=== PATIENT | male | born 1975 | race Two or more races ===

== ENCOUNTER 2019-12-21 08:03 | Outpatient (REF) | payer OTHER, SELFPAY | END 2019-12-21 08:04 | disposition home or self-care (01) | LOC: HO.MRI 08:03 | PROVIDERS: Visit Provider Internal Medicine | DX: M47.22 Other spondylosis with radiculopathy, cervical region (principal); G56.03 Carpal tunnel syndrome, bilateral upper limbs ==

== ENCOUNTER 2020-02-05 13:20 | Emergency (ER) | payer OTHER, SELFPAY | END 2020-02-05 15:42 | disposition left against medical advice (07) | PROVIDERS: Emergency Provider Emergency Medicine; PCP Internal Medicine | DX: R07.9 Chest pain, unspecified (principal); M79.602 Pain in left arm; M79.601 Pain in right arm | CPT/HCPCS: 99281; 99283 ==

== ENCOUNTER → 2020-03-21 13:11 | Outpatient (REF) | payer OTHER, SELFPAY ==
--- NOTE | 2020-03-21 14:00 | CA_ITS ---
Transthoracic Echocardiogram Patient (Last, First, Middle): Carlos Rice J Gender: Male Date of : 1975 Age: 44 Procedure Date: 03/21/2020 Procedure Type: Transthoracic Echocardiogram Location: OP Height: 177.8 cm Weight: 115.21 kg BSA: 2.31 m2 Heart Rate: bpm BP: 121 / 84 mmHg Supportability Engineer: DEWAYNE Referring MD: Shashank Monroy MD Heavy Equipment Field Mechanic: Contreras Morris MD Symptoms: R07.2 PRECARDIAL CHEST PAIN,R94.39 ABNORMAL MYOCARDIAL PERFU Study Quality: Fair ECG Rhythm: Sinus Conclusions: - 1. 1. Normal LV systolic function with grade 1 diastolic dysfunction with inferior wall motion abnormality 2. Normal cardiac valvular Doppler 3. Normal RV systolic pressure 4. No pericardial effusion Findings Left Ventricle Normal left ventricular size, thickness, and systolic function. The visually estimated ejection fraction is between 55-60%. Spectral Doppler is indicative of an impaired relaxation filling pattern. E/E prime ratio is <8, consistent with normal filling pressures. Evidence suggests grade I (mild) diastolic dysfunction. Wall Motion Rest Echo Findings The mid inferior and mid inferoseptal segments are hypokinetic. The basal inferior and basal inferoseptal segments are akinetic. All other scored wall segments showed normal motion. Right Ventricle Normal right ventricular cavity size and systolic function. Atria Both atria are normal in size. There is no evidence of interatrial shunt. Aortic Valve Normal aortic valve structure and function. There is no aortic valve stenosis. There is no aortic valve regurgitation. Mitral Valve Normal mitral valve structure and function. There is trace mitral valve regurgitation. There is no mitral valve stenosis. Pulmonic Valve The pulmonic valve was not well visualized. Tricuspid Valve Likely normal tricuspid valve structure and function. There is mild tricuspid valve regurgitation. The right ventricular systolic pressure is normal. The right ventricular systolic pressure is 19 mmHg. There is no evidence of pulmonary hypertension. Great Vessels All visible segments of the aorta are normal in size. The pulmonary artery was not well visualized. Venous The inferior vena cava is normal in size and collapses greater than 50% with inspiration. Pericardium/Pleural There is no evidence of pericardial effusion. Prior Study Comparison No significant change compared to prior study dated: 02/18/2019. Measurements 2D Linear Measurements IVSd: 1.08 0.6-0.9/0.6-1.0 cm LVIDd: 4.46 3.9-5.3/4.2-5.9 cm LVIDd Index: 1.93 2.4-3.2/2.2-3.1 cm/m2 LVIDs: 3.42 2.0-3.6 cm LVPWd: 1.14 0.7-1.1 cm Ao Root: 2.60 2.1-3.5 cm LA Diam: 3.10 2.7-3.8/3.0-4.0 cm LAIDs Index: 1.34 1.5-2.3 cm/m2 LV Mass: 217.74 67-162/88-224 g LV Mass Index: 94.26 43-95/49-115 g/m2 LVOT Diam: 2.10 3.0+(-)1.3 cm 2D Systolic Function EF 4C: 56.30 >55% EF 2C: 61.10 >55% EF BiP: 58.50 >55% Mitral Valve MV Pk E: 0.48 MV PK A: 0.68 MV Decel Time: 225.00 E/A: 0.70 E'Lateral: 12.20 E'Medial: 7.93 E/E' Med: 6.00 E/E' Lat: 3.90 PHT: 66.00 MVA PHT: 3.33 Decel Kidder: 2.11 Aortic Valve AoV Pk Derek: 1.28 AoV Pk Grad: 7.00 LVOT LVOT Pk Derek: 0.87 LVOT Mn Derek: 0.61 LVOT VTI: 0.14 LVOT Pk Grad: 3.00 LVOT Mn Grad: 2.00 LVOT Diam: 2.10 LVOT Area: 3.46 Diastolic Function MV Pk E: 0.48 MV Pk A: 0.68 E/A: 0.70 E'Medial: 7.93 E/E' Med: 6.00 E' Laterial: 12.20 E/E' Lat: 3.90 Tricuspid Valve TR Pk Derek: 1.98 TR Pk Grad: 16.00 RA Press: 3.00 RVSP: 19.00 Great Vessels Aorta Ao Root-2D: 2.60 2.0-3.7 cm Ao Asc: 2.80 2.1-3.4 cm Updated in Other Vendor System with Status of Final Contreras Alexandra MD electronically signed on 03/22/2020 12:20:11 PM with status of Final
--- NOTE | 2020-03-21 14:14 | US_ITS ---
EXAMINATION: US THYROID CLINICAL INFORMATION: Nontoxic goiter, unspecified. COMPARISON: None. TECHNIQUE: Linear transducer hui-scale and color Doppler examination with attention to the region of the thyroid. FINDINGS: SIZE: Measurements of the thyroid lobes and nodules are given in sagittal, anteroposterior and transverse dimensions respectively. Right Thyroid Lobe: 6.9 x 2.7 x 3.64 cm, volume 49.0 mL. Parenchyma: The gland echotexture is heterogeneous. Thyroid vascularity is normal. Left Thyroid Lobe: 6.8 x 3.4 x 2.9 cm, volume 46.3 mL. Parenchyma: The gland echotexture is heterogeneous. Thyroid vascularity is normal. Isthmus: 0.95 cm in maximum AP dimension. RIGHT THYROID LOBE: There are 3 nodules seen. 1. Location: Superior. Size: 1.5 x 1.4 x 1.6 cm. Nodule characteristics: Heterogeneous with smooth margins and no Doppler detectable vascular flow. 2. Location: Middle. Size: 4.1 x 3.3 x 2.8 cm. Nodule characteristics: Heterogeneous with smooth margins and no Doppler detectable vascular flow. 3. Location: Superior. Size: 0.83 x 0.53 x 0.80 cm. Nodule characteristics: Heterogeneously hypoechoic with smooth margins and no Doppler detectable vascular flow. ISTHMUS: No nodules. LEFT THYROID LOBE: There are 3 nodules seen. 1. Location: Middle. Size: 1.3 x 0.71 x 1.1 cm. Nodule characteristics: Heterogeneous with smooth margins and no Doppler detectable vascular flow. 2. Location: Middle. Size: 2.6 x 1.3 x 3.1 cm. Nodule characteristics: Heterogeneous with smooth margins and no Doppler detectable vascular flow. 3. Location: Middle. Size: 4.5 x 3.3 x 3.8 cm. Nodule characteristics: Heterogeneous with smooth margins and no Doppler detectable vascular flow. NODES: No lymphadenopathy is seen in the tissue surrounding the thyroid gland. US/US thyroid IMPRESSION: Heterogeneous thyroid parenchyma with normal vascularity. Prominent thyromegaly. Multiple bilateral thyroid nodules, the largest of which measures up to 4.5 cm within the mid left thyroid. The nodules appear heterogeneous with smooth margins and no Doppler detectable vascular flow. Various management parameters for solitary thyroid nodules are in the literature. According to the latest 2016 [place] [employer] guidelines, recommendations for thyroid nodules are as follows: Benign: Purely cystic nodules (no solid component). Estimated risk of malignancy < 1%. Recommendation: No biopsy or ultrasound follow up required. Very low suspicion: Spongiform or partially cystic nodules without any of the sonographic features described in low, intermediate or high suspicions patterns. Estimated risk of malignancy < 3%. Recommendation: Consider FNA at > 2 cm. Observation without FNA is also a reasonable option. Recommend repeat ultrasound in 24 months for nodules measuring greater than 1 cm. Nodule measuring less than 1 cm do not require ultrasound follow up. Low suspicion: Isoechoic or hyperechoic solid nodule, or partially cystic nodule with eccentric solid areas, without microcalcification, irregular margin or extrathyroidal extension, or taller than wide shape. Estimated risk of malignancy 5-10%. Recommendation: FNA at > 1.5 cm. Recommend repeat ultrasound in 12-24 months for nodules measuring less than 1.5 cm. Intermediate suspicion: Hypoechoic solid nodule with smooth margins without microcalcification, extrathyroidal extension, or taller than wide shape. Estimated risk of malignancy 10-20%. Recommendation: FNA at > 1 cm. Recommend repeat ultrasound in 12-24 months for nodules measuring less than 1 cm. High suspicion: Solid hypoechoic nodule or solid hypoechoic component of a partially cystic nodule with one or more of the following features: irregular margins (infiltrative, microlobulated), microcalcifications, taller than wide shape, rim calcifications with small extrusive soft tissue component, evidence of extrathyroidal extension. Estimated risk of malignancy > 70-90%. Recommendation: FNA at > 1 cm. Recommend repeat ultrasound in 6-12 months for nodules measuring less than 1 cm.
== END ==
LOC: HO.CARD 13:11
PROVIDERS: PCP Internal Medicine; Visit Provider Internal Medicine
DX: R07.2 Precordial pain (principal); R94.39 Abnormal result of other cardiovascular function study; E04.9 Nontoxic goiter, unspecified
CPT/HCPCS: 76536; 93306

== ENCOUNTER 2020-03-22 08:20 | Outpatient (REF) | payer OTHER, SELFPAY ==
[2020-03-22 11:47] LABS: Estimated Average Glucose 194 mg/dL; Hemoglobin A1c % 8.4 %
[2020-03-22 12:03] LABS: Creatinine Urine 128.45 mg/dL; Microalbum/Creatinine Ratio Ur 9.3 ug/mg cr
[2020-03-22 12:10] LABS: Alanine Aminotransferase 43 U/L (0-40); Anion Gap 16 (12-20); Aspartate Amino Transferase 34 U/L (5-37); Blood Urea Nitrogen 12 mg/dL (9-16); Calcium 9.4 mg/dL (8.4-10.2); Carbon Dioxide 24 mmol/L (22-29); Chloride 106 mmol/L (96-108); Cholesterol 155 mg/dL; Estimated Glomerular Filt Rate > 60; Glucose Fasting 172 mg/dL (60-99); HDL Cholesterol 33 mg/dL; LDL Cholesterol Calculated 47 mg/dl; Potassium 4.4 mmol/l (3.3-5.1); Sodium 142 mmol/L (135-145); Triglycerides 379 mg/dL
[2020-03-22 12:11] LABS: Free T4 (Free Thyroxine) 0.99 ng/dL (0.71-1.85); Thyroid Stimulating Hormone 0.46 uIU/mL (0.32-4.0)
[2020-03-23 11:27] LABS: Thyroid Peroxidase Antibodies <1 IU/mL (<9)
== END 2020-03-22 08:21 | disposition home or self-care (01) ==
LOC: HO.HMGCLDS 08:20
PROVIDERS: PCP Internal Medicine; Visit Provider Internal Medicine
DX: E11.65 Type 2 diabetes mellitus with hyperglycemia (principal); E11.42 Type 2 diabetes mellitus with diabetic polyneuropathy; E66.01 Morbid (severe) obesity due to excess calories; E78.1 Pure hyperglyceridemia; I10 Essential (primary) hypertension; E03.9 Hypothyroidism, unspecified; E04.9 Nontoxic goiter, unspecified
CPT/HCPCS: 36415; 80048; 80061; 82043; 83036; 84439; 84443; 84450; 84460; 86376

== ENCOUNTER → 2020-03-28 10:28 | Outpatient (BNVA) | payer OTHER, SELFPAY | PROVIDERS: PCP Internal Medicine; Visit Provider Anesthesiology | DX: M06.9 Rheumatoid arthritis, unspecified (principal); M79.7 Fibromyalgia; M50.30 Other cervical disc degeneration, unspecified cervical region; M47.812 Spondylosis without myelopathy or radiculopathy, cervical region; M48.02 Spinal stenosis, cervical region | CPT/HCPCS: 99202 ==

== ENCOUNTER → 2020-03-30 12:13 | Outpatient (BNVA) | payer OTHER, SELFPAY | PROVIDERS: PCP Internal Medicine; Visit Provider Internal Medicine | DX: Z01.810 Encounter for preprocedural cardiovascular examination (principal); E11.8 Type 2 diabetes mellitus with unspecified complications; I10 Essential (primary) hypertension; E78.5 Hyperlipidemia, unspecified; Z87.898 Personal history of other specified conditions | CPT/HCPCS: 93005; 99212 ==

== ENCOUNTER 2020-04-29 10:20 | Outpatient (REF) | payer OTHER, SELFPAY ==
[2020-04-29 11:10] LABS: MANUAL DIFF FLAG NO
[2020-04-29 11:17] LABS: Basophils Percent Auto 0.2 % (0-2); Eosinophils Absolute Auto 0.1 X10*3/uL (0.0-0.4); Eosinophils Percent Auto 1.5 % (0-4); Hematocrit 40.5 % (42-52); Hemoglobin 13.7 g/dl (14.0-18.0); Imm Gran Abs Auto 0.03 X10*3/uL (0.00-0.03); Imm Gran Pct Auto 0.6 % (0.0-0.4); Lymphocytes Absolute Auto 1.9 X10*3/uL (1.2-4.9); Lymphocytes Percent Auto 35.3 % (20-40); Mean Corpuscular HGB Conc 33.8 g/dl (31.0-36.0); Mean Corpuscular Hemoglobin 30.6 pg (27.0-33.0); Mean Corpuscular Volume 90.6 fL (80-98); Mean Platelet Volume 11.4 fL (9.4-12.4); Monocytes Absolute Auto 0.5 X10*3/uL (0.1-1.2); Monocytes Percent Auto 9.6 % (2-11); Neutrophils Absolute Auto 2.8 X10*3/uL (2.0-8.3); Neutrophils Percent Auto 52.8 % (45-73); Platelet Count 193 X10*3/uL (160-400); Red Blood Count 4.47 X10*6/uL (4.60-5.80); Red Cell Distribution Width 12.8 % (11.0-16.0); White Blood Count 5.3 X10*3/uL (4.8-10.8)
[2020-04-29 11:45] LABS: Anion Gap 15 (12-20); Blood Urea Nitrogen 14 mg/dL (9-16); Calcium 9.5 mg/dL (8.4-10.2); Carbon Dioxide 27 mmol/L (22-29); Chloride 103 mmol/L (96-108); Estimated Glomerular Filt Rate > 60; Glucose Random 197 mg/dL (60-115); Sodium 141 mmol/L (135-145)
== END 2020-04-29 10:21 | disposition home or self-care (01) ==
LOC: HO.LAB 10:20
PROVIDERS: PCP Internal Medicine; Visit Provider Neurological Surgery
DX: Z01.812 Encounter for preprocedural laboratory examination (principal)
CPT/HCPCS: 36415; 80048; 85025

== ENCOUNTER → 2020-05-02 09:14 | Outpatient (BNVA) | payer OTHER, SELFPAY | PROVIDERS: PCP Internal Medicine; Visit Provider Anesthesiology | DX: M06.9 Rheumatoid arthritis, unspecified (principal); M79.7 Fibromyalgia; M50.30 Other cervical disc degeneration, unspecified cervical region; M47.812 Spondylosis without myelopathy or radiculopathy, cervical region; M48.02 Spinal stenosis, cervical region | CPT/HCPCS: 99212 ==

== ENCOUNTER 2020-07-01 10:34 | Outpatient (REF) | payer OTHER, SELFPAY ==
--- NOTE | ~2020-07-01 | XR_ITS ---
EXAMINATION: XR knee LT 4V, XR knee RT 4V CLINICAL INFORMATION: Reason for Exam M25.50 - Pain in unspecified joint COMPARISON: None available at the time of this dictation. TECHNIQUE: Frontal lateral tunnel view and patella sunrise view both right and left knees FINDINGS: BONES: No fracture or dislocation is present. JOINTS: Narrowing of joint spaces and developed osteophytes from the edges of articular surfaces suggest degenerative osteoarthritis. SOFT TISSUE: Normal XR/XR knee RT 4V IMPRESSION: Very mild bilateral degenerative osteoarthritis involving primarily medial compartments. No joint effusions.
--- NOTE | ~2020-07-01 | XR_ITS ---
EXAMINATION: XR knee LT 4V, XR knee RT 4V CLINICAL INFORMATION: Reason for Exam M25.50 - Pain in unspecified joint COMPARISON: None available at the time of this dictation. TECHNIQUE: Frontal lateral tunnel view and patella sunrise view both right and left knees FINDINGS: BONES: No fracture or dislocation is present. JOINTS: Narrowing of joint spaces and developed osteophytes from the edges of articular surfaces suggest degenerative osteoarthritis. SOFT TISSUE: Normal XR/XR knee LT 4V IMPRESSION: Very mild bilateral degenerative osteoarthritis involving primarily medial compartments. No joint effusions.
[2020-07-01 11:41] LABS: MANUAL DIFF FLAG NO
[2020-07-01 11:51] LABS: Basophils Percent Auto 0.3 % (0-2); Eosinophils Absolute Auto 0.1 X10*3/uL (0.0-0.4); Eosinophils Percent Auto 1.7 % (0-4); Hematocrit 42.6 % (42-52); Hemoglobin 14.2 g/dl (14.0-18.0); Imm Gran Abs Auto 0.02 X10*3/uL (0.00-0.03); Imm Gran Pct Auto 0.6 % (0.0-0.4); Lymphocytes Absolute Auto 1.5 X10*3/uL (1.2-4.9); Lymphocytes Percent Auto 41.3 % (20-40); Mean Corpuscular HGB Conc 33.3 g/dl (31.0-36.0); Mean Corpuscular Hemoglobin 30.1 pg (27.0-33.0); Mean Corpuscular Volume 90.3 fL (80-98); Mean Platelet Volume 11.2 fL (9.4-12.4); Monocytes Absolute Auto 0.4 X10*3/uL (0.1-1.2); Monocytes Percent Auto 11.5 % (2-11); Neutrophils Absolute Auto 1.6 X10*3/uL (2.0-8.3); Neutrophils Percent Auto 44.6 % (45-73); Platelet Count 199 X10*3/uL (160-400); Red Blood Count 4.72 X10*6/uL (4.60-5.80); Red Cell Distribution Width 12.7 % (11.0-16.0); White Blood Count 3.6 X10*3/uL (4.8-10.8)
[2020-07-01 12:35] LABS: Alanine Aminotransferase 30 U/L (0-40); Albumin Level 4.5 g/dL (3.5-5.0); Alkaline Phosphatase 75 U/L (39-117); Anion Gap 15 (12-20); Aspartate Amino Transferase 24 U/L (5-37); Bilirubin Total 0.6 mg/dL (0.0-1.0); Blood Urea Nitrogen 14 mg/dL (9-16); C Reactive Protein 1.31 mg/dL (< or = 0.50); Calcium 9.8 mg/dL (8.4-10.2); Carbon Dioxide 24 mmol/L (22-29); Chloride 106 mmol/L (96-108); Cholesterol 140 mg/dL; Erythrocyte Sedimentation Rate 7 MM/HR (0-15); Estimated Glomerular Filt Rate > 60; Glucose Random 240 mg/dL (60-115); HDL Cholesterol 32 mg/dL; Potassium 4.3 mmol/L (3.3-5.1); Sodium 141 mmol/L (135-145); Total Protein 7.6 g/dL (6.5-8.0); Triglycerides 440 mg/dL
[2020-07-01 12:36] LABS: Thyroid Stimulating Hormone 0.35 uIU/mL (0.32-4.0)
[2020-07-01 12:47] LABS: Rheumatoid Factor < 15.0 IU/mL (<15.0)
[2020-07-01 12:50] LABS: Estimated Average Glucose 197 mg/dL; Hemoglobin A1c % 8.5 %
[2020-07-02 13:02] LABS: Anti Nuclear Antibody Screen NEGATIVE (NEGATIVE)
[2020-07-02 17:02] LABS: Lyme Abs Screen <0.90 index
[2020-07-04 08:12] LABS: HBsAGNum1 0.13 S/CO (0.00-0.99); Hepatitis B Surface Antigen Negative (Negative); ~HepC Num1 0.08 S/CO (0.00-0.79); ~Hepatitis C Antibody Nonreactive (Nonreactive)
[2020-07-04 08:51] LABS: HBS Num1 89.78 mIU/mL (0-7.99); HBc Num1 0.05 S/CO (0.00-0.79); Hepatitis B Core Antibody Nonreactive (Nonreactive); ~Hepatitis B Surface Antibody REACTIVE (Nonreactive)
[2020-07-04 15:41] LABS: Cyclic Citrullinated Peptide <16 UNITS
[2020-07-06 08:21] LABS: Hepatitis A Antibody IgM 0.11 Index (0-0.79); ~Hepatitis A Antibody IgM Nonreactive (Nonreactive)
[2020-07-06 20:57] LABS: Vitamin D 25-OH, D2 <4 ng/mL; Vitamin D 25-OH, D3 27 ng/mL; Vitamin D 25-OH, Total 27 ng/mL (30-100)
== END 2020-07-01 10:35 | disposition home or self-care (01) ==
LOC: HO.LAB 10:34
PROVIDERS: Absent Provider Internal Medicine; PCP Internal Medicine; Visit Provider Student in an Organized Health Care Education/Training Program
DX: M25.50 Pain in unspecified joint (principal); E11.42 Type 2 diabetes mellitus with diabetic polyneuropathy; E11.65 Type 2 diabetes mellitus with hyperglycemia; E78.1 Pure hyperglyceridemia; I10 Essential (primary) hypertension
CPT/HCPCS: 36415; 73564; 80053; 80061; 82306; 83036; 84443; 85025; 85652; 86038; 86039; 86140; 86200; 86431; 86617; 86618; 86704; 86706; 86709; 86803; 87340; 99202

== ENCOUNTER → 2020-07-19 14:53 | Outpatient (BNVA) | payer OTHER, SELFPAY | PROVIDERS: PCP Internal Medicine; Visit Provider Student in an Organized Health Care Education/Training Program | DX: M25.50 Pain in unspecified joint (principal) | CPT/HCPCS: 99212 ==

== ENCOUNTER 2020-07-20 07:20 | Outpatient (REF) | payer OTHER, SELFPAY ==
--- NOTE | ~2020-07-20 | XR_ITS ---
EXAMINATION: XR PELVIS XR LUMBAR SPINE CLINICAL INFORMATION: Pain. COMPARISON: Abdominal CT of 11/17/2018 TECHNIQUE: AP pelvis and 3-view lumbar spine. FINDINGS: AP film of the pelvis does not demonstrate any evidence of acute fracture or diastasis. There appears to be some sclerosis and possible narrowing of the right sacroiliac joint. There are regions of diminished density about the sacrum which may be related to overlying bowel gas, however, a low-density lesion cannot be excluded. There is partial lumbarization of S1 on the right. The hip joint spaces appear maintained. Three views of the lumbar spine demonstrate mild scoliosis convex left. No acute fracture identified. No spondylolysis or significant spondylolisthesis is appreciated. There is disc space narrowing with marginal spurring seen L4 through S1. There is partial lumbarization right side of S1 again evident. Pedicles are intact. No destructive bony lesion. XR/XR pelvis 1-2V IMPRESSION: No acute fracture or diastasis of the pelvis. Partial lumbarization of S1 on the right. 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 Mild scoliosis.
--- NOTE | ~2020-07-20 | XR_ITS ---
EXAMINATION: XR PELVIS XR LUMBAR SPINE CLINICAL INFORMATION: Pain. COMPARISON: Abdominal CT of 11/17/2018 TECHNIQUE: AP pelvis and 3-view lumbar spine. FINDINGS: AP film of the pelvis does not demonstrate any evidence of acute fracture or diastasis. There appears to be some sclerosis and possible narrowing of the right sacroiliac joint. There are regions of diminished density about the sacrum which may be related to overlying bowel gas, however, a low-density lesion cannot be excluded. There is partial lumbarization of S1 on the right. The hip joint spaces appear maintained. Three views of the lumbar spine demonstrate mild scoliosis convex left. No acute fracture identified. No spondylolysis or significant spondylolisthesis is appreciated. There is disc space narrowing with marginal spurring seen L4 through S1. There is partial lumbarization right side of S1 again evident. Pedicles are intact. No destructive bony lesion. XR/XR lumbar spine 2-3V IMPRESSION: No acute fracture or diastasis of the pelvis. Partial lumbarization of S1 on the right. 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 Mild scoliosis.
== END 2020-07-20 07:21 | disposition home or self-care (01) ==
LOC: HO.XRAY 07:20
PROVIDERS: Absent Provider Student in an Organized Health Care Education/Training Program; PCP Internal Medicine; Visit Provider Nurse Practitioner Gerontology
DX: E11.42 Type 2 diabetes mellitus with diabetic polyneuropathy (principal); E11.65 Type 2 diabetes mellitus with hyperglycemia; M25.50 Pain in unspecified joint; R10.9 Unspecified abdominal pain; K59.00 Constipation, unspecified; I10 Essential (primary) hypertension; E04.9 Nontoxic goiter, unspecified; E78.1 Pure hyperglyceridemia; E66.01 Morbid (severe) obesity due to excess calories; E78.5 Hyperlipidemia, unspecified; Z79.899 Other long term (current) drug therapy
CPT/HCPCS: 72100; 72170; 82947; 99212

== ENCOUNTER 2020-07-21 09:24 | Outpatient (REF) | payer OTHER, SELFPAY ==
[2020-07-22 11:32] LABS: Thyroglobulin Antibodies <1 IU/mL (< or = 1); Thyroid Peroxidase Antibodies <1 IU/mL (<9)
== END 2020-07-21 09:25 | disposition home or self-care (01) ==
LOC: HO.LAB 09:24
PROVIDERS: PCP Internal Medicine; Visit Provider Nurse Practitioner Gerontology
DX: E04.9 Nontoxic goiter, unspecified (principal)
CPT/HCPCS: 36415; 86376; 86800

== ENCOUNTER 2020-07-26 13:00 | Outpatient (RCR) | payer OTHER, SELFPAY ==
--- NOTE | 2020-07-14 09:54 | MHC.PT.EP ---
[facility] [place] Office [place] Office [place] Office [address] Zhang Armas [address] [phone] F: [phone] F: [phone] F: [phone] F: [phone] Physical Therapy Plan of Care Date of Evaluation: Date of Surgery: Diagnosis: B knee pain Assessment: 45 y/o male referred to PT with B knee pain. He reports he has whole body pain and has significant PMH for DM, HTN, ?RA (work up currently), GERD, fibromyalgia, spinal cord stimulator with removal, cervical disc replacement 04/2020, and chronic pain. 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 Examination shows decreased patella mobility B, decreased muscle length of B gastroc/HS/hip flexor, decreased hip/core strength, increased tibiofemoral joint line pain, and impaired gait pattern. Recommend PT 2x/week for 5 weeks to address impairments, implement HEP, and optimize functional mobility. Frequency and Duration: The patient will be seen 2x/week for 5 weeks Short Term Goals: 3 weeks 1. I with HEP 2. Pt will demonstrate normal patella mobility B Mcc Goals: 5 weeks 1. I with HEP and self management of sx 2. Pt will improve hip strength by one MMT grade to facilitate walking > 30 min with pain < 3/10 3. Pt will ascend.descend stairs in step through pattern with rail Treatment Plan: Modalities to reduce pain, spasms and effusion. Manual therapy to restore motion and function. Therapeutic exercise to improve strength and flexibility. Neuromuscular re-education for posture and balance. Therapeutic activities to return to functional activities of daily living. Electronically signed by: Yasemin Stubbs PT Please sign and return to therapist. Thank you for your referral.
--- NOTE | 2020-09-27 14:36 | MHC.PT.DC ---
[facility] [place] Office [place] Office [place] Office [address] Zhang Armas 140 [facility] [phone] F: [phone] F: [phone] F: [phone] F: [phone] Physical Therapy Discharge Report Diagnosis: B knee pain Date of Surgery: Date of Evaluation: 07/14/20 Date of Discharge: 09/27/20 Treatments to Date: 3 Cancellations to Date: 0 No Shows to Date: 0 Discharge Status: Visit Non-compliance Discharge Summary: Pt did not f/u with further visits and is d/c at this time. Electronically signed by: Yasemin Stubbs PT Please sign and return to therapist. Thank you for your referral.
== END 2020-09-27 14:37 | disposition home or self-care (01) ==
LOC: HO.PT 13:00
PROVIDERS: PCP Internal Medicine; Visit Provider Student in an Organized Health Care Education/Training Program
DX: M25.50 Pain in unspecified joint (principal)
CPT/HCPCS: 97110; 97140; 97161

== ENCOUNTER → 2020-08-02 14:18 | Outpatient (BNVA) | payer OTHER, SELFPAY | PROVIDERS: PCP Internal Medicine; Visit Provider Internal Medicine | DX: R07.2 Precordial pain (principal); E11.8 Type 2 diabetes mellitus with unspecified complications; I10 Essential (primary) hypertension; E78.5 Hyperlipidemia, unspecified; Z87.898 Personal history of other specified conditions | CPT/HCPCS: Q3014 ==

== ENCOUNTER 2020-08-03 09:59 | Outpatient (REF) | payer OTHER, SELFPAY ==
--- NOTE | ~2020-08-03 | US_ITS ---
EXAMINATION: US THYROID CLINICAL INFORMATION: Nontoxic goiter, unspecified. COMPARISON: Thyroid ultrasound 03/21/2020. TECHNIQUE: Linear transducer grayscale and color Doppler examination with attention to the region of the thyroid. FINDINGS: SIZE: Measurements of the thyroid lobes and nodules are given in sagittal, anteroposterior and transverse dimensions respectively. Right Thyroid Lobe: 7.9 x 3.8 x 4.2 cm, volume 65.9 mL. Previously 6.9 x 3.7 x 3.6 cm, volume 49.0 mL. Parenchyma: The gland echotexture is heterogeneous. Thyroid vascularity is normal. Left Thyroid Lobe: 6.4 x 3.6 x 4.3 cm, volume 51.8 mL. Previously 6.8 x 3.4 x 3.9 cm, volume 46.3 mL. Parenchyma: The gland echotexture is heterogeneous. Thyroid vascularity is normal. Isthmus: 1.0 cm in maximum AP dimension. Previously 1.0 cm. There are multiple nodules. Estimated total number of nodules greater than or equal to 1 cm: 4. 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 Location: Right upper pole. Size: 0.9 x 0.4 x 0.6 cm, volume 0.11 mL. Previously: 0.8 x 0.5 x 0.8 cm, volume of 0.16 mL. Nodule characteristics: Composition: Mixed cystic and solid (1). Echogenicity: Hyperechoic (1). Shape: Not taller than wide (0). Margins: Smooth (0). Echogenic Foci: None (0). ACR TI-RADS total points: 2 ACR TI-RADS category: 2 Significant change in size (>/= 20% in 2 dimensions and minimal increase of 2 mm or 50% or greater increase in volume): No Change in features: No Change in ACR TI-RADS risk category: No 2. Location: Right upper pole. Size: 1.5 x 0.9 x 1.3 cm, volume 0.92 mL. Previously: 1.5 x 1.4 x 1.6 cm, volume 1.4 mL. Nodule characteristics: Composition: Solid/almost completely solid (2). Echogenicity: Hyperechoic (1). Shape: Not taller than wide (0). Margins: Ill-defined (0). Echogenic Foci: None (0). ACR TI-RADS total points: 3 ACR TI-RADS category: 3 Significant change in size (>/= 20% in 2 dimensions and minimal increase of 2 mm or 50% or greater increase in volume): No Change in features: No Change in ACR TI-RADS risk category: No 3. Location: Right mid/lower pole. Size: 4.2 x 2.9 x 3.5 cm, volume 22.2 mL. Previously: 4.1 x 3.3 x 2.8 cm, volume 19.8 mL. Nodule characteristics: Composition: Solid/almost completely solid (2). Echogenicity: Hyperechoic (1). Shape: Not taller than wide (0). Margins: Lobulated (2). Echogenic Foci: None (0). ACR TI-RADS total points: 5 ACR TI-RADS category: 4 Significant change in size (>/= 20% in 2 dimensions and minimal increase of 2 mm or 50% or greater increase in volume): No Change in features: No Change in ACR TI-RADS risk category: No 4. Location: Left mid/lower pole. Size: 4.6 x 2.7 x 3.1 cm, volume 20.1 mL. Previously: 4.5 x 3.3 x 3.8 cm, volume 29.5 mL. Nodule characteristics: Composition: Solid/almost completely solid (2). Echogenicity: Hyperechoic (1). Shape: Not taller than wide (0). Margins: Lobulated (2). Echogenic Foci: None (0). ACR TI-RADS total points: 5 ACR TI-RADS category: 4 Significant change in size (>/= 20% in 2 dimensions and minimal increase of 2 mm or 50% or greater increase in volume): No Change in features: No Change in ACR TI-RADS risk category: No 5. Location: Left mid pole. Size: 2.3 x 1.6 x 2.5 cm, volume 4.8 mL. Previously: 2.6 x 1.3 x 3.1 cm, volume 5.5 mL. Nodule characteristics: Composition: Solid/almost completely solid (2). Echogenicity: Hyperechoic (1). Shape: Not taller than wide (0). Margins: Smooth (0). Echogenic Foci: None (0). ACR TI-RADS total points: 3 ACR TI-RADS category: 3 Significant change in size (>/= 20% in 2 dimensions and minimal increase of 2 mm or 50% or greater increase in volume): No Change in features: No Change in ACR TI-RADS risk category: No NODES: No lymphadenopathy is seen in the tissue surrounding the thyroid gland. US/US thyroid IMPRESSION: Enlarged heterogeneous thyroid gland with multiple bilateral nodules. No appreciable change compared to March 2020 exam. ACR TI-RADS RECOMMENDATION REFERENCE: Ultrasound-guided fine-needle aspiration, followup ultrasound, no further follow up. * TR1 (0 point) and TR 2 (2 points): No FNA or follow up * TR3 (3 points): FNA if more than or equal to 2.5 cm in maximum dimension, followup ultrasound in 1, 3 and 5 years if 1.5 to 2.4 cm in maximum dimension. * TR4 (4-6 points): FNA if more than or equal to 1.5 cm in maximum dimension, followup ultrasound in 1, 2, 3 and 5 years if 1 to 1.4 cm in maximum dimension. * TR5 (more than or equal to 7 points): FNA if more than or equal to 1 cm in maximum dimension, followup ultrasound every year for 5 years if 0.5 to 0.9 cm in maximum dimension. * TR3, TR4 or TR5 nodules that are below the size threshold for follow up receive no follow up.
== END 2020-08-03 10:00 | disposition home or self-care (01) ==
LOC: HO.US 09:59
PROVIDERS: PCP Internal Medicine; Visit Provider Nurse Practitioner Gerontology
DX: E04.9 Nontoxic goiter, unspecified (principal)
CPT/HCPCS: 76536

== ENCOUNTER → 2020-08-25 12:28 | Outpatient (BNVA) | payer OTHER, SELFPAY | PROVIDERS: PCP Internal Medicine; Visit Provider Internal Medicine | DX: E04.2 Nontoxic multinodular goiter (principal) | CPT/HCPCS: 99212 ==

== ENCOUNTER 2020-09-27 08:44 | Outpatient (REF) | payer OTHER, SELFPAY ==
[2020-09-27 10:12] LABS: Alanine Aminotransferase 35 U/L (0-40); Aspartate Amino Transferase 28 U/L (5-37)
== END 2020-09-27 08:45 | disposition home or self-care (01) ==
LOC: HO.LAB 08:44
PROVIDERS: PCP Internal Medicine; Visit Provider Internal Medicine
DX: Z13.89 Encounter for screening for other disorder (principal)
CPT/HCPCS: 36415; 84450; 84460

== ENCOUNTER → 2020-11-01 07:44 | Outpatient (BNVA) | payer OTHER, SELFPAY | PROVIDERS: PCP Internal Medicine; Visit Provider Nurse Practitioner Gerontology | DX: E11.42 Type 2 diabetes mellitus with diabetic polyneuropathy (principal); E11.65 Type 2 diabetes mellitus with hyperglycemia; E78.1 Pure hyperglyceridemia; I10 Essential (primary) hypertension; E78.5 Hyperlipidemia, unspecified; E66.09 Other obesity due to excess calories; Z68.34 Body mass index [BMI] 34.0-34.9, adult | CPT/HCPCS: 82947; 99212 ==

== ENCOUNTER 2020-11-10 09:32 | Outpatient (REF) | payer OTHER, SELFPAY ==
--- NOTE | 2020-11-10 10:59 | P.BOP_ITS ---
Brief Operative Note Date of Service: 11/10/20 Pre-op diagnosis: Multinodular Thyroid. Procedure: This is doctor Lida Quintanilla. This is an ultrasound-guided fine-needle aspiration report. Date of Examination: 11/10/2020 Indication: Multinodular Thyroid Porcedure: Procedure was explained to the patient. Alternatives, the risk and benefits were discussed. Written consent was obtained. A time-out was also obtained. After sterile preparation, fine-needle aspiration of a right upper pole 1.5 thyroid nodule was performed using direct ultrasound guidance to confirm accurate needle placement. Four aspirations were made using 27 gauge needles. Samples were submitted for cytology. 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 Our attention was then turned to a right mid pole 4.2 cm thyroid nodule. Fine- needle aspiration of this thyroid nodule was performed using direct ultrasound guidance to confirm accurate needle placement. Four aspirations were made using 27 gauge needles. Samples were submitted for cytology. 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 Our attention was then turned to a left mid pole 2.5 cm thyroid nodule. Fine- needle aspiration of this thyroid nodule was performed using direct ultrasound guidance to confirm accurate needle placement. Two aspirations were made using 27 gauge needles. An additional two aspirations were made using 25 guage needles. Samples were submitted for cytology. 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 Our attention was then turned to a left mid pole 4.6 cm thyroid nodule. Fine- needle aspiration of this thyroid nodule was performed using direct ultrasound guidance to confirm accurate needle placement. Four aspirations were made using 27 gauge needles. Samples were submitted for cytology. 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 The patient tolerated the procedure well. Aftercare instructions were provided. Impression: Uncomplicated fine needle aspiration biopsy of a right upper pole 1.5 cm, right mid pole 4.2, left mid pole 2.5 and left mid pole 4.6 cm thyroid nodules under ultrasound guidance. Surgeon: Lida Quintanilla, DO Was an Esthetic Dermatologist used for this Procedure?: No Estimated blood loss (mL): 0
== END 2020-11-10 09:33 | disposition home or self-care (01) ==
LOC: HO.US 09:32
PROVIDERS: PCP Internal Medicine; Visit Provider Internal Medicine
DX: E04.2 Nontoxic multinodular goiter (principal)
CPT/HCPCS: 10005; 10006; 88172; 88173; 88177

== ENCOUNTER 2020-11-23 07:23 | Outpatient (REF) | payer OTHER, SELFPAY ==
[2020-11-23 09:23] LABS: Albumin Level 4.4 g/dL (3.5-5.0); Calcium 9.9 mg/dL (8.4-10.2)
[2020-11-23 09:37] LABS: Free T4 (Free Thyroxine) 0.96 ng/dL (0.71-1.85); Thyroid Stimulating Hormone 0.62 uIU/mL (0.32-4.0); Vitamin D 25-OH Total 31.1 ng/mL (>30)
[2020-11-24 19:52] LABS: Triiodothyronine T3 Total 119 ng/dL (76-181)
[2020-11-25 12:12] LABS: Calcium (PTHI) 9.7 mg/dL (8.6-10.3); PTHI 33 pg/mL (14-64)
== END 2020-11-23 07:24 | disposition home or self-care (01) ==
LOC: HO.LAB 07:23
PROVIDERS: PCP Internal Medicine; Visit Provider Internal Medicine
DX: E04.2 Nontoxic multinodular goiter (principal); Z98.890 Other specified postprocedural states
CPT/HCPCS: 36415; 82040; 82306; 82310; 83970; 84439; 84443; 84480; 99212

== ENCOUNTER → 2020-11-29 08:25 | Outpatient (BNVA) | payer OTHER, SELFPAY | PROVIDERS: PCP Internal Medicine; Visit Provider Family Medicine Adult Medicine | DX: M47.22 Other spondylosis with radiculopathy, cervical region (principal); M96.1 Postlaminectomy syndrome, not elsewhere classified; M47.816 Spondylosis without myelopathy or radiculopathy, lumbar region | CPT/HCPCS: 99202 ==

== ENCOUNTER → 2020-12-13 13:26 | Outpatient (BNVA) | payer OTHER, SELFPAY | PROVIDERS: PCP Internal Medicine; Visit Provider Family Medicine Adult Medicine | DX: M47.22 Other spondylosis with radiculopathy, cervical region (principal); M96.1 Postlaminectomy syndrome, not elsewhere classified; M47.816 Spondylosis without myelopathy or radiculopathy, lumbar region | CPT/HCPCS: Q3014 ==

== ENCOUNTER 2021-01-30 06:57 | Outpatient (REF) | payer OTHER, SELFPAY ==
[2021-01-30 08:33] LABS: Alanine Aminotransferase 27 U/L (0-40); Aspartate Amino Transferase 23 U/L (5-37); Cholesterol 114 mg/dL; HDL Cholesterol 34 mg/dL; LDL Cholesterol Calculated 34 mg/dl; Triglycerides 231 mg/dL
== END 2021-01-30 06:58 | disposition home or self-care (01) ==
LOC: HO.LAB 06:57
PROVIDERS: PCP Internal Medicine; Visit Provider Internal Medicine
DX: E78.5 Hyperlipidemia, unspecified (principal)
CPT/HCPCS: 36415; 80061; 84450; 84460

== ENCOUNTER → 2021-02-09 08:25 | Outpatient (BNVA) | payer OTHER, SELFPAY | PROVIDERS: PCP Internal Medicine; Visit Provider Family Medicine Adult Medicine | DX: Z51.81 Encounter for therapeutic drug level monitoring (principal); M47.22 Other spondylosis with radiculopathy, cervical region; M96.1 Postlaminectomy syndrome, not elsewhere classified; M47.816 Spondylosis without myelopathy or radiculopathy, lumbar region | CPT/HCPCS: 99212 ==

== ENCOUNTER → 2021-03-08 08:00 | Outpatient (BNVA) | payer OTHER, SELFPAY | PROVIDERS: PCP Internal Medicine; Visit Provider Nurse Practitioner Gerontology | CPT/HCPCS: Q3014 ==

== ENCOUNTER 2021-03-13 08:11 | Outpatient (REF) | payer OTHER, SELFPAY ==
[2021-03-13 09:11] LABS: Estimated Average Glucose 148 mg/dL; Hemoglobin A1c % 6.8 %
== END 2021-03-13 08:12 | disposition home or self-care (01) ==
LOC: HO.LAB 08:11
PROVIDERS: PCP Internal Medicine; Visit Provider Nurse Practitioner Gerontology
DX: E11.42 Type 2 diabetes mellitus with diabetic polyneuropathy (principal)
CPT/HCPCS: 36415; 83036

== ENCOUNTER → 2021-04-06 08:27 | Outpatient (BNVA) | payer OTHER, SELFPAY | PROVIDERS: PCP Internal Medicine; Visit Provider Anesthesiology ==

== ENCOUNTER → 2021-04-20 13:04 | Outpatient (BNVA) | payer OTHER, SELFPAY | PROVIDERS: PCP Internal Medicine; Visit Provider Internal Medicine | DX: E04.2 Nontoxic multinodular goiter (principal); E55.9 Vitamin D deficiency, unspecified | CPT/HCPCS: 99212 ==

== ENCOUNTER → 2021-05-18 08:01 | Outpatient (BNVA) | payer OTHER, SELFPAY | PROVIDERS: PCP Internal Medicine; Visit Provider Anesthesiology | DX: Z51.81 Encounter for therapeutic drug level monitoring (principal); F11.20 Opioid dependence, uncomplicated; M96.1 Postlaminectomy syndrome, not elsewhere classified; M47.816 Spondylosis without myelopathy or radiculopathy, lumbar region | CPT/HCPCS: 99212 ==

== ENCOUNTER → 2021-06-12 08:15 | Outpatient (BNVA) | payer OTHER, SELFPAY | PROVIDERS: PCP Internal Medicine; Visit Provider Nurse Practitioner Gerontology | DX: E11.42 Type 2 diabetes mellitus with diabetic polyneuropathy (principal); E11.65 Type 2 diabetes mellitus with hyperglycemia; E78.1 Pure hyperglyceridemia; E78.5 Hyperlipidemia, unspecified; E66.09 Other obesity due to excess calories; I10 Essential (primary) hypertension; Z68.34 Body mass index [BMI] 34.0-34.9, adult | CPT/HCPCS: 82947; 83036; 99212 ==

== ENCOUNTER → 2021-07-17 08:06 | Outpatient (BNVA) | payer OTHER, SELFPAY | PROVIDERS: PCP Internal Medicine; Visit Provider Anesthesiology | DX: Z51.81 Encounter for therapeutic drug level monitoring (principal); F11.20 Opioid dependence, uncomplicated | CPT/HCPCS: 99211 ==

== ENCOUNTER → 2021-07-18 14:44 | Outpatient (BNVA) | payer OTHER, SELFPAY | PROVIDERS: PCP Internal Medicine; Referring Provider Internal Medicine; Visit Provider Internal Medicine | DX: R07.2 Precordial pain (principal); I45.2 Bifascicular block; I10 Essential (primary) hypertension; E78.5 Hyperlipidemia, unspecified; E11.8 Type 2 diabetes mellitus with unspecified complications; Z87.898 Personal history of other specified conditions | CPT/HCPCS: 93005; 99212 ==

== ENCOUNTER 2021-07-24 09:37 | Outpatient (REF) | payer OTHER, SELFPAY ==
[2021-07-24 10:46] LABS: Estimated Average Glucose 151 mg/dL; Hemoglobin A1c % 6.9 %
[2021-07-24 11:09] LABS: Alanine Aminotransferase 28 U/L (0-40); Albumin Level 4.3 g/dL (3.5-5.0); Alkaline Phosphatase 66 U/L (39-117); Anion Gap 15 (12-20); Aspartate Amino Transferase 20 U/L (5-37); Bilirubin Total 0.6 mg/dL (0.0-1.0); Blood Urea Nitrogen 18 mg/dL (9-16); Calcium 9.8 mg/dL (8.4-10.2); Carbon Dioxide 25 mmol/L (22-29); Chloride 105 mmol/L (96-108); Cholesterol 110 mg/dL; Estimated Glomerular Filt Rate > 60; Glucose Random 122 mg/dL (60-115); HDL Cholesterol 32 mg/dL; LDL Cholesterol Calculated 34 mg/dl; Phosphorus 3.5 mg/dL (2.7-4.5); Potassium 4.6 mmol/L (3.3-5.1); Sodium 140 mmol/L (135-145); Total Protein 7.4 g/dL (6.5-8.0); Triglycerides 222 mg/dL
[2021-07-24 11:26] LABS: Free T4 (Free Thyroxine) 1.16 ng/dL (0.71-1.85); Thyroid Stimulating Hormone 1.41 uIU/mL (0.32-4.0); Vitamin D 25-OH Total 29.5 ng/mL (>30)
[2021-07-24 12:50] LABS: Microalbum/Creatinine Ratio Ur 6.1 ug/mg cr
[2021-07-25 18:01] LABS: Calcium (PTHI) 9.6 mg/dL (8.6-10.3); PTHI 45 pg/mL (16-77)
== END 2021-07-24 09:38 | disposition home or self-care (01) ==
LOC: HO.LAB 09:37
PROVIDERS: Nurse Practitioner Gerontology; PCP Internal Medicine; Visit Provider Internal Medicine
DX: E55.9 Vitamin D deficiency, unspecified (principal); E04.2 Nontoxic multinodular goiter; E11.42 Type 2 diabetes mellitus with diabetic polyneuropathy
CPT/HCPCS: 36415; 80053; 80061; 82043; 82306; 83036; 83970; 84100; 84439; 84443

== ENCOUNTER → 2021-08-10 10:16 | Outpatient (BNVA) | payer OTHER, SELFPAY | PROVIDERS: PCP Internal Medicine; Visit Provider Internal Medicine | DX: E89.0 Postprocedural hypothyroidism (principal); E11.42 Type 2 diabetes mellitus with diabetic polyneuropathy; Z79.899 Other long term (current) drug therapy | CPT/HCPCS: Q3014 ==

== ENCOUNTER → 2021-08-14 09:29 | Outpatient (BNVA) | payer OTHER, SELFPAY | PROVIDERS: PCP Internal Medicine; Visit Provider Anesthesiology | DX: Z13.89 Encounter for screening for other disorder (principal) ==

== ENCOUNTER 2021-08-21 09:43 | Outpatient (REF) | payer OTHER, SELFPAY ==
[2021-08-21 11:03] LABS: Alanine Aminotransferase 29 U/L (0-40); Aspartate Amino Transferase 26 U/L (5-37); Cholesterol 119 mg/dL; HDL Cholesterol 33 mg/dL; LDL Cholesterol Calculated 44 mg/dl; Triglycerides 212 mg/dL
[2021-08-21 11:06] LABS: Alanine Aminotransferase 29 U/L (0-40); Albumin Level 4.4 g/dL (3.5-5.0); Alkaline Phosphatase 58 U/L (39-117); Anion Gap 10 (12-20); Aspartate Amino Transferase 26 U/L (5-37); Bilirubin Total 0.5 mg/dL (0.0-1.0); Blood Urea Nitrogen 16 mg/dL (9-16); Calcium 9.6 mg/dL (8.4-10.2); Carbon Dioxide 29 mmol/L (22-29); Chloride 105 mmol/L (96-108); Estimated Glomerular Filt Rate > 60; Glucose Fasting 100 mg/dL (60-99); Potassium 4.3 mmol/L (3.3-5.1); Sodium 140 mmol/L (135-145)
[2021-08-21 11:29] LABS: Thyroid Stimulating Hormone 0.21 uIU/mL (0.32-4.0)
== END 2021-08-21 09:44 | disposition home or self-care (01) ==
LOC: HO.LAB 09:43
PROVIDERS: Internal Medicine; Absent Provider Nurse Practitioner Gerontology; PCP Internal Medicine; Visit Provider Internal Medicine
DX: E11.42 Type 2 diabetes mellitus with diabetic polyneuropathy (principal); E78.5 Hyperlipidemia, unspecified; E04.2 Nontoxic multinodular goiter
CPT/HCPCS: 36415; 80053; 80061; 84376; 84439; 84443; 84450; 84460

== ENCOUNTER → 2021-09-01 08:18 | Outpatient (BNVA) | payer OTHER, SELFPAY | PROVIDERS: PCP Internal Medicine; Visit Provider Nurse Practitioner Gerontology | DX: E11.42 Type 2 diabetes mellitus with diabetic polyneuropathy (principal); I10 Essential (primary) hypertension; E78.1 Pure hyperglyceridemia; E78.5 Hyperlipidemia, unspecified; E66.09 Other obesity due to excess calories; Z68.34 Body mass index [BMI] 34.0-34.9, adult; Z79.84 Long term (current) use of oral hypoglycemic drugs | CPT/HCPCS: 82947; 99212; Q3014 ==

== ENCOUNTER → 2021-09-18 07:57 | Outpatient (BNVA) | payer OTHER, SELFPAY | PROVIDERS: PCP Internal Medicine; Visit Provider Anesthesiology | DX: M96.1 Postlaminectomy syndrome, not elsewhere classified (principal); M47.816 Spondylosis without myelopathy or radiculopathy, lumbar region; M47.22 Other spondylosis with radiculopathy, cervical region; Z79.891 Long term (current) use of opiate analgesic | CPT/HCPCS: 99212 ==

== ENCOUNTER 2021-11-14 06:59 | Outpatient (REF) | payer OTHER, SELFPAY ==
[2021-11-14 08:15] LABS: Free T4 (Free Thyroxine) 1.02 ng/dL (0.71-1.85); Thyroid Stimulating Hormone 3.61 uIU/mL (0.32-4.0)
== END 2021-11-14 07:00 | disposition home or self-care (01) ==
LOC: HO.LAB 06:59
PROVIDERS: PCP Internal Medicine; Visit Provider Internal Medicine
DX: E89.0 Postprocedural hypothyroidism (principal)
CPT/HCPCS: 36415; 84439; 84443

== ENCOUNTER → 2021-11-16 08:22 | Outpatient (BNVA) | payer OTHER, SELFPAY | PROVIDERS: PCP Internal Medicine; Visit Provider Anesthesiology | DX: Z51.81 Encounter for therapeutic drug level monitoring (principal); F11.20 Opioid dependence, uncomplicated; M96.1 Postlaminectomy syndrome, not elsewhere classified; M47.816 Spondylosis without myelopathy or radiculopathy, lumbar region; M47.22 Other spondylosis with radiculopathy, cervical region | CPT/HCPCS: 99212 ==

== ENCOUNTER → 2021-11-20 09:28 | Outpatient (BNVA) | payer OTHER, SELFPAY | PROVIDERS: PCP Internal Medicine; Visit Provider Internal Medicine | DX: E89.0 Postprocedural hypothyroidism (principal); E11.42 Type 2 diabetes mellitus with diabetic polyneuropathy | CPT/HCPCS: 99212 ==

== ENCOUNTER → 2021-12-05 09:40 | Outpatient (BNVA) | payer OTHER, SELFPAY | PROVIDERS: PCP Internal Medicine; Referring Provider Internal Medicine; Visit Provider Nurse Practitioner Family | DX: Z12.11 Encounter for screening for malignant neoplasm of colon (principal); K21.9 Gastro-esophageal reflux disease without esophagitis | CPT/HCPCS: 99202; 99212 ==

== ENCOUNTER → 2022-01-11 08:36 | Outpatient (BNVA) | payer OTHER, SELFPAY | PROVIDERS: PCP Internal Medicine; Visit Provider Anesthesiology | DX: Z51.81 Encounter for therapeutic drug level monitoring (principal); F11.20 Opioid dependence, uncomplicated; M96.1 Postlaminectomy syndrome, not elsewhere classified; M47.816 Spondylosis without myelopathy or radiculopathy, lumbar region | CPT/HCPCS: 99212 ==

== ENCOUNTER 2022-01-30 07:05 | Outpatient (REF) | payer OTHER, SELFPAY ==
[2022-01-30 11:58] LABS: Estimated Average Glucose 134 mg/dL; Hemoglobin A1c % 6.3 %
[2022-01-30 12:44] LABS: Creatinine Urine 136.16 mg/dL; Microalbum/Creatinine Ratio Ur 5.8 ug/mg cr
[2022-01-30 13:22] LABS: Alanine Aminotransferase 22 U/L (0-40); Anion Gap 13 (12-20); Aspartate Amino Transferase 19 U/L (5-37); Blood Urea Nitrogen 18 mg/dL (9-16); Calcium 9.7 mg/dL (8.4-10.2); Carbon Dioxide 28 mmol/L (22-29); Chloride 104 mmol/L (96-108); Cholesterol 132 mg/dL; Estimated Glomerular Filt Rate > 60; Free T4 (Free Thyroxine) 1.09 ng/dL (0.71-1.85); Glucose Fasting 100 mg/dL (60-99); HDL Cholesterol 39 mg/dL; LDL Cholesterol Calculated 55 mg/dl; Potassium 3.8 mmol/L (3.3-5.1); Sodium 141 mmol/L (135-145); Triglycerides 194 mg/dL; Vitamin D 25-OH Total 36.5 ng/mL (>30)
== END 2022-01-30 07:06 | disposition home or self-care (01) ==
LOC: HO.HMGCLDS 07:05
PROVIDERS: PCP Internal Medicine; Visit Provider Internal Medicine
DX: E11.42 Type 2 diabetes mellitus with diabetic polyneuropathy (principal); E66.01 Morbid (severe) obesity due to excess calories; E78.5 Hyperlipidemia, unspecified; E89.0 Postprocedural hypothyroidism; I10 Essential (primary) hypertension; E55.9 Vitamin D deficiency, unspecified
CPT/HCPCS: 36415; 80048; 80061; 82043; 82306; 83036; 84439; 84443; 84450; 84460

== ENCOUNTER → 2022-03-21 13:03 | Outpatient (BNVA) | payer OTHER, SELFPAY | PROVIDERS: PCP Internal Medicine; Visit Provider Anesthesiology | DX: Z13.89 Encounter for screening for other disorder (principal) ==

== ENCOUNTER → 2022-04-18 08:42 | Outpatient (BNVA) | payer OTHER, SELFPAY | PROVIDERS: PCP Internal Medicine; Visit Provider Anesthesiology | DX: Z51.81 Encounter for therapeutic drug level monitoring (principal); F11.20 Opioid dependence, uncomplicated; M96.1 Postlaminectomy syndrome, not elsewhere classified; M47.816 Spondylosis without myelopathy or radiculopathy, lumbar region | CPT/HCPCS: 99212 ==

== ENCOUNTER 2022-06-05 07:08 | Outpatient (REF) | payer OTHER, SELFPAY ==
[2022-06-05 12:20] LABS: Estimated Average Glucose 131 mg/dL; Hemoglobin A1c % 6.2 %
[2022-06-05 13:02] LABS: Alanine Aminotransferase 31 U/L (0-40); Anion Gap 12 (12-20); Aspartate Amino Transferase 28 U/L (5-37); Blood Urea Nitrogen 10 mg/dL (9-16); Calcium 9.4 mg/dL (8.4-10.2); Carbon Dioxide 33 mmol/L (22-29); Chloride 103 mmol/L (96-108); Cholesterol 126 mg/dL; Estimated Glomerular Filt Rate > 60; Glucose Fasting 87 mg/dL (60-99); HDL Cholesterol 37 mg/dL; LDL Cholesterol Calculated 45 mg/dl; Potassium 4.2 mmol/L (3.3-5.1); Sodium 144 mmol/L (135-145); Triglycerides 224 mg/dL
[2022-06-05 13:18] LABS: Free T4 (Free Thyroxine) 0.84 ng/dL (0.71-1.85); Thyroid Stimulating Hormone 10.62 uIU/mL (0.32-4.0)
[2022-06-05 13:24] LABS: Creatinine Urine 152.91 mg/dL; Microalbum/Creatinine Ratio Ur 7.1 ug/mg cr
== END 2022-06-05 07:09 | disposition home or self-care (01) ==
LOC: HO.HMGCLDS 07:08
PROVIDERS: PCP Internal Medicine; Visit Provider Internal Medicine
DX: E89.0 Postprocedural hypothyroidism (principal); E55.9 Vitamin D deficiency, unspecified; E11.42 Type 2 diabetes mellitus with diabetic polyneuropathy; I10 Essential (primary) hypertension
CPT/HCPCS: 36415; 80048; 80061; 82043; 83036; 84439; 84443; 84450; 84460

== ENCOUNTER → 2022-06-13 08:38 | Outpatient (BNVA) | payer OTHER, SELFPAY | PROVIDERS: PCP Internal Medicine; Visit Provider Anesthesiology | DX: Z51.81 Encounter for therapeutic drug level monitoring (principal); F11.20 Opioid dependence, uncomplicated | CPT/HCPCS: 99211 ==

== ENCOUNTER 2022-06-26 10:46 | Outpatient (REF) | payer OTHER, SELFPAY ==
[2022-06-28 19:53] LABS: TS Negative Control Passed; TS Panel A 0; TS Panel B 1; TS Positive Control Passed; TSpotTB Negative (Negative)
== END 2022-06-26 10:47 | disposition home or self-care (01) ==
LOC: HO.HMGCLDS 10:46
PROVIDERS: PCP Internal Medicine; Visit Provider Internal Medicine
DX: Z11.1 Encounter for screening for respiratory tuberculosis (principal)
CPT/HCPCS: 36415; 86481

== ENCOUNTER → 2022-07-11 11:39 | Outpatient (BNVA) | payer OTHER, SELFPAY | PROVIDERS: PCP Internal Medicine; Visit Provider Anesthesiology | DX: Z51.81 Encounter for therapeutic drug level monitoring (principal); F11.20 Opioid dependence, uncomplicated; M96.1 Postlaminectomy syndrome, not elsewhere classified; M47.816 Spondylosis without myelopathy or radiculopathy, lumbar region | CPT/HCPCS: 99212 ==

== ENCOUNTER → 2022-07-24 12:15 | Outpatient (BNVA) | payer OTHER, SELFPAY | PROVIDERS: PCP Internal Medicine; Referring Provider Internal Medicine; Visit Provider Internal Medicine | DX: I45.2 Bifascicular block (principal); I10 Essential (primary) hypertension; E11.9 Type 2 diabetes mellitus without complications; E78.5 Hyperlipidemia, unspecified; F14.21 Cocaine dependence, in remission; Z98.890 Other specified postprocedural states; Z79.4 Long term (current) use of insulin; Z79.899 Other long term (current) drug therapy | CPT/HCPCS: 93005; 99212 ==

== ENCOUNTER 2022-07-25 11:34 | Day surgery (SDC) | payer OTHER, SELFPAY ==
[2022-07-23 15:29] VITALS: BMI 34.4
--- NOTE | 2022-07-24 12:06 | HO.ANESPROP2 ---
Documented by User: Tatyana Lan NP 07/24/22 12:11 HPI - Anesthesia Eval Consult details Narrative: 47yo M for Upper Endoscopy and Colonoscopy Stable at PCP office visit 06/2022 Last cardiac office visit 07/2021 stable with yearly f/u, no specific tx for bifasicular block except follow EKGs. Routine f/u scheduled for 07/24/22 [facility] Active Problems Active Problems: All Active Problems (Updated 06/25/22 @ 14:43 by Ev Mosqueda MD) Mixed dyslipidemia (Acute) Postoperative hypothyroidism (Acute) Bifascicular block (Acute) Lumbar spondylosis (Acute) Failed back syndrome, cervical (Acute) Vitamin D deficiency (Acute) Type 2 diabetes mellitus with diabetic polyneuropathy, without long-term current use of insulin (Acute) Essential hypertension (Acute) Morbid obesity (Acute) Obesity due to excess calories (Acute) Polyarthralgia (Acute) Spondylosis of cervical joint without myelopathy (Acute) Fibromyalgia (Acute) Obstructive sleep apnea (Acute) Bilateral nephrolithiasis (Acute) Bilateral carpal tunnel syndrome (Acute) Cervical spondylosis with radiculopathy (Acute) GERD without esophagitis (Acute) Past Medical History Medical History (Updated 06/25/22 @ 14:43 by Ev Mosqueda MD) Bifascicular block Bilateral carpal tunnel syndrome Bilateral nephrolithiasis Cervical spondylosis with radiculopathy Essential hypertension Failed back syndrome, cervical Fibromyalgia GERD without esophagitis History of cocaine use Lumbar spondylosis Mixed dyslipidemia Morbid obesity Obesity due to excess calories Obstructive sleep apnea Opiate dependence Postoperative hypothyroidism Rheumatoid arthritis Spondylosis of cervical joint without myelopathy Type 2 diabetes mellitus with diabetic polyneuropathy, without long-term current use of insulin Vitamin D deficiency Family History Family History Father No problems noted. Mother Diabetes mellitus HTN (hypertension) Brother No problems noted. Sister No problems noted. Surgical History Surgical History Herniated disc History of carpal tunnel surgery History of spinal surgery Hx of cholecystectomy Hx of neck surgery Hx of thyroidectomy Social History Social History Household Members: Spouse and Children Housing: House Alcohol intake: never Patient Tobacco Use Status: Former Tobacco user Tobacco use type: Cigarette Years Smoked: 10 yrs e-Cigarette/Vaping Use: Never Used Second Hand Smoke Exposure: No Are you DNR?: No Advance Directives: No Advance Directives Information Provided: Yes Nutrition Risks: No Nutritional Risk service: No Current occupational status: disabled Cognitive needs: No Hearing needs: No Vision needs: Yes Meds Allergies Allergy/AdvReac Type Severity Reaction Status Date / Time No Known Allergies Allergy Verified 07/24/22 12:35 Home Medications Medication Instructions Recorded Confirmed Last Taken Type nitroglycerin 0.4 mg sublingual 0.4 mg sublingual ONCE PRN Chest 11/01/20 07/24/22 Unknown History tablet Pain sertraline 100 mg tablet 100 mg PO DAILY 02/06/22 07/24/22 07/25/22 History quetiapine 25 mg tablet 25 mg PO BEDTIME 07/24/22 07/24/22 Unknown History Exam Exam Date and Time: July 24, 2022 1206 Height,Weight and Vital Signs: Height 5 ft 10 in Weight 108.862 kg Pertinent Lab Results Pertinent Lab Results: Laboratory Tests 06/05/22 07:13 Sodium 144 Potassium 4.2 Chloride 103 Carbon Dioxide 33 H BUN 10 Creatinine 0.98 Assessment and Plan Assessment Anesthesia Assessment: Chart Reviewed Documented by User: Magdalene Almendarez MD 07/25/22 12:41 [facility] Past Medical History Medical History (Updated 06/25/22 @ 14:43 by Ev Mosqueda MD) Bifascicular block Bilateral carpal tunnel syndrome Bilateral nephrolithiasis Cervical spondylosis with radiculopathy Essential hypertension Failed back syndrome, cervical Fibromyalgia GERD without esophagitis History of cocaine use Lumbar spondylosis Mixed dyslipidemia Morbid obesity Obesity due to excess calories Obstructive sleep apnea Opiate dependence Postoperative hypothyroidism Rheumatoid arthritis Spondylosis of cervical joint without myelopathy Type 2 diabetes mellitus with diabetic polyneuropathy, without long-term current use of insulin Vitamin D deficiency Family History Family History Father No problems noted. Mother Diabetes mellitus HTN (hypertension) Brother No problems noted. Sister No problems noted. Family history of problems with anesthesia: No Surgical History Surgical History Herniated disc History of carpal tunnel surgery History of spinal surgery Hx of cholecystectomy Hx of neck surgery Hx of thyroidectomy History of Problems with Anesthesia: No Social History Social History Household Members: Spouse and Children Housing: House Alcohol intake: never Patient Tobacco Use Status: Former Tobacco user Tobacco use type: Cigarette Years Smoked: 10 yrs e-Cigarette/Vaping Use: Never Used Second Hand Smoke Exposure: No Are you DNR?: No Advance Directives: No Advance Directives Information Provided: Yes Nutrition Risks: No Nutritional Risk service: No Current occupational status: disabled Cognitive needs: No Hearing needs: No Vision needs: Yes Meds Allergies Allergy/AdvReac Type Severity Reaction Status Date / Time No Known Allergies Allergy Verified 07/24/22 12:35 Home Medications Medication Instructions Recorded Confirmed Last Taken Type nitroglycerin 0.4 mg sublingual 0.4 mg sublingual ONCE PRN Chest 11/01/20 07/24/22 Unknown History tablet Pain sertraline 100 mg tablet 100 mg PO DAILY 02/06/22 07/24/22 07/25/22 History quetiapine 25 mg tablet 25 mg PO BEDTIME 07/24/22 07/24/22 Unknown History Exam Airway Mallampati Class: II (caps throughout) TM Dist: >3cm Neck ROM: Full Heart: rrr Lungs: cta Assessment and Plan Final Anesthetic Review Family History of Problems with Anesthesia: No History of Problems with Anesthesia: No NPO: Yes ASA Class: III Final Preanesthetic Review: No Changes in Pt Med Stat, Meds/Allgs Chart Reviewed and Consent Obtained/Reviewed Patient Risk: Intermediate Procedure Risk: Intermediate Anesthetic Plan Anesthetic Plan: MAC: Disposition: Standard PACU
[2022-07-25 11:53] VITALS: BP 111/77; PULSE 78; RESP 18; TEMP 36.6; O2SAT 97
--- NOTE | 2022-07-25 12:11 | P.HPSUR_ITS ---
Pre-Procedural Eval Section A Date of Service: 07/25/22 Section B Chief Complaint: reflux disease,screening Details of Present Illness: dysphagia since thyroidectomy about a year ago Relevant Family History (Specify if Yes): No Relevant Social History: None Present Medications: see Short Stay Collaborative assessment Medical History: Significant History (Bifascicular block Bilateral carpal tunnel syndrome Bilateral nephrolithiasis Cervical spondylosis with radiculopathy Essential hypertension Failed back syndrome, cervical Fibromyalgia GERD without esophagitis History of cocaine use Lumbar spondylosis Mixed dyslipidemia Morbid obesity Obesity due to) History of Previous Operations: Relevant previous surgery/procedure and date(s) (Herniated disc History of carpal tunnel surgery History of spinal surgery Hx of cholecystectomy Hx of neck surgery Hx of thyroidectomy) Allergies: Allergies Allergy/AdvReac Type Severity Reaction Status Date / Time No Known Allergies Allergy Verified 07/24/22 12:35 Review of Systems Sugical H&P ROS: Negative: Constitution, Cardiovascular, Respiratory, Neurological, Psychiatric, Hem-Onc, Allergic/Immunologic, Gastrointestinal, Genitourinary, Musculoskeletal, Integumentary, Endocrine and Eyes /Ears/Nose/Throat Exam Surgical H&P Exam: Normal: HEENT, Normal: Heart, Normal: Lungs, Normal: Extremities, Normal: Abdomen, Normal: Skin and Normal: Neurological Plan Diagnosis/Plan: Unchanged I have reviewed the history and physical and performed a pertinent physical examination on my patient. No changes have occurred unless specified. Time Spent With Patient Time: Total time managing care of this patient today ____ minutes.
[2022-07-25] MEDS: Lactated Ringers 1,000 ML 100 ML IVCONT (12:34)
[2022-07-25 13:45] VITALS: BP 96/55; PULSE 77; RESP 16; TEMP 36.8; O2SAT 96
--- NOTE | 2022-07-25 13:46 | P.OP_ITS ---
Operative Note Operative Note Date of Service: 07/25/22 Narrative: Operative Information Procedure Description: EGD, Colonoscopy Indication: dysphagia, screening colonoscopy Anesthesia: MAC FLEXIBLE TRANSORAL UPPER GASTROINTESTINAL ENDOSCOPY AND COLONOSCOPY PROCEDURE NOTE UPPER ENDOSCOPY Consent: Indications for the procedure and potential complications of bleeding, perforation, reaction to medications and missed diagnosis were discussed with the patient and informed consent was obtained. Instrument: Olympus GIF H 190 J mid size upper endoscope Monitoring: Vital signs and clinical assessment, continuous EKG monitoring, Pulse oximetry, Carbon Dioxide monitoring and blood pressure monitoring were done throughout the procedure. Procedure: The patient was placed in the left lateral decubitis position and pre-procedure medications were administered and a bite block was placed. The endoscope was inserted into the mouth and advanced under direct vision to the third part of duodenum. A careful inspection was made as the upper endoscope was withdrawn including a retroflexed examination of the proximal stomach; Findings and interventions are described below. Findings: Larynx:normal Esophagus: GE junction at 40 cm, diaphragm hiatus at 40 cm, small isalnds of salmon pink tissue, bx taken to r/o barretts, bx taken from distal and proximal esophagus, balloon dilation to 20 mm at UES and LES Stomach: Patchy erythema. Biopsies were obtained. Grade 2 flap valve on retroflexed examination of the cardia. Duodenum: Normal bulb and descending duodenum, Intervention: Biopsies as noted above, balloon dilation COLONOSCOPY Instrument: Olympus variable stiffness pediatric scope 190L Colonoscopy Monitoring: Vital signs and clinical assessment, continuous EKG monitoring, Pulse oximetry, Carbon Dioxide monitoring and blood pressure monitoring were done throughout the procedure. Colon withdrawal time was 14 minutes. Procedure: The patient was placed in the left lateral decubitis position and pre-procedure medications were administered. After a digital rectal examination of the ano-rectum, the video colonoscope was inserted into the rectum and advanced through the colon to the cecum/TI. The colonoscope was slowly withdrawn in a retrograde panoramic fashion and the colon mucosa was carefully examined including a retroflexed view of the rectum. Findings and interventions are described below. Procedure Difficulty:easy Findings: Terminal Ileum-normal Cecum:normal Ascending Colon: normal Transverse Colon -normal Descending Colon: 8-10 mm sessile polyp removed with cold snare Sigmoid Colon:mild to moderate diverticulosis Rectum: Retroflexion with small internal hemorrhoids, grade I Anorectum - normal Colon preparation: [place] Bowel Preparation Scale Right colon; 2 Transverse colon: 2 Left colon; 1-2 (0 = Unprepared colon segment with mucosa not seen due to solid stool that cannot be cleared. 1 = Portion of mucosa of the colon segment seen, but other areas of the colon segment not well seen due to staining, residual stool and/or opaque liquid. 2 = Minor amount of residual staining, small fragments of stool and/or opaque liquid, but mucosa of colon segment seen well. 3 = Entire mucosa of colon segment seen well with no residual staining, small fragments of stool or opaque liquid) Impression and Post Procedure Diagnosis: Endoscopy Findings: gastritis possible barretts Colonoscopy Findings: polyp internal hemorrhoids diverticular disease Plan: Await Pathology results Repeat Colonoscopy in 5 years or earlier if clinically indicated High fiber diet leaflet avoid straining at stool, epsom salts and sitz bath, anusol supps or cream if dysphagia persists then modified ba swallow, r/o nerve damage from the thyroidectomy Above findings were reviewed with the patient and relevant handouts were provided if indicated.
[2022-07-25 14:00] VITALS: BP 101/53; PULSE 70; RESP 16; TEMP 36.8; O2SAT 99
[2022-07-25 14:05] LABS: Glucose, Whole Blood 118 mg/dL (60-115)
== END 2022-07-25 14:30 | disposition home or self-care (01) ==
PROVIDERS: PCP Internal Medicine; Visit Provider Internal Medicine Gastroenterology
PROC: (CPT 45385; principal; 2022-07-25 13:30)
DX: Z12.11 Encounter for screening for malignant neoplasm of colon (principal); D12.4 Benign neoplasm of descending colon; K57.30 Diverticulosis of large intestine without perforation or abscess without bleeding; K64.0 First degree hemorrhoids; R13.10 Dysphagia, unspecified; K21.9 Gastro-esophageal reflux disease without esophagitis; K29.50 Unspecified chronic gastritis without bleeding; K44.9 Diaphragmatic hernia without obstruction or gangrene; I45.2 Bifascicular block; I10 Essential (primary) hypertension; E78.2 Mixed hyperlipidemia; E11.42 Type 2 diabetes mellitus with diabetic polyneuropathy; E11.65 Type 2 diabetes mellitus with hyperglycemia; M06.9 Rheumatoid arthritis, unspecified; M79.7 Fibromyalgia; E89.0 Postprocedural hypothyroidism; F14.11 Cocaine abuse, in remission; E66.01 Morbid (severe) obesity due to excess calories; Z68.33 Body mass index [BMI] 33.0-33.9, adult; Z79.84 Long term (current) use of oral hypoglycemic drugs; Z79.899 Other long term (current) drug therapy; Z90.49 Acquired absence of other specified parts of digestive tract; F11.20 Opioid dependence, uncomplicated; Z87.891 Personal history of nicotine dependence
CPT/HCPCS: 45385; 43249; 43239; 82947; 88305; 88342; C1726

== ENCOUNTER → 2022-08-20 09:18 | Outpatient (BNVA) | payer OTHER, SELFPAY | PROVIDERS: PCP Internal Medicine; Visit Provider Nurse Practitioner Family | DX: K21.9 Gastro-esophageal reflux disease without esophagitis (principal); K29.50 Unspecified chronic gastritis without bleeding; D36.9 Benign neoplasm, unspecified site; Z98.890 Other specified postprocedural states | CPT/HCPCS: 99212 ==

== ENCOUNTER → 2022-09-10 11:12 | Outpatient (BNVA) | payer OTHER, SELFPAY | PROVIDERS: PCP Internal Medicine; Visit Provider Anesthesiology | DX: Z51.81 Encounter for therapeutic drug level monitoring (principal); F11.20 Opioid dependence, uncomplicated; M96.1 Postlaminectomy syndrome, not elsewhere classified; M47.816 Spondylosis without myelopathy or radiculopathy, lumbar region; M47.812 Spondylosis without myelopathy or radiculopathy, cervical region | CPT/HCPCS: 99212 ==

== ENCOUNTER 2022-11-06 05:59 | Outpatient (REF) | payer OTHER, SELFPAY ==
--- NOTE | ~2022-11-06 | FL_ITS ---
EXAMINATION: XR FLUOROSCOPY WITH IMAGES CLINICAL INFORMATION: Spondylosis without myelopathy or radiculopathy, cervical region. COMPARISON: None available. TECHNIQUE: Fluoroscopy Supervised By: Dr. Samuel Cantu. Fluoroscopy Time: 1.0 minute. Cumulative Dose: 6.62 mGy. DAP: 0.105 Gycm2. Images: 8. FINDINGS: Images demonstrate needle placement and contrast injection adjacent to the bilateral lateral lower cervical vertebral bodies. Postsurgical changes to the lower cervical spine. FL/FL guidance in treatment room IMPRESSION: Fluoroscopy guidance for pain management procedure
== END 2022-11-06 06:00 | disposition home or self-care (01) ==
LOC: CF 05:59
PROVIDERS: Visit Provider Anesthesiology
DX: M47.812 Spondylosis without myelopathy or radiculopathy, cervical region (principal); M96.1 Postlaminectomy syndrome, not elsewhere classified; M47.816 Spondylosis without myelopathy or radiculopathy, lumbar region
CPT/HCPCS: 64490; 64491

== ENCOUNTER 2022-11-06 09:07 | Outpatient (AMB) | payer OTHER, SELFPAY ==
--- NOTE | 2022-11-06 09:14 | MHC.OFFVIS ---
Intake Vital Signs 11/06/22 09:16 11/06/22 10:55 Height 5 ft 10 in 5 ft 10 in Weight 234 lb 234 lb BMI 33.6 33.6 BP 120/74 102/62 Blood Pressure Location Rt brachial Lt brachial Position Sitting Sitting Respiration 14 14 Pulse 75 77 Pulse Source Pulse Oximeter Pulse Oximeter Pulse Oximetry (%) 97 97 Oxygen Delivery Method Room Air Room Air Comment pre-op post-op Intake Visit Reasons: DX BILAT C4-C5-C6 MBB/LOCAL Intake Note: Allergies No Known Allergies Allergy (Verified 11/06/22 09:17) [facility] Medical History (Updated 09/10/22 @ 16:18 by Samuel Cantu MD) Bifascicular block Bilateral carpal tunnel syndrome Bilateral nephrolithiasis Cervical spondylosis with radiculopathy Essential hypertension Failed back syndrome, cervical Fibromyalgia GERD without esophagitis History of cocaine use Lumbar spondylosis Mixed dyslipidemia Morbid obesity Obesity due to excess calories Obstructive sleep apnea Opiate dependence Postoperative hypothyroidism Rheumatoid arthritis Spondylosis of cervical 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 Mother Diabetes mellitus HTN (hypertension) Brother No problems noted. Sister No problems noted. Social History Household Members: Spouse and Children Housing: House Alcohol intake: never Patient Tobacco Use Status: Former Tobacco user Tobacco use type: Cigarette Years Smoked: 10 yrs e-Cigarette/Vaping Use: Never Used Second Hand Smoke Exposure: No service: No Current occupational status: disabled Cognitive needs: No Hearing needs: No Vision needs: Yes Physical Exam Vital Signs: Last Vital Signs Pulse 77 11/06/22 10:55 Resp 14 11/06/22 10:55 BP 102/62 11/06/22 10:55 Pulse Ox 97 11/06/22 10:55 Oxygen Delivery Method Room Air 11/06/22 10:55 BMI result Body Mass Index 33.6 Assessment & Plan Assessment & Plan (1) Failed back syndrome, cervical: Code(s): M96.1 - Postlaminectomy syndrome, not elsewhere classified (2) Lumbar spondylosis: Code(s): M47.816 - Spondylosis without myelopathy or radiculopathy, lumbar region (3) Spondylosis of cervical region without myelopathy or radiculopathy: Code(s): M47.812 - Spondylosis without myelopathy or radiculopathy, cervical region Plan: BilateraC4-C5- C6 diagnostic medial branch block. ?Informed consent was explained to the patient. All questions were explained and answered.? The patient was taken inside the operating room where he was positioned prone on the operating table. Time-out was performed delineating correct site, side, the nature of the procedure, patient's allergy, preoperative antibiotic if needed.? All operating room staff was participating in OR time-out procedure. The back of the neck and upper back were prepped with ChloraPrep and draped with sterile towels.? Sterilely draped C-arm was brought over the operating field and sq picture of? C4-C5-C6 vertebrae were delineated on the screen.? Points of interest were delineated as lateral masses bilaterally of the vertebrae as above. The waste of each lateral mass was chosen as the target of the tip of the needles on AP view and lateral view was used as a safety view for the tips of the needles position.?? The projections of the point of interest to the skin were injected with the small amount of local anesthetic lidocaine 2% 1-1.5 cc.? After that 22 gauge 3and 1/2 inch? spinal needles were driven to the point of interest in tunnel vision fashion. After needles gently contacted the bone at the point of interests the needle was injected with small amount of the contrast. The injections did not demonstrate intravascular or intrathecal spread.. After that ropivacaine 0.5%-1cc. was injected into each location of the needles. ( total dose of Kenalog was 40 mgs).? Upon completion of the injections the needles were removed and sterile dressings were applied, the patient was a taken? outside of the operating room to recovery room where he recovered uneventfully. Plan Patient demonstrates responsible attitude toward chronic opioid therapy. He will be given the new prescription on tramadol 50 mg t.i.d. on 08/03/2022 He will be given medication with 1 refill. I will see him in 2 months. We agreed that as long as he is not asking me for escalation of the opioid medications I am going to continue his current dose however when he will ask me to escalate his medications we will returned to the neck injection discussion and spinal cord stimulator discussion. Sprint PNS discussed to treat his pain in the neck today. He appears to be interested in the injection, he will give us a call if he decides to go for the injection. I will schedule him for diagnostic C4-C5 C6 medial branch blocks in preparation for cervical sprint PNS His pill count is correct today and I will renew his medications which I do on 10/03/2022 with 1 refill. Next appointment for the pill count is in 2 months. Orders: Orders FL guidance in treatment room Today M47.812 - Spondylosis without myelopathy or radiculopathy, cervical region Coding Level of Care Code Procedure Only Diagnoses Failed back syndrome, cervical M96.1 Lumbar spondylosis M47.816 Spondylosis of cervical region without myelopathy or radiculopathy M47.812
[2022-11-06 09:16] VITALS: BP 120/74; PULSE 75; RESP 14; O2SAT 97; BMI 33.6
[2022-11-06 10:55] VITALS: BP 102/62; PULSE 77; RESP 14; O2SAT 97; BMI 33.6
== END 2022-11-06 10:27 | disposition home or self-care (01) ==
PROVIDERS: PCP Internal Medicine; Visit Provider Anesthesiology
DX: M47.812 Spondylosis without myelopathy or radiculopathy, cervical region (principal); M96.1 Postlaminectomy syndrome, not elsewhere classified
CPT/HCPCS: 64490; 64491

== ENCOUNTER 2022-11-07 09:06 | Outpatient (AMB) | payer OTHER, SELFPAY ==
--- NOTE | 2022-11-07 09:10 | A.OFFPC_ITS ---
Vital Signs 11/07/22 09:18 Height 5 ft 10 in Weight 241 lb BMI 34.6 BP 132/90 H Blood Pressure Location Rt brachial Position Sitting Pulse 76 Pulse Source Pulse Oximeter Pulse Oximetry (%) 98 Oxygen Delivery Method Room Air Intake Visit Reasons: PE Intake Note: Pt is here today for his PE Allergies No Known Allergies Allergy (Verified 11/07/22 09:24) Medication List - Last Reconciled 11/07/22 by Ev Mosqueda MD bupropion HCl 150 mg PO QAM dapagliflozin propanediol (Farxiga) 10 mg PO QAM dulaglutide (Trulicity) 1.5 mg (0.5 mL) subcut QWEEK glipizide 1/2 tab before breakfast and 1 tab before dinner PO 2 times a day; levothyroxine 150 mcg PO DAILY 3 months lisinopril 20 mg PO DAILY metformin 1,000 mg PO BID metoprolol succinate ER 25 mg PO QAM multivitamin (One Daily Multivitamin tablet) 1 tab PO QAM nitroglycerin 0.4 mg sublingual ONCE PRN omeprazole 20 mg PO QAM pioglitazone 30 mg PO DAILY pregabalin 150 mg PO BID 30 days quetiapine 25 mg PO BEDTIME rosuvastatin 5 mg PO QPM sertraline 100 mg PO DAILY tramadol 50 mg PO Q8H PRN 30 days Tobacco use date assessed: 11/07/22 Dental Screening Dental Screen Date: 11/07/22 Did you have a dental visit in the last 12 months?: Yes Did you have a dental problem in the last 6 months where you did not have access to dental care?: No Was dental information given to patient?: Patient has dentist HPI PE HPI Details 47-year-old male here today for his physical exam. He has Diabetes mellitus, currently on Trulicity, glipizide, metformin and pioglitazone, has acquired hypothyroidism currently on levothyroxine 150 mcg daily, has mixed dyslipidemia, taking rosuvastatin 5 mg daily, has hypertension currently on lisinopril 20 mg daily and metoprolol succinate ER 25 mg new morning, has cervical spondylosis with radiculopathy, and lumbar spondylosis, currently being followed by Dr. Cantu, and is currently being followed for his PTSD by Psychiatry at [facility], stable and controlled on present treatment. He gets yearly flu shots, up-to-date with his Tdap, but declines getting any COVID vaccinations. He also had his screening colonoscopy already done earlier this year with 1 polyp removed which was benign, repeat in 10 years, per Dr. Cunningham. He sees Dr. Simmons for his diabetes foot exam and goes to [facility] in [place] for his diabetes retinopathy screening [facility] Medical History Bifascicular block Bilateral carpal tunnel syndrome Bilateral nephrolithiasis Cervical spondylosis with radiculopathy Essential hypertension Failed back syndrome, cervical Fibromyalgia GERD without esophagitis History of cocaine use Lumbar spondylosis Mild CAD Mixed dyslipidemia Morbid obesity Obesity due to excess calories Obstructive sleep apnea Opiate dependence Postoperative hypothyroidism Rheumatoid arthritis Skin lesion of scalp Spondylosis of cervical joint without myelopathy Tubular adenoma Type 2 diabetes mellitus with diabetic polyneuropathy, without long-term current use of insulin Vitamin D deficiency Surgical History (Updated 11/07/22 @ 10:05 by Ev Mosqueda MD) Herniated disc History of carpal tunnel surgery History of esophagogastroduodenoscopy (EGD) History of spinal surgery Hx of cholecystectomy Hx of colonoscopy Hx of neck surgery Hx of thyroidectomy Family History Father No problems noted. Mother Diabetes mellitus HTN (hypertension) Brother No problems noted. Sister No problems noted. Social History Household Members: Spouse and Children Housing: House Alcohol intake: never Patient Tobacco Use Status: Former Tobacco user Tobacco use type: Cigarette Years Smoked: 10 yrs e-Cigarette/Vaping Use: Never Used Second Hand Smoke Exposure: No service: No Current occupational status: disabled Cognitive needs: No Hearing needs: No Vision needs: Yes Questionnaire PHQ-9 Over the last 2 weeks, how often have you been bothered by any of the following problems? 1. Little interest or pleasure in doing things: several days 2. Feeling down, depressed, or hopeless: several days 3. Trouble falling or staying asleep, or sleeping too much: several days 4. Feeling tired or having little energy: several days 5. Poor appetite or overeating: not at all 6. Feeling bad about yourself - or that you are a failure or have let yourself or your family down: not at all 7. Trouble concentrating on things, such as reading the newspaper or watching television: not at all 8. Moving or speaking so slowly that other people could have noticed. Or the opposite - being so fidgety or restless that you have been moving around a lot more than usual: not at all 9. Thoughts that you would be better off or of hurting yourself in some way: not at all Total score: 4 Depression Screening Interpretation: Positive (Sees abel Avila at [facility]) Depression Screening Follow-up: Existing condition and In treatment 71220 - PHQ-9 Billing: Yes Source: Developed by Drs. Saleem Matias, Indigo Ortega, Chris Beebe and colleagues, with an educational paige from [employer]. Thrive Questionnaire Date Thrive assessed: 06/14/22 AUDIT C Alcohol Use Questionnaire (AUDIT-C) 1. How often do you have a drink containing alcohol?: Never Total Score: 0 NORI-7 AMB Questionnaire NORI-7 Date NORI - 7 assessed: 06/14/22 Source: Developed by Drs. Saleem Matias, Indigo Ortega, Chris Beebe and colleagues, with an educational paige from [employer]. Review of Systems Const Reports body aches, Reports daytime sleepiness, Reports difficulty sleeping, Denies headache(s), Reports snoring and Reports stops breathing during sleep (Per ) Eyes Details: Goes to [facility] in [place] Denies change in vision ENT Denies dysphagia, Denies headache(s) and Denies hoarseness Card Denies chest pain, Denies irregular heart rhythm and Denies dyspnea Resp Denies cough, Denies dyspnea and Reports snoring GI Denies abdominal pain, Denies change in bowel habits, Denies dysphagia, Denies heartburn and Denies nausea Reports no additional complaints Musc Reports back pain (Sees Dr. Cantu) and Denies muscle cramps Skin/Breast Reports lesions ( lesion on scalp) and Denies rash Neuro Denies headache(s) Psych Reports as per HPI Endo Details: Goes to for his diabetes foot exam Denies cold intolerance, Denies heat intolerance, Denies polyphagia, Denies polydipsia and Denies polyuria Ryan/Lymph Denies easy bruising Aller/Immun Reports no additional complaints Physical exam (Primary Care) Vital Signs: Last Vital Signs Pulse 76 11/07/22 09:18 BP 132/90 H 11/07/22 09:18 Pulse Ox 98 11/07/22 09:18 Oxygen Delivery Method Room Air 11/07/22 09:18 BMI result Body Mass Index 34.6 Tobacco/Smoking Status: Tobacco use Status Tobacco use date assessed 11/07/22 11/07/22 09:24 Patient Tobacco Use Status Former Tobacco user 11/07/22 09:12 Tobacco use type Cigarette 11/07/22 09:12 e-Cigarette/Vaping Use Never Used 11/07/22 09:12 Depression Screening Interpretation: Positive (Christian Avila at [facility]) Depression Screening Follow-up: Existing condition and In treatment Thrive Assessment: Date of Thrive Assessment Date Thrive assessed 06/14/22 11/07/22 09:12 Const General: cooperative, comfortable and no acute distress Nutritional Appearance: obese Orientation/consciousness: patient oriented x3 HENMT Head: Yes normocephalic and Yes scalp lesion (Hyperpigmented slightly raised lesion on right parietal area) Ears: hearing grossly normal bilaterally, external ears normal, TM's normal bilaterally and EAC's normal General nose exam: Normal external nose present Face and sinus: Yes face symmetric Mouth: Normal oral and palatal mucosa present, oropharynx normal and moist mucous membranes Throat: Yes posterior oropharynx normal Eyes General: appearance normal, both eyes and all related structures Pupils: Equal, round and reactive pupils present EOM: EOMs intact bilaterally Neck Neck: Yes no lymphadenopathy and Yes tender (Posterior cervical triangle) Chest Chest palpation & inspection: normal inspection of the chest and normal palpation of entire chest wall Resp Effort & Inspection: normal respiratory effort and able to speak in complete sentences Auscultation: clear to auscultation bilaterally Cardio Rate: regular rate Rhythm: regular rhythm Heart sounds: S1 normal heart sound present and S2 normal heart sound present GI Inspection: Yes normal to inspection Palpation (GI): Soft to palpation, nontender and no masses Auscultation: normal bowel sounds Male General Exam: Yes normal external exam Back/Spine/Pelvis Cervical Spine: cervical muscular tenderness Thoracic/Lumbar Spine: thoracic and lumbar spine normal to inspection Skin General skin exam: no rashes or lesions noted Neuro General: patient oriented x3, gait normal, tone normal, moves all extremities, Normal light touch and pain sensation and no focal motor deficits Cranial nerves: Yes Equal, round and reactive pupils present Cognition (Neuro): normal cognition Gait exam (Neuro): Normal gait present Motor exam (neuro): 5/5 motor strength present throughout Extrem General: Yes full ROM, Yes no joint enlargement, Yes no clubbing, cyanosis or edema, Yes no calf tenderness and Yes normal gait Psych Appearance: grossly normal and well kempt Mental Status: mental status grossly normal Speech and movement: Normal speech and movement present Affect: normal affect Attitude: cooperative Results AMB Hemoglobin A1c AMB Hemoglobin A1c 6.5 % Last Edit by Aysha Correia CMA on 11/07/22 09:46 Results Reviewed Results Reviewed: Laboratory Last Values Hgb A1c (Clinic) 6.5 % (4.0-6.0) H 11/07/22 09:27 Assessment and Plan Assessment & Plan (1) Annual visit for general adult medical examination with abnormal findings: Code(s): Z00.01 - Encounter for general adult medical examination with abnormal findings Plan: Will check appropriate labs. Recommended dental visit every 6 months and regular eye exams, yearly, sees [facility] in [place]. Take adequate calcium in diet and vitamin-D 3 at 2000 IU per cap once a day, in addition to weight-bearing exercises to help maintain good muscle tone and weight control. Instructed to do self-testicular exam to check for any mass. D eclines getting any COVID vaccinations, gets yearly flu shots, up-to-date with his pneumonia vaccine and up-to-date with his Tdap. He also is up-to-date with his screening colonoscopy to be repeated again in 2032 (2) Type 2 diabetes mellitus with diabetic polyneuropathy, without long-term current use of insulin: Code(s): E11.42 - Type 2 diabetes mellitus with diabetic polyneuropathy Plan: hemoglobin A1c today is at 6.5%. Continued with current medications and continue to check fasting blood sugar at home, maintain log and bring to next appointment for review. Reinforced diabetic diet and regular exercise with patient. Counseled regarding importance of yearly diabetes retinopathy screening, goes to [facility] in [place]. Patient advised to inspect feet daily, for any signs of injury, callus or infection. Compliance with diet and regular exercise again stressed. Blood pressure goal is less than 130/80, goal LDL is less than 100 and goal hemoglobin A1c is less than 7% follow-up appointment made in-3--months, after fasting labs done. (3) Skin lesion of scalp: Code(s): L98.9 - Disorder of the skin and subcutaneous tissue, unspecified Plan: Referred to Dr. Don for further evaluation management (4) Obstructive sleep apnea: Code(s): G47.33 - Obstructive sleep apnea (adult) (pediatric) Plan: Referred to sleep clinic at [facility] for re-evaluation regarding his obstructive sleep apnea, previously had CPAP, lost it, still complaining excessive daytime sleepiness, snoring and has had witnessed apneic spells per (5) Mixed dyslipidemia: Code(s): E78.2 - Mixed hyperlipidemia Plan: Continue rosuvastatin 5 mg daily, adherence to low-cholesterol diet and regular exercise, at least 30 minutes 3 to 4 times a week. Advised patient to make healthy food choices, eat more fruits, vegetables, whole grains, wild caught fish and low-fat dairy. Limit amount of meat and fried or fatty food products, as well as processed foods and fast foods. (6) Postoperative hypothyroidism: Code(s): E89.0 - Postprocedural hypothyroidism Plan: Continue levothyroxine, ordered thyroid levels to be checked (7) Bifascicular block: Comment: Followed yearly by Dr. Monroy Code(s): I45.2 - Bifascicular block Plan: Followed by Dr. Monroy (8) Failed back syndrome, cervical: Code(s): M96.1 - Postlaminectomy syndrome, not elsewhere classified Plan: Followed by Dr. Cantu, recently had epidural steroid injections in his cervical spine yesterday, and is currently taking tramadol as needed for his pain control (9) Essential hypertension: Code(s): I10 - Essential (primary) hypertension Plan: Blood pressure at goal of less than 130/80. Continue with current medication. Reinforced importance of following a low sodium diet, getting regular exercise, and lowering stress levels. (10) Obesity due to excess calories: Code(s): E66.09 - Other obesity due to excess calories Qualifiers: Obesity classification: adult class 1 (BMI 30 - 34.9) Serious obesity comorbidity presence: with serious comorbidity Body mass index: BMI 34.0-34.9 Qualified Code(s): E66.09 - Other obesity due to excess calories; Z68.34 - Body mass index [BMI] 34.0-34.9, adult Orders: Orders AMB Hemoglobin A1c Today E11.42 - Type 2 diabetes mellitus with diabetic polyneuropathy Referrals Dermatology Referral L98.9 - Disorder of the skin and subcutaneous tissue, unspecified Sleep Medicine Referral G47.33 - Obstructive sleep apnea (adult) (pediatric) Medications: New blood sugar diagnostic (FreeStyle Test strips) check fasting glucose as directed once a day before meals 50 ea 8RF E11.42 - Type 2 diabetes mellitus with diabetic polyneuropathy Coding Level of Care Code Est Pt Prev Care 40-64y([id number]) Diagnoses Annual visit for general adult medical examination with abnormal findings Z00.01 Type 2 diabetes mellitus with diabetic polyneuropathy, without long-term current use of insulin E11.42 Skin lesion of scalp L98.9 Obstructive sleep apnea G47.33 Mixed dyslipidemia E78.2 Postoperative hypothyroidism E89.0 Bifascicular block I45.2 Failed back syndrome, cervical M96.1 Essential hypertension I10 Obesity due to excess calories E66.09; Z68.34 Obesity classification: adult class 1 (BMI 30 - 34.9) Serious obesity comorbidity presence: with serious comorbidity Body mass index: BMI 34.0-34.9
[2022-11-07 09:18] VITALS: BP 132/90; PULSE 76; O2SAT 98; BMI 34.6
== END 2022-11-07 10:00 | disposition home or self-care (01) ==
PROVIDERS: PCP Internal Medicine; Visit Provider Internal Medicine
DX: Z00.00 Encounter for general adult medical examination without abnormal findings (principal); E11.42 Type 2 diabetes mellitus with diabetic polyneuropathy; E66.09 Other obesity due to excess calories; Z68.34 Body mass index [BMI] 34.0-34.9, adult; I10 Essential (primary) hypertension; L98.9 Disorder of the skin and subcutaneous tissue, unspecified; G47.33 Obstructive sleep apnea (adult) (pediatric); E78.2 Mixed hyperlipidemia; E89.0 Postprocedural hypothyroidism; M96.1 Postlaminectomy syndrome, not elsewhere classified; I45.2 Bifascicular block
CPT/HCPCS: 83036; 99396

== ENCOUNTER 2022-11-08 09:12 | Outpatient (AMB) | payer OTHER, SELFPAY ==
--- NOTE | 2022-11-08 09:33 | A.OFFVIS_ITS ---
Intake Vital Signs 11/08/22 09:41 Height 5 ft 10 in Weight 239 lb BMI 34.3 BP 136/80 Blood Pressure Location Lt brachial Position Sitting Respiration 16 Pulse 83 Pulse Source Pulse Oximeter Pulse Oximetry (%) 97 Oxygen Delivery Method Room Air Intake Visit Reasons: DX B/L C4-C5-C6 MBB 11/06 & Med Count Intake Note: patient comes in for post-op and pill count. Allergies No Known Allergies Allergy (Verified 11/08/22 09:40) HPI HPI Comments History of Present Illness Details Carlos Rose is very pleasant 44 years old gentleman who presents in my office for the follow up after cervical MBB C4- C5- C6 which was performed 11/06/2022. manufacturing team leader TONI Mary Ann Milton who is certified certified court/medical interpreter was helping today with the conversation with the patient. The patient reports that first few hours after the injection he felt only minimal pain relieve, with the pain reduction after the procedure from 8/10 to 5/10 at the fifth hour only. however on the second day he reposrted very significant pain improvement, he reported that the neck mobility greatly increased and he stated that he did not feel his neck as good as it is now for a long period of time- years!. He reports his pain today 4/10 and mostly on account of lower back pain. We discussed this issue further. Because of massive, muscular shoulders the proper images for cervical RFA would be hard to obtain and therefore the risks of the procedure will be elevated. I told him that my personal choice for him would be Sprint PNS, I explained him mobility limitations for the first 60 days after the procedure. 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 We agreed that I will schedule him for the therapeutic cervical MBB once his pain in the neck will come back. Pill count today he suppose to have 69 pills , he presented with 84 pills. Excess appropriately reflect pain reduction.His new prescription of tramadol is due on 12/01/2022. Prior: ? He was referred to Dr. Mccain by [facility] and Dr. Mccain performed a surgery for him on 05/03/2020.? He was on telephone appointment with Dr. Mccain and Dr. Mccain suggested that some muscles a not healed that is why he continues to feel pain in his neck. ? He was subject of physical therapy which did not help. He reports pain in the neck bilateral shoulders bilateral arms anterior chest posterior back bilateral hips bilateral knees and bilateral feet. ? He was subject of MRI evaluation in [facility] and MRI dictated as below.? He never was under evaluation of vest maker.. [facility] Medical History Bifascicular block Bilateral carpal tunnel syndrome Bilateral nephrolithiasis Cervical spondylosis with radiculopathy Essential hypertension Failed back syndrome, cervical Fibromyalgia GERD without esophagitis History of cocaine use Lumbar spondylosis Mild CAD Mixed dyslipidemia Morbid obesity Obesity due to excess calories Obstructive sleep apnea Opiate dependence Postoperative hypothyroidism Rheumatoid arthritis Skin lesion of scalp Spondylosis of cervical joint without myelopathy Tubular adenoma Type 2 diabetes mellitus with diabetic polyneuropathy, without long-term current use of insulin Vitamin D deficiency Surgical History (Updated 11/07/22 @ 10:05 by Ev Mosqueda MD) Herniated disc History of carpal tunnel surgery History of esophagogastroduodenoscopy (EGD) History of spinal surgery Hx of cholecystectomy Hx of colonoscopy Hx of neck surgery Hx of thyroidectomy Family History Father No problems noted. Mother Diabetes mellitus HTN (hypertension) Brother No problems noted. Sister No problems noted. Social History Household Members: Spouse and Children Housing: House Alcohol intake: never Patient Tobacco Use Status: Former Tobacco user Tobacco use type: Cigarette Years Smoked: 10 yrs e-Cigarette/Vaping Use: Never Used Second Hand Smoke Exposure: No service: No Current occupational status: disabled Cognitive needs: No Hearing needs: No Vision needs: Yes Review of Systems Const All systems reviewed & are unremarkable except as noted in HPI and below Neuro Denies Abnormal speech present and Denies confusion Psych Denies confusion Physical Exam Vital Signs: Last Vital Signs Pulse 83 11/08/22 09:41 Resp 16 11/08/22 09:41 BP 136/80 11/08/22 09:41 Pulse Ox 97 11/08/22 09:41 Oxygen Delivery Method Room Air 11/08/22 09:41 BMI result Body Mass Index 34.3 Const General: No confusion Nutritional Appearance: well nourished Orientation/consciousness: No confusion HEENT Head: Yes normal to inspection, Yes normocephalic and Yes atraumatic Face and sinus: Yes normal facial exam Mouth: Normal oral and palatal mucosa present Throat: Yes posterior oropharynx normal, Yes tonsils normal and Yes uvula midline Eyes General: appearance normal, both eyes and all related structures Neck Neck: Yes normal visual inspection, Yes full ROM and Yes trachea midline Thyroid: Thyroid normal Resp Effort & Inspection: normal respiratory effort, able to speak in complete sentences, no tracheal deviation and symmetric chest movement Auscultation: clear to auscultation bilaterally Cardio Rate: regular rate Heart sounds: S1 normal heart sound present, S2 normal heart sound present, no gallops and no murmurs GI Inspection: Yes normal to inspection, No distended and Yes obesity Palpation (GI): Soft to palpation, not firm, nontender and No hepatosplenomegaly present Auscultation: normal bowel sounds Neuro General: No confusion Speech: No Abnormal speech present Results Reviewed Results Reviewed: Cervical spine MRI the vertebral bodies a normal in height and sagittal alignment. No significant marrow signal abnormalities demonstrated. There is diffuse mild loss of intervertebral disc height. The visualized posterior fossa structures are normal. The spinal cord is normal in caliber and grossly normal in signal although motion artifact limits assessment. The paraspinal and paravertebral soft tissues are normal. Diffusely enlarged heterogenous thyroid gland noted. C2-C3 minimal disc bulge with facet and uncovertebral joint osteophyte which causes mild left neural foraminal narrowing. There is no narrowing the spinal canal or right neural foramina. C3-C4 there is a disc osteophyte complex with right paracentral disc protrusion component causing mild spinal canal narrowing. There are facet and uncovertebral joint osteophytes causing mild bilateral neural foraminal narrowing. C4-C5 broad disc protrusion with facet and uncovertebral joint osteophytes causing mild spinal canal narrowing and moderate bilateral neural foraminal narrowing. C4-C5 broad disc protrusion with facet and uncovertebral joint osteophytes causing mild spinal canal narrowing and moderate bilateral neural foraminal narrowing. C5-C6 broad disc bulge with right paracentral protrusion causing mild canal narrowing in bilateral [id number] neural foraminal narrowing. C6-C7 disc bulge with endplate osteophytes superimposed inferiorly migrated left paracentral protrusion component which causes mild flattening and remodeling of ventral spinal cord but no clear compression or sign of signal abnormality. Mild to moderate left-sided spinal canal narrowing. Severe left neural kyara inal narrowing osteophytes cause moderate to severe right neural foraminal narrowing. C7-T1 broad disc bulge with facet including wound to vertebral joint osteophytes causing mild spinal canal narrowing there is moderate left and [id number] right neural foraminal narrowing. Assessment & Plan Assessment & Plan (1) Failed back syndrome, cervical: Code(s): M96.1 - Postlaminectomy syndrome, not elsewhere classified (2) Lumbar spondylosis: Code(s): M47.816 - Spondylosis without myelopathy or radiculopathy, lumbar region (3) Spondylosis of cervical region without myelopathy or radiculopathy: Code(s): M47.812 - Spondylosis without myelopathy or radiculopathy, cervical region Plan Patient demonstrates responsible attitude toward chronic opioid therapy. He will be given the new prescription on tramadol 50 mg t.i.d. on 12/01/22. He will be given medication with 1 refill. Sprint PNS discussed to treat his pain in the neck today. diagnostic C4-C5 C6 medial branch blocks resulted is very profound pain improvement although not immediatelly after the procedure. OIH might be to blame in discomfort in the soft tissue and skin after the injection, on day 2 after the procedure- good manjinder reduction and mobility of the neck improvement. Cannot commint for Sprint due to social circumstances as above. When pain will come back I will schedule him for the therapeutic MBB. Due to massive schoulder RFA is a poor option, high risk. Next appointment for the pill count is in 2 months or sooner if needed.. Medications: Changed From tramadol Do not feel till 10/03/2022 50 mg PO Q8H 30 days PRN 90 tabs 1RF pain To tramadol Do not feel till 12/01/22. 50 mg PO Q8H PRN 90 tabs 1RF pain 30 days Coding Level of Care Code Est Pt Level 4 (40123) Diagnoses Failed back syndrome, cervical M96.1 Lumbar spondylosis M47.816 Spondylosis of cervical region without myelopathy or radiculopathy M47.812
[2022-11-08 09:41] VITALS: BP 136/80; PULSE 83; RESP 16; O2SAT 97; BMI 34.3
== END 2022-11-08 10:06 | disposition home or self-care (01) ==
PROVIDERS: PCP Internal Medicine; Visit Provider Anesthesiology
DX: M96.1 Postlaminectomy syndrome, not elsewhere classified (principal); M47.816 Spondylosis without myelopathy or radiculopathy, lumbar region; M47.812 Spondylosis without myelopathy or radiculopathy, cervical region
CPT/HCPCS: 99214

== ENCOUNTER → 2022-11-08 09:12 | Outpatient (BNVA) | payer OTHER, SELFPAY | PROVIDERS: PCP Internal Medicine; Visit Provider Anesthesiology | DX: M96.1 Postlaminectomy syndrome, not elsewhere classified (principal); M47.816 Spondylosis without myelopathy or radiculopathy, lumbar region; M47.812 Spondylosis without myelopathy or radiculopathy, cervical region; Z79.891 Long term (current) use of opiate analgesic | CPT/HCPCS: 99212 ==

== ENCOUNTER 2023-01-03 09:22 | Outpatient (AMB) | payer OTHER, SELFPAY ==
--- NOTE | 2023-01-03 09:44 | A.OFFVIS_ITS ---
Intake Vital Signs 01/03/23 09:45 Height 5 ft 10 in Weight 240 lb BMI 34.4 BP 123/74 Blood Pressure Location Lt brachial Position Sitting Respiration 18 Pulse 80 Pulse Source Pulse Oximeter Pulse Oximetry (%) 96 Oxygen Delivery Method Room Air Intake Visit Reasons: PILL COUNT/CONFIRMED Intake Note: Patient comes in for pill count to Tramadol tablets. Allergies No Known Allergies Allergy (Verified 01/03/23 09:44) HPI HPI Comments History of Present Illness Details Carlos Rose is very pleasant 44 years old gentleman who presents in my office for the follow up and pain meds refill. He presented himself with 25 pills in his possession. She supposed to have 3 pills -this reflects a great help he received from cervical medial branch block I presume the condition is still better and he is not experiencing pain as severe as it was before. We agreed last time that he will let us know when the pain will become stronger and we will schedule him for therapeutic C4-C5 C6 medial branch block bilateral. He denies side effect of the opioid medications he denies constipation. Diagnostic cervical MBB C4- C5- C6 was performed 11/06/2022. The patient reports that first few hours after the injection he felt only minimal pain relieve, with the pain reduction after the procedure from 8/10 to 5/10 at the fifth hour only. however on the second day he reposrted very significant pain improvement, he reported that the neck mobility greatly increased and he stated that he did not feel his neck as good as it is now for a long period of time- years!. He reports his pain today 4/10 and mostly on account of lower back pain. Because of massive, muscular shoulders the proper images for cervical RFA would be hard to obtain and therefore the risks of the procedure will be elevated. I told him that my personal choice for him would be Sprint PNS, I explained him mobility limitations for the first 60 days after the procedure. 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 We agreed that I will schedule him for the therapeutic cervical MBB once his pain in the neck will come back. Prior: ? He was referred to Dr. Mccain by [facility] and Dr. Mccain performed a surgery for him on 05/03/2020.? He was on telephone appointment with Dr. Mccain and Dr. Mccain suggested that some muscles a not healed that is why he continues to feel pain in his neck. ? He was subject of physical therapy which did not help. He reports pain in the neck bilateral shoulders bilateral arms anterior chest posterior back bilateral hips bilateral knees and bilateral feet. ? He was subject of MRI evaluation in [facility] and MRI dictated as below.? 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 [facility] Medical History Mild CAD Skin lesion of scalp Tubular adenoma Mixed dyslipidemia Postoperative hypothyroidism Bifascicular block Lumbar spondylosis Failed back syndrome, cervical Vitamin D deficiency Obesity due to excess calories History of cocaine use Spondylosis of cervical joint without myelopathy Fibromyalgia Rheumatoid arthritis Obstructive sleep apnea Bilateral nephrolithiasis Bilateral carpal tunnel syndrome Opiate dependence Morbid obesity Cervical spondylosis with radiculopathy Type 2 diabetes mellitus with diabetic polyneuropathy, without long-term current use of insulin GERD without esophagitis Essential hypertension Surgical History (Updated 11/07/22 @ 10:05 by Ev Mosqueda MD) History of esophagogastroduodenoscopy (EGD) Hx of colonoscopy Hx of thyroidectomy Hx of neck surgery History of carpal tunnel surgery Hx of cholecystectomy History of spinal surgery Herniated disc Family History Father No problems noted. Mother Diabetes mellitus HTN (hypertension) Brother No problems noted. Sister No problems noted. Social History Household Members: Spouse and Children Housing: House Alcohol intake: never Patient Tobacco Use Status: Former Tobacco user Tobacco use type: Cigarette Years Smoked: 10 yrs e-Cigarette/Vaping Use: Never Used Second Hand Smoke Exposure: No service: No Current occupational status: disabled Cognitive needs: No Hearing needs: No Vision needs: Yes Review of Systems Const All systems reviewed & are unremarkable except as noted in HPI and below Neuro Denies Abnormal speech present and Denies confusion Psych Denies confusion Physical Exam Vital Signs: Last Vital Signs Pulse 80 01/03/23 09:45 Resp 18 01/03/23 09:45 BP 123/74 01/03/23 09:45 Pulse Ox 96 01/03/23 09:45 Oxygen Delivery Method Room Air 01/03/23 09:45 BMI result Body Mass Index 34.4 Const General: No confusion Nutritional Appearance: well nourished Orientation/consciousness: No confusion HEENT Head: Yes normal to inspection, Yes normocephalic and Yes atraumatic Face and sinus: Yes normal facial exam Mouth: Normal oral and palatal mucosa present Throat: Yes posterior oropharynx normal, Yes tonsils normal and Yes uvula midline Eyes General: appearance normal, both eyes and all related structures Neck Neck: Yes normal visual inspection, Yes full ROM and Yes trachea midline Thyroid: Thyroid normal Resp Effort & Inspection: normal respiratory effort, able to speak in complete sentences, no tracheal deviation and symmetric chest movement Auscultation: clear to auscultation bilaterally Cardio Rate: regular rate Heart sounds: S1 normal heart sound present, S2 normal heart sound present, no gallops and no murmurs GI Inspection: Yes normal to inspection, No distended and Yes obesity Palpation (GI): Soft to palpation, not firm, nontender and No hepatosplenomegaly present Auscultation: normal bowel sounds Neuro General: No confusion Speech: No Abnormal speech present Assessment & Plan Assessment & Plan (1) Failed back syndrome, cervical: Code(s): M96.1 - Postlaminectomy syndrome, not elsewhere classified (2) Lumbar spondylosis: Code(s): M47.816 - Spondylosis without myelopathy or radiculopathy, lumbar region (3) Spondylosis of cervical region without myelopathy or radiculopathy: Code(s): M47.812 - Spondylosis without myelopathy or radiculopathy, cervical region Plan Patient demonstrates responsible attitude toward chronic opioid therapy. He will be given the new prescription on tramadol 50 mg t.i.d. on 12/01/22. He was given the medication with 1 refill. He must have 1 more refill of the tramadol in his pharmacy. In any way he has excess of 25 medications pills in his possession. I am not rushing into refilling anything for him today. I will prescribe his tramadol next time as needed. Sprint PNS discussed to treat his pain in the neck last time common fortunately he has a sole breadwinner for the family cannot commit for Sprint 8 weeks of cervical immobility. diagnostic C4-C5 C6 medial branch blocks resulted is very profound pain improvement although not immediatelly after the procedure. When pain will come back I will schedule him for the therapeutic MBB. He will give me a call to schedule the procedure. Due to massive schoulder RFA is a poor option, high risk. Next appointment for the pill count is in 2 months or sooner if needed.. Coding Level of Care Code Est Pt Level 3 (31563) Diagnoses Failed back syndrome, cervical M96.1 Lumbar spondylosis M47.816 Spondylosis of cervical region without myelopathy or radiculopathy M47.812
[2023-01-03 09:45] VITALS: BP 123/74; PULSE 80; RESP 18; O2SAT 96; BMI 34.4
== END 2023-01-03 09:49 | disposition home or self-care (01) ==
PROVIDERS: PCP Internal Medicine; Visit Provider Anesthesiology
DX: M96.1 Postlaminectomy syndrome, not elsewhere classified (principal); M47.816 Spondylosis without myelopathy or radiculopathy, lumbar region; M47.812 Spondylosis without myelopathy or radiculopathy, cervical region
CPT/HCPCS: 99213

== ENCOUNTER → 2023-01-03 09:22 | Outpatient (BNVA) | payer OTHER, SELFPAY | PROVIDERS: PCP Internal Medicine; Visit Provider Anesthesiology | DX: Z51.81 Encounter for therapeutic drug level monitoring (principal); F11.20 Opioid dependence, uncomplicated; M96.1 Postlaminectomy syndrome, not elsewhere classified; M47.816 Spondylosis without myelopathy or radiculopathy, lumbar region; M47.812 Spondylosis without myelopathy or radiculopathy, cervical region | CPT/HCPCS: 99212 ==

== ENCOUNTER 2023-02-19 08:40 | Outpatient (AMB) | payer OTHER, SELFPAY ==
[2023-02-19 08:51] VITALS: BP 123/59; PULSE 83; BMI 34.5
--- NOTE | 2023-02-19 08:51 | MHC.OFFVIS ---
Intake Vital Signs 02/19/23 08:51 Height 5 ft 10 in Weight 240 lb 4.862 oz BMI 34.5 BP 123/59 L Blood Pressure Location Lt brachial Position Sitting Pulse 83 Intake Visit Reasons: 6 month fu Intake Note: Carlos presents in the office as a 6 month follow up. CC: He states that he is not having any concerns. 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 Patient can continue taking daily. Diagnosed with gastritis on endoscopy. Discussed with patient avoiding dietary triggers and late night snacking. Staying upright for minimal 3 hours after meals discussed with patient. Tubular adenoma Tubular adenoma without high-grade dysplasia or carcinoma found in descending colon. Patient will return for colonoscopy in 5 years, sooner if clinically necessary. Gastritis Diagnosed with gastritis on upper endoscopy. Patient reports no symptoms at this time. He was instructed to avoid dietary triggers. Continue omeprazole. Patient will call if he have symptoms while he is taking omeprazole so we can increase the dose Status post colonoscopy Patient denies any ill effects from the prep, anesthesia or procedure itself. Patient states that he is doing well. Colonoscopy will be repeated in 5 years. One tubular adenoma found in descending colon without high-grade dysplasia or carcinoma. I will see patient in 6 months, sooner on as needed basis. Patient is agreeable to this plan and verbalizes understanding of instructions. He was given the opportunity to ask questions and all questions answered. TODAY'S VISIT: Patient is here today for follow-up. Patient reports that he has been feeling better. Reports that his acid reflux has been controlled with omeprazole. Patient denies any dyspepsia, dysphagia or odynophagia. Reports that he has been moving his bowels well without any issues. Patient denies any melena, hematochezia, unintentional weight loss or ribbon like stools. Patient reports that he has been dealing with an anxiety and has been bingeing on lolipops. Sometimes he will go through 2 bags of lower lolipops in couple days. Patient reports that his blood sugars are up and down. He is aware that he should stay away from sweets. Otherwise patient reports that he has been feeling well denies any other GI concerning symptoms [facility] Medical History Mild CAD Skin lesion of scalp Tubular adenoma Mixed dyslipidemia Postoperative hypothyroidism Bifascicular block Lumbar spondylosis Failed back syndrome, cervical Vitamin D deficiency Obesity due to excess calories History of cocaine use Spondylosis of cervical joint without myelopathy Fibromyalgia Rheumatoid arthritis Obstructive sleep apnea Bilateral nephrolithiasis Bilateral carpal tunnel syndrome Opiate dependence Morbid obesity Cervical spondylosis with radiculopathy Type 2 diabetes mellitus with diabetic polyneuropathy, without long-term current use of insulin GERD without esophagitis Essential hypertension Surgical History History of esophagogastroduodenoscopy (EGD) Hx of colonoscopy Hx of thyroidectomy Hx of neck surgery History of carpal tunnel surgery Hx of cholecystectomy History of spinal surgery Herniated disc Family History Father No problems noted. Mother Diabetes mellitus HTN (hypertension) Brother No problems noted. Sister No problems noted. Social History Household Members: Spouse and Children Housing: House Alcohol intake: never Patient Tobacco Use Status: Former Tobacco user Tobacco use type: Cigarette Years Smoked: 10 yrs e-Cigarette/Vaping Use: Never Used Second Hand Smoke Exposure: No service: No Current occupational status: disabled Cognitive needs: No Hearing needs: No Vision needs: Yes Review of Systems Const Denies weight gain and Denies weight loss ENT Reports no additional complaints, Denies dysphagia and Denies odynophagia Card Reports no additional complaints Resp Reports no additional complaints GI Denies abdominal pain, Denies belching, Denies melena, Denies bloating, Denies change in bowel habits, Denies dysphagia, Denies excessive flatus, Denies dyspepsia, Denies heartburn, Denies diarrhea, Denies loose stools, Denies nausea, Denies odynophagia and Denies vomiting Reports no additional complaints Musc Reports no additional complaints Neuro Reports no additional complaints Psych Reports no additional complaints Endo Reports no additional complaints Physical Exam Vital Signs: Last Vital Signs Pulse 83 02/19/23 08:51 BP 123/59 L 02/19/23 08:51 BMI result Body Mass Index 34.5 Const General: healthy appearing, no acute distress and well developed Nutritional Appearance: obese Orientation/consciousness: patient oriented x3 HEENT Head: Yes normal to inspection, Yes normocephalic and Yes atraumatic Face and sinus: Yes normal facial exam Mouth: Normal oral and palatal mucosa present Throat: Yes posterior oropharynx normal, Yes tonsils normal and Yes uvula midline Eyes General: appearance normal, both eyes and all related structures Neck Neck: Yes normal visual inspection, Yes full ROM and Yes trachea midline Thyroid: Thyroid normal Resp Effort & Inspection: normal respiratory effort, able to speak in complete sentences, no tracheal deviation and symmetric chest movement Auscultation: clear to auscultation bilaterally Cardio Rate: regular rate GI Inspection: Yes normal to inspection, No distended and Yes obesity Palpation (GI): Soft to palpation, not firm, nontender and No hepatosplenomegaly present Auscultation: normal bowel sounds General: Yes no CVA tenderness Back/Spine/Pelvis Back: no CVA tenderness Skin General skin exam: elasticity normal, turgor normal and dry skin Neuro General: patient oriented x3 Psych Appearance: grossly normal Mental Status: mental status grossly normal Affect: normal affect Assessment & Plan Assessment & Plan (1) GERD without esophagitis: Code(s): K21.9 - Gastro-esophageal reflux disease without esophagitis (2) Gastritis: Code(s): K29.70 - Gastritis, unspecified, without bleeding Qualifiers: Gastritis type: superficial Chronicity: chronic Gastritis bleeding: without bleeding Qualified Code(s): K29.30 - Chronic superficial gastritis without bleeding Plan Continue omeprazole every morning half an hour before breakfast. Patient was also encouraged to avoid dietary triggers. Stay away from sugars. Patient was encouraged to avoid late night snacking. Staying upright for minimal 3 hours after last discussed with patient. I will see patient in 1 year, sooner on as needed basis. He is agreeable to this plan and verbalizes understanding of instructions. He was given the opportunity to ask questions and all questions answered. Thank you for allowing me to participate in his care Coding Level of Care Code Est Pt Level 3 (60707) Diagnoses GERD without esophagitis K21.9 Chronic superficial gastritis without bleeding K29.30 Gastritis type: superficial Chronicity: chronic Gastritis bleeding: without bleeding Time Spent (min) 25 Comment 15 minutes spent with patient and additional 10 minutes spent reviewing his records
== END 2023-02-19 09:15 | disposition home or self-care (01) ==
PROVIDERS: PCP Internal Medicine; Visit Provider Nurse Practitioner Family
DX: K21.9 Gastro-esophageal reflux disease without esophagitis (principal); K29.30 Chronic superficial gastritis without bleeding
CPT/HCPCS: 99213

== ENCOUNTER → 2023-02-19 08:40 | Outpatient (BNVA) | payer OTHER, SELFPAY | PROVIDERS: PCP Internal Medicine; Visit Provider Nurse Practitioner Family | DX: K21.9 Gastro-esophageal reflux disease without esophagitis (principal); K29.30 Chronic superficial gastritis without bleeding | CPT/HCPCS: 99212 ==

== ENCOUNTER 2023-02-28 08:53 | Outpatient (AMB) | payer OTHER, SELFPAY ==
--- NOTE | 2023-02-28 09:16 | MHC.OFFVIS ---
Intake Vital Signs 02/28/23 09:25 Height 5 ft 10 in Weight 241 lb 8 oz BMI 34.6 BP 122/74 Blood Pressure Location Lt brachial Position Sitting Respiration 16 Pulse 81 Pulse Source Pulse Oximeter Pulse Oximetry (%) 98 Oxygen Delivery Method Room Air Intake Visit Reasons: PILL COUNT/CONFIRMED Intake Note: Patient comes in for pill count to Tramadol 50 mg tablets. Allergies No Known Allergies Allergy (Verified 02/28/23 09:26) HPI HPI Comments History of Present Illness Details Carlos Rose is very pleasant 44 years old gentleman who presents in my office for the follow up and pain meds refill. He presented himself with 39 pills in his possession. She supposed to have 3 pills -this reflects a great help he received from cervical medial branch block I presume the condition is still better and he is not experiencing pain as severe as it was before. However today he requested my attention to be attracted to the coccydynia. He told me that his coccyx is very painful for many years. He did not address this issue before because the cervical pain was on the for ground for him. Now the cervical pain is better he wants me to perform ganglion impar injection. Possibility exist also to perform right sacroiliac joint injection give ganglion impar was not be working for him because he has some signs of sacroiliitis on the right. Please see the physical exam as below. He still continues to enjoy better pain relief status post diagnostic medial branch block bilateral C4-C5 C6. We agreed last time that he will let us know when the pain will become stronger and we will schedule him for therapeutic C4-C5 C6 medial branch block bilateral. He denies side effect of the opioid medications he denies constipation. Diagnostic cervical MBB C4- C5- C6 was performed 11/06/2022. The patient reports that first few hours after the injection he felt only minimal pain relieve, with the pain reduction after the procedure from 8/10 to 5/10 at the fifth hour only. however on the second day he reposrted very significant pain improvement, he reported that the neck mobility greatly increased and he stated that he did not feel his neck as good as it is now for a long period of time- years!. He reports his pain today 4/10 and mostly on account of lower back pain. Because of massive, muscular shoulders the proper images for cervical RFA would be hard to obtain and therefore the risks of the procedure will be elevated. I told him that my personal choice for him would be [employer] PNS, I explained him mobility limitations for the first 60 days after the procedure. 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 We agreed that I will schedule him for the therapeutic cervical MBB once his pain in the neck will come back. Prior: ? He was referred to Dr. Mccain by [facility] and Dr. Mccain performed a surgery for him on 05/03/2020.? He was on telephone appointment with Dr. Mccain and Dr. Mccain suggested that some muscles a not healed that is why he continues to feel pain in his neck. ? He was subject of physical therapy which did not help. He reports pain in the neck bilateral shoulders bilateral arms anterior chest posterior back bilateral hips bilateral knees and bilateral feet. ? He was subject of MRI evaluation in [facility] and MRI dictated as below.? 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 [facility] Medical History Mild CAD Skin lesion of scalp Tubular adenoma Mixed dyslipidemia Postoperative hypothyroidism Bifascicular block Lumbar spondylosis Failed back syndrome, cervical Vitamin D deficiency Obesity due to excess calories History of cocaine use Spondylosis of cervical joint without myelopathy Fibromyalgia Rheumatoid arthritis Obstructive sleep apnea Bilateral nephrolithiasis Bilateral carpal tunnel syndrome Opiate dependence Morbid obesity Cervical spondylosis with radiculopathy Type 2 diabetes mellitus with diabetic polyneuropathy, without long-term current use of insulin GERD without esophagitis Essential hypertension Surgical History History of esophagogastroduodenoscopy (EGD) Hx of colonoscopy Hx of thyroidectomy Hx of neck surgery History of carpal tunnel surgery Hx of cholecystectomy History of spinal surgery Herniated disc Family History Father No problems noted. Mother Diabetes mellitus HTN (hypertension) Brother No problems noted. Sister No problems noted. Social History Household Members: Spouse and Children Housing: House Alcohol intake: never Patient Tobacco Use Status: Former Tobacco user Tobacco use type: Cigarette Years Smoked: 10 yrs e-Cigarette/Vaping Use: Never Used Second Hand Smoke Exposure: No service: No Current occupational status: disabled Cognitive needs: No Hearing needs: No Vision needs: Yes Review of Systems Const All systems reviewed & are unremarkable except as noted in HPI and below Neuro Denies Abnormal speech present and Denies confusion Psych Denies confusion Physical Exam Vital Signs: Last Vital Signs Pulse 81 02/28/23 09:25 Resp 16 02/28/23 09:25 BP 122/74 02/28/23 09:25 Pulse Ox 98 02/28/23 09:25 Oxygen Delivery Method Room Air 02/28/23 09:25 BMI result Body Mass Index 34.6 Const General: No confusion Nutritional Appearance: well nourished Orientation/consciousness: No confusion HEENT Head: Yes normal to inspection, Yes normocephalic and Yes atraumatic Face and sinus: Yes normal facial exam Mouth: Normal oral and palatal mucosa present Throat: Yes posterior oropharynx normal, Yes tonsils normal and Yes uvula midline Eyes General: appearance normal, both eyes and all related structures Neck Neck: Yes normal visual inspection, Yes full ROM and Yes trachea midline Thyroid: Thyroid normal Resp Effort & Inspection: normal respiratory effort, able to speak in complete sentences, no tracheal deviation and symmetric chest movement Auscultation: clear to auscultation bilaterally Cardio Rate: regular rate Heart sounds: S1 normal heart sound present, S2 normal heart sound present, no gallops and no murmurs GI Inspection: Yes normal to inspection, No distended and Yes obesity Palpation (GI): Soft to palpation, not firm, nontender and No hepatosplenomegaly present Auscultation: normal bowel sounds Back/Spine/Pelvis Other: Tenderness on palpation in projection of the coccygeal spine. Bahman test is positive on the right. Gaenslen test is positive on the right. Pelvis compression test is positive on the right. Neuro General: No confusion Speech: No Abnormal speech present Assessment & Plan Assessment & Plan (1) Failed back syndrome, cervical: Code(s): M96.1 - Postlaminectomy syndrome, not elsewhere classified (2) Lumbar spondylosis: Code(s): M47.816 - Spondylosis without myelopathy or radiculopathy, lumbar region (3) Spondylosis of cervical region without myelopathy or radiculopathy: Code(s): M47.812 - Spondylosis without myelopathy or radiculopathy, cervical region (4) Coccydynia: Code(s): M53.3 - Sacrococcygeal disorders, not elsewhere classified (5) Sacroiliitis: Code(s): M46.1 - Sacroiliitis, not elsewhere classified (6) Sacroiliac joint dysfunction of right side: Code(s): M53.3 - Sacrococcygeal disorders, not elsewhere classified Plan Patient demonstrates responsible attitude toward chronic opioid therapy. He will be given the new prescription on tramadol 50 mg t.i.d. on 12/01/22. He was given the medication with 1 refill. He must have 1 more refill of the tramadol in his pharmacy. He has 39 pills in his possession today I will refill his medications 5 days later than he is due on 06 of March. Sprint PNS discussed to treat his pain in the neck last time common fortunately he has a sole breadwinner for the family cannot commit for Sprint 8 weeks of cervical immobility. diagnostic C4-C5 C6 medial branch blocks resulted is very profound pain improvement although not immediatelly after the procedure. When pain will come back I will schedule him for the therapeutic MBB. He reports that the pain relieve is still lasting after the diagnostic injection. However he complained today on coccydynia. On physical exam the was signs of coccydynia and signs of right sacroiliitis. I will schedule him for ganglion impar injection. If this will not be effective for his pain control in the coccyx I will perform diagnostic right sacroiliac joint injection. Medications: Refilled tramadol Partial Fill upon patient request. 50 mg PO Q8H 30 days PRN 90 tabs 1RF pain M47.812 - Spondylosis without myelopathy or radiculopathy, cervical region, M47.816 - Spondylosis without myelopathy or radiculopathy, lumbar region, M96.1 - Postlaminectomy syndrome, not elsewhere classified Patient Instructions: I here by testify that I spent 30 minutes in conversation with this patient is went as planning care and organizing this note. Coding Level of Care Code Est Pt Level 4 (13389) Diagnoses Failed back syndrome, cervical M96.1 Lumbar spondylosis M47.816 Spondylosis of cervical region without myelopathy or radiculopathy M47.812 Coccydynia M53.3 Sacroiliitis M46.1 Sacroiliac joint dysfunction of right side M53.3
[2023-02-28 09:25] VITALS: BP 122/74; PULSE 81; RESP 16; O2SAT 98; BMI 34.6
== END 2023-02-28 10:05 | disposition home or self-care (01) ==
PROVIDERS: PCP Internal Medicine; Visit Provider Anesthesiology
DX: M96.1 Postlaminectomy syndrome, not elsewhere classified (principal); M47.816 Spondylosis without myelopathy or radiculopathy, lumbar region; M47.812 Spondylosis without myelopathy or radiculopathy, cervical region; M53.3 Sacrococcygeal disorders, not elsewhere classified; M46.1 Sacroiliitis, not elsewhere classified
CPT/HCPCS: 99214

== ENCOUNTER → 2023-02-28 08:53 | Outpatient (BNVA) | payer OTHER, SELFPAY | PROVIDERS: PCP Internal Medicine; Visit Provider Anesthesiology | DX: Z51.81 Encounter for therapeutic drug level monitoring (principal); F11.20 Opioid dependence, uncomplicated; M96.1 Postlaminectomy syndrome, not elsewhere classified; M47.816 Spondylosis without myelopathy or radiculopathy, lumbar region; M47.812 Spondylosis without myelopathy or radiculopathy, cervical region; M53.3 Sacrococcygeal disorders, not elsewhere classified; M46.1 Sacroiliitis, not elsewhere classified | CPT/HCPCS: 99212 ==

== ENCOUNTER 2023-03-28 08:45 | Outpatient (AMB) | payer OTHER, SELFPAY ==
--- NOTE | 2023-03-28 08:50 | A.OFFVIS_ITS ---
Intake Vital Signs 03/28/23 09:05 Height 5 ft 10 in Weight 247 lb 4 oz BMI 35.5 BP 126/74 Blood Pressure Location Lt brachial Respiration 16 Pulse 87 Pulse Source Pulse Oximeter Pulse Oximetry (%) 96 Oxygen Delivery Method Room Air Intake Visit Reasons: PILL COUNT/no answer Intake Note: Patient comes in for pill count to Tramadol 50mg Tablets. Reports pain 10/10. Allergies No Known Allergies Allergy (Verified 03/28/23 09:06) HPI HPI Comments History of Present Illness Details Carlos Rose is very pleasant 44 years old gentleman who presents in my office for the follow up and pain meds refill. He today reports severe pain 10/10 in his lower back radiating into the right groin and going all the way down on the medial surface of the thigh medial surface of the leg and medial surface of the knee. He reports pain exacerbation with medial and lateral rotation of the right hip. We agreed that I will send him for x-ray of the right hip joint, I will evaluate this x-ray after he will come back on 27/09 to do the injection. Pill count today: He presented himself with 56 pills in his possession. His supposed to bring 42 pills with his possession. This demonstrates responsible attitude to were the opioid medications. He is scheduled for ganglion impar injection on April 06. He still continues to enjoy better pain relief status post diagnostic medial branch block bilateral C4-C5 C6. We agreed last time that he will let us know when the pain will become stronger and we will schedule him for therapeutic C4- C5 C6 medial branch block bilateral. He denies side effect of the opioid medications he denies constipation. Diagnostic cervical MBB C4- C5- C6 was performed 11/06/2022. The patient reports that first few hours after the injection he felt only minimal pain relieve, with the pain reduction after the procedure from 8/10 to 5/10 at the fifth hour only. however on the second day he reposrted very significant pain improvement, he reported that the neck mobility greatly increased and he stated that he did not feel his neck as good as it is now for a long period of time- years!. He reports his pain today 4/10 and mostly on account of lower back pain. Because of massive, muscular shoulders the proper images for cervical RFA would be hard to obtain and therefore the risks of the procedure will be elevated. I told him that my personal choice for him would be Sprint PNS, I explained him mobility limitations for the first 60 days after the procedure. 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 We agreed that I will schedule him for the therapeutic cervical MBB once his pain in the neck will come back. Prior: ? He was referred to Dr. Mccain by md a and Dr. Mccain performed a surgery for him on 05/03/2020.? He was on telephone appointment with Dr. Mccain and Dr. Mccain suggested that some muscles a not healed that is why he continues to feel pain in his neck. ? He was subject of physical therapy which did not help. He reports pain in the neck bilateral shoulders bilateral arms anterior chest posterior back bilateral hips bilateral knees and bilateral feet. ? He was subject of MRI evaluation in [facility] and MRI dictated as below.? 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 [facility] Medical History Mild CAD Skin lesion of scalp Tubular adenoma Mixed dyslipidemia Postoperative hypothyroidism Bifascicular block Lumbar spondylosis Failed back syndrome, cervical Vitamin D deficiency Obesity due to excess calories History of cocaine use Spondylosis of cervical joint without myelopathy Fibromyalgia Rheumatoid arthritis Obstructive sleep apnea Bilateral nephrolithiasis Bilateral carpal tunnel syndrome Opiate dependence Morbid obesity Cervical spondylosis with radiculopathy Type 2 diabetes mellitus with diabetic polyneuropathy, without long-term current use of insulin GERD without esophagitis Essential hypertension Surgical History History of esophagogastroduodenoscopy (EGD) Hx of colonoscopy Hx of thyroidectomy Hx of neck surgery History of carpal tunnel surgery Hx of cholecystectomy History of spinal surgery Herniated disc Family History Father No problems noted. Mother Diabetes mellitus HTN (hypertension) Brother No problems noted. Sister No problems noted. Social History Household Members: Spouse and Children Housing: House Alcohol intake: never Patient Tobacco Use Status: Former Tobacco user Tobacco use type: Cigarette Years Smoked: 10 yrs e-Cigarette/Vaping Use: Never Used Second Hand Smoke Exposure: No service: No Current occupational status: disabled Cognitive needs: No Hearing needs: No Vision needs: Yes Review of Systems Const All systems reviewed & are unremarkable except as noted in HPI and below Neuro Denies Abnormal speech present and Denies confusion Psych Denies confusion Physical Exam Vital Signs: Last Vital Signs Pulse 87 03/28/23 09:05 Resp 16 03/28/23 09:05 BP 126/74 03/28/23 09:05 Pulse Ox 96 03/28/23 09:05 Oxygen Delivery Method Room Air 03/28/23 09:05 BMI result Body Mass Index 35.5 Const General: No confusion Nutritional Appearance: well nourished Orientation/consciousness: No confusion HEENT Head: Yes normal to inspection, Yes normocephalic and Yes atraumatic Face and sinus: Yes normal facial exam Mouth: Normal oral and palatal mucosa present Throat: Yes posterior oropharynx normal, Yes tonsils normal and Yes uvula midline Eyes General: appearance normal, both eyes and all related structures Neck Neck: Yes normal visual inspection, Yes full ROM and Yes trachea midline Thyroid: Thyroid normal Resp Effort & Inspection: normal respiratory effort, able to speak in complete sentences, no tracheal deviation and symmetric chest movement Auscultation: clear to auscultation bilaterally Cardio Rate: regular rate Heart sounds: S1 normal heart sound present, S2 normal heart sound present, no gallops and no murmurs GI Inspection: Yes normal to inspection, No distended and Yes obesity Palpation (GI): Soft to palpation, not firm, nontender and No hepatosplenomegaly present Auscultation: normal bowel sounds Back/Spine/Pelvis Other: Tenderness on palpation in projection of the coccygeal spine. Bahman test is positive on the right. Gaenslen test is positive on the right. Pelvis compression test is positive on the right. Neuro General: No confusion Speech: No Abnormal speech present Extrem Other: Lateral and medial rotation of the right hip but not the left hip causes severe pain in the right groin. Assessment & Plan Assessment & Plan (1) Failed back syndrome, cervical: Code(s): M96.1 - Postlaminectomy syndrome, not elsewhere classified (2) Lumbar spondylosis: Code(s): M47.816 - Spondylosis without myelopathy or radiculopathy, lumbar region (3) Spondylosis of cervical region without myelopathy or radiculopathy: Code(s): M47.812 - Spondylosis without myelopathy or radiculopathy, cervical region (4) Coccydynia: Code(s): M53.3 - Sacrococcygeal disorders, not elsewhere classified (5) Sacroiliitis: Code(s): M46.1 - Sacroiliitis, not elsewhere classified (6) Sacroiliac joint dysfunction of right side: Code(s): M53.3 - Sacrococcygeal disorders, not elsewhere classified (7) Arthritis of right hip: Code(s): M16.11 - Unilateral primary osteoarthritis, right hip Plan Patient demonstrates responsible attitude toward chronic opioid therapy. He will be given the new prescription on tramadol 50 mg t.i.d. on 04/11/2023. He was given the medication with 1 refill. He still enjoys very good pain relief from diagnostic C4-C5 C6 medial branch block which was done long time ago. He is coccydynia we will attempt to treat with ganglion impar injection on 04/06/2023. I will send him for hip x-ray because of the complaints in the groin and hip as well as back pain as above. After evaluation of this x-ray I might offer him hip steroid injection. It should be 1 month apart from his ganglion impar injection. Orders: Orders XR hip RT min 2V Today M16.11 - Unilateral primary osteoarthritis, right hip Medications: Refilled tramadol Partial Fill upon patient request. 50 mg PO Q8H PRN 90 tabs 1RF pain 30 days M47.812 - Spondylosis without myelopathy or radiculopathy, cervical region, M47.816 - Spondylosis without myelopathy or radiculopathy, lumbar region, M96.1 - Postlaminectomy syndrome, not elsewhere classified Coding Level of Care Code Est Pt Level 4 (20392) Diagnoses Failed back syndrome, cervical M96.1 Lumbar spondylosis M47.816 Spondylosis of cervical region without myelopathy or radiculopathy M47.812 Coccydynia M53.3 Sacroiliitis M46.1 Sacroiliac joint dysfunction of right side M53.3 Arthritis of right hip M16.11
[2023-03-28 09:05] VITALS: BP 126/74; PULSE 87; RESP 16; O2SAT 96; BMI 35.5
== END 2023-03-28 09:19 | disposition home or self-care (01) ==
PROVIDERS: PCP Internal Medicine; Visit Provider Anesthesiology
DX: M96.1 Postlaminectomy syndrome, not elsewhere classified (principal); M47.816 Spondylosis without myelopathy or radiculopathy, lumbar region; M47.812 Spondylosis without myelopathy or radiculopathy, cervical region; Z79.891 Long term (current) use of opiate analgesic; M53.3 Sacrococcygeal disorders, not elsewhere classified; M16.11 Unilateral primary osteoarthritis, right hip; M46.1 Sacroiliitis, not elsewhere classified
CPT/HCPCS: 99214

== ENCOUNTER 2023-03-28 08:45 | Outpatient (REF) | payer OTHER, SELFPAY ==
--- NOTE | ~2023-03-28 | XR_ITS ---
EXAMINATION: XR HIP, RIGHT CLINICAL INFORMATION: Unilateral right primary osteoarthritis. COMPARISON: Pelvic radiographs dated 07/20/2020; CT abdomen and pelvis dated 11/17/2018. TECHNIQUE: AP and frog-leg lateral views of the right hip. FINDINGS: No fracture. Alignment is anatomic. Hip joint space is maintained. The right femoral head is smooth. Lateral to the right acetabular roof, a tiny accessory ossification center is noted. There are pelvic phleboliths. No foreign body is seen. XR/XR hip RT min 2V IMPRESSION: Unremarkable right hip.
== END 2023-03-28 08:46 | disposition home or self-care (01) ==
LOC: HO.XRAY 08:45
PROVIDERS: PCP Internal Medicine; Visit Provider Anesthesiology
DX: M16.11 Unilateral primary osteoarthritis, right hip (principal); M96.1 Postlaminectomy syndrome, not elsewhere classified; M47.812 Spondylosis without myelopathy or radiculopathy, cervical region; M47.816 Spondylosis without myelopathy or radiculopathy, lumbar region; M53.3 Sacrococcygeal disorders, not elsewhere classified; M46.1 Sacroiliitis, not elsewhere classified
CPT/HCPCS: 73502; 99212

== ENCOUNTER 2023-04-02 06:08 | Outpatient (REF) | payer OTHER, SELFPAY ==
--- NOTE | ~2023-04-02 | FL_ITS ---
EXAMINATION: XR FLUOROSCOPY WITH IMAGES CLINICAL INFORMATION: Sacrococcygeal disorders, not elsewhere classified. COMPARISON: None available. TECHNIQUE: Fluoroscopy Supervised By: Karena Amaro APRN. Fluoroscopy Time: 0.2 minutes. Cumulative Dose: 3.69 mGy. DAP: 0.0362 mGym2. Images: 2. FINDINGS: A needle is present overlying the lower sacrum/coccyx area. Contrast is seen injected most likely in the epidural space. FL/FL guidance in treatment room IMPRESSION: Fluoroscopy and spot films provided during sacrococcygeal injection.
== END 2023-04-02 06:09 | disposition home or self-care (01) ==
LOC: CF 06:08
PROVIDERS: Visit Provider Anesthesiology
DX: M53.3 Sacrococcygeal disorders, not elsewhere classified (principal); M46.1 Sacroiliitis, not elsewhere classified; M96.1 Postlaminectomy syndrome, not elsewhere classified; M47.816 Spondylosis without myelopathy or radiculopathy, lumbar region; M16.11 Unilateral primary osteoarthritis, right hip
CPT/HCPCS: 64999; 76000; J2795; J3301; Q9967

== ENCOUNTER 2023-04-02 07:07 | Outpatient (AMB) | payer OTHER, SELFPAY ==
[2023-04-02 07:19] VITALS: BP 114/68; PULSE 77; RESP 18; O2SAT 98; BMI 35.4
--- NOTE | 2023-04-02 07:19 | A.OFFVIS_ITS ---
Intake Vital Signs 04/02/23 07:19 04/02/23 08:20 Height 5 ft 10 in 5 ft 10 in Weight 247 lb 247 lb BMI 35.4 35.4 BP 114/68 108/70 Blood Pressure Location Lt brachial Lt brachial Position Sitting Sitting Respiration 18 18 Pulse 77 77 Pulse Source Pulse Oximeter Pulse Oximeter Pulse Oximetry (%) 98 98 Oxygen Delivery Method Room Air Room Air Comment Pre-Op post-op Intake Visit Reasons: GANGLION IMPAR INJECTION Allergies No Known Allergies Allergy (Verified 03/28/23 09:06) [facility] Medical History Mild CAD Skin lesion of scalp Tubular adenoma Mixed dyslipidemia Postoperative hypothyroidism Bifascicular block Lumbar spondylosis Failed back syndrome, cervical Vitamin D deficiency Obesity due to excess calories History of cocaine use Spondylosis of cervical joint without myelopathy Fibromyalgia Rheumatoid arthritis Obstructive sleep apnea Bilateral nephrolithiasis Bilateral carpal tunnel syndrome Opiate dependence Morbid obesity Cervical spondylosis with radiculopathy Type 2 diabetes mellitus with diabetic polyneuropathy, without long-term current use of insulin GERD without esophagitis Essential hypertension Surgical History History of esophagogastroduodenoscopy (EGD) Hx of colonoscopy Hx of thyroidectomy Hx of neck surgery History of carpal tunnel surgery Hx of cholecystectomy History of spinal surgery Herniated disc Family History Father No problems noted. Mother Diabetes mellitus HTN (hypertension) Brother No problems noted. Sister No problems noted. Social History Household Members: Spouse and Children Housing: House Alcohol intake: never Patient Tobacco Use Status: Former Tobacco user Tobacco use type: Cigarette Years Smoked: 10 yrs e-Cigarette/Vaping Use: Never Used Second Hand Smoke Exposure: No service: No Current occupational status: disabled Cognitive needs: No Hearing needs: No Vision needs: Yes Physical Exam Vital Signs: Last Vital Signs Pulse 77 04/02/23 08:20 Resp 18 04/02/23 08:20 BP 108/70 04/02/23 08:20 Pulse Ox 98 04/02/23 08:20 Oxygen Delivery Method Room Air 04/02/23 08:20 BMI result Body Mass Index 35.4 Assessment & Plan Assessment & Plan (1) Failed back syndrome, cervical: Code(s): M96.1 - Postlaminectomy syndrome, not elsewhere classified (2) Lumbar spondylosis: Code(s): M47.816 - Spondylosis without myelopathy or radiculopathy, lumbar region (3) Spondylosis of cervical region without myelopathy or radiculopathy: Code(s): M47.812 - Spondylosis without myelopathy or radiculopathy, cervical region (4) Coccydynia: Code(s): M53.3 - Sacrococcygeal disorders, not elsewhere classified (5) Sacroiliitis: Code(s): M46.1 - Sacroiliitis, not elsewhere classified (6) Sacroiliac joint dysfunction of right side: Code(s): M53.3 - Sacrococcygeal disorders, not elsewhere classified (7) Arthritis of right hip: Code(s): M16.11 - Unilateral primary osteoarthritis, right hip Plan ganglion impar steroid injection. Informed consent was explained to the patient. All questions were explained and answered. The patient was taken inside the operating room. The patient was positioned prone on operating table . Time-out was performed delineating correct site, side, the nature of the procedure, patient's allergy, preoperative antibiotic if needed. All operating room staff was participating in OR time-out procedure. C-arm was brought over the operating field and picture of the patient's lower pelvis was demonstrated on the screen. coccygeal spine was delineated on the screen. intervertebral disc between coccyceal vertebrae 2 and 3 was chosen as the site of the needle insertion. The skin in the projection of the target was injected with local anesthetic lidocaine 2% 2 mls and after that 22 g 3&1/2 inch needle was inserted through the skin wheal and advanced to the disc on AP view in the strict midline fashion. After that the C-arm was switched to the lateral position and the needle was continued to slowly advance through the intervertebral disc on the lateral view 1 mm at a time. When the tip of the needle on the lateral view cleard 1 mm from the anterior surface of the coccygeal spine silhouette the injection of the contrast was performed demonstrating retropelvic spread of the contrast and no intravesicular, no intra rectal and no intravascular spread of the contrast. After that treatment medicine solusion was injected containing ropivacaine 0.5% 5 mls and kenalog 40 mg. After that the needle was removed and sterile dressing with bacitracin was applied.The patient tolerated procedure well. Orders: Orders FL guidance in treatment room Today M53.3 - Sacrococcygeal disorders, not elsewhere classified Coding Level of Care Code Procedure Only Diagnoses Failed back syndrome, cervical M96.1 Lumbar spondylosis M47.816 Spondylosis of cervical region without myelopathy or radiculopathy M47.812 Coccydynia M53.3 Sacroiliitis M46.1 Sacroiliac joint dysfunction of right side M53.3 Arthritis of right hip M16.11
[2023-04-02 08:20] VITALS: BP 108/70; PULSE 77; RESP 18; O2SAT 98; BMI 35.4
== END 2023-04-02 08:42 | disposition home or self-care (01) ==
LOC: HO.PMCPRC 07:07
PROVIDERS: PCP Internal Medicine; Visit Provider Anesthesiology
DX: M96.1 Postlaminectomy syndrome, not elsewhere classified (principal); M47.816 Spondylosis without myelopathy or radiculopathy, lumbar region; M47.812 Spondylosis without myelopathy or radiculopathy, cervical region; M53.3 Sacrococcygeal disorders, not elsewhere classified; M46.1 Sacroiliitis, not elsewhere classified; M16.11 Unilateral primary osteoarthritis, right hip
CPT/HCPCS: 64999; 76000

== ENCOUNTER 2023-04-25 08:35 | Outpatient (AMB) | payer OTHER, SELFPAY ==
[2023-04-25 09:10] VITALS: BP 120/72; PULSE 90; RESP 20; O2SAT 95; BMI 34.9
--- NOTE | 2023-04-25 09:10 | A.OFFVIS_ITS ---
Intake Vital Signs 04/25/23 09:10 Height 5 ft 10 in Weight 243 lb BMI 34.9 BP 120/72 Blood Pressure Location Lt brachial Position Sitting Respiration 20 Pulse 90 Pulse Source Pulse Oximeter Pulse Oximetry (%) 95 Oxygen Delivery Method Room Air Intake Visit Reasons: Pill count/confirmed Allergies No Known Allergies Allergy (Verified 04/25/23 09:09) HPI HPI Comments History of Present Illness Details Carlos Rose is very pleasant 44 years old gentleman who presents in my office for the follow up and pain meds refill. He is complaining today with electric shock-like pain which radiates into bilateral lower extremities to the level of the lower legs and almost to the level of the ankles. Because he reported some pain exacerbation in the groin he was sent for hip x-ray, however the hip x-ray was grossly normal. He reports that the pain is exacerbated when he is bending himself forward. I asked him when last time he received MRI of the lumbar spine and he reported that it was more than 5 years ago. I will schedule him for the MRI of the lumbar spine. 05/01/2023 he is scheduled for ganglion impar injection which we have to repeat because of the patient's chronic coccydynia. Pill count today: He presented himself with 70 pills in his possession. His supposed to bring 40 pills with his possession. This demonstrates responsible attitude to were the opioid medications. He still continues to enjoy better pain relief status post diagnostic medial branch block bilateral C4-C5 C6. We agreed last time that he will let us know when the pain will become stronger and we will schedule him for therapeutic C4- C5 C6 medial branch block bilateral. He denies side effect of the opioid medications he denies constipation. Diagnostic cervical MBB C4- C5- C6 was performed 11/06/2022. The patient reports that first few hours after the injection he felt only minimal pain relieve, with the pain reduction after the procedure from 8/10 to 5/10 at the f ifth hour only. however on the second day he reposrted very significant pain improvement, he reported that the neck mobility greatly increased and he stated that he did not feel his neck as good as it is now for a long period of time- years!. He reports his pain today /10 and mostly on account of lower back pain. Because of massive, muscular shoulders the proper images for cervical RFA would be hard to obtain and therefore the risks of the procedure will be elevated. I told him that my personal choice for him would be Sprint PNS, I explained him mobility limitations for the first 60 days after the procedure. 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 We agreed that I will schedule him for the therapeutic cervical MBB once his pain in the neck will come back. Prior: ? He was referred to Dr. Mccain by ak a and Dr. Mccain performed a surgery for him on 05/03/2020.? He was on telephone appointment with Dr. Mccain and Dr. Mccain suggested that some muscles a not healed that is why he continues to feel pain in his neck. ? He was subject of physical therapy which did not help. He reports pain in the neck bilateral shoulders bilateral arms anterior chest posterior back bilateral hips bilateral knees and bilateral feet. ? He was subject of MRI evaluation in [facility] and MRI dictated as below.? 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 [facility] Medical History Mild CAD Skin lesion of scalp Tubular adenoma Mixed dyslipidemia Postoperative hypothyroidism Bifascicular block Lumbar spondylosis Failed back syndrome, cervical Vitamin D deficiency Obesity due to excess calories History of cocaine use Spondylosis of cervical joint without myelopathy Fibromyalgia Rheumatoid arthritis Obstructive sleep apnea Bilateral nephrolithiasis Bilateral carpal tunnel syndrome Opiate dependence Morbid obesity Cervical spondylosis with radiculopathy Type 2 diabetes mellitus with diabetic polyneuropathy, without long-term current use of insulin GERD without esophagitis Essential hypertension Surgical History History of esophagogastroduodenoscopy (EGD) Hx of colonoscopy Hx of thyroidectomy Hx of neck surgery History of carpal tunnel surgery Hx of cholecystectomy History of spinal surgery Herniated disc Family History Father No problems noted. Mother Diabetes mellitus HTN (hypertension) Brother No problems noted. Sister No problems noted. Social History Household Members: Spouse and Children Housing: House Alcohol intake: never Patient Tobacco Use Status: Former Tobacco user Tobacco use type: Cigarette Years Smoked: 10 yrs e-Cigarette/Vaping Use: Never Used Second Hand Smoke Exposure: No service: No Current occupational status: disabled Cognitive needs: No Hearing needs: No Vision needs: Yes Review of Systems Const All systems reviewed & are unremarkable except as noted in HPI and below Physical Exam Vital Signs: Last Vital Signs Pulse 90 04/25/23 09:10 Resp 20 04/25/23 09:10 BP 120/72 04/25/23 09:10 Pulse Ox 95 04/25/23 09:10 Oxygen Delivery Method Room Air 04/25/23 09:10 BMI result Body Mass Index 34.9 Back/Spine/Pelvis Other: Tenderness on palpation in paraspinal spinal regions of the lowest portion of the lumbar spine. SLR is positive bilaterally. Bahman test is negative bilaterally. Lassegue test is positive bilaterally. Assessment & Plan Assessment & Plan (1) Failed back syndrome, cervical: Code(s): M96.1 - Postlaminectomy syndrome, not elsewhere classified (2) Lumbar spondylosis: Code(s): M47.816 - Spondylosis without myelopathy or radiculopathy, lumbar region (3) Spondylosis of cervical region without myelopathy or radiculopathy: Code(s): M47.812 - Spondylosis without myelopathy or radiculopathy, cervical region (4) Coccydynia: Code(s): M53.3 - Sacrococcygeal disorders, not elsewhere classified (5) Sacroiliitis: Code(s): M46.1 - Sacroiliitis, not elsewhere classified (6) Sacroiliac joint dysfunction of right side: Code(s): M53.3 - Sacrococcygeal disorders, not elsewhere classified (7) Arthritis of right hip: Code(s): M16.11 - Unilateral primary osteoarthritis, right hip (8) Radiculopathy, lumbar region: Code(s): M54.16 - Radiculopathy, lumbar region (9) Disc degeneration, lumbar: Code(s): M51.36 - Other intervertebral disc degeneration, lumbar region Plan Patient demonstrates responsible attitude toward chronic opioid therapy. He picked up his tramadol 50 mg t.i.d. on 04/11/2023. He has 1 refill with his medication which will be due in May 10. He will be scheduled for the next appointment with me in 2 months. He still enjoys very good pain relief from diagnostic C4-C5 C6 medial branch block which was done long time ago. However he reports electric shock-like pain into bilateral lower extremities on the lateral surfaces going all the way to the ankles, pain exacerbated with flexing forward. Originally with his complaints of this pain partially radiating to the groins I felt that this is related to osteoarthritis of the hip however hip x-ray came back grossly normal. Positive SLR test and positive Lassegue test make me think about radiculopathy lumbar spine. I will schedule him for the MRI of the lumbar spine. No new prescription will be issued today he needs to use the refill which will last until on 05/11/2023. At that time he will call us and we will prescribe him his medication. Orders: Orders MR lumbar spine wo con Today M51.36 - Other intervertebral disc degeneration, lumbar region, M54.16 - Radiculopathy, lumbar region Medications: New alprazolam Take 2 pills 30 minutes before going to the MRI machine 2 mg (2 x 1 mg) PO ONCE PRN 2 tabs 0RF Anxiety due to the procedure 1 day Patient Instructions: I here by testify that I spent 36 minutes in conversation with this patient as well as evaluating his prior records and prescription records as well as planning his care and organizing this note. Coding Level of Care Code Est Pt Level 4 (79632) Diagnoses Failed back syndrome, cervical M96.1 Lumbar spondylosis M47.816 Spondylosis of cervical region without myelopathy or radiculopathy M47.812 Coccydynia M53.3 Sacroiliitis M46.1 Sacroiliac joint dysfunction of right side M53.3 Arthritis of right hip M16.11 Radiculopathy, lumbar region M54.16 Disc degeneration, lumbar M51.36
== END 2023-04-25 09:13 | disposition home or self-care (01) ==
PROVIDERS: PCP Internal Medicine; Visit Provider Anesthesiology
DX: M46.1 Sacroiliitis, not elsewhere classified (principal); M16.11 Unilateral primary osteoarthritis, right hip; M54.16 Radiculopathy, lumbar region; M51.36 Other intervertebral disc degeneration, lumbar region
CPT/HCPCS: 99214

== ENCOUNTER → 2023-04-25 08:35 | Outpatient (BNVA) | payer OTHER, SELFPAY | PROVIDERS: PCP Internal Medicine; Visit Provider Anesthesiology | DX: Z51.81 Encounter for therapeutic drug level monitoring (principal); F11.20 Opioid dependence, uncomplicated; M96.1 Postlaminectomy syndrome, not elsewhere classified; M47.816 Spondylosis without myelopathy or radiculopathy, lumbar region; M47.812 Spondylosis without myelopathy or radiculopathy, cervical region; M53.3 Sacrococcygeal disorders, not elsewhere classified; M46.1 Sacroiliitis, not elsewhere classified; M16.11 Unilateral primary osteoarthritis, right hip; M54.16 Radiculopathy, lumbar region; M51.36 Other intervertebral disc degeneration, lumbar region | CPT/HCPCS: 99212 ==

== ENCOUNTER 2023-05-06 10:28 | Outpatient (AMB) | payer OTHER, SELFPAY ==
--- NOTE | 2023-05-06 10:44 | MHC.PC.OV ---
Vital Signs 05/06/23 10:58 Height 5 ft 10 in Weight 244 lb BMI 35.0 BP 100/70 Blood Pressure Location Lt brachial Position Sitting Pulse 77 Pulse Source Pulse Oximeter Pulse Oximetry (%) 97 Oxygen Delivery Method Room Air Intake Visit Reasons: 6 Month follow up Intake Note: Pt is here today for his 6 mo. f/u : pt didn't get his labs done, I did a A1C in office Allergies No Known Allergies Allergy (Verified 05/06/23 11:16) Medication List - Last Reconciled 05/06/23 by Ev Mosqueda MD alprazolam 2 mg (2 x 1 mg) PO ONCE PRN 1 day blood sugar diagnostic (ARPU Verio test strips) Test blood sugar twice per day blood-glucose meter (ARPU Verio Flex Meter) As directed to test blood sugars bupropion HCl 300 mg PO DAILY dapagliflozin propanediol (Farxiga) 10 mg PO QAM dulaglutide (Trulicity) 1.5 mg (0.5 mL) subcut QWEEK glipizide 1/2 tab before breakfast and 1 tab before dinner PO 2 times a day; lancets (Viblio Delica Safety Lancet) Test blood sugar twice per day levothyroxine 150 mcg PO DAILY 3 months lisinopril 20 mg PO DAILY lumateperone (Caplyta) 10.5 mg PO DAILY metformin 1,000 mg PO BID metoprolol succinate ER 25 mg PO QAM multivitamin (One Daily Multivitamin tablet) 1 tab PO QAM nitroglycerin 0.4 mg sublingual ONCE PRN omeprazole 20 mg PO QAM pioglitazone 30 mg PO DAILY pregabalin 150 mg PO BID 30 days quetiapine 100 mg PO BEDTIME rosuvastatin 5 mg PO QPM sertraline 100 mg PO DAILY tramadol 50 mg PO Q8H PRN 30 days Tobacco use date assessed: 05/06/23 Dental Screening Dental Screen Date: 05/06/23 Did you have a dental visit in the last 12 months?: Yes Did you have a dental problem in the last 6 months where you did not have access to dental care?: No Was dental information given to patient?: Patient has dentist HPI 6 Month follow up HPI Details 47 year old male, here today for follow-up on his diabetes mellitus, hypertension hyperlipidemia. Unfortunately has not yet had his fasting labs done, currently taking care of his who at present is getting treatment for uterine cancer. States that he has been taking his medications but has not been very compliant with diet or exercise. Hemoglobin A1c drug done today came back at 6.9% he is up-to-date with his diabetes eye screening, goes to [facility], last seen November 2022. [facility] Medical History Mild CAD Skin lesion of scalp Tubular adenoma Mixed dyslipidemia Postoperative hypothyroidism Bifascicular block Lumbar spondylosis Failed back syndrome, cervical Vitamin D deficiency Obesity due to excess calories History of cocaine use Spondylosis of cervical joint without myelopathy Fibromyalgia Rheumatoid arthritis Obstructive sleep apnea Bilateral nephrolithiasis Bilateral carpal tunnel syndrome Opiate dependence Morbid obesity Cervical spondylosis with radiculopathy Type 2 diabetes mellitus with diabetic polyneuropathy, without long-term current use of insulin GERD without esophagitis Essential hypertension Surgical History History of esophagogastroduodenoscopy (EGD) Hx of colonoscopy Hx of thyroidectomy Hx of neck surgery History of carpal tunnel surgery Hx of cholecystectomy History of spinal surgery Herniated disc Family History Father No problems noted. Mother Diabetes mellitus HTN (hypertension) Brother No problems noted. Sister No problems noted. Social History Household Members: Spouse and Children Housing: House Alcohol intake: never Patient Tobacco Use Status: Former Tobacco user Tobacco use type: Cigarette Years Smoked: 10 yrs e-Cigarette/Vaping Use: Never Used Second Hand Smoke Exposure: No service: No Current occupational status: disabled Cognitive needs: No Hearing needs: No Vision needs: Yes Questionnaire Thrive Questionnaire Date Thrive assessed: 06/14/22 AUDIT C Alcohol Use Questionnaire (AUDIT-C) 1. How often do you have a drink containing alcohol?: Never Total Score: 0 NORI-7 AMB Questionnaire NORI-7 Date NORI - 7 assessed: 06/14/22 Source: Developed by Drs. Saleem Matias, Indigo Ortega, Chris Beebe and colleagues, with an educational paige from [employer] Review of Systems Const Reports difficulty sleeping and Denies headache(s) Eyes Details: Goes to [facility] in [place] Denies change in vision ENT Denies dysphagia, Denies headache(s) and Denies hoarseness Card Denies chest pain, Denies irregular heart rhythm and Denies dyspnea Resp Denies cough and Denies dyspnea GI Denies abdominal pain, Denies change in bowel habits, Denies dysphagia, Denies heartburn and Denies nausea Reports no additional complaints Musc Reports back pain (Sees Dr. Cantu) and Denies muscle cramps Neuro Denies headache(s) Endo Details: Goes to for his diabetes foot exam Denies cold intolerance, Denies heat intolerance, Denies polyphagia, Denies polydipsia and Denies polyuria Ryan/Lymph Denies easy bruising Aller/Immun Reports no additional complaints Physical exam (Primary Care) Vital Signs: Last Vital Signs Pulse 77 05/06/23 10:58 BP 100/70 05/06/23 10:58 Pulse Ox 97 05/06/23 10:58 Oxygen Delivery Method Room Air 05/06/23 10:58 BMI result Body Mass Index 35.0 Tobacco/Smoking Status: Tobacco use Status Tobacco use date assessed 05/06/23 05/06/23 11:06 Patient Tobacco Use Status Former Tobacco user 05/06/23 10:44 Tobacco use type Cigarette 05/06/23 10:44 e-Cigarette/Vaping Use Never Used 05/06/23 10:44 Thrive Assessment: Date of Thrive Assessment Date Thrive assessed 06/14/22 05/06/23 10:44 Const General: cooperative, comfortable and no acute distress Nutritional Appearance: obese Orientation/consciousness: patient oriented x3 HENMT Mouth: Normal oral and palatal mucosa present, oropharynx normal and moist mucous membranes Eyes General: appearance normal, both eyes and all related structures Pupils: Equal, round and reactive pupils present EOM: EOMs intact bilaterally Neck Neck: Yes no lymphadenopathy Resp Effort & Inspection: normal respiratory effort and able to speak in complete sentences Auscultation: clear to auscultation bilaterally Cardio Rate: regular rate Rhythm: regular rhythm Heart sounds: S1 normal heart sound present and S2 normal heart sound present GI Inspection: Yes normal to inspection Palpation (GI): Soft to palpation, nontender and no masses Auscultation: normal bowel sounds Skin General skin exam: no rashes or lesions noted Neuro General: patient oriented x3, gait normal, tone normal, moves all extremities, Normal light touch and pain sensation and no focal motor deficits Cranial nerves: Yes Equal, round and reactive pupils present Cognition (Neuro): normal cognition Gait exam (Neuro): Normal gait present Motor exam (neuro): 5/5 motor strength present throughout Extrem General: Yes full ROM, Yes no joint enlargement, Yes no clubbing, cyanosis or edema, Yes no calf tenderness and Yes normal gait Results AMB Hemoglobin A1c AMB Hemoglobin A1c 6.9 % Last Edit by Aysha Correia CMA on 05/06/23 11:07 Results Reviewed Results Reviewed: Laboratory Last Values Hgb A1c (Clinic) 6.9 % (4.0-6.0) H 05/06/23 10:57 Assessment and Plan Assessment & Plan (1) Type 2 diabetes mellitus with diabetic polyneuropathy, without long-term current use of insulin: Code(s): E11.42 - Type 2 diabetes mellitus with diabetic polyneuropathy Plan: Hemoglobin A1c is at 6.9%, continued on present treatment. l continue to check fasting blood sugar at home, maintain log and bring to next appointment for review. Reinforced diabetic diet and regular exercise with patient. Reminded to get his yearly diabetes retinopathy screening, goes to [facility], due again in November 2023. Patient advised to inspect feet daily, for any signs of injury, callus or infection. Compliance with diet and regular exercise again stressed. Blood pressure goal is less than 130/80, goal LDL is less than 100 and goal hemoglobin A1c is less than 7% follow-up appointment made in--6-months, after fasting labs done. (2) Mixed dyslipidemia: Code(s): E78.2 - Mixed hyperlipidemia Plan: Continue with rosuvastatin 5 mg daily, reminded to get his fasting labs done to check lipids and liver enzymes (3) Postoperative hypothyroidism: Code(s): E89.0 - Postprocedural hypothyroidism Plan: Currently on levothyroxine 150 mcg daily in a.m., reminded to get his thyroid labs done. (4) Essential hypertension: Code(s): I10 - Essential (primary) hypertension Plan: Blood pressure today is within normal limits, continued on lisinopril 20 mg daily, metoprolol 25 mg daily Orders: Orders AMB Hemoglobin A1c Today E11.42 - Type 2 diabetes mellitus with diabetic polyneuropathy Medications: Refilled dulaglutide (Trulicity) 1.5 mg (0.5 mL) subcut QWEEK 6 mL 4RF dapagliflozin propanediol (Farxiga) 10 mg PO QAM 90 tabs 4RF E11.42 - Type 2 diabetes mellitus with diabetic polyneuropathy, E11.65 - Type 2 diabetes mellitus with hyperglycemia glipizide 1/2 tab before breakfast and 1 tab before dinner PO 2 times a day; 135 tabs 4RF E11.42 - Type 2 diabetes mellitus with diabetic polyneuropathy pioglitazone 30 mg PO DAILY 90 tabs 4RF E11.42 - Type 2 diabetes mellitus with diabetic polyneuropathy metformin 1,000 mg PO BID 180 tabs 4RF Coding Level of Care Code Est Pt Level 3 (24469) Diagnoses Type 2 diabetes mellitus with diabetic polyneuropathy, without long-term current use of insulin E11.42 Mixed dyslipidemia E78.2 Postoperative hypothyroidism E89.0 Essential hypertension I10
[2023-05-06 10:58] VITALS: BP 100/70; PULSE 77; O2SAT 97; BMI 35.0
== END 2023-05-06 11:31 | disposition home or self-care (01) ==
PROVIDERS: PCP Internal Medicine; Visit Provider Internal Medicine
DX: E11.42 Type 2 diabetes mellitus with diabetic polyneuropathy (principal); E78.2 Mixed hyperlipidemia; E89.0 Postprocedural hypothyroidism; I10 Essential (primary) hypertension
CPT/HCPCS: 83036; 99213

== ENCOUNTER 2023-05-13 08:54 | Outpatient (REF) | payer OTHER, SELFPAY ==
[2023-05-13 12:19] LABS: Alanine Aminotransferase 28 U/L (0-40); Anion Gap 13 (12-20); Aspartate Amino Transferase 24 U/L (5-37); Blood Urea Nitrogen 18 mg/dL (9-16); Calcium 10.1 mg/dL (8.4-10.2); Carbon Dioxide 29 mmol/L (22-29); Chloride 105 mmol/L (96-108); Cholesterol 116 mg/dL (<200); Estimated Glomerular Filt Rate > 60; Free T4 (Free Thyroxine) 1.04 ng/dL (0.71-1.85); Glucose Fasting 117 mg/dL (60-99); HDL Cholesterol 35 mg/dL (>40); LDL Cholesterol Calculated 42 mg/dL (<100); Potassium 4.1 mmol/L (3.3-5.1); Sodium 143 mmol/L (135-145); Thyroid Stimulating Hormone 1.11 uIU/mL (0.32-4.0); Triglycerides 196 mg/dL (<150)
== END 2023-05-13 08:55 | disposition home or self-care (01) ==
LOC: HO.HMGCLDS 08:54
PROVIDERS: PCP Internal Medicine; Visit Provider Internal Medicine
DX: E89.0 Postprocedural hypothyroidism (principal); E11.42 Type 2 diabetes mellitus with diabetic polyneuropathy; E66.09 Other obesity due to excess calories; E55.9 Vitamin D deficiency, unspecified
CPT/HCPCS: 36415; 80048; 80061; 82306; 84439; 84443; 84450; 84460

== ENCOUNTER 2023-06-04 17:00 | Outpatient (REF) | payer OTHER, SELFPAY ==
--- NOTE | ~2023-06-04 | MR_ITS ---
EXAMINATION: MR LUMBAR SPINE WITHOUT CONTRAST CLINICAL INFORMATION: Radiculopathy COMPARISON: None TECHNIQUE: MRI of the lumbar spine was obtained using routine sequences without contrast. FINDINGS: Transitional lumbosacral anatomy. The last fully formed disc space is designated L5-S1. There is a rudimentary disc space at S1-S2 with partial lumbarization of S1. The lower lumbar spinal canal is congenitally narrow from L4-L5 to L5-S1. Mild leftward curvature of the lumbar spine. No significant spondylolisthesis. No suspicious marrow signal or focal osseous lesion. No significant marrow edema The vertebral body heights are maintained. Disc desiccation and mild height loss at L4-L5 and L5-S1. The conus medullaris terminates at the level of L2. The distal spinal cord is normal in appearance. The cauda equina nerve roots appear normal. No significant abnormalities of the paraspinal musculature. Limited evaluation of the intra-abdominal structures without significant abnormalities. The abdominal aorta is of normal contour and caliber. SPINAL LEVELS: T12-L1: Shallow right eccentric disc bulge and mild facet arthropathy. No significant spinal canal stenosis. Mild to moderate right neural foraminal narrowing. L1-L2: No significant spinal canal or neuroforaminal narrowing. Mild facet arthropathy. L2-L3: No significant spinal canal or neuroforaminal narrowing. Mild facet arthropathy. L3-L4: No significant spinal canal or neuroforaminal narrowing. Mild facet arthropathy. L4-L5: Broad-based disc bulge with posterior annular fissure, facet arthropathy, ligamentum flavum thickening. Moderate central spinal canal stenosis. Bilateral subarticular zone narrowing with likely impingement of the traversing L5 nerve roots. Mild bilateral neural foraminal narrowing L5-S1: Mild interspinous edema. Facet arthropathy. Ligamentum flavum thickening. Shallow disc bulge and endplate spurring. Moderate central spinal canal stenosis. Effacement of the subarticular zones with likely mass effect on the traversing S1 nerve roots. Moderate bilateral neural foraminal narrowing, right greater than left. MR/MR lumbar spine wo con IMPRESSION: 1. 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 The lower lumbar spinal canal is congenitally narrow 2. At L4-L5 and L5-S1, there is moderate spinal canal stenosis and bilateral subarticular zone narrowing with likely impingement of the traversing L5 and S1 nerve roots. 3. Additional mild to moderate degenerative changes as described above. No high-grade spinal canal or neural foraminal narrowing.
== END 2023-06-04 17:01 | disposition home or self-care (01) ==
LOC: HO.MRI 17:00
PROVIDERS: PCP Internal Medicine; Visit Provider Anesthesiology
DX: M54.16 Radiculopathy, lumbar region (principal); M51.36 Other intervertebral disc degeneration, lumbar region
CPT/HCPCS: 72148

== ENCOUNTER 2023-06-20 08:31 | Outpatient (AMB) | payer OTHER, SELFPAY ==
--- NOTE | 2023-06-20 08:55 | MHC.OFFVIS ---
Intake Vital Signs 06/20/23 09:09 Height 5 ft 10 in Weight 236 lb 4 oz BMI 33.9 BP 132/80 Blood Pressure Location Lt brachial Position Sitting Respiration 16 Pulse 82 Pulse Source Pulse Oximeter Pulse Oximetry (%) 96 Oxygen Delivery Method Room Air Intake Visit Reasons: Pill Count Intake Note: Patient comes in for pill count. Reports pain 08/18. Allergies No Known Allergies Allergy (Verified 06/20/23 09:09) HPI HPI Comments History of Present Illness Details Carlos Rose is very pleasant 44 years old gentleman who presents in my office for the follow up and pain meds refill. Today his complaints are mostly on axial back pain with radiation into bilateral thighs more on the right and less on the left. He reports that he feels uncomfortable flexing his torso right side. Last time I sent him for the MRI of the lumbar spine and MRI is dictated as below. There are some changes which attracted tension at L4-5 and L5-S1 levels. His pain might be coming from facet joints, however he has congenital narrowing of the spinal canal with significant additional ligamentum flavum hypertrophy and facet degeneration which advance this space of the spinal canal to moderate stenosis. I offered this patient diagnostic as well as therapeutic injections to diagnose and treat his pain. I offered him diagnostic medial branch block L3, L4, dorsal ramus L5 bilateral to diagnose and possibly treat this pain. If this injection will become a good relief of the pain I will recommend him sprint PNS. However if MBB will result in no pain improvement epidural steroid injections interlaminar at L4-5 as well as at L5-S1 could be given to him as initial step. Mild procedure also was discussed with the patient as a potential way to relieve pressure on his spinal canal in alleviate his pain. He reported that he will discuss it with his who is a nurse and then he will let us know whether or not he wants to go for those procedures. The patient presents today on the pill count his supposed to have no pills in his possession he reports with 21 pills in his possession. Therefore he has large excess of the pills. He also has 1 script to be refilled at the pharmacy. Therefore no prescription is needed at this time however when he will run out of the pills he will give us a call and I will send a new prescription of his tramadol 50 mg t.i.d. to his pharmacy. He still continues to enjoy better pain relief status post diagnostic medial branch block bilateral C4-C5 C6. We agreed last time that he will let us know when the pain will become stronger and we will schedule him for therapeutic C4-C5 C6 medial branch block bilateral. He denies side effect of the opioid medications he denies constipation. Prior: ? He was referred to Dr. Mccain by md a and Dr. Mccain performed a surgery for him on 05/03/2020.? He was on telephone appointment with Dr. Mccain and Dr. Mccain suggested that some muscles a not healed that is why he continues to feel pain in his neck. ? He was subject of physical therapy which did not help. He reports pain in the neck bilateral shoulders bilateral arms anterior chest posterior back bilateral hips bilateral knees and bilateral feet. ? He was subject of MRI evaluation in [facility] and MRI dictated as below.? He never was under evaluation of macadam raker.. [facility] Medical History Mild CAD Skin lesion of scalp Tubular adenoma Mixed dyslipidemia Postoperative hypothyroidism Bifascicular block Lumbar spondylosis Failed back syndrome, cervical Vitamin D deficiency Obesity due to excess calories History of cocaine use Spondylosis of cervical joint without myelopathy Fibromyalgia Rheumatoid arthritis Obstructive sleep apnea Bilateral nephrolithiasis Bilateral carpal tunnel syndrome Opiate dependence Morbid obesity Cervical spondylosis with radiculopathy Type 2 diabetes mellitus with diabetic polyneuropathy, without long-term current use of insulin GERD without esophagitis Essential hypertension Surgical History History of esophagogastroduodenoscopy (EGD) Hx of colonoscopy Hx of thyroidectomy Hx of neck surgery History of carpal tunnel surgery Hx of cholecystectomy History of spinal surgery Herniated disc Family History Father No problems noted. Mother Diabetes mellitus HTN (hypertension) Brother No problems noted. Sister No problems noted. Social History Household Members: Spouse and Children Housing: House Alcohol intake: never Patient Tobacco Use Status: Former Tobacco user Tobacco use type: Cigarette Years Smoked: 10 yrs e-Cigarette/Vaping Use: Never Used Second Hand Smoke Exposure: No service: No Current occupational status: disabled Cognitive needs: No Hearing needs: No Vision needs: Yes Review of Systems Const All systems reviewed & are unremarkable except as noted in HPI and below Physical Exam Vital Signs: Last Vital Signs Pulse 82 06/20/23 09:09 Resp 16 06/20/23 09:09 BP 132/80 06/20/23 09:09 Pulse Ox 96 06/20/23 09:09 Oxygen Delivery Method Room Air 06/20/23 09:09 BMI result Body Mass Index 33.9 Const General: cooperative, healthy appearing, no acute distress and well developed Nutritional Appearance: average body habitus Orientation/consciousness: patient oriented x3 Chest Chest palpation & inspection: normal inspection of the chest Resp Effort & Inspection: normal respiratory effort, able to speak in complete sentences, normal respiratory pattern, no audible wheezes and no cough Cardio Jugular venous distension: no JVD Back/Spine/Pelvis Other: Tenderness on palpation in paraspinal spinal regions of the lowest portion of the lumbar spine. SLR is positive bilaterally. Abhman test is negative bilaterally. Lassegue test is positive bilaterally. Neuro General: patient oriented x3 Psych Appearance: grossly normal Mental Status: mental status grossly normal Speech and movement: Normal speech and movement present Affect: normal affect Attitude: cooperative Thought process: Normal thought process present Thought content: Normal thought content present Results Reviewed Results Reviewed: MR LUMBAR SPINE WITHOUT CONTRAST CLINICAL INFORMATION: Radiculopathy COMPARISON: None TECHNIQUE: MRI of the lumbar spine was obtained using routine sequences without contrast. FINDINGS: Transitional lumbosacral anatomy. The last fully formed disc space is designated L5-S1. There is a rudimentary disc space at S1-S2 with partial lumbarization of S1. The lower lumbar spinal canal is congenitally narrow from L4-L5 to L5-S1. Mild leftward curvature of the lumbar spine. No significant spondylolisthesis. No suspicious marrow signal or focal osseous lesion. No significant marrow edema The vertebral body heights are maintained. Disc desiccation and mild height loss at L4-L5 and L5-S1. The conus medullaris terminates at the level of L2. The distal spinal cord is normal in appearance. The cauda equina nerve roots appear normal. No significant abnormalities of the paraspinal musculature. Limited evaluation of the intra-abdominal structures without significant abnormalities. The abdominal aorta is of normal contour and caliber. SPINAL LEVELS: T12-L1: Shallow right eccentric disc bulge and mild facet arthropathy. No significant spinal canal stenosis. Mild to moderate right neural foraminal narrowing. L1-L2: No significant spinal canal or neuroforaminal narrowing. Mild facet arthropathy. L2-L3: No significant spinal canal or neuroforaminal narrowing. Mild facet arthropathy. L3-L4: No significant spinal canal or neuroforaminal narrowing. Mild facet arthropathy. L4-L5: Broad-based disc bulge with posterior annular fissure, facet arthropathy, ligamentum flavum thickening. Moderate central spinal canal stenosis. Bilateral subarticular zone narrowing with likely impingement of the traversing L5 nerve roots. Mild bilateral neural foraminal narrowing L5-S1: Mild interspinous edema. Facet arthropathy. Ligamentum flavum thickening. Shallow disc bulge and endplate spurring. Moderate central spinal canal stenosis. Effacement of the subarticular zones with likely mass effect on the traversing S1 nerve roots. Moderate bilateral neural foraminal narrowing, right greater than left. MR/MR lumbar spine wo con IMPRESSION: 1. 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 The lower lumbar spinal canal is congenitally narrow 2. At L4-L5 and L5-S1, there is moderate spinal canal stenosis and bilateral subarticular zone narrowing with likely impingement of the traversing L5 and S1 nerve roots. 3. Additional mild to moderate degenerative changes as described above. No high-grade spinal canal or neural foraminal narrowing. Assessment & Plan Assessment & Plan (1) Failed back syndrome, cervical: Code(s): M96.1 - Postlaminectomy syndrome, not elsewhere classified (2) Lumbar spondylosis: Code(s): M47.816 - Spondylosis without myelopathy or radiculopathy, lumbar region (3) Spondylosis of cervical region without myelopathy or radiculopathy: Code(s): M47.812 - Spondylosis without myelopathy or radiculopathy, cervical region (4) Sacroiliitis: Code(s): M46.1 - Sacroiliitis, not elsewhere classified (5) Sacroiliac joint dysfunction of right side: Code(s): M53.3 - Sacrococcygeal disorders, not elsewhere classified (6) Arthritis of right hip: Code(s): M16.11 - Unilateral primary osteoarthritis, right hip (7) Radiculopathy, lumbar region: Code(s): M54.16 - Radiculopathy, lumbar region (8) Disc degeneration, lumbar: Code(s): M51.36 - Other intervertebral disc degeneration, lumbar region Plan Patient demonstrates responsible attitude toward chronic opioid therapy. His pill count is correct as above. He has refill prescription in his pharmacy and he has excess of the 21 pills in his hands. And he will run out of pills he will need to give me a call and we will prescribe him additional medications. He will be scheduled for the next appointment with me in 2 months. MRI report as above. I will schedule him on lumbar medial branch block as soon as he will agree to go for the procedure. If this will be effective I will offer him sprint PNS. If this will not give him good pain relief I will consider epidural steroid injection L4-5 interlaminar and L5-S1 interlaminar to compare which level give him better pain relief. I also may consider MILD procedure for him because of his congenital spinal canal stenosis which is compromise further by ligamentum flavum hypertrophy and facet joint degeneration. Patient Instructions: I here by testify that I spent 38 minutes in conversation with this patient as outlined as planning his care evaluating his diagnostic studies and organizing this note. Coding Level of Care Code Est Pt Level 4 (27008) Diagnoses Failed back syndrome, cervical M96.1 Lumbar spondylosis M47.816 Spondylosis of cervical region without myelopathy or radiculopathy M47.812 Sacroiliitis M46.1 Sacroiliac joint dysfunction of right side M53.3 Arthritis of right hip M16.11 Radiculopathy, lumbar region M54.16 Disc degeneration, lumbar M51.36
[2023-06-20 09:09] VITALS: BP 132/80; PULSE 82; RESP 16; O2SAT 96; BMI 33.9
== END 2023-06-20 09:22 | disposition home or self-care (01) ==
PROVIDERS: PCP Internal Medicine; Visit Provider Anesthesiology
DX: M96.1 Postlaminectomy syndrome, not elsewhere classified (principal); M47.816 Spondylosis without myelopathy or radiculopathy, lumbar region; M47.812 Spondylosis without myelopathy or radiculopathy, cervical region; M46.1 Sacroiliitis, not elsewhere classified; M53.3 Sacrococcygeal disorders, not elsewhere classified; M16.11 Unilateral primary osteoarthritis, right hip; M54.16 Radiculopathy, lumbar region; M51.36 Other intervertebral disc degeneration, lumbar region
CPT/HCPCS: 99214

== ENCOUNTER → 2023-06-20 08:31 | Outpatient (BNVA) | payer OTHER, SELFPAY | PROVIDERS: PCP Internal Medicine; Visit Provider Anesthesiology | DX: Z51.81 Encounter for therapeutic drug level monitoring (principal); F11.20 Opioid dependence, uncomplicated; M96.1 Postlaminectomy syndrome, not elsewhere classified; M47.816 Spondylosis without myelopathy or radiculopathy, lumbar region; M47.812 Spondylosis without myelopathy or radiculopathy, cervical region; M46.1 Sacroiliitis, not elsewhere classified; M53.3 Sacrococcygeal disorders, not elsewhere classified; M16.11 Unilateral primary osteoarthritis, right hip; M54.16 Radiculopathy, lumbar region; M51.36 Other intervertebral disc degeneration, lumbar region | CPT/HCPCS: 99212 ==

== ENCOUNTER 2023-07-18 08:29 | Outpatient (AMB) | payer OTHER, SELFPAY ==
--- NOTE | 2023-07-18 08:33 | A.OFFVIS_ITS ---
Vital Signs 07/18/23 08:41 Height 5 ft 10 in Weight 235 lb 6 oz BMI 33.8 BP 150/80 H Blood Pressure Location Lt brachial Position Sitting Respiration 16 Pulse 87 Pulse Source Pulse Oximeter Pulse Oximetry (%) 97 Oxygen Delivery Method Room Air Intake Visit Reasons: PILL COUNT Intake Note: Patient comes in for pill count. Reports pain 8/10. Allergies No Known Allergies Allergy (Verified 07/18/23 08:42) HPI Comments Details: Carlos Rose is very pleasant 44 years old gentleman who presents in my office for the follow up and pain meds refill. Today his complaints are mostly on axial back pain with minimal radiation into bilateral thighs more on the right and less on the left. His pain is mostly axial and most likely represents pain coming from facet joints. On the MRI there are changes at L4-5 levels. His pain most likely coming from facet joints, however he has congenital narrowing of the spinal canal with significant additional ligamentum flavum hypertrophy and facet degeneration which advance this space of the spinal canal to moderate stenosis. I offered him today bilateral diagnostic medial branch block L3-L4 does ramus L5, he agreed to go for this procedure under sedation. However if MBB will result in no pain improvement epidural steroid injections interlaminar at L4-5 as well as at L5-S1 could be given to him as initial step. Mild procedure also was discussed with the patient as a potential way to relieve pressure on his spinal canal in alleviate his pain. He reported that he will discuss it with his who is a nurse and then he will let us know whether or not he wants to go for those procedures. Pill count today he presents himself with 57 pills in his possession. His supposed to have 24 pills in his possession. He has excessive the pills he is taking his medications only as needed. This demonstrates responsible attitude to were the opioid medications. No signs of diversion misuse or abuse of medications. Mass pat was checked. He still continues to enjoy better pain relief status post diagnostic medial branch block bilateral C4-C5 C6. We agreed last time that he will let us know when the pain will become stronger and we will schedule him for therapeutic C4- C5 C6 medial branch block bilateral. He denies side effect of the opioid medications he denies constipation. Prior: ? He was referred to Dr. Mccain by ca a and Dr. Mccain performed a surgery for him on 05/03/2020.? He was on telephone appointment with Dr. Mccain and Dr. Mccain suggested that some muscles a not healed that is why he continues to feel pain in his neck. ? He was subject of physical therapy which did not help. He reports pain in the neck bilateral shoulders bilateral arms anterior chest posterior back bilateral hips bilateral knees and bilateral feet. ? He was subject of MRI evaluation in [facility] and MRI dictated as below.? 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 [facility] Medical History Mild CAD Skin lesion of scalp Tubular adenoma Mixed dyslipidemia Postoperative hypothyroidism Bifascicular block Lumbar spondylosis Failed back syndrome, cervical Vitamin D deficiency Obesity due to excess calories History of cocaine use Spondylosis of cervical joint without myelopathy Fibromyalgia Rheumatoid arthritis Obstructive sleep apnea Bilateral nephrolithiasis Bilateral carpal tunnel syndrome Opiate dependence Morbid obesity Cervical spondylosis with radiculopathy Type 2 diabetes mellitus with diabetic polyneuropathy, without long-term current use of insulin GERD without esophagitis Essential hypertension Surgical History History of esophagogastroduodenoscopy (EGD) Hx of colonoscopy Hx of thyroidectomy Hx of neck surgery History of carpal tunnel surgery Hx of cholecystectomy History of spinal surgery Herniated disc Family History Father No problems noted. Mother Diabetes mellitus HTN (hypertension) Brother No problems noted. Sister No problems noted. Social History Household Members: Spouse and Children Housing: House Alcohol intake: never Patient Tobacco Use Status: Former Tobacco user Tobacco use type: Cigarette Years Smoked: 10 yrs e-Cigarette/Vaping Use: Never Used Second Hand Smoke Exposure: No service: No Current occupational status: disabled Cognitive needs: No Hearing needs: No Vision needs: Yes Physical Exam Vital Signs: Last Vital Signs Pulse 87 07/18/23 08:41 Resp 16 07/18/23 08:41 BP 150/80 H 07/18/23 08:41 Pulse Ox 97 07/18/23 08:41 Oxygen Delivery Method Room Air 07/18/23 08:41 BMI result Body Mass Index 33.8 Const General: cooperative, healthy appearing, no acute distress and well developed Nutritional Appearance: average body habitus Orientation/consciousness: patient oriented x3 Chest Chest palpation & inspection: normal inspection of the chest Resp Effort & Inspection: normal respiratory effort, able to speak in complete sentences, normal respiratory pattern, no audible wheezes and no cough Cardio Jugular venous distension: no JVD Back/Spine/Pelvis Other: Tenderness on palpation in paraspinal spinal regions of the lowest portion of the lumbar spine. SLR is positive bilaterally. Bahman test is negative bilaterally. Lassegue test is positive bilaterally.Loading test is positive bilaterally. Neuro General: patient oriented x3 Psych Appearance: grossly normal Mental Status: mental status grossly normal Speech and movement: Normal speech and movement present Affect: normal affect Attitude: cooperative Thought process: Normal thought process present Thought content: Normal thought content present Results Reviewed Results Reviewed: MR LUMBAR SPINE WITHOUT CONTRAST CLINICAL INFORMATION: Radiculopathy COMPARISON: None TECHNIQUE: MRI of the lumbar spine was obtained using routine sequences without contrast. FINDINGS: Transitional lumbosacral anatomy. The last fully formed disc space is designated L5-S1. There is a rudimentary disc space at S1-S2 with partial lumbarization of S1. The lower lumbar spinal canal is congenitally narrow from L4-L5 to L5-S1. Mild leftward curvature of the lumbar spine. No significant spondylolisthesis. No suspicious marrow signal or focal osseous lesion. No significant marrow edema The vertebral body heights are maintained. Disc desiccation and mild height loss at L4-L5 and L5-S1. The conus medullaris terminates at the level of L2. The distal spinal cord is normal in appearance. The cauda equina nerve roots appear normal. No significant abnormalities of the paraspinal musculature. Limited evaluation of the intra-abdominal structures without significant abnormalities. The abdominal aorta is of normal contour and caliber. SPINAL LEVELS: T12-L1: Shallow right eccentric disc bulge and mild facet arthropathy. No significant spinal canal stenosis. Mild to moderate right neural foraminal narrowing. L1-L2: No significant spinal canal or neuroforaminal narrowing. Mild facet arthropathy. L2-L3: No significant spinal canal or neuroforaminal narrowing. Mild facet arthropathy. L3-L4: No significant spinal canal or neuroforaminal narrowing. Mild facet arthropathy. L4-L5: Broad-based disc bulge with posterior annular fissure, facet arthropathy, ligamentum flavum thickening. Moderate central spinal canal stenosis. Bilateral subarticular zone narrowing with likely impingement of the traversing L5 nerve roots. Mild bilateral neural foraminal narrowing L5-S1: Mild interspinous edema. Facet arthropathy. Ligamentum flavum thickening. Shallow disc bulge and endplate spurring. Moderate central spinal canal stenosis. Effacement of the subarticular zones with likely mass effect on the traversing S1 nerve roots. Moderate bilateral neural foraminal narrowing, right greater than left. MR/MR lumbar spine wo con IMPRESSION: 1. 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 The lower lumbar spinal canal is congenitally narrow 2. At L4-L5 and L5-S1, there is moderate spinal canal stenosis and bilateral subarticular zone narrowing with likely impingement of the traversing L5 and S1 nerve roots. 3. Additional mild to moderate degenerative changes as described above. No high-grade spinal canal or neural foraminal narrowing. Assessment & Plan Assessment & Plan (1) Failed back syndrome, cervical: Code(s): M96.1 - Postlaminectomy syndrome, not elsewhere classified Category: Medical (2) Lumbar spondylosis: Code(s): M47.816 - Spondylosis without myelopathy or radiculopathy, lumbar region Category: Medical (3) Spondylosis of cervical region without myelopathy or radiculopathy: Code(s): M47.812 - Spondylosis without myelopathy or radiculopathy, cervical region Category: Medical (4) Sacroiliitis: Code(s): M46.1 - Sacroiliitis, not elsewhere classified Category: Medical (5) Sacroiliac joint dysfunction of right side: Code(s): M53.3 - Sacrococcygeal disorders, not elsewhere classified Category: Medical (6) Arthritis of right hip: Code(s): M16.11 - Unilateral primary osteoarthritis, right hip Category: Medical (7) Radiculopathy, lumbar region: Code(s): M54.16 - Radiculopathy, lumbar region Category: Medical (8) Disc degeneration, lumbar: Code(s): M51.36 - Other intervertebral disc degeneration, lumbar region Category: Medical (9) Spondylosis of lumbar region without myelopathy or radiculopathy: Code(s): M47.816 - Spondylosis without myelopathy or radiculopathy, lumbar region Category: Medical Plan Carlos is very responsible patient he demonstrates very good pill count each time he is here. We also decided that I will schedule him for bilateral diagnostic medial branch block L3-L4 L5. He wants this procedure to be done - under sedation. MRI report as above. If this will be effective I will offer him sprint PNS. If this will not give him good pain relief I will consider epidural steroid injection L4-5 interlaminar and L5-S1 interlaminar to compare which level give him better pain relief. I also may consider MILD procedure for him because of his congenital spinal canal stenosis which is compromise further by ligamentum flavum hypertrophy and facet joint degeneration. He has 1 more refill in his pharmacy, he needs to be seen in this office in 2 months, when he will run out of the current refill he would need to give us a call and I will refill his tramadol. Patient Instructions: I here by testify that I spent 32 minutes in conversation with this patient as well as evaluating his prior records his prior diagnostic studies and organizing this note. Coding Level of Care Code Est Pt Level 4 (87637) Diagnoses Failed back syndrome, cervical M96.1 Lumbar spondylosis M47.816 Spondylosis of cervical region without myelopathy or radiculopathy M47.812 Sacroiliitis M46.1 Sacroiliac joint dysfunction of right side M53.3 Arthritis of right hip M16.11 Radiculopathy, lumbar region M54.16 Disc degeneration, lumbar M51.36 Spondylosis of lumbar region without myelopathy or radiculopathy M47.816
[2023-07-18 08:41] VITALS: BP 150/80; PULSE 87; RESP 16; O2SAT 97; BMI 33.8
== END 2023-07-18 08:47 | disposition home or self-care (01) ==
PROVIDERS: PCP Internal Medicine; Visit Provider Anesthesiology
DX: M96.1 Postlaminectomy syndrome, not elsewhere classified (principal); M47.816 Spondylosis without myelopathy or radiculopathy, lumbar region; M47.812 Spondylosis without myelopathy or radiculopathy, cervical region; M46.1 Sacroiliitis, not elsewhere classified; M53.3 Sacrococcygeal disorders, not elsewhere classified; M16.11 Unilateral primary osteoarthritis, right hip; M54.16 Radiculopathy, lumbar region; M51.36 Other intervertebral disc degeneration, lumbar region
CPT/HCPCS: 99214

== ENCOUNTER → 2023-07-18 08:29 | Outpatient (BNVA) | payer OTHER, SELFPAY | PROVIDERS: PCP Internal Medicine; Visit Provider Anesthesiology | DX: Z51.81 Encounter for therapeutic drug level monitoring (principal); F11.20 Opioid dependence, uncomplicated; M96.1 Postlaminectomy syndrome, not elsewhere classified; M47.816 Spondylosis without myelopathy or radiculopathy, lumbar region; M47.812 Spondylosis without myelopathy or radiculopathy, cervical region; M46.1 Sacroiliitis, not elsewhere classified; M53.3 Sacrococcygeal disorders, not elsewhere classified; M16.11 Unilateral primary osteoarthritis, right hip; M54.16 Radiculopathy, lumbar region; M51.36 Other intervertebral disc degeneration, lumbar region | CPT/HCPCS: 99212 ==

== ENCOUNTER 2023-07-23 12:17 | Outpatient (AMB) | payer OTHER, SELFPAY ==
[2023-07-23 12:30] VITALS: BP 124/66; PULSE 73; BMI 34.2
--- NOTE | 2023-07-23 12:30 | A.OFFVIS_ITS ---
Vital Signs 07/23/23 12:30 Height 5 ft 10 in Weight 238 lb 1.588 oz BMI 34.2 BP 124/66 Blood Pressure Location Lt brachial Position Sitting Pulse 73 Intake Visit Reasons: 1 year follow up Clinical Account Executive Required: Yes Clinical Account Executive Name: kenneth/ spouse Accompanied by: Spouse Allergies No Known Allergies Allergy (Verified 07/18/23 08:42) Medication List - Last Reconciled 07/23/23 by Shashank Monroy MD blood sugar diagnostic (Nimbit Verio test strips) Test blood sugar twice per day blood-glucose meter (Nimbit Verio Flex Meter) As directed to test blood sugars bupropion HCl XL 300 mg PO DAILY dapagliflozin propanediol (Farxiga) 10 mg PO QAM dulaglutide (Trulicity) 1.5 mg (0.5 mL) subcut QWEEK glipizide 1/2 tab before breakfast and 1 tab before dinner PO 2 times a day; lancets ([employer] Safety Lancet) Test blood sugar twice per day levothyroxine 150 mcg PO DAILY 3 months lisinopril 20 mg PO DAILY lumateperone (Caplyta) 10.5 mg PO DAILY metformin 1,000 mg PO BID metoprolol succinate ER 25 mg PO QAM multivitamin (One Daily Multivitamin tablet) 1 tab PO QAM nitroglycerin 0.4 mg sublingual ONCE PRN omeprazole 20 mg PO QAM pioglitazone 30 mg PO DAILY pregabalin 150 mg PO BID 30 days rosuvastatin 5 mg PO QPM sertraline 100 mg PO DAILY tramadol 50 mg PO Q8H PRN 30 days HPI Comments Details: Carlos returns for follow-up. In the past, he has been seen for chest pain. Echocardiogram had shown wall motion abnormality but cardiac catheterization did not show any significant obstructive disease. He has multiple vascular risk factors including diabetes, hypertension, dyslipidemia. He has had cocaine use the past but nothing recently. He also has had neck pain leading to cervical spine surgery in the past. Various complaints. He gets some sharp chest pains that seem transient noncardiac. Could be musculoskeletal. He also gets sensations shortness of breath but more so at nighttime. He states there was a history of sleep apnea but he does not have CPAP mask and has not been checked in years. Otherwise, episodes of palpitations, heart fluttering at different times. [facility] Medical History Mild CAD Skin lesion of scalp Tubular adenoma Mixed dyslipidemia Postoperative hypothyroidism Bifascicular block Lumbar spondylosis Failed back syndrome, cervical Vitamin D deficiency Obesity due to excess calories History of cocaine use Spondylosis of cervical joint without myelopathy Fibromyalgia Rheumatoid arthritis Obstructive sleep apnea Bilateral nephrolithiasis Bilateral carpal tunnel syndrome Opiate dependence Morbid obesity Cervical spondylosis with radiculopathy Type 2 diabetes mellitus with diabetic polyneuropathy, without long-term current use of insulin GERD without esophagitis Essential hypertension Surgical History History of esophagogastroduodenoscopy (EGD) Hx of colonoscopy Hx of thyroidectomy Hx of neck surgery History of carpal tunnel surgery Hx of cholecystectomy History of spinal surgery Herniated disc Family History Father No problems noted. Mother Diabetes mellitus HTN (hypertension) Brother No problems noted. Sister No problems noted. Social History Household Members: Spouse and Children Housing: House Alcohol intake: never Patient Tobacco Use Status: Former Tobacco user Tobacco use type: Cigarette Years Smoked: 10 yrs e-Cigarette/Vaping Use: Never Used Second Hand Smoke Exposure: No service: No Current occupational status: disabled Cognitive needs: No Hearing needs: No Vision needs: Yes Review of Systems Const Denies chills, Denies fatigue, Denies fever(s), Denies frequent falls, Denies weakness, Denies weight gain and Denies weight loss ENT Denies dizziness Card Denies chest pain, Denies leg edema, Denies lightheadedness, Denies palpitations, Denies dyspnea and Denies dyspnea on exertion Resp Denies cough, Denies dyspnea and Denies dyspnea on exertion GI Denies hematochezia Musc Denies abnormal gait, Denies muscle weakness, Denies numbness, Denies radiating pain into limb and Denies tingling Neuro Denies abnormal gait, Denies dizziness, Denies frequent falls, Denies numbness, Denies tingling and Denies weakness Endo Denies fatigue and Denies palpitations Physical Exam Vital Signs: Last Vital Signs Pulse 73 07/23/23 12:30 BP 124/66 07/23/23 12:30 BMI result Body Mass Index 34.2 Const General: comfortable and no acute distress Orientation/consciousness: patient oriented x3 HEENT Other: Unremarkable Head: Yes normal to inspection Neck Neck: Yes normal visual inspection Chest Chest palpation & inspection: normal inspection of the chest Resp Auscultation: clear to auscultation bilaterally Cardio Palpation: normal PMI Heart sounds: S1 normal heart sound present, S2 normal heart sound present, no gallops, no murmurs and no rubs GI Palpation (GI): Soft to palpation Back/Spine/Pelvis Other: unremarkable Skin General skin exam: no rashes or lesions noted Neuro General: patient oriented x3 Extrem General: Yes normal to inspection Psych Mental Status: mental status grossly normal Office Procedures EKG Details: EKG with sinus rhythm at 73/Min; right bundle-branch block and left anterior fas cicular block. Possible LVH. [id number], Complete Assessment & Plan Assessment & Plan (1) Bifascicular block: Code(s): I45.2 - Bifascicular block Category: Medical (2) Type 2 diabetes mellitus with unspecified complications: Code(s): E11.8 - Type 2 diabetes mellitus with unspecified complications Category: Medical (3) Essential hypertension: Code(s): I10 - Essential (primary) hypertension Category: Medical (4) Other and unspecified hyperlipidemia: Code(s): E78.5 - Hyperlipidemia, unspecified Category: Medical (5) History of cocaine use: Code(s): Z87.898 - Personal history of other specified conditions Category: Medical Plan Cardiac studies reviewed. EKG with chronic bifascicular block. In a prior echocardiogram, inferior wall motion abnormality but that could be related to cocaine use. Cardiac catheterization 2019 did not show any significant disease. With regard to his symptoms of sharp chest pains, suspect noncardiac etiology. If concerns in the future, we can consider coronary CTA. For the question of shortness of breath/palpitations, repeat his echocardiogram. Obtain a Holter. Will need to revisit sleep apnea as he has not had any workup in long time. Previous diagnosis of AZAM several years ago, but not on CPAP. Otherwise, aggressive risk factor modification. For diabetes, he is on Farxiga, Trulicity, pioglitazone. Last hemoglobin A1c is 6.9%. For hypertension, on lisinopril, metoprolol and blood pressure seems stable. For dyslipidemia, on statins. Last LDL is 42 mg/dL. Discussed with who came for appointment. She acted as oncology admin and appropriate form signed. Orders: Orders CA echo transthoracic complete Today I45.2 - Bifascicular block ECG 7 day holter monitor Today I45.2 - Bifascicular block RT home sleep study Today G47.33 - Obstructive sleep apnea (adult) (pediatric) Coding Level of Care Code Est Pt Level 4 (20337) Diagnoses Bifascicular block I45.2 Type 2 diabetes mellitus with unspecified complications E11.8 Essential hypertension I10 Other and unspecified hyperlipidemia E78.5 History of cocaine use Z87.898 CPT Codes EKG - CPT: 55740-[id number], Complete ([id number])
== END 2023-07-23 12:57 | disposition home or self-care (01) ==
PROVIDERS: Visit Provider Internal Medicine
DX: I45.2 Bifascicular block (principal); E11.8 Type 2 diabetes mellitus with unspecified complications; I10 Essential (primary) hypertension; E78.5 Hyperlipidemia, unspecified; Z87.898 Personal history of other specified conditions
CPT/HCPCS: 93010; 99214

== ENCOUNTER → 2023-07-23 12:17 | Outpatient (BNVA) | payer OTHER, SELFPAY | PROVIDERS: Visit Provider Internal Medicine | DX: I45.2 Bifascicular block (principal); I10 Essential (primary) hypertension; E78.5 Hyperlipidemia, unspecified; E11.8 Type 2 diabetes mellitus with unspecified complications; Z79.899 Other long term (current) drug therapy; Z87.898 Personal history of other specified conditions | CPT/HCPCS: 93005; 99212 ==

== ENCOUNTER 2023-08-15 08:06 | Outpatient (AMB) | payer OTHER, SELFPAY ==
--- NOTE | 2023-08-15 08:11 | A.OFFVIS_ITS ---
Vital Signs 08/15/23 08:27 Height 5 ft 10 in Weight 239 lb 8 oz BMI 34.4 BP 120/84 Blood Pressure Location Lt brachial Position Sitting Respiration 16 Pulse 82 Pulse Source Pulse Oximeter Pulse Oximetry (%) 97 Oxygen Delivery Method Room Air Intake Visit Reasons: PILL COUNT Intake Note: Patient comes in for pill count. Reports pain 8/10. Allergies No Known Allergies Allergy (Verified 08/15/23 08:27) HPI Comments Details: Carlos Rose is very pleasant 44 years old gentleman who presents in my office for the follow up and pain meds refill. Main complaint is axial back pain with minimal radiation into bilateral thighs more on the right and less on the left. On MRI changes at L4-5. In the process of diagnostic medial branch block under sedation. No response from insurance company. Today his complaints are mostly on axial back pain with minimal radiation into bilateral thighs more on the right and less on the left. His pain is mostly axial and most likely represents pain coming from facet joints. On the MRI there are changes at L4-5 levels. His pain most likely coming from facet joints, however he has congenital narrowing of the spinal canal with significant additional ligamentum flavum hypertrophy and facet degeneration which advance this space of the spinal canal to moderate stenosis. I offered him today If the MBB will result in no pain improvement epidural steroid injections interlaminar at L4-5 as well as at L5-S1 could be given to him as initial step. Mild procedure also was discussed with the patient as a potential way to relieve pressure on his spinal canal in alleviate his pain. He reported that he will discuss it with his who is a nurse and then he will let us know whether or not he wants to go for those procedures. Pill count today he presents himself with 12 pills in his possession. His supposed to have 0 pills in his possession. He has excessive the pills he is taking his medications only as needed. This demonstrates responsible attitude to were the opioid medications. No signs of diversion misuse or abuse of medications. Mass pat was checked. He has a refill in his pharmacy. When he will run out of this medication he will give us a call and I will prescribe him the new prescription of tramadol with 1 refill. Next appointment in 2 months. He still continues to enjoy better pain relief status post diagnostic medial branch block bilateral C4-C5 C6. We agreed last time that he will let us know when the pain will become stronger and we will schedule him for therapeutic C4- C5 C6 medial branch block bilateral. He denies side effect of the opioid medications he denies constipation. Prior: ? He was referred to Dr. Mccain by ne a and Dr. Mccain performed a surgery for him on 05/03/2020.? He was on telephone appointment with Dr. Mccain and Dr. Mccain suggested that some muscles a not healed that is why he continues to feel pain in his neck. ? He was subject of physical therapy which did not help. He reports pain in the neck bilateral shoulders bilateral arms anterior chest posterior back bilateral hips bilateral knees and bilateral feet. ? He was subject of MRI evaluation in [facility] and MRI dictated as below.? 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 [facility] Medical History Mild CAD Skin lesion of scalp Tubular adenoma Mixed dyslipidemia Postoperative hypothyroidism Bifascicular block Lumbar spondylosis Failed back syndrome, cervical Vitamin D deficiency Obesity due to excess calories History of cocaine use Spondylosis of cervical joint without myelopathy Fibromyalgia Rheumatoid arthritis Obstructive sleep apnea Bilateral nephrolithiasis Bilateral carpal tunnel syndrome Opiate dependence Morbid obesity Cervical spondylosis with radiculopathy Type 2 diabetes mellitus with diabetic polyneuropathy, without long-term current use of insulin GERD without esophagitis Essential hypertension Surgical History History of esophagogastroduodenoscopy (EGD) Hx of colonoscopy Hx of thyroidectomy Hx of neck surgery History of carpal tunnel surgery Hx of cholecystectomy History of spinal surgery Herniated disc Family History Father No problems noted. Mother Diabetes mellitus HTN (hypertension) Brother No problems noted. Sister No problems noted. Social History Household Members: Spouse and Children Housing: House Alcohol intake: never Patient Tobacco Use Status: Former Tobacco user Tobacco use type: Cigarette Years Smoked: 10 yrs e-Cigarette/Vaping Use: Never Used Second Hand Smoke Exposure: No service: No Current occupational status: disabled Cognitive needs: No Hearing needs: No Vision needs: Yes Review of Systems Const All systems reviewed & are unremarkable except as noted in HPI and below Physical Exam Vital Signs: Last Vital Signs Pulse 82 08/15/23 08:27 Resp 16 08/15/23 08:27 BP 120/84 08/15/23 08:27 Pulse Ox 97 08/15/23 08:27 Oxygen Delivery Method Room Air 08/15/23 08:27 BMI result Body Mass Index 34.4 Const General: cooperative, healthy appearing, no acute distress and well developed Nutritional Appearance: average body habitus Orientation/consciousness: patient oriented x3 Chest Chest palpation & inspection: normal inspection of the chest Resp Effort & Inspection: normal respiratory effort, able to speak in complete sentences, normal respiratory pattern, no audible wheezes and no cough Cardio Jugular venous distension: no JVD Back/Spine/Pelvis Other: Tenderness on palpation in paraspinal spinal regions of the lowest portion of the lumbar spine. SLR is positive bilaterally. Bahman test is negative bilaterally. Lassegue test is positive bilaterally.Loading test is positive bilaterally. Neuro General: patient oriented x3 Psych Appearance: grossly normal Mental Status: mental status grossly normal Speech and movement: Normal speech and movement present Affect: normal affect Attitude: cooperative Thought process: Normal thought process present Thought content: Normal thought content present Results Reviewed Results Reviewed: MR LUMBAR SPINE WITHOUT CONTRAST CLINICAL INFORMATION: Radiculopathy COMPARISON: None TECHNIQUE: MRI of the lumbar spine was obtained using routine sequences without contrast. FINDINGS: Transitional lumbosacral anatomy. The last fully formed disc space is designated L5-S1. There is a rudimentary disc space at S1-S2 with partial lumbarization of S1. The lower lumbar spinal canal is congenitally narrow from L4-L5 to L5-S1. Mild leftward curvature of the lumbar spine. No significant spondylolisthesis. No suspicious marrow signal or focal osseous lesion. No significant marrow edema The vertebral body heights are maintained. Disc desiccation and mild height loss at L4-L5 and L5-S1. The conus medullaris terminates at the level of L2. The distal spinal cord is normal in appearance. The cauda equina nerve roots appear normal. No significant abnormalities of the paraspinal musculature. Limited evaluation of the intra-abdominal structures without significant abnormalities. The abdominal aorta is of normal contour and caliber. SPINAL LEVELS: T12-L1: Shallow right eccentric disc bulge and mild facet arthropathy. No significant spinal canal stenosis. Mild to moderate right neural foraminal narrowing. L1-L2: No significant spinal canal or neuroforaminal narrowing. Mild facet arthropathy. L2-L3: No significant spinal canal or neuroforaminal narrowing. Mild facet arthropathy. L3-L4: No significant spinal canal or neuroforaminal narrowing. Mild facet arthropathy. L4-L5: Broad-based disc bulge with posterior annular fissure, facet arthropathy, ligamentum flavum thickening. Moderate central spinal canal stenosis. Bilateral subarticular zone narrowing with likely impingement of the traversing L5 nerve roots. Mild bilateral neural foraminal narrowing L5-S1: Mild interspinous edema. Facet arthropathy. Ligamentum flavum thickening. Shallow disc bulge and endplate spurring. Moderate central spinal canal stenosis. Effacement of the subarticular zones with likely mass effect on the traversing S1 nerve roots. Moderate bilateral neural foraminal narrowing, right greater than left. MR/MR lumbar spine wo con IMPRESSION: 1. 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 The lower lumbar spinal canal is congenitally narrow 2. At L4-L5 and L5-S1, there is moderate spinal canal stenosis and bilateral subarticular zone narrowing with likely impingement of the traversing L5 and S1 nerve roots. 3. Additional mild to moderate degenerative changes as described above. No high-grade spinal canal or neural foraminal narrowing. Assessment & Plan Assessment & Plan (1) Failed back syndrome, cervical: Code(s): M96.1 - Postlaminectomy syndrome, not elsewhere classified Category: Medical (2) Lumbar spondylosis: Code(s): M47.816 - Spondylosis without myelopathy or radiculopathy, lumbar region Category: Medical (3) Spondylosis of cervical region without myelopathy or radiculopathy: Code(s): M47.812 - Spondylosis without myelopathy or radiculopathy, cervical region Category: Medical (4) Sacroiliitis: Code(s): M46.1 - Sacroiliitis, not elsewhere classified Category: Medical (5) Sacroiliac joint dysfunction of right side: Code(s): M53.3 - Sacrococcygeal disorders, not elsewhere classified Category: Medical (6) Arthritis of right hip: Code(s): M16.11 - Unilateral primary osteoarthritis, right hip Category: Medical (7) Radiculopathy, lumbar region: Code(s): M54.16 - Radiculopathy, lumbar region Category: Medical (8) Disc degeneration, lumbar: Code(s): M51.36 - Other intervertebral disc degeneration, lumbar region Category: Medical (9) Spondylosis of lumbar region without myelopathy or radiculopathy: Code(s): M47.816 - Spondylosis without myelopathy or radiculopathy, lumbar region Category: Medical Plan Carlos is very responsible patient he demonstrates very good pill count each time he is here. We are waiting for insurance company for approval of the bilateral diagnostic medial branch block L3-L4 L5. He wants this procedure to be done - under sedation. MRI report as above. If this will be effective I will offer him sprint PNS. If this will not give him good pain relief I will consider epidural steroid injection L4-5 interlaminar and L5-S1 interlaminar to compare which level give him better pain relief. I also may consider MILD procedure for him because of his congenital spinal canal stenosis which is compromise further by ligamentum flavum hypertrophy and facet joint degeneration. He has 1 more refill in his pharmacy, it is prescribed with 1 refill. We agreed that he will give us a call when he needs his prescription to be refilled with 1 refill again. We also agreed that he will give us a call and ask how the things are going with his insurance company for approval of the medial branch block. Patient Instructions: I hereby testify that I spent 32 minutes speaking with this patient, evaluation of his prior diagnostic studies, prior records, organizing this note. Coding Level of Care Code Est Pt Level 4 (52933) Diagnoses Failed back syndrome, cervical M96.1 Lumbar spondylosis M47.816 Spondylosis of cervical region without myelopathy or radiculopathy M47.812 Sacroiliitis M46.1 Sacroiliac joint dysfunction of right side M53.3 Arthritis of right hip M16.11 Radiculopathy, lumbar region M54.16 Disc degeneration, lumbar M51.36 Spondylosis of lumbar region without myelopathy or radiculopathy M47.816
[2023-08-15 08:27] VITALS: BP 120/84; PULSE 82; RESP 16; O2SAT 97; BMI 34.4
== END 2023-08-15 08:38 | disposition home or self-care (01) ==
PROVIDERS: PCP Internal Medicine; Visit Provider Anesthesiology
DX: M96.1 Postlaminectomy syndrome, not elsewhere classified (principal); M47.816 Spondylosis without myelopathy or radiculopathy, lumbar region; M47.812 Spondylosis without myelopathy or radiculopathy, cervical region; M46.1 Sacroiliitis, not elsewhere classified; M53.3 Sacrococcygeal disorders, not elsewhere classified; M16.11 Unilateral primary osteoarthritis, right hip; M54.16 Radiculopathy, lumbar region; M51.36 Other intervertebral disc degeneration, lumbar region
CPT/HCPCS: 99214

== ENCOUNTER → 2023-08-15 08:06 | Outpatient (BNVA) | payer OTHER, SELFPAY | PROVIDERS: PCP Internal Medicine; Visit Provider Anesthesiology | DX: M96.1 Postlaminectomy syndrome, not elsewhere classified (principal); M47.26 Other spondylosis with radiculopathy, lumbar region; M47.812 Spondylosis without myelopathy or radiculopathy, cervical region; M46.1 Sacroiliitis, not elsewhere classified; M53.3 Sacrococcygeal disorders, not elsewhere classified; M16.11 Unilateral primary osteoarthritis, right hip; M51.36 Other intervertebral disc degeneration, lumbar region | CPT/HCPCS: 99212 ==

== ENCOUNTER → 2023-08-29 12:07 | Outpatient (REF) | payer OTHER, SELFPAY | LOC: HO.SL 12:07 | PROVIDERS: PCP Internal Medicine; Visit Provider Internal Medicine | DX: G47.33 Obstructive sleep apnea (adult) (pediatric) (principal) | CPT/HCPCS: 95806 ==

== ENCOUNTER → 2023-09-01 12:57 | Outpatient (BNV) | payer OTHER, SELFPAY | PROVIDERS: PCP Internal Medicine; Visit Provider Internal Medicine | DX: R06.83 Snoring (principal) | CPT/HCPCS: 95806 ==

== ENCOUNTER → 2023-09-11 07:34 | Outpatient (REF) | payer OTHER, SELFPAY ==
--- NOTE | 2023-09-11 07:37 | CA_ITS ---
Transthoracic Echocardiogram Patient (Last, First, Middle): Carlos Rice J Gender: Male Date of : 1975 Age: 48 Procedure Date: 09/11/2023 Procedure Type: Transthoracic Echocardiogram Location: OP Height: 177.8 cm Weight: 106.6 kg BSA: 2.24 m2 Heart Rate: bpm BP: 120 / 80 mmHg [employer] Professor: LEO Referring MD: Shashank Monroy MD Symptoms: I45.2 - Bifascicular block Study Quality: Adequate w contrast ECG Rhythm: Sinus Conclusions: - The left ventricular systolic function is mildly decreased. The calculated ejection fraction is 48% by biplane method. - The basal inferior segment is akinetic. - The basal inferolateral segment is hypokinetic. - No obvious valvular pathology seen on this study. Findings Procedure Information Contrast agent, definity, is being given per protocol without apparent complications. Left Ventricle Normal left ventricular cavity size. There is normal left ventricular wall thickness. The left ventricular systolic function is mildly decreased. The calculated ejection fraction is 48% by biplane method. There is mild global hypokinesis. Diastolic function is normal for age. Wall Motion Rest Echo Findings The basal inferolateral segment is hypokinetic. The basal inferior segment is akinetic. Right Ventricle Mildly increased right ventricular cavity size. There is normal right ventricular systolic function. Atria Both atria are normal in size. Aortic Valve There is a normal trileaflet aortic valve. There is no aortic valve stenosis. There is no aortic valve regurgitation. Mitral Valve The mitral valve appears normal. There is no mitral valve regurgitation. There is no mitral valve stenosis. Pulmonic Valve The pulmonic valve is likely normal. Tricuspid Valve There is no tricuspid valve regurgitation. Tricuspid regurgitation envelope is inadequate for calculation of right ventricular systolic pressure. Great Vessels The asc aorta and aortic arch are normal in size. Venous The inferior vena cava is normal in size and collapses greater than 50% with inspiration. Pericardium/Pleural There is a trivial pericardial effusion. Prior Study Comparison Changes noted compared to prior study dated: 03/21/2020. LVEF slightly lower. Recommendations, Care & Conclusions No obvious valvular pathology seen on this study. Measurements 2D Linear Measurements IVSd: 0.83 0.6-0.9/0.6-1.0 cm LVIDd: 4.80 3.9-5.3/4.2-5.9 cm LVIDd Index: 2.14 2.4-3.2/2.2-3.1 cm/m2 LVIDs: 3.52 2.0-3.6 cm LVPWd: 1.00 0.7-1.1 cm LA Diam: 3.40 2.7-3.8/3.0-4.0 cm LAIDs Index: 1.52 1.5-2.3 cm/m2 LV Mass: 188.49 67-162/88-224 g LV Mass Index: 84.15 43-95/49-115 g/m2 LVOT Diam: 2.00 3.0+(-)1.3 cm 2D Systolic Function EF 4C: 40.40 >55% EF 2C: 53.50 >55% EF BiP: 48.00 >55% Mitral Valve MV Pk E: 0.70 MV PK A: 0.62 MV Decel Time: 160.00 E/A: 1.10 E'Lateral: 7.72 E'Medial: 6.20 E/E' Med: 11.30 E/E' Lat: 9.10 PHT: 47.00 MVA PHT: 4.68 Decel Phillips: 4.39 Aortic Valve AoV Pk Derek: 1.21 AoV Mn Derek: 0.83 AoV VTI: 0.23 AoV Pk Grad: 6.00 Aov Mn Grad: 3.00 MELYSSA Cont.VTI: 2.47 LVOT LVOT Pk Derek: 0.95 LVOT Mn Derek: 0.64 LVOT VTI: 0.18 LVOT Pk Grad: 4.00 LVOT Mn Grad: 2.00 LVOT Diam: 2.00 LVOT Area: 3.14 Diastolic Function MV Pk E: 0.70 MV Pk A: 0.62 E/A: 1.10 E'Medial: 6.20 E/E' Med: 11.30 E' Laterial: 7.72 E/E' Lat: 9.10 Right Ventricle TAPSE (mm): 18.80 TVS' Derek: 12.70 Tricuspid Valve RA Press: 3.00 Great Vessels Aorta Sinus of Valsalva: 3.10 2.0-3.5 cm Ao Asc: 3.10 2.1-3.4 cm Ao Arch: 2.70 Updated in Other Vendor System with Status of Final Shashank Monroy MD electronically signed on 09/13/2023 2:24:34 PM with status of Final
--- NOTE | 2023-09-11 07:37 | HM_ITS ---
Conclusion: 1. Patient was monitored for total period of 6 days and 22 hours 2. Baseline was normal sinus rhythm with average heart of 82 beats per minute 3. No significant pauses or arrhythmias noted 4. Patient reported 3 events with symptoms of tiredness although the symptoms were associated with artifact on the monitoring MTDD
== END ==
LOC: HO.CARD 07:34
PROVIDERS: PCP Internal Medicine; Visit Provider Internal Medicine
DX: I45.2 Bifascicular block (principal)
CPT/HCPCS: 93242; 93306; Q9957

== ENCOUNTER → 2023-09-11 07:37 | Outpatient (BNV) | payer OTHER, SELFPAY | PROVIDERS: PCP Internal Medicine; Visit Provider Internal Medicine | DX: I45.2 Bifascicular block (principal) | CPT/HCPCS: 93244; 93306 ==

== ENCOUNTER 2023-10-10 09:41 | Outpatient (AMB) | payer OTHER, SELFPAY ==
[2023-10-10 09:48] VITALS: BP 102/70; PULSE 75; O2SAT 98; BMI 33.5
--- NOTE | 2023-10-10 09:48 | A.OFFVIS_ITS ---
Vital Signs 10/10/23 09:48 Height 5 ft 10 in Weight 233 lb 11.04 oz BMI 33.5 BP 102/70 Blood Pressure Location Lt brachial Position Sitting Pulse 75 Pulse Source Pulse Oximeter Pulse Oximetry (%) 98 Oxygen Delivery Method Room Air Intake Visit Reasons: carisa Intake Note: pt is here as a new patient, for follow up of sleep study, states fatigued during the day and when breathing he feels tight across the chest. Director Visual Required: No Allergies No Known Allergies Allergy (Verified 10/10/23 10:18) Medication List - Last Reconciled 10/10/23 by Trever Montgomery MD blood sugar diagnostic (FileString Verio test strips) Test blood sugar twice per day blood-glucose meter (FileString Verio Flex Meter) As directed to test blood sugars bupropion HCl XL 300 mg PO DAILY dapagliflozin propanediol (Farxiga) 10 mg PO QAM dulaglutide (Trulicity) 1.5 mg (0.5 mL) subcut QWEEK glipizide 1/2 tab before breakfast and 1 tab before dinner PO 2 times a day; lancets (Konoz Delica Safety Lancet) Test blood sugar twice per day levothyroxine 150 mcg PO DAILY 3 months lisinopril 20 mg PO DAILY lumateperone (Caplyta) 10.5 mg PO DAILY metformin 1,000 mg PO BID metoprolol succinate ER 25 mg PO QAM multivitamin (One Daily Multivitamin tablet) 1 tab PO QAM nitroglycerin 0.4 mg sublingual ONCE PRN omeprazole 20 mg PO QAM pioglitazone 30 mg PO DAILY pregabalin 150 mg PO BID 30 days rosuvastatin 5 mg PO QPM sertraline 100 mg PO DAILY tramadol 50 mg PO Q8H PRN 30 days Do you need a note to return to daycare/school/sports/work: No HPI HPI carisa: Details: This 48 years old gentleman is being seen for the 1st time, in relation to sleep apnea. He comes with his and both of them speak good Syriac. Patient had a recent home-based sleep study on 09/01/2023, and he was referred by his orthopedic shoe fitter Dr. Monroy to be seen by me, for follow-up and management. This gentleman is disabled since 2009 on account of back injury. He is staying mostly in the house with some outdoor walking but not much. He is being treated for hypertension, diabetes mellitus, hyperlipidemia, hypothyroidism, and also for mild depression. In 2019, he was seen in an emergency room for chest pain, found to have by fascicular block, echocardiogram showing a defect in wall motion. But he had cardiac catheterization which was normal. This gentleman was initially tested for sleep apnea back in 2008 and found to have obstructive sleep apnea. He weighed 300 lb at that. Since then he has lost weight, but still remains moderately obese. He used CPAP for a year or so, then lost his CPAP machine when he moved from 1 apartment building to the other. He and his both, state that he does not snore. He always sleeps on his side mostly in the right lateral position, but during the sleep may go in. Supine position for a while His sleep is only for 3-4 hours, and not refreshing . He remains somewhat tired and sleepy during the daytime. However in the afternoon he would lie down for 10-15 minutes and then gets up and feels okay, he never takes any long nap during the daytime. Some of his tired feeling may be part of sedentary life style and depression. He is nonsmoker. DOES NOT HAVE ANY PULMONARY ISSUE. * ADDITIONAL INFORMATION. I WAS ABLE TO CHECK HIS RECORDS OF PREVIOUS SLEEP STUDIES HERE AT [facility]. 2006: HE WEIGHED 280 LB POLYSOMNOGRAM STUDY SHOWED SEVERE CARISA , HAD CPAP TITRATION AND TREATED WITH PRESSURE OF 10 CM USING LARGE MASK. 2011: POLYSOMNOGRAM STUDY SHOWED ONLY MILD OBSTRUCTIVE SLEEP APNEA WITH TOTAL SLEEP TIME AHI 6.2, WAS NOT STARTED ON CPAP AT THAT TIME. 2013 : AGAIN POLYSOMNOGRAM STUDY SHOWED SEVERE OBSTRUCTIVE SLEEP APNEA HE HAD CPAP TITRATION AND ADVISE TO BE TREATED WITH CPAP OF 14 CM. THE ABOVE FINDINGS INDICATED THAT HE DOES NOT REMEMBER ALL THE DETAILS ABOUT HIS PREVIOUS SLEEP STUDIES AND CPAP USES. IT IS APPARENT THAT HE HAS NOT USE THE CPAP REGULARLY. HE DOES HAVE HISTORY OF LOSING ABOUT 70-80 LB OF WEIGHT , STARTING FROM 2006 . [facility] Medical History (Updated 10/10/23 @ 10:36 by Trever Montgomery MD) Obesity (BMI 30.0-34.9) Nocturnal hypoxemia CARISA (obstructive sleep apnea) Mild CAD Skin lesion of scalp Tubular adenoma Mixed dyslipidemia Postoperative hypothyroidism Bifascicular block Lumbar spondylosis Failed back syndrome, cervical Vitamin D deficiency Obesity due to excess calories History of cocaine use Spondylosis of cervical joint without myelopathy Fibromyalgia Rheumatoid arthritis Obstructive sleep apnea Bilateral nephrolithiasis Bilateral carpal tunnel syndrome Opiate dependence Morbid obesity Cervical spondylosis with radiculopathy Type 2 diabetes mellitus with diabetic polyneuropathy, without long-term current use of insulin GERD without esophagitis Essential hypertension Surgical History History of esophagogastroduodenoscopy (EGD) Hx of colonoscopy Hx of thyroidectomy Hx of neck surgery History of carpal tunnel surgery Hx of cholecystectomy History of spinal surgery Herniated disc Family History Father No problems noted. Mother Diabetes mellitus HTN (hypertension) Brother No problems noted. Sister No problems noted. Social History Household Members: Spouse and Children Housing: House Alcohol intake: never Patient Tobacco Use Status: Former Tobacco user Tobacco use type: Cigarette Years Smoked: 10 yrs e-Cigarette/Vaping Use: Never Used Second Hand Smoke Exposure: No service: No Current occupational status: disabled Cognitive needs: No Hearing needs: No Vision needs: Yes Review of Systems Const All systems reviewed & are unremarkable except as noted in HPI and below Eyes Reports no additional complaints ENT Reports no additional complaints and Reports neck pain Card Denies chest pain, Denies irregular heart rhythm and Denies leg edema Resp Reports as per HPI GI Reports no additional complaints Reports no additional complaints Musc Reports back pain and Reports neck pain Skin/Breast Reports system reviewed and no additional complaints, except as documented Neuro Reports no additional complaints Psych Reports depression (Being treated) Endo Reports other (Being treated for diabetes and hypothyroidism) Ryan/Lymph Reports no additional complaints Aller/Immun Reports no additional complaints Physical Exam Vital Signs: Last Vital Signs Pulse 75 10/10/23 09:48 BP 102/70 10/10/23 09:48 Pulse Ox 98 10/10/23 09:48 Oxygen Delivery Method Room Air 10/10/23 09:48 BMI result Body Mass Index 33.5 Const General: healthy appearing, comfortable, no acute distress, alert and awake Orientation/consciousness: patient oriented x3 HEENT Head: Yes normal to inspection General nose exam: No nasal polyps present and No nasal discharge present Face and sinus: Yes sinuses nontender Mouth: oropharynx abnormals (Slightly narrow and crowded, Mallampati class 3) Throat: Yes posterior oropharynx normal Eyes General: appearance normal, both eyes and all related structures Neck Neck: Yes normal visual inspection, Yes no lymphadenopathy, Yes trachea midline, Yes no JVD and Yes other (Neck circumference 17 in) Thyroid: Thyroid normal Chest Chest palpation & inspection: normal inspection of the chest, normal palpation of entire chest wall and no tenderness Resp Effort & Inspection: normal respiratory effort Auscultation: clear to auscultation bilaterally, no rhonchi and no wheezes Cardio Palpation: normal PMI Rate: regular rate Rhythm: regular rhythm Heart sounds: no gallops and no murmurs Peripheral pulses: Peripheral pulses 2+ throughout GI Palpation (GI): Soft to palpation, nontender, No hepatosplenomegaly present and no masses Auscultation: normal bowel sounds Back/Spine/Pelvis Thoracic/Lumbar Spine: thoracic and lumbar spine normal to inspection and thoraco-lumbar ROM limited Skin General skin exam: no rashes or lesions noted Neuro General: patient oriented x3 and no focal motor deficits Cranial nerves: Yes CN's II-XII intact bilaterally Extrem General: Yes normal to inspection, Yes no clubbing, cyanosis or edema and Yes no calf tenderness Psych Appearance: grossly normal and well kempt Speech and movement: Normal speech and movement present Results Reviewed Results Reviewed: HOME-BASED SLEEP STUDY ON 09/01/2023 IS REVIEWED TOTAL SLEEP TIME AHI 4.5 THIS IS LITTLE BIT BELOW THE THRESHOLD FOR SLEEP APNEA. HOWEVER DURING HIS SLEEP FOR 53 MINUTES IN SUPINE POSITION AHI WAS 31, LATERAL POSITION AHI 0.6 SNORING FOR 27% OF THE SLEEP TIME. ALSO HAD LOWEST O2 SAT 67 AND O2 SAT BELOW 88% FOR 10 MINUTES Assessment & Plan Assessment & Plan (1) CARISA (obstructive sleep apnea): Comment: THIS GENTLEMAN DOES HAVE PAST HISTORY OF SLEEP APNEA, BUT HAS NOT USED CPAP SINCE 2009. CURRENTLY HE IS ASYMPTOMATIC. SLEEP STUDY PERFORMED BECAUSE OF HIS CARDIAC ISSUES. TOTAL SLEEP TIME AHI 4.5 DOES NOT MEET THE CRITERIA FOR DIAGNOSIS OF CARISA, EVEN THOUGH DURING SUPINE POSITION HE DOES HAVE A AHI OF 23. Code(s): G47.33 - Obstructive sleep apnea (adult) (pediatric) Category: Medical Plan: PATIENT DOES NOT MEET CRITERIA FOR STARTING ON CPAP THERAPY. RESULTS OF THE SLEEP STUDY ARE EXPLAINED TO HIM AND HE IS SURPRISED TO FIND OUT THAT HE DID SLEEP IN SUPINE POSITION FOR 53 MINUTES. ACCORDING TO HIM AND HIS HE IS ALWAYS SLEEPING IN LATERAL POSITION. AT THIS POINT HE NEEDS TO BE TREATED WITH CONSERVATIVE MEASURES FOLLOWS: 1-POSITION THERAPY, USE A LARGE PILLOW OR WEDGE IN THE MIDDLE OF THE BED TO MAKE SURE THAT HE DOES NOT TURN ON TO HIS BACK DURING SLEEP. 2- , LOSE WEIGHT. TO START WITH AT LEAST LOSE 10 LB OF WEIGHT IN THE NEXT FEW MONTHS. (2) Nocturnal hypoxemia: Comment: PATIENT DID HAVE MINIMAL DEGREE OF NOCTURNAL HYPOXEMIA, THIS PROBABLY HAPPENED WHEN HE WAS SLEEPING IN SUPINE POSITION. HE DOES NOT HAVE ANY UNDERLYING CHRONIC PULMONARY DISEASE, OR CONGESTIVE HEART FAILURE. Code(s): G47.34 - Idiopathic sleep related nonobstructive alveolar hypoventilation Category: Medical Plan: I THINK HE AVOID SLEEPING IN SUPINE POSITION THE HYPOXEMIA SHOULD ALSO BE CORRECTED. (3) Obesity (BMI 30.0-34.9): Comment: HE HAS PAST HISTORY OF MORBID OBESITY, HAS LOST SIGNIFICANT WEIGHT, BEING ON THYROID REPLACEMENT THERAPY MAY BE HELPING. HE IS STILL MODERATELY OBESE. Code(s): E66.9 - Obesity, unspecified Category: Medical Plan: DISCUSSED WITH HIM ABOUT THE WEIGHT ISSUE. HE SEEMS TO BE WELL MOTIVATED. I HAVE GIVEN HIM THE CHALLENGE OF LOSING ABOUT 10-15 LB IN THE NEXT 3 MONTHS HE IS TO BE RECHECKED IN 4 MONTHS. Coding Level of Care Code New Pt Level 4 (93214) Diagnoses CARISA (obstructive sleep apnea) G47.33 Nocturnal hypoxemia G47.34 Obesity (BMI 30.0-34.9) E66.9
== END 2023-10-10 10:17 | disposition home or self-care (01) ==
PROVIDERS: PCP Internal Medicine; Visit Provider Internal Medicine
DX: G47.33 Obstructive sleep apnea (adult) (pediatric) (principal); G47.34 Idiopathic sleep related nonobstructive alveolar hypoventilation; E66.9 Obesity, unspecified; Z68.33 Body mass index [BMI] 33.0-33.9, adult
CPT/HCPCS: 99214

== ENCOUNTER → 2023-10-10 09:41 | Outpatient (BNVA) | payer OTHER, SELFPAY | PROVIDERS: PCP Internal Medicine; Visit Provider Internal Medicine | DX: G47.33 Obstructive sleep apnea (adult) (pediatric) (principal); G47.34 Idiopathic sleep related nonobstructive alveolar hypoventilation; E66.9 Obesity, unspecified; Z68.33 Body mass index [BMI] 33.0-33.9, adult | CPT/HCPCS: 99212 ==

== ENCOUNTER 2023-10-14 08:54 | Outpatient (REF) | payer OTHER, SELFPAY ==
--- NOTE | ~2023-10-14 | XR_ITS ---
EXAMINATION: XR PELVIS CLINICAL INFORMATION: Sacrococcygeal disorders not classified COMPARISON: Hip radiographs 03/28/2023 TECHNIQUE: AP and lateral views of the pelvis. FINDINGS: No acute fracture or dislocation. Hip joint spaces are maintained. Mild multilevel degenerative disc disease in the visualized lower lumbosacral spine. Soft tissues are unremarkable. XR/XR pelvis min 3V IMPRESSION: 1. No acute osseous abnormality. 2. Mild multilevel degenerative disc disease in the visualized lower lumbosacral spine. Electronically signed by: Meera Knapp MD 10/30/2023 01:16 PM EDT
--- NOTE | ~2023-10-14 | XR_ITS ---
EXAMINATION: XR cervical spine 5V CLINICAL INFORMATION: Fracture COMPARISON: CT cervical spine 02/22/2014 TECHNIQUE: 5 views of the cervical spine were obtained. FINDINGS: The cervical spine is visualized to the level of C7-T1 on the lateral view. Vertebral body alignment is maintained. Status post C6-C7 anterior discectomy and spinal fusion with interbody disc spacer. No evidence of hardware fracture or complication. There is osseous fusion across C6-C7. Vertebral body heights are otherwise maintained.. Lateral masses of C1 are well aligned on C2. Visualized portion of the dens is intact. Moderate multilevel degenerative disc disease with loss of disc space height and bulky disc osteophyte complexes. Moderate to severe multilevel bilateral neural foraminal narrowing. No prevertebral soft tissue swelling. XR/XR cervical spine 5V IMPRESSION: 1. Status post C6-C7 anterior discectomy and spinal fusion with interbody disc spacer. No evidence of hardware fracture or complication. There is osseous fusion across C6-C7. 2. Moderate multilevel degenerative disc disease with loss of disc space height and bulky disc osteophyte complexes. Moderate to severe multilevel bilateral neural foraminal narrowing. Electronically signed by: Meera Knapp MD 10/30/2023 01:20 PM EDT
== END 2023-10-14 08:55 | disposition home or self-care (01) ==
LOC: HO.XRAY 08:54
PROVIDERS: PCP Internal Medicine; Visit Provider Anesthesiology
DX: S12.9XXA Fracture of neck, unspecified, initial encounter (principal); M53.3 Sacrococcygeal disorders, not elsewhere classified; X58.XXXA Exposure to other specified factors, initial encounter; Y93.9 Activity, unspecified; Y92.9 Unspecified place or not applicable; Y99.9 Unspecified external cause status; Z51.81 Encounter for therapeutic drug level monitoring; Z79.891 Long term (current) use of opiate analgesic
CPT/HCPCS: 72050; 72190; 99212

== ENCOUNTER 2023-10-14 08:54 | Outpatient (AMB) | payer OTHER, SELFPAY ==
[2023-10-14 09:20] VITALS: BP 126/82; PULSE 96; RESP 14; O2SAT 96; BMI 33.5
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
== END 2023-10-14 09:26 | disposition home or self-care (01) ==
PROVIDERS: PCP Internal Medicine; Visit Provider Anesthesiology
DX: S12.9XXA Fracture of neck, unspecified, initial encounter (principal); M53.3 Sacrococcygeal disorders, not elsewhere classified
CPT/HCPCS: 99213

== ENCOUNTER 2023-10-22 12:35 | Outpatient (AMB) | payer OTHER, SELFPAY ==
--- NOTE | 2023-10-22 12:46 | A.OFFVIS_ITS ---
Vital Signs 10/22/23 12:47 Height 5 ft 10 in Weight 232 lb 12.93 oz BMI 33.4 BP 100/64 Blood Pressure Location Lt brachial Position Sitting Pulse 83 Pulse Source Pulse Oximeter Intake Visit Reasons: 3m follow up/ echo/holter Coat Room Attendant Required: Yes Coat Room Attendant Services: Coat Room Attendant Present Coat Room Attendant Name: Dee-spouse Accompanied by: Spouse Allergies No Known Allergies Allergy (Verified 10/14/23 09:21) Medication List - Last Reconciled 10/22/23 by Shashank Monroy MD blood sugar diagnostic ([employer] Verio test strips) Test blood sugar twice per day blood-glucose meter ([employer] Verio Flex Meter) As directed to test blood sugars bupropion HCl XL 300 mg PO DAILY dapagliflozin propanediol (Farxiga) 10 mg PO QAM dulaglutide (Trulicity) 1.5 mg (0.5 mL) subcut QWEEK glipizide 1/2 tab before breakfast and 1 tab before dinner PO 2 times a day; lancets ([employer]) Test blood sugar twice per day levothyroxine 150 mcg PO DAILY 3 months lisinopril 20 mg PO DAILY lumateperone (Caplyta) 10.5 mg PO DAILY metformin 1,000 mg PO BID metoprolol succinate ER 25 mg PO QAM multivitamin (One Daily Multivitamin tablet) 1 tab PO QAM nitroglycerin 0.4 mg sublingual ONCE PRN omeprazole 20 mg PO QAM pioglitazone 30 mg PO DAILY pregabalin 150 mg PO BID 30 days rosuvastatin 5 mg PO QPM sertraline 100 mg PO DAILY tramadol 50 mg PO Q8H PRN 30 days HPI Comments Details: Carlos returns for follow-up. In the past, he has been seen for chest pain. Echocardiogram had shown wall motion abnormality but cardiac catheterization did not show any significant obstructive disease. He has multiple vascular risk factors including diabetes, hypertension, dyslipidemia. He has had cocaine use the past but nothing recently. He also has had neck pain leading to cervical spine surgery in the past. He continues to get random chest pains that are nonexertional. Unclear if it is musculoskeletal or not. Otherwise, feels just about the same as before. FOR[facility]LY [facility] Medical History (Updated 10/22/23 @ 13:40 by Shashank Monroy MD) Obesity (BMI 30.0-34.9) Nocturnal hypoxemia AZAM (obstructive sleep apnea) Mild CAD Skin lesion of scalp Tubular adenoma Mixed dyslipidemia Postoperative hypothyroidism Bifascicular block Lumbar spondylosis Failed back syndrome, cervical Vitamin D deficiency Obesity due to excess calories History of cocaine use Spondylosis of cervical joint without myelopathy Fibromyalgia Rheumatoid arthritis Obstructive sleep apnea Bilateral nephrolithiasis Bilateral carpal tunnel syndrome Opiate dependence Morbid obesity Cervical spondylosis with radiculopathy Type 2 diabetes mellitus with diabetic polyneuropathy, without long-term current use of insulin GERD without esophagitis Essential hypertension Surgical History History of esophagogastroduodenoscopy (EGD) Hx of colonoscopy Hx of thyroidectomy Hx of neck surgery History of carpal tunnel surgery Hx of cholecystectomy History of spinal surgery Herniated disc Family History Father No problems noted. Mother Diabetes mellitus HTN (hypertension) Brother No problems noted. Sister No problems noted. Social History Household Members: Spouse and Children Housing: House Alcohol intake: never Patient Tobacco Use Status: Former Tobacco user Tobacco use type: Cigarette Years Smoked: 10 yrs e-Cigarette/Vaping Use: Never Used Second Hand Smoke Exposure: No service: No Current occupational status: disabled Cognitive needs: No Hearing needs: No Vision needs: Yes Review of Systems Const Denies chills, Denies fatigue, Denies fever(s), Denies weight gain and Denies weight loss ENT Denies dizziness Card Reports chest pain, Denies leg edema, Denies lightheadedness, Denies palpitations, Reports dyspnea on exertion, Denies orthopnea and Denies other Resp Denies cough and Reports dyspnea on exertion GI Denies hematochezia and Denies change in stool character Musc Denies abnormal gait, Denies muscle weakness, Denies numbness, Denies radiating pain into limb and Denies tingling Neuro Denies abnormal gait, Denies dizziness, Denies numbness and Denies tingling Endo Denies fatigue and Denies palpitations Physical Exam Vital Signs: Last Vital Signs Pulse 83 10/22/23 12:47 BP 100/64 10/22/23 12:47 BMI result Body Mass Index 33.4 Const General: comfortable and no acute distress Orientation/consciousness: patient oriented x3 HEENT Other: Unremarkable Head: Yes normal to inspection Neck Neck: Yes normal visual inspection Chest Chest palpation & inspection: normal inspection of the chest Resp Auscultation: clear to auscultation bilaterally Cardio Palpation: normal PMI Heart sounds: S1 normal heart sound present, S2 normal heart sound present, no gallops, no murmurs and no rubs GI Palpation (GI): Soft to palpation Back/Spine/Pelvis Other: unremarkable Skin General skin exam: no rashes or lesions noted Neuro General: patient oriented x3 Extrem General: Yes normal to inspection Psych Mental Status: mental status grossly normal Assessment & Plan Assessment & Plan (1) Bifascicular block: Code(s): I45.2 - Bifascicular block Category: Medical (2) Nonischemic cardiomyopathy: Code(s): I42.8 - Other cardiomyopathies Category: Medical (3) Precordial chest pain: Code(s): R07.2 - Precordial pain Category: Medical (4) Type 2 diabetes mellitus with unspecified complications: Code(s): E11.8 - Type 2 diabetes mellitus with unspecified complications Category: Medical (5) Essential hypertension: Code(s): I10 - Essential (primary) hypertension Category: Medical (6) Other and unspecified hyperlipidemia: Code(s): E78.5 - Hyperlipidemia, unspecified Category: Medical (7) History of cocaine use: Code(s): Z87.898 - Personal history of other specified conditions Category: Medical Plan Cardiac studies reviewed. EKG with chronic bifascicular block. In the echocardiogram, LVEF 48%. Basal inferior akinesis and basal inferolateral hypokinesis. Holter monitor shows underlying sinus rhythm, but no significant arrhythmias. Cardiac catheterization 2019 did not show any significant disease. With regard to his symptoms of sharp chest pains, sounds atypical, but as he has got many comorbidities, we can check a coronary CTA. Otherwise, aggressive risk factor modification. For diabetes, he is on Farxiga, Trulicity, pioglitazone. Last hemoglobin A1c is 6.9%. For hypertension, on lisinopril, metoprolol and blood pressure seems stable. For dyslipidemia, on statins. Last LDL is 42 mg/dL. Discussed with who came for appointment. She acted as hotel services supervisor and appropriate form signed. Orders: Orders CT Cardiac Coronary Angio Today I25.10 - Atherosclerotic heart disease of [place] coronary artery without angina pectoris Basic Metabolic Panel Today R07.2 - Precordial pain Coding Level of Care Code Est Pt Level 4 (39354) Diagnoses Bifascicular block I45.2 Nonischemic cardiomyopathy I42.8 Precordial chest pain R07.2 Type 2 diabetes mellitus with unspecified complications E11.8 Essential hypertension I10 Other and unspecified hyperlipidemia E78.5 History of cocaine use Z87.898
[2023-10-22 12:47] VITALS: BP 100/64; PULSE 83; BMI 33.4
== END 2023-10-22 13:09 | disposition home or self-care (01) ==
PROVIDERS: PCP Internal Medicine; Visit Provider Internal Medicine
DX: I45.2 Bifascicular block (principal); I42.8 Other cardiomyopathies; R07.2 Precordial pain; E11.8 Type 2 diabetes mellitus with unspecified complications; I10 Essential (primary) hypertension; E78.5 Hyperlipidemia, unspecified; Z87.898 Personal history of other specified conditions
CPT/HCPCS: 99214

== ENCOUNTER → 2023-10-22 12:35 | Outpatient (BNVA) | payer OTHER, SELFPAY | PROVIDERS: PCP Internal Medicine; Visit Provider Internal Medicine | DX: I45.2 Bifascicular block (principal); I42.8 Other cardiomyopathies; I10 Essential (primary) hypertension; E11.8 Type 2 diabetes mellitus with unspecified complications; E78.5 Hyperlipidemia, unspecified; Z87.898 Personal history of other specified conditions; R07.2 Precordial pain | CPT/HCPCS: 99212 ==

== ENCOUNTER → 2023-10-29 11:44 | Outpatient (BNVA) | payer OTHER, SELFPAY | PROVIDERS: PCP Internal Medicine; Visit Provider Registered Nurse Emergency ==

== ENCOUNTER 2023-10-30 16:20 | Outpatient (AMB) | payer OTHER, SELFPAY ==
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
== END 2023-10-30 16:21 | disposition home or self-care (01) ==
LOC: HO.PMC 16:20
PROVIDERS: PCP Internal Medicine; Visit Provider Registered Nurse Emergency
DX: S12.9XXA Fracture of neck, unspecified, initial encounter (principal); M53.3 Sacrococcygeal disorders, not elsewhere classified; M47.812 Spondylosis without myelopathy or radiculopathy, cervical region
CPT/HCPCS: 99213

== ENCOUNTER → 2023-10-30 16:20 | Outpatient (BNVA) | payer OTHER, SELFPAY | PROVIDERS: PCP Internal Medicine; Visit Provider Registered Nurse Emergency | DX: S12.9XXA Fracture of neck, unspecified, initial encounter (principal); M53.3 Sacrococcygeal disorders, not elsewhere classified; M47.812 Spondylosis without myelopathy or radiculopathy, cervical region ==

== ENCOUNTER 2023-11-04 08:53 | Outpatient (AMB) | payer OTHER, SELFPAY ==
--- NOTE | 2023-11-04 09:03 | MHC.OFFVIS ---
Vital Signs 11/04/23 09:04 Height 5 ft 10 in Weight 231 lb 0.711 oz BMI 33.1 BP 104/68 Blood Pressure Location Rt brachial Position Sitting Pulse 82 Pulse Source Pulse Oximeter Intake Visit Reasons: Hypothyroidism/CONFIRMED Intake Note: Patient present today for Hypothyroidism follow up visit. Lead Qa Analyst Required: Yes Lead Qa Analyst Language: Chiropractic Neurologist Services: Lead Qa Analyst Present Lead Qa Analyst Name: Killian Caldwell Information Interpreted: non-clinical & clinical Accompanied by: Self / Same As Patient Allergies No Known Allergies Allergy (Verified 11/04/23 09:05) Medication List - Last Reconciled 11/04/23 by Angella Montanez MD blood sugar diagnostic (PivotLink Verio test strips) Test blood sugar twice per day blood-glucose meter (PivotLink Verio Flex Meter) As directed to test blood sugars bupropion HCl XL 300 mg PO DAILY dapagliflozin propanediol (Farxiga) 10 mg PO QAM dulaglutide (Trulicity) 1.5 mg (0.5 mL) subcut QWEEK glipizide 1/2 tab before breakfast and 1 tab before dinner PO 2 times a day; lancets ([employer] Delica Safety Lancet) Test blood sugar twice per day levothyroxine 150 mcg PO DAILY 3 months lisinopril 20 mg PO DAILY lumateperone (Caplyta) 10.5 mg PO DAILY metformin 1,000 mg PO BID metoprolol succinate ER 25 mg PO QAM multivitamin (One Daily Multivitamin tablet) 1 tab PO QAM nitroglycerin 0.4 mg sublingual ONCE PRN omeprazole 20 mg PO QAM pioglitazone 30 mg PO DAILY pregabalin 150 mg PO BID 30 days rosuvastatin 5 mg PO QPM sertraline 100 mg PO DAILY tramadol 50 mg PO Q8H PRN 30 days HPI Comments Details: 48 YO M with a PMHx of a multinodular thyroid s/p total thyroidectomy May 30 with benign results who is seen in F/U for postoperative hypothyroidism. also wants to talk about Type 2 DM. Was last seen by Dr. Villela in 11/2021 HPI from prior visit Was initially diagnosed with multinodular thyroid many years ago, and was previously followed at [facility] for this. He had a prior biopsy of some of his nodules, but he does not recall which. He reports that these were benign. He underwent FNA biopsy by Dr. Villela 11/10/2020 of 4 nodules, with results detailed below: 1) RUP 1.5 cm thyroid nodule - Cytology benign (bethesda category II) 2) RMP 4.2 cm thyroid nodule - Cytology benign (bethesda category II) 3) LMP 2.5 cm thyroid nodule - Cytology benign (bethesda category II) 4) LMP 4.6 cm thyroid nodule - Cytology Atypia of Undetermined Signifigance (Crockett Category III), Affirma benign. He was complaining of significant compressive symptoms, so he was referred to Dr. Marsh for a total thyroidectomy. This was completed 05/29/2021. Official surgical path was benign. Postoperative he was started on levothyroxine,was previously taking 137 mcg PO daily Currently taking levothyroxine 150 mcg daily, reports good compliance with this. TSH is WNL at 1.11 from June 01. He denies any symptoms of hyper or hypothyroidism. Type 2 DM Has DM for about 10 years so around 2013 A1c was last checked 3 months ago so arund July 2023 was 7.2 % per patient , this was by [facility] at home a1c POC today 9.9% is sick had 2 surgeries recently , he has been stressed. Current meds Trulicity 1.5 mg weekly (Saturday) no GI problems Dapagliflozin 10 mg daily (urinates more often, no UTI/ yeast uinfections) Metformin 1000 mg BID Actos 30 mg daily Glipizide 5 mg in AM and 10 mg in evening SMBGS Hasnt checked in 6 months , meter working okay On lisinopril 20 mg daily in May 2023 labs showed GFR >60, creatinine normal Laboratory Tests 06/05/22 07:13 Urine Creatinine 152.91 Urine Microalbumin 11.0 Microalb/Creat Ratio 7.1 Has neuropathy, on pregablin 150 mg BID feels doesnt really help No retinopathy, last eye visit Nov 2022, next one in Nov 2023 On rosuvastatin 5 mg daily, LDL 42 in 06/01 No macrovascular complications BP at goal Doesnt work out much has a lot of back discomfort and arthritis Weight : stable at 230s he used to be 300 lbs Eating more carbs due to anxiety , does have soda about once a week , also has juice alcohol : none No smoking Labs: Laboratory Tests 07/01/20 11/07/22 05/06/23 11:22 09:27 10:57 Plt Count 199 Creatinine Estimated GFR Hgb A1c (Clinic) 6.5 H 6.9 H AST ALT Triglycerides Cholesterol LDL Cholesterol, Calc HDL Cholesterol 05/13/23 08:59 Plt Count Creatinine 0.88 Estimated GFR > 60 Hgb A1c (Clinic) AST 24 ALT 28 Triglycerides 196 H Cholesterol 116 LDL Cholesterol, Calc 42 HDL Cholesterol 35 L Laboratory Tests 05/13/23 08:59 TSH 1.11 Free T4 1.04 Review of systems Constitutional: no fevers, chills or weight loss HEENT: no changes in vision Cardiac: No chest pain, discomfort or palpitations. Pulmonary: No SOB GI:No abdominal pain, no nausea or vomiting, no anorexia, no blood in stool : no burning micturition, dysuria or increase in urinary frequency Neurologic: No dizziness, no weakness in extremities MSK: Has chronic back pain Physical exam General: sitting comfortably in bed in no acute distress HEENT: normocephalic/atraumatic, moist oral mucosa Neck: supple, symmetrical, no thyromegaly , no dorsocervical or supraclavicular fat pads Cardiac: normal heart sounds Pulm: normal breath sounds B/L, no added breath sounds Abd: not distended, no tenderness Extremities: no edema, no signs of myxedema Neuro: AAO x3, Speech: normal, no facial droop, moving all 4 extremities Skin: no rash Foot exam:diminished sensation to monofilament, intact pulses, intact vibration PFSH Medical History (Updated 11/04/23 @ 11:34 by Angella Montanez MD) Peripheral neuropathy Needle phobia Hypothyroidism Obesity (BMI 30.0-34.9) Nocturnal hypoxemia AZAM (obstructive sleep apnea) Mild CAD Skin lesion of scalp Tubular adenoma Mixed dyslipidemia Postoperative hypothyroidism Bifascicular block Lumbar spondylosis Failed back syndrome, cervical Vitamin D deficiency Obesity due to excess calories History of cocaine use Spondylosis of cervical joint without myelopathy Fibromyalgia Rheumatoid arthritis Obstructive sleep apnea Bilateral nephrolithiasis Bilateral carpal tunnel syndrome Opiate dependence Morbid obesity Cervical spondylosis with radiculopathy Type 2 diabetes mellitus with diabetic polyneuropathy, without long-term current use of insulin GERD without esophagitis Essential hypertension Surgical History History of esophagogastroduodenoscopy (EGD) Hx of colonoscopy Hx of thyroidectomy Hx of neck surgery History of carpal tunnel surgery Hx of cholecystectomy History of spinal surgery Herniated disc Family History Father No problems noted. Mother Diabetes mellitus HTN (hypertension) Brother No problems noted. Sister No problems noted. Social History Household Members: Spouse and Children Housing: House Alcohol intake: never Patient Tobacco Use Status: Former Tobacco user Tobacco use type: Cigarette Years Smoked: 10 yrs e-Cigarette/Vaping Use: Never Used Second Hand Smoke Exposure: No service: No Current occupational status: disabled Cognitive needs: No Hearing needs: No Vision needs: Yes Physical Exam Vital Signs: Last Vital Signs Pulse 82 11/04/23 09:04 BP 104/68 11/04/23 09:04 BMI result Body Mass Index 33.1 Results AMB Hemoglobin A1c AMB Hemoglobin A1c 9.9 % Last Edit by JAKOB Jason on 11/04/23 09:25 Results Reviewed Results Reviewed: Laboratory Tests 05/13/23 08:59 TSH 1.11 Free T4 1.04 Assessment & Plan Assessment & Plan (1) Type 2 diabetes mellitus with diabetic polyneuropathy, without long-term current use of insulin: Code(s): E11.42 - Type 2 diabetes mellitus with diabetic polyneuropathy Category: Medical Plan: Patient with history of type 2 diabetes mellitus, with complications of neuropathy, without long-term insulin use coming in today for follow up. A. Last HBA1c was 9.9 % on 11/04/2023. Worsened from 7.2% 6 months ago according to patient when [facility] checked it. Recently has been eating with a lot of indiscretion due to being sick and him being stressed. He has not checked his blood sugars in the past 6 months. We will see if we can get him a continuous glucose monitors I will prescribe him a freestyle Raman. I will also get him to see our agricultural extension educator. He might need some insulin if his A1c is not significantly improved with going up on Trulicity. He is currently taking 1.5 mg weekly, I will go up to 3 mg. If I start him on insulin in the future, we will discontinue glipizide due to risk of hypoglycemia. He will continue on Farxiga and metformin as it is as he is already on max doses of dose. He is also on Actos which we will continue as it is. B:?Blood pressure is under adequate control, for renal protection in the setting of diabetes. C:?LDL is 42 mg/dL, which is at goal. Goal is less than 70. D:?Diet control and healthy lifestyle was discussed in detail. Emphasis was made on exercise and physical activity in daily routine with at least 30-45 minutes of aerobic exercise 5-6 days a week. He has some limitation due to arthritis, and lumbar stenosis, asked him to do as much as possible. E: Last visit with game tester was on December 01. No diabetic retinopathy. Has follow up in December 02. F: Foot care is suboptimal, has diminished sensation to monofilament. Already on pregabalin though that does not help him much. I counseled him that improved control of his diabetes will help with the neuropathy as well.. G: eGFR >60 and microalbumin/Cr ratio 7.2 from June 01. Plan: -increase Trulicity to 3 mg weekly -continue metformin 1000 mg b.i.d., Actos 30 mg daily, Farxiga 10 mg daily, glipizide 5 mg in a.m. and 10 mg in p.m. -we will plan to start basal insulin if no significant improvement in the next 3 months, and we will consider discontinuing glipizide at that time -referral to agricultural extension educator placed -dietary and exercise counseling done as advised above -labs in 3 months before follow up visit -we will prescribe CGM, he has severe neuropathy making it difficult for him to check blood sugars (2) Hypothyroidism: Code(s): E03.9 - Hypothyroidism, unspecified Category: Medical Qualifiers: Hypothyroidism type: postoperative Qualified Code(s): E89.0 - Postprocedural hypothyroidism Plan: Status post total thyroidectomy for multinodular goiter in May 30, with benign pathology. Currently on levothyroxine 150 mcg daily, taking it appropriately. TSH was within normal limits from June 01. We will repeat TSH with the next set of labs. Plan: -continue levothyroxine 150 mcg daily -TSH with the next set of labs Plan I spent 30 minutes in reviewing the record, seeing the patient and documenting in the medical record. Orders: Orders AMB Hemoglobin A1c Today E11.42 - Type 2 diabetes mellitus with diabetic polyneuropathy Lipid Panel 3 Months E03.9 - Hypothyroidism, unspecified, E11.42 - Type 2 diabetes mellitus with diabetic polyneuropathy Microalbumin, Random (w Creat) 3 Months E03.9 - Hypothyroidism, unspecified, E11.42 - Type 2 diabetes mellitus with diabetic polyneuropathy Thyroid Stimulating Hormone 3 Months E03.9 - Hypothyroidism, unspecified, E11.42 - Type 2 diabetes mellitus with diabetic polyneuropathy Basic Metabolic Panel 3 Months E03.9 - Hypothyroidism, unspecified, E11.42 - Type 2 diabetes mellitus with diabetic polyneuropathy Hemoglobin A1c 3 Months E11.42 - Type 2 diabetes mellitus with diabetic polyneuropathy Referrals Diabetes Education Referral E03.9 - Hypothyroidism, unspecified, E11.42 - Type 2 diabetes mellitus with diabetic polyneuropathy Medications: New dulaglutide (Trulicity) 3 mg (0.5 mL) subcut QWEEK 6 mL 2RF Discontinued dulaglutide (Trulicity) Discontinued Reason: Doctor's Order 1.5 mg (0.5 mL) subcut QWEEK 6 mL 4RF Patient Instructions: start checking blood sugars fasting and post meal 2 hours, and sometimes before meals, record these on a paper, bring your glucometer to next appointment Target fasting 90-110 mg/dl 2 hours after meals < 140 mg/dl Increase trulicity to 3 mg weekly Continue metformin 1000 mg twice daily, farxiga 10 mg daily, actos 30 mg daily, glipizide as it is See our agricultural extension educator [place] Comience a controlar el nivel de az?car en antonina en ayunas y despu?s de las comidas 2 horas y, a veces, antes de las comidas, Reg?strelos en un papel y lleve reeves gluc?metro a la pr?xima milo. Objetivo en ayunas 90-110 mg/dl 2 horas despu?s de las comidas < 140 mg/dl Aumentar trulicidad a 3 mg semanales. Contin?e con metformina 1000 mg dos veces al d?a, farxiga 10 mg al d?a, actos 30 mg al d?a, glipizida hannah cual Nneka a nuestro educador en diabetes Coding Level of Care Code Est Pt Level 4 (58638) Diagnoses Type 2 diabetes mellitus with diabetic polyneuropathy, without long-term current use of insulin E11.42 Postoperative hypothyroidism E89.0 Hypothyroidism type: postoperative Time Spent (min) 30
[2023-11-04 09:04] VITALS: BP 104/68; PULSE 82; BMI 33.1
== END 2023-11-04 09:59 | disposition home or self-care (01) ==
PROVIDERS: PCP Internal Medicine; Visit Provider Student in an Organized Health Care Education/Training Program
DX: E11.42 Type 2 diabetes mellitus with diabetic polyneuropathy (principal); E89.0 Postprocedural hypothyroidism
CPT/HCPCS: 99214

== ENCOUNTER → 2023-11-04 08:53 | Outpatient (BNVA) | payer OTHER, SELFPAY | PROVIDERS: PCP Internal Medicine; Visit Provider Student in an Organized Health Care Education/Training Program | DX: E11.42 Type 2 diabetes mellitus with diabetic polyneuropathy (principal); E89.0 Postprocedural hypothyroidism | CPT/HCPCS: 83036; 99212 ==

== ENCOUNTER 2023-11-18 10:42 | Outpatient (AMB) | payer OTHER, SELFPAY ==
[2023-11-18 11:11] VITALS: BP 148/96; PULSE 83; O2SAT 96; BMI 33.2
--- NOTE | 2023-11-18 11:11 | A.OFFPC_ITS ---
Vital Signs 11/18/23 11:11 Height 5 ft 10 in Weight 231 lb 4 oz BMI 33.2 BP 148/96 H Blood Pressure Location Lt brachial Position Sitting Pulse 83 Pulse Source Pulse Oximeter Pulse Oximetry (%) 96 Oxygen Delivery Method Room Air Intake Visit Reasons: PE Intake Note: Pt is here today for his Annual Physical. Allergies No Known Allergies Allergy (Verified 11/18/23 11:52) Medication List - Last Reconciled 11/18/23 by Ev Mosqueda MD blood sugar diagnostic ([employer] Verio test strips) Test blood sugar twice per day blood-glucose meter ([employer] Verio Flex Meter) As directed to test blood sugars blood-glucose meter,continuous (FreeStyle Raman 3 Cody) diagnosis: Type 2 DM, poor A1 , needle phobia and neuropathy blood-glucose sensor (FreeStyle Raman 3 Sensor device) As directed blood-glucose sensor (FreeStyle Raman 3 Sensor device) As directed bupropion HCl XL 300 mg PO DAILY dapagliflozin propanediol (Farxiga) 10 mg PO QAM dulaglutide (Trulicity) 3 mg (0.5 mL) subcut QWEEK glipizide 1/2 tab before breakfast and 1 tab before dinner PO 2 times a day; lancets ([employer] Delica Safety Lancet) Test blood sugar twice per day levothyroxine 150 mcg PO DAILY 3 months lisinopril 20 mg PO DAILY lumateperone (Caplyta) 10.5 mg PO DAILY metformin 1,000 mg PO BID metoprolol succinate ER 25 mg PO QAM multivitamin (One Daily Multivitamin tablet) 1 tab PO QAM nitroglycerin 0.4 mg sublingual ONCE PRN omeprazole 20 mg PO QAM pioglitazone 30 mg PO DAILY pregabalin 150 mg PO BID 30 days rosuvastatin 5 mg PO QPM sertraline 100 mg PO DAILY tramadol 50 mg PO Q8H PRN 30 days Tobacco use date assessed: 11/18/23 Dental Screening Dental Screen Date: 11/18/23 Did you have a dental visit in the last 12 months?: Yes Did you have a dental problem in the last 6 months where you did not have access to dental care?: No Was dental information given to patient?: Patient has dentist HPI PE HPI Details 48-year-old male with diabetes mellitus, hypertension, hyperlipidemia, hypothyroidism, peripheral neuropathy, with history of nonischemic cardiomyopathy, obstructive sleep apnea not on CPAP, chronic low back pain due to degenerative disc disease in lumbar spine, here today for physical exam. He is up-to-date with his screening colonoscopy done in [address] Cunningham with a tubular adenoma polyp removed, due again for a repeat colonoscopy in 2027. He has had COVID vaccines in the past but has not yet had the most recent booster, gets flu shots, has had 1 pneumococcal vaccination and is up-to-date with his Tdap. He has been compliant with taking his medications, tries to follow recommended diet but unable to exercise much due to chronic low back pain and peripheral neuropathy. [facility] Medical History (Updated 11/18/23 @ 12:15 by Ev Mosqueda MD) Peripheral neuropathy Needle phobia Hypothyroidism Obesity (BMI 30.0-34.9) Nocturnal hypoxemia AZAM (obstructive sleep apnea) Mild CAD Skin lesion of scalp Tubular adenoma Mixed dyslipidemia Postoperative hypothyroidism Bifascicular block Lumbar spondylosis Failed back syndrome, cervical Vitamin D deficiency History of cocaine use Spondylosis of cervical joint without myelopathy Fibromyalgia Rheumatoid arthritis Obstructive sleep apnea Bilateral nephrolithiasis Bilateral carpal tunnel syndrome Opiate dependence Morbid obesity Cervical spondylosis with radiculopathy Type 2 diabetes mellitus with diabetic polyneuropathy, without long-term current use of insulin GERD without esophagitis Essential hypertension Surgical History History of esophagogastroduodenoscopy (EGD) Hx of colonoscopy Hx of thyroidectomy Hx of neck surgery History of carpal tunnel surgery Hx of cholecystectomy History of spinal surgery Herniated disc Family History Father No problems noted. Mother Diabetes mellitus HTN (hypertension) Brother No problems noted. Sister No problems noted. Social History Household Members: Spouse and Children Housing: House Alcohol intake: never Patient Tobacco Use Status: Former Tobacco user Tobacco use type: Cigarette Years Smoked: 10 yrs e-Cigarette/Vaping Use: Never Used Second Hand Smoke Exposure: No service: No Current occupational status: disabled Cognitive needs: No Hearing needs: No Vision needs: Yes Questionnaire PHQ-9 Over the last 2 weeks, how often have you been bothered by any of the following problems? 1. Little interest or pleasure in doing things: more than half the days 2. Feeling down, depressed, or hopeless: more than half the days 3. Trouble falling or staying asleep, or sleeping too much: more than half the days 4. Feeling tired or having little energy: nearly every day 5. Poor appetite or overeating: more than half the days 6. Feeling bad about yourself - or that you are a failure or have let yourself or your family down: more than half the days 7. Trouble concentrating on things, such as reading the newspaper or watching television: not at all 8. Moving or speaking so slowly that other people could have noticed. Or the opposite - being so fidgety or restless that you have been moving around a lot m ore than usual: not at all 9. Thoughts that you would be better off or of hurting yourself in some way: not at all Total score: 13 Depression Screening Interpretation: Positive Depression Screening Follow-up: Existing condition, In treatment and Community Mental Health Worker F/U Depression Screening Done: Yes 54844 - PHQ-9 Billing: Yes Source: Developed by Drs. Saleem Matias, Indigo Ortega, Chris Beebe and colleagues, with an educational paige from [employer]. Thrive Questionnaire Date Thrive assessed: 11/18/23 I am a: Patient What is your living situation today?: I have a steady place to live Within the past 12 months, did the food you bought not last and you didn't have the money to get more?: Never true Within the past 12 months, did you worry whether your food would run out before you got money to buy more?: Never true Do you have trouble paying for medicines?: No Do you have trouble getting transportation to medical appointments?: No Do you have trouble paying your heating and electricity bill?: Yes Do you have trouble taking care of your child, family member or friend?: No Do you have trouble with day-to-day activities such as bathing, preparing meals, shopping, managing finances, etc.?: Yes Are you currently unemployed and looking for a job?: Yes Are you interested in more education?: I choose not to answer this question Please select the resources that you would like help with: None Currently or been in a relationship where the following occur: No concerns reported THRIVE Score: 1 AUDIT C Alcohol Use Questionnaire (AUDIT-C) 1. How often do you have a drink containing alcohol?: Never 2. How many drinks containing alcohol do you have on a typical day when you are drinking?: 1 or 2 3. How often do you have six or more drinks on one occasion?: Never Total Score: 0 Score Reviewed/Action Taken: Yes NORI-7 AMB Questionnaire NORI-7 Date NORI - 7 assessed: 11/18/23 Feeling nervous, anxious, or on edge: 1 = Several days Not being able to stop or control worryin = Several days Worrying too much about different things: 1 = Several days Trouble relaxin = Not at all Being so restless that it is hard to sit still: 1 = Several days Becoming easily annoyed or irritable: 0 = Not at all Feeling afraid as if something awful might happen: 0 = Not at all Total NORI-7 score (0-4 normal; 5-9 mild; 10-14 moderate; 15-21 severe): 4 Source: Developed by Drs. Saleem Matias, Indigo Ortega, Chris Beebe and colleagues, with an educational paige from [employer]. NORI-7 Assessment Billing NORI-7 Assessment Tool: NORI-7 Assessment 36646 Review of Systems Const Reports no additional complaints and Denies fatigue Eyes Details: [facility] for his diabetes retinopathy screening and routine exam ENT Details: Sees dentist every 6 months for dental prophylaxis Denies dysphagia and Denies dizziness Card Denies chest pain, Denies leg edema, Denies lightheadedness, Denies palpitations, Reports dyspnea on exertion and Denies orthopnea Resp Denies cough and Reports dyspnea on exertion GI Denies melena, Denies bloating, Denies hematochezia, Denies change in bowel habits, Denies change in stool character, Denies dysphagia and Denies heartburn Reports no additional complaints Musc Denies abnormal gait, Denies muscle weakness, Denies numbness, Denies radiating pain into limb and Denies tingling Skin/Breast Denies lesions and Denies rash Neuro Denies abnormal gait, Denies dizziness, Denies numbness and Denies tingling Psych Reports no additional complaints Endo Denies fatigue and Denies palpitations Ryan/Lymph Reports no additional complaints Aller/Immun Reports no additional complaints Physical exam (Primary Care) Vital Signs: Last Vital Signs Pulse 83 11/18/23 11:11 BP 148/96 H 11/18/23 11:11 Pulse Ox 96 11/18/23 11:11 Oxygen Delivery Method Room Air 11/18/23 11:11 BMI result Body Mass Index 33.2 Tobacco/Smoking Status: Tobacco use Status Tobacco use date assessed 11/18/23 11/18/23 11:13 Patient Tobacco Use Status Former Tobacco user 11/18/23 11:13 Tobacco use type Cigarette 11/18/23 11:13 e-Cigarette/Vaping Use Never Used 11/18/23 11:13 PHQ-9: PHQ-9 Score PHQ-9: Total score 13 11/25/23 00:01 Depression Screening Interpretation: Positive Depression Screening Follow-up: Existing condition, In treatment and Community Mental Health Worker F/U Thrive Assessment: Date of Thrive Assessment Date Thrive assessed 11/18/23 11/18/23 11:13 Currently or been in a relationship where the following occur: No concerns reported Const General: comfortable and no acute distress Nutritional Appearance: obese Orientation/consciousness: patient oriented x3 HENMT Mouth: Normal oral and palatal mucosa present, oropharynx normal and moist mucous membranes Eyes General: appearance normal, both eyes and all related structures Pupils: Equal, round and reactive pupils present EOM: EOMs intact bilaterally Neck Neck: Yes no lymphadenopathy Resp Effort & Inspection: normal respiratory effort and able to speak in complete sentences Auscultation: clear to auscultation bilaterally Cardio Rate: regular rate Rhythm: regular rhythm Heart sounds: S1 normal heart sound present and S2 normal heart sound present GI Inspection: Yes normal to inspection Palpation (GI): Soft to palpation, nontender and no masses Auscultation: normal bowel sounds General: Yes no CVA tenderness Male General Exam: Yes normal external exam Back/Spine/Pelvis Back: no CVA tenderness Skin General skin exam: no rashes or lesions noted Neuro General: patient oriented x3, gait normal, tone normal, moves all extremities, Normal light touch and pain sensation and no focal motor deficits Cranial nerves: Yes Equal, round and reactive pupils present Cognition (Neuro): normal cognition Gait exam (Neuro): Normal gait present Motor exam (neuro): 5/5 motor strength present throughout Extrem General: Yes full ROM, Yes no joint enlargement, Yes no clubbing, cyanosis or edema, Yes no calf tenderness and Yes normal gait Psych Appearance: grossly normal and well kempt Mental Status: mental status grossly normal Speech and movement: Normal speech and movement present Affect: normal affect Thought process: Normal thought process present Assessment and Plan Assessment & Plan (1) Annual visit for general adult medical examination with abnormal findings: Code(s): Z00.01 - Encounter for general adult medical examination with abnormal findings Plan: Will check appropriate labs. Continue regular dental visit every 6 months and yearly eye exams, Take adequate calcium in diet and vitamin-D 3 at 2000 IU per cap once a day, in addition to weight-bearing exercises to help maintain good muscle tone and weight control. Instructed to do self testicular exam check for any mass, colonoscopy repeat due again in 2027. Reminded to get COVID booster, and yearly flu shot, up-to-date with his pneumococcal vaccination and Tdap (2) Mixed dyslipidemia: Code(s): E78.2 - Mixed hyperlipidemia Plan: Fasting lipid panel ordered reinforced importance of following a low-cholesterol diet and getting regular exercise. Currently on rosuvastatin 5 mg daily (3) Postoperative hypothyroidism: Code(s): E89.0 - Postprocedural hypothyroidism Plan: Currently on levothyroxine 150 mcg taken once a day in a.m., will check TSH and free T4 (4) Tubular adenoma: Code(s): D36.9 - Benign neoplasm, unspecified site Plan: Repeat colonoscopy due again in 2027 (5) Lumbar spondylosis: Code(s): M47.816 - Spondylosis without myelopathy or radiculopathy, lumbar region Plan: Takes tramadol as needed for pain (6) Bifascicular block: Code(s): I45.2 - Bifascicular block Plan: Followed by cardiology as prescription for nitroglycerin 0.4 mg as needed for chest pain (7) Type 2 diabetes mellitus with diabetic polyneuropathy, without long-term current use of insulin: Code(s): E11.42 - Type 2 diabetes mellitus with diabetic polyneuropathy Plan: Currently on Farxiga 10 mg daily in am, on Trulicity 3 mg once a week and glipizide as needed, metformin a 1000 mg 1 tablet twice a day, and pioglitazone 30 mg once daily continue with monitor blood sugar at home and keeping a log of the readings. Reminded to get yearly diabetes retinopathy screening, and inspect daily. Hemoglobin A1c today is at 9.9%. Reinforced importance of following recommended diet and getting more active, exercise daily (8) Essential hypertension: Code(s): I10 - Essential (primary) hypertension Plan: Blood pressure not at goal of less than 130/80. Continue with current medication. Reinforced importance of following a low sodium diet, getting regular exercise, and lowering stress levels. (9) Morbid obesity: Code(s): E66.01 - Morbid (severe) obesity due to excess calories Plan: Your BMI is above the ideal range. I deal BMI is between 18.5- 24. BMI is calculated from you height and weight. Recommended focusing on improving health instead of dieting. Mediterranean diet is a healthy diet that helps, limit food high in fat, sugar, and calories. Eat slowly, pay attention to portion sizes, plan your meals ahead of time, start regular physical activity, at least 150 minutes of moderate intensity exercise, or 90 minutes per week of vigorous exercise. Keeping a food diary, tracking what you eat and your physical activity can help assess what improvements you can make. There are many health problems associated with being overweight/obese, so it is important to improve your diet and exercise. There are medications and surgical options available, but Lifestyle changes are the 1st step. (10) Cervical spondylosis with radiculopathy: Code(s): M47.22 - Other spondylosis with radiculopathy, cervical region Plan: Currently on pregabalin 150 mg per tablet taken 1 tablet twice a day (11) GERD without esophagitis: Code(s): K21.9 - Gastro-esophageal reflux disease without esophagitis Plan: Currently on omeprazole 20 mg once a day (12) Peripheral neuropathy: Code(s): G62.9 - Polyneuropathy, unspecified Plan: On pregabalin 150 mg 1 tablet twice a day Coding Level of Care Code Est Pt Prev Care 40-64y(46401) Diagnoses Annual visit for general adult medical examination with abnormal findings Z00.01 Mixed dyslipidemia E78.2 Postoperative hypothyroidism E89.0 Tubular adenoma D36.9 Lumbar spondylosis M47.816 Bifascicular block I45.2 Type 2 diabetes mellitus with diabetic polyneuropathy, without long-term current use of insulin E11.42 Essential hypertension I10 Morbid obesity E66.01 Cervical spondylosis with radiculopathy M47.22 GERD without esophagitis K21.9 Peripheral neuropathy G62.9 Additional Codes NORI-7 Assessment Billing - NORI-7 Assessment Tool: NORI-7 Assessment 00697 ([id number])
== END 2023-11-18 12:15 | disposition home or self-care (01) ==
PROVIDERS: PCP Internal Medicine; Visit Provider Internal Medicine
DX: Z00.00 Encounter for general adult medical examination without abnormal findings (principal); E11.42 Type 2 diabetes mellitus with diabetic polyneuropathy; E66.01 Morbid (severe) obesity due to excess calories; Z68.33 Body mass index [BMI] 33.0-33.9, adult; I45.2 Bifascicular block; E78.2 Mixed hyperlipidemia; E89.0 Postprocedural hypothyroidism; D36.9 Benign neoplasm, unspecified site; M47.816 Spondylosis without myelopathy or radiculopathy, lumbar region; I10 Essential (primary) hypertension; M47.22 Other spondylosis with radiculopathy, cervical region; K21.9 Gastro-esophageal reflux disease without esophagitis
CPT/HCPCS: 99396

== ENCOUNTER → 2023-12-11 08:47 | Outpatient (BNVA) | payer OTHER, SELFPAY | PROVIDERS: PCP Internal Medicine; Visit Provider Anesthesiology ==

== ENCOUNTER 2023-12-31 06:04 | Outpatient (REF) | payer OTHER, SELFPAY | END 2023-12-31 06:05 | disposition home or self-care (01) | LOC: CF 06:04 | PROVIDERS: Visit Provider Anesthesiology | DX: M47.812 Spondylosis without myelopathy or radiculopathy, cervical region (principal); M53.3 Sacrococcygeal disorders, not elsewhere classified; S12.9XXA Fracture of neck, unspecified, initial encounter; X58.XXXA Exposure to other specified factors, initial encounter; Y93.9 Activity, unspecified; Y92.9 Unspecified place or not applicable; Y99.9 Unspecified external cause status; M47.816 Spondylosis without myelopathy or radiculopathy, lumbar region | CPT/HCPCS: 64490; 64491; 64493; 64494; J2003; J2795; Q9967 ==

== ENCOUNTER 2023-12-31 07:40 | Outpatient (AMB) | payer OTHER, SELFPAY ==
[2023-12-31 08:09] VITALS: BP 106/62; PULSE 72; RESP 16; O2SAT 99; BMI 33.0
--- NOTE | 2023-12-31 08:09 | A.OFFVIS_ITS ---
Vital Signs 12/31/23 08:09 12/31/23 09:02 Height 5 ft 10 in Weight 230 lb BMI 33.0 BP 106/62 108/69 Blood Pressure Location Lt brachial Lt brachial Position Sitting Sitting Respiration 16 16 Pulse 72 72 Pulse Source Pulse Oximeter Pulse Oximeter Pulse Oximetry (%) 99 99 Oxygen Delivery Method Room Air Room Air Comment Pre-Op Intake Visit Reasons: BILATERAL DIAGNOSTIC C4, C5, C6 [employer]BB [employer] Brake Bonder Required: No Accompanied by: Self / Same As Patient Allergies No Known Allergies Allergy (Verified 12/31/23 08:10) [facility] Medical History (Updated 11/18/23 @ 12:15 by Ev Mosqueda MD) Peripheral neuropathy Needle phobia Hypothyroidism Obesity (BMI 30.0-34.9) Nocturnal hypoxemia AZAM (obstructive sleep apnea) Mild CAD Skin lesion of scalp Tubular adenoma Mixed dyslipidemia Postoperative hypothyroidism Bifascicular block Lumbar spondylosis Failed back syndrome, cervical Vitamin D deficiency History of cocaine use Spondylosis of cervical joint without myelopathy Fibromyalgia Rheumatoid arthritis Obstructive sleep apnea Bilateral nephrolithiasis Bilateral carpal tunnel syndrome Opiate dependence Morbid obesity Cervical spondylosis with radiculopathy Type 2 diabetes mellitus with diabetic polyneuropathy, without long-term current use of insulin GERD without esophagitis Essential hypertension Surgical History History of esophagogastroduodenoscopy (EGD) Hx of colonoscopy Hx of thyroidectomy Hx of neck surgery History of carpal tunnel surgery Hx of cholecystectomy History of spinal surgery Herniated disc Family History Father No problems noted. Mother Diabetes mellitus HTN (hypertension) Brother No problems noted. Sister No problems noted. Social History Household Members: Spouse and Children Housing: House Alcohol intake: never Patient Tobacco Use Status: Former Tobacco user Tobacco use type: Cigarette Years Smoked: 10 yrs e-Cigarette/Vaping Use: Never Used Second Hand Smoke Exposure: No service: No Current occupational status: disabled Cognitive needs: No Hearing needs: No Vision needs: Yes Physical Exam Vital Signs: Last Vital Signs Pulse 72 12/31/23 09:02 Resp 16 12/31/23 09:02 BP 108/69 12/31/23 09:02 Pulse Ox 99 12/31/23 09:02 Oxygen Delivery Method Room Air 12/31/23 09:02 BMI result Body Mass Index 33.0 Assessment & Plan Assessment & Plan (1) Traumatic fracture of cervical spine: Code(s): S12.9XXA - Fracture of neck, unspecified, initial encounter Category: Medical (2) Coccydynia: Code(s): M53.3 - Sacrococcygeal disorders, not elsewhere classified Category: Medical (3) Cervical spondylosis: Code(s): M47.812 - Spondylosis without myelopathy or radiculopathy, cervical region Category: Medical Plan Diagnostic medial branch block bilateral C4-C5 C6? ? ?Informed consent was explained to the patient. All questions were explained and? answered.? The patient was taken inside the operating room where she was positioned prone on the operating table. Time-out was performed delineating correct site, side, the nature of the procedure, patient's allergy, . All operating room staff was participating in OR time-out procedure. ? ? The back of the neck was prepped with ChloraPrep and draped with sterile towels.? C-arm was brought over the operating field and sq picture of C4-C5 C6 A were delineated on the screen.? Point of interest were delineated as lateral masses bilaterally of the C4-C5 and C6 vertebra. The waist of each of the lateral mass was chosen as the target of the injection. The projection of the point of interest to the skin were injected with the small amount of local anesthetic lidocaine 2% mixed with ropivacaine 0.5% 1-1 approcimately 1 cc.? After that 22 gauge 3.5 inch spinal needles were driven sequentially to the points of interest in tunnel vision fashion. After needles gently contacted the bone at the point of interests the needle was injected with small amount of the contrast.? The injection of the contrast did not demonstrate any intravascular or intrathecal spread of the contrast.? After that injection of the? ropivacaine 0.5%-1cc was performed at each needle location.??after that the needles were removed and Bandaids were applied. ? Upon completion of the injections? needle was? removed and sterile Band-Aids were applied.? The patient tolerated procedure very well. Orders: Orders FL guidance in treatment room Today M47.812 - Spondylosis without myelopathy or radiculopathy, cervical region Coding Level of Care Code Procedure Only Diagnoses Traumatic fracture of cervical spine S12.9XXA Coccydynia M53.3 Cervical spondylosis M47.812
[2023-12-31 09:02] VITALS: BP 108/69; PULSE 72; RESP 16; O2SAT 99
== END 2023-12-31 08:57 | disposition home or self-care (01) ==
LOC: HO.PMCPRC 07:40
PROVIDERS: PCP Internal Medicine; Visit Provider Anesthesiology
DX: M47.812 Spondylosis without myelopathy or radiculopathy, cervical region (principal); M53.3 Sacrococcygeal disorders, not elsewhere classified; S12.9XXA Fracture of neck, unspecified, initial encounter
CPT/HCPCS: 64493; 64494

== ENCOUNTER 2024-01-03 08:19 | Outpatient (AMB) | payer OTHER, SELFPAY ==
[2024-01-03 08:39] VITALS: BP 125/79; PULSE 75; O2SAT 98; BMI 33.0
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
== END 2024-01-03 09:17 | disposition home or self-care (01) ==
PROVIDERS: PCP Internal Medicine; Visit Provider Registered Nurse Emergency
DX: S12.9XXA Fracture of neck, unspecified, initial encounter (principal); M53.3 Sacrococcygeal disorders, not elsewhere classified; M47.812 Spondylosis without myelopathy or radiculopathy, cervical region
CPT/HCPCS: 99213; G2211

== ENCOUNTER → 2024-01-03 08:19 | Outpatient (BNVA) | payer OTHER, SELFPAY | PROVIDERS: PCP Internal Medicine; Visit Provider Registered Nurse Emergency | DX: S12.9XXD Fracture of neck, unspecified, subsequent encounter (principal); M53.3 Sacrococcygeal disorders, not elsewhere classified; M47.812 Spondylosis without myelopathy or radiculopathy, cervical region | CPT/HCPCS: 99212 ==

== ENCOUNTER 2024-02-19 08:14 | Outpatient (AMB) | payer OTHER, SELFPAY ==
[2024-02-19 08:25] VITALS: BP 128/74; PULSE 80; O2SAT 99; BMI 31.4
--- NOTE | 2024-02-19 08:25 | A.OFFVIS_ITS ---
Vital Signs 02/19/24 08:25 Height 5 ft 10 in Weight 219 lb 2.232 oz BMI 31.4 BP 128/74 Blood Pressure Location Rt brachial Position Sitting Pulse 80 Pulse Source Pulse Oximeter Pulse Oximetry (%) 99 Oxygen Delivery Method Room Air Intake Visit Reasons: 1 yr follow up Intake Note: ESTABLISHED PATIENT Carlos presents in office today for a scheduled 1 YR FUV Meds and Allergies reviewed? Y No recent or relevant surgeries? None Any significant concerns or new changes? Nausea. NO additional sx reported at this time. Pharmacy verified? [facility] Pharmacy Real Estate Economist Required: Yes Real Estate Economist Services: Real Estate Economist Offered & Declined Allergies No Known Allergies Allergy (Verified 02/19/24 08:29) HPI HPI 1 yr follow up: Details: LAST VISIT: GERD without esophagitis Gastritis Plan Continue omeprazole every morning half an hour before breakfast. Patient was al so encouraged to avoid dietary triggers. Stay away from sugars. Patient was encouraged to avoid late night snacking. Staying upright for minimal 3 hours after last discussed with patient. I will see patient in 1 year, sooner on as needed basis. He is agreeable to this plan and verbalizes understanding of instructions. He was given the opportunity to ask questions and all questions answered. ? TODAY'S VISIT: Patient is here today for follow-up. Patient has been taking omeprazole every morning and it has been feeling well. Patient denies any dyspepsia, dysphagia or odynophagia. Denies any acid reflux. Patient admits to be feeling little depressed, missed his appointment last week with therapist. Patient feels bad because he is staying home due to disability and his works 2 jobs. Patient denies any SI or HI. Patient states that he does have a follow-up with appointment with therapist and will call his psychiatrist. Patient will be due to go for colonoscopy in July of 2027. Currently patient is feeling well. Moves his bowels without any issues. Denies melena, hematochezia, unintentional weight loss or ribbon like stools PFSH Medical History Peripheral neuropathy Needle phobia Hypothyroidism Obesity (BMI 30.0-34.9) Nocturnal hypoxemia AZAM (obstructive sleep apnea) Mild CAD Skin lesion of scalp Tubular adenoma Mixed dyslipidemia Postoperative hypothyroidism Bifascicular block Lumbar spondylosis Failed back syndrome, cervical Vitamin D deficiency History of cocaine use Spondylosis of cervical joint without myelopathy Fibromyalgia Rheumatoid arthritis Obstructive sleep apnea Bilateral nephrolithiasis Bilateral carpal tunnel syndrome Opiate dependence Morbid obesity Cervical spondylosis with radiculopathy Type 2 diabetes mellitus with diabetic polyneuropathy, without long-term current use of insulin GERD without esophagitis Essential hypertension Surgical History History of esophagogastroduodenoscopy (EGD) Hx of colonoscopy Hx of thyroidectomy Hx of neck surgery History of carpal tunnel surgery Hx of cholecystectomy History of spinal surgery Herniated disc Family History Father No problems noted. Mother Diabetes mellitus HTN (hypertension) Brother No problems noted. Sister No problems noted. Social History Household Members: Spouse and Children Housing: House Alcohol intake: never Patient Tobacco Use Status: Former Tobacco user Tobacco use type: Cigarette Years Smoked: 10 yrs e-Cigarette/Vaping Use: Never Used Second Hand Smoke Exposure: No service: No Current occupational status: disabled Cognitive needs: No Hearing needs: No Vision needs: Yes Review of Systems Const Denies weight gain and Denies weight loss ENT Reports no additional complaints, Denies dysphagia and Denies odynophagia Card Reports no additional complaints Resp Reports no additional complaints GI Denies abdominal pain, Denies belching, Denies melena, Denies bloating, Denies change in bowel habits, Denies dysphagia, Denies excessive flatus, Denies dyspepsia, Denies heartburn, Denies diarrhea, Denies loose stools, Denies nausea, Denies odynophagia and Denies vomiting Reports no additional complaints Musc Reports no additional complaints Neuro Reports no additional complaints Psych Reports no additional complaints Endo Reports no additional complaints Physical Exam Vital Signs: Last Vital Signs Pulse 80 02/19/24 08:25 BP 128/74 02/19/24 08:25 Pulse Ox 99 02/19/24 08:25 Oxygen Delivery Method Room Air 02/19/24 08:25 BMI result Body Mass Index 31.4 Const General: healthy appearing and no acute distress Nutritional Appearance: obese Orientation/consciousness: patient oriented x3 Resp Effort & Inspection: normal respiratory effort, able to speak in complete sentences, no tracheal deviation and symmetric chest movement Auscultation: clear to auscultation bilaterally Cardio Rate: regular rate GI Inspection: Yes normal to inspection, No distended and Yes obesity Palpation (GI): Soft to palpation, not firm, nontender and No hepatosplenomegaly present Auscultation: normal bowel sounds General: Yes no CVA tenderness Back/Spine/Pelvis Back: no CVA tenderness Skin General skin exam: elasticity normal, turgor normal and dry skin Neuro General: patient oriented x3 Psych Appearance: grossly normal Mental Status: mental status grossly normal Assessment & Plan Assessment & Plan (1) GERD without esophagitis: Code(s): K21.9 - Gastro-esophageal reflux disease without esophagitis Category: Medical (2) Gastritis: Code(s): K29.70 - Gastritis, unspecified, without bleeding Qualifiers: Gastritis type: unspecified gastritis Chronicity: chronic Gastritis bleeding: without bleeding Qualified Code(s): K29.50 - Unspecified chronic gastritis without bleeding Plan Patient can continue omeprazole. Patient is tolerating this well and has no symptoms. There are times when he does not take it and still feels well. PCP can prescribe that. Patient will be seen in the office as needed. He is agreeable to this plan and verbalizes understanding of instructions. He was given the opportunity to ask questions and all questions answered. Thank you for allowing me to participate in his care Medications: Refilled omeprazole 20 mg PO QAM 90 caps 1RF Coding Level of Care Code Est Pt Level 3 (50142) Diagnoses GERD without esophagitis K21.9 Chronic gastritis without bleeding, unspecified gastritis type K29.50 Gastritis type: unspecified gastritis Chronicity: chronic Gastritis bleeding: without bleeding Time Spent (min) 25 Comment 15 minutes spent with patient and additional 10 minutes spent reviewing his records
== END 2024-02-19 09:06 | disposition home or self-care (01) ==
PROVIDERS: PCP Internal Medicine; Visit Provider Nurse Practitioner Family
DX: K21.9 Gastro-esophageal reflux disease without esophagitis (principal); K29.50 Unspecified chronic gastritis without bleeding
CPT/HCPCS: 99213

== ENCOUNTER → 2024-02-19 08:14 | Outpatient (BNVA) | payer OTHER, SELFPAY | PROVIDERS: PCP Internal Medicine; Visit Provider Nurse Practitioner Family | DX: S91.332A Puncture wound without foreign body, left foot, initial encounter (principal); E11.42 Type 2 diabetes mellitus with diabetic polyneuropathy; K21.9 Gastro-esophageal reflux disease without esophagitis; K29.50 Unspecified chronic gastritis without bleeding; W22.8XXA Striking against or struck by other objects, initial encounter; Y93.9 Activity, unspecified; Y92.9 Unspecified place or not applicable; Y99.9 Unspecified external cause status; Z23 Encounter for immunization | CPT/HCPCS: 90471; 90715; 99212 ==

== ENCOUNTER 2024-02-19 10:08 | Outpatient (AMB) | payer OTHER, SELFPAY ==
--- NOTE | 2024-02-19 10:18 | AM.OFFWIN_ITS ---
Intake Vital Signs 3 02/19/24 10:20 Height 5 ft 10 in Weight 219 lb BMI 31.4 BP 136/84 Blood Pressure Location Lt brachial Position Sitting Pulse 89 Pulse Source Pulse Oximeter Temp 97.0 F Temp Source Temporal Artery Scan Pulse Oximetry (%) 98 Oxygen Delivery Method Room Air Intake Visit Reasons: EP stepped on a nail on RT foot Intake Note: Pt presents to the office today for c/o stepping on a yessica nail 2 days ago. Pt states he is having pain in his right foot where the nail went into his foot. Pt thinks he is up to date on his tetanus vaccine. Patient Tobacco Use Status: Former Tobacco user Allergies No Known Allergies Allergy (Verified 02/19/24 10:21) Medication List - Last Reconciled 02/19/24 by Nayeli Tay MD blood sugar diagnostic ([employer] Verio test strips) Test blood sugar twice per day blood-glucose meter ([employer] Verio Flex Meter) As directed to test blood sugars blood-glucose meter,continuous (FreeStyle Raman 3 Imogene) diagnosis: Type 2 DM, poor A1 , needle phobia and neuropathy blood-glucose sensor (FreeStyle Raman 3 Sensor device) As directed blood-glucose sensor (FreeStyle Raman 3 Sensor device) As directed bupropion HCl XL 300 mg PO DAILY dapagliflozin propanediol (Farxiga) 10 mg PO QAM dulaglutide (Trulicity) 3 mg (0.5 mL) subcut QWEEK glipizide 1/2 tab before breakfast and 1 tab before dinner PO 2 times a day; lancets ([employer] Delica Safety Lancet) Test blood sugar twice per day levothyroxine 150 mcg PO DAILY 3 months lisinopril 20 mg PO DAILY lumateperone (Caplyta) 10.5 mg PO DAILY lumateperone (Caplyta) mg PO metformin 1,000 mg PO BID metoprolol succinate ER 25 mg PO QAM multivitamin (One Daily Multivitamin tablet) 1 tab PO QAM nitroglycerin 0.4 mg sublingual ONCE PRN omeprazole 20 mg PO QAM pioglitazone 30 mg PO DAILY pregabalin 150 mg PO BID 30 days rosuvastatin 5 mg PO QPM sertraline 100 mg PO DAILY tramadol 50 mg PO Q8H PRN 30 days HPI EP stepped on a nail on RT foot 2 HPI0 Details Chief Complaint The patient presents with foot pain following a puncture wound from stepping on a nail. History of Present Illness The patient is a 48-year-old male presenting with foot pain following a puncture wound to the left foot. The incident occurred two days ago when the patient stepped on a piece of wood in his garage, resulting in a puncture wound caused by a nail. The nail was removed at the time of injury. The patient reports pain and difficulty walking. He does not recall the date of his last tetanus vaccination. The patient has not experienced any signs of infection, such as redness or discharge. He has been managing the pain with tramadol, which he normally takes for chronic back pain due to a herniated disc, but he reports insufficient relief at the current dosage. He currently takes 50 mg of tramadol three times a day. The patient is also diabetic. Plan - For the Puncture Wound to the Foot: Co ntinue monitoring the site for signs of infection such as redness or discharge. Increase tramadol use to four times daily for pain management. The patient declined an X-ray, which would check for the presence of any foreign objects. No signs of infection were noted during the examination. - For Diabetes Mellitus: Continue monito ring as currently managed, given its relevance in wound healing and infection risk. - For Herniated Disc: Increase tramadol to four times daily to manage aggravated pain due to the new foot injury. Reassess pain after a week. The patient is advised to keep weight off the affected foot and to promptly report any new or worsening symptoms, particularly any signs suggestive of infection. Tetanus vaccine was given Patient declined follow up in a week [facility] Medical History Peripheral neuropathy Needle phobia Hypothyroidism Obesity (BMI 30.0-34.9) Nocturnal hypoxemia AZAM (obstructive sleep apnea) Mild CAD Skin lesion of scalp Tubular adenoma Mixed dyslipidemia Postoperative hypothyroidism Bifascicular block Lumbar spondylosis Failed back syndrome, cervical Vitamin D deficiency History of cocaine use Spondylosis of cervical joint without myelopathy Fibromyalgia Rheumatoid arthritis Obstructive sleep apnea Bilateral nephrolithiasis Bilateral carpal tunnel syndrome Opiate dependence Morbid obesity Cervical spondylosis with radiculopathy Type 2 diabetes mellitus with diabetic polyneuropathy, without long-term current use of insulin GERD without esophagitis Essential hypertension Surgical History History of esophagogastroduodenoscopy (EGD) Hx of colonoscopy Hx of thyroidectomy Hx of neck surgery History of carpal tunnel surgery Hx of cholecystectomy History of spinal surgery Herniated disc Family History Father No problems noted. Mother Diabetes mellitus HTN (hypertension) Brother No problems noted. Sister No problems noted. Social History Household Members: Spouse and Children Housing: House Alcohol intake: never Patient Tobacco Use Status: Former Tobacco user Tobacco use type: Cigarette Years Smoked: 10 yrs e-Cigarette/Vaping Use: Never Used Second Hand Smoke Exposure: No service: No Current occupational status: disabled Cognitive needs: No Hearing needs: No Vision needs: Yes Review of Systems Const All systems reviewed & are unremarkable except as noted in HPI and below Physical Exam Vital Signs: Last Vital Signs Temp 97.0 F 02/19/24 10:20 Pulse 89 02/19/24 10:20 BP 136/84 02/19/24 10:20 Pulse Ox 98 02/19/24 10:20 Oxygen Delivery Method Room Air 02/19/24 10:20 BMI result Body Mass Index 31.4 Const General: no acute distress Orientation/consciousness: patient oriented x3 Eyes General: appearance normal, both eyes and all related structures Resp Effort & Inspection: normal respiratory effort and able to speak in complete sentences Neuro General: patient oriented x3 Extrem Ankle/foot/toe images: 2 1. Single puncture wound without redness or discharge, able to move dose, sensory intact vascular intact Psych Mental Status: mental status grossly normal Immunizations Boostrix Tdap 2.5 Lf unit-8 mcg-5 Lf/0.5 mL intramuscular syringe Performing Provider: Nayeli Tay MD Performing Location: [facility] Administered by: Fany Grayson CMA on 02/19/24 10:59 2 Dose Route Admin Location Dispensed Lot Number Expiration Date SDC Centrifugal Spinner 0.5 mL IM Left Tricep 0.5 mL [id number] 12/06/24 26114-738-18 [employer] 2 VIS Given Date VIS Provided VIS Publication Date 02/19/24 Single Vaccine 20 Eligibility Eligibility Date Funding Source Not [facility] Eligible 02/19/24 Private Assessment & Plan Assessment & Plan (1) Puncture wound of foot, left: Code(s): S91.332A - Puncture wound without foreign body, left foot, initial encounter Qualifiers: Encounter type: initial encounter Qualified Code(s): S91.332A - Puncture wound without foreign body, left foot, initial encounter (2) Type 2 diabetes mellitus with diabetic polyneuropathy, without long-term current use of insulin: Code(s): E11.42 - Type 2 diabetes mellitus with diabetic polyneuropathy Plan Chief Complaint The patient presents with foot pain following a puncture wound from stepping on a nail. History of Present Illness The patient is a 48-year-old male presenting with foot pain following a puncture wound to the left foot. The incident occurred two days ago when the patient stepped on a piece of wood in his garage, resulting in a puncture wound caused by a nail. The nail was removed at the time of injury. The patient reports pain and difficulty walking. He does not recall the date of his last tetanus vaccination. The patient has not experienced any signs of infection, such as redness or discharge. He has been managing the pain with tramadol, which he normally takes for chronic back pain due to a herniated disc, but he reports insufficient relief at the current dosage. He currently takes 50 mg of tramadol three times a day. The patient is also diabetic. Plan - For the Puncture Wound to the Foot: Continue monitoring the site for signs of infection such as redness or discharge. Increase tramadol use to four times daily for pain management. The patient declined an X-ray, which would check for the presence of any foreign objects. No signs of infection were noted during the examination. - For Diabetes Mellitus: Continue monitoring as currently managed, given its relevance in wound healing and infection risk. - For Herniated Disc: Increase tramadol to four times daily to manage aggravated pain due to the new foot injury. Reassess pain after a week. The patient is advised to keep weight off the affected foot and to promptly report any new or worsening symptoms, particularly any signs suggestive of infection. Tetanus vaccine was given Patient declined follow up in a week Orders: Orders 2 TDaP Immunization Today Z23 - Encounter for immunization Referrals 2 Podiatry Referral E11.9 - Type 2 diabetes mellitus without complications Coding Level of Care Code Est Pt Level 4 (77643) Diagnoses Puncture wound of left foot, initial encounter S91.332A Encounter type: initial encounter Type 2 diabetes mellitus with diabetic polyneuropathy, without long-term current use of insulin E11.42
[2024-02-19 10:20] VITALS: BP 136/84; PULSE 89; TEMP 36.1; O2SAT 98; BMI 31.4
== END 2024-02-19 11:55 | disposition home or self-care (01) ==
PROVIDERS: PCP Internal Medicine; Visit Provider Internal Medicine
DX: S91.332A Puncture wound without foreign body, left foot, initial encounter (principal); E11.42 Type 2 diabetes mellitus with diabetic polyneuropathy; Z23 Encounter for immunization

== ENCOUNTER 2024-03-17 06:20 | Outpatient (REF) | payer OTHER, SELFPAY ==
--- NOTE | ~2024-03-17 | FL_ITS ---
EXAMINATION: FLUOROSCOPY GUIDANCE FOR NEEDLE PLACEMENT CLINICAL INFORMATION: M47.812 - Spondylosis without myelopathy or radiculopathy, cervical region COMPARISON: None available. TECHNIQUE: Intraoperative fluoroscopy guidance for treatment and the cervical region. Patient position prone. 2 static images provided. FINDINGS: Intraoperative fluoroscopy guidance in the cervical region. Physician present. FLUOROSCOPY TIME: 0.3 minutes. DOSE AREA PRODUCT: 2.01 uGy-m2 (microgray-meter squared) FL/FL guidance in treatment room IMPRESSION: Intraoperative fluoroscopy guidance for a cervical procedure. Electronically signed by: Alistair Lira MD 03/25/2024 03:17 PM [facility]
== END 2024-03-17 06:21 | disposition home or self-care (01) ==
LOC: CF 06:20
PROVIDERS: Visit Provider Anesthesiology
DX: M47.812 Spondylosis without myelopathy or radiculopathy, cervical region (principal)
CPT/HCPCS: 64555; C1778; J2003; Q9967

== ENCOUNTER 2024-03-17 09:05 | Outpatient (AMB) | payer OTHER, SELFPAY ==
[2024-03-17 09:15] VITALS: BP 111/71; PULSE 81; O2SAT 100
--- NOTE | 2024-03-17 09:15 | MHC.OFFVIS ---
Vital Signs 03/17/24 09:15 03/17/24 10:26 BP 111/71 100/73 Blood Pressure Location Lt brachial Lt brachial Position Sitting Sitting Pulse 81 80 Pulse Source Pulse Oximeter Pulse Oximeter Pulse Oximetry (%) 100 99 Oxygen Delivery Method Room Air Room Air Comment Pre Procedure Post Procedure Intake Visit Reasons: RIGHT C5 MB SPRINT PNS TRIAL Allergies No Known Allergies Allergy (Verified 02/19/24 10:21) [facility] Medical History Peripheral neuropathy Needle phobia Hypothyroidism Obesity (BMI 30.0-34.9) Nocturnal hypoxemia AZAM (obstructive sleep apnea) Mild CAD Skin lesion of scalp Tubular adenoma Mixed dyslipidemia Postoperative hypothyroidism Bifascicular block Lumbar spondylosis Failed back syndrome, cervical Vitamin D deficiency History of cocaine use Spondylosis of cervical joint without myelopathy Fibromyalgia Rheumatoid arthritis Obstructive sleep apnea Bilateral nephrolithiasis Bilateral carpal tunnel syndrome Opiate dependence Morbid obesity Cervical spondylosis with radiculopathy Type 2 diabetes mellitus with diabetic polyneuropathy, without long-term current use of insulin GERD without esophagitis Essential hypertension Surgical History History of esophagogastroduodenoscopy (EGD) Hx of colonoscopy Hx of thyroidectomy Hx of neck surgery History of carpal tunnel surgery Hx of cholecystectomy History of spinal surgery Herniated disc Family History Father No problems noted. Mother Diabetes mellitus HTN (hypertension) Brother No problems noted. Sister No problems noted. Social History Household Members: Spouse and Children Housing: House Alcohol intake: never Patient Tobacco Use Status: Former Tobacco user Tobacco use type: Cigarette Years Smoked: 10 yrs e-Cigarette/Vaping Use: Never Used Second Hand Smoke Exposure: No service: No Current occupational status: disabled Cognitive needs: No Hearing needs: No Vision needs: Yes Physical Exam Vital Signs: Last Vital Signs Pulse 80 03/17/24 10:26 BP 100/73 03/17/24 10:26 Pulse Ox 99 03/17/24 10:26 Oxygen Delivery Method Room Air 03/17/24 10:26 Assessment & Plan Assessment & Plan (1) Spondylosis of cervical region without myelopathy or radiculopathy: Code(s): M47.812 - Spondylosis without myelopathy or radiculopathy, cervical region Category: Medical Plan Percutaneous implantation of peripheral nerve stimulation Sprint system C4 right side. After the risks, benefits and alternatives were discussed with the patient and informed consent was obtained, patient was placed in the prone position and padded to foster comfort. Time out was performed delineating correct site and side of the procedure , name and of the patient, patient participated in time out procedure. C-arm was brought over the operating field and clear picture of the C5 lamina on the right was delineated on the screen. The upper central portion of the lamina was chosen as a target of the needle tip insertion . After identifying and marking the intended target, the skin around the planned entry point and the subcutaneous tissues were injected with local anesthetic forming skin wheal.. A percutaneous sleeve and stimulating probe lead introduction system were assembled, inserted and advanced through the skin wheal to the point of interest under C-arm view C5 right lamina., the introducer needle was delivered to a location in proximity to the nerve. Multiple stimulation parameters were used to deliver stimulation to the nerve in concert with stimulating at multiple positions around the nerve. The patient reported that his pain usually located higher than stimulating area. After that A percutaneous sleeve and stimulating probe lead introduction system were assembled again, inserted and advanced through the skin wheal to the point of interest under C-arm view C4 right lamina., the introducer needle was delivered to a location in proximity to the nerve. Multiple stimulation parameters were used to deliver stimulation to the nerve in concert with stimulating at multiple positions around the nerve. This time patient reported relation corresponding to the where he usually feels the pain. The nerve target acquisition was confirmed noting generation of in the corresponding to the nerve being stimulated. Various electrical parameter combinations were tested, and the lead location was adjusted (physically relocated) until the patient indicated overlapping the distribution of the patient?s typical region of pain. The stimulating probe was removed from the introducer and a percutaneous lead was guided through the needle and delivered to a location in similar proximity to the nerve. Final location was verified with electrical stimulation. The introducer needle was removed, and the exposed end of the percutaneous lead was attached to an external stimulator unit. At the end of the case various electrical parameter combinations were again tested until the patient indicated paresthesia or muscle tension overlapping the distribution of the patient?s typical region of pain. After confirming that lead impedance was in the normal range, the external unit was detached, the needle was removed, and the lead was anchored at the skin. The lead was threaded into the connector block and electrical continuity and desired patient response was confirmed. The connector block was attached to the external stimulator unit. The site was covered with a sterile occlusive dressing and a image was taken to document final placement. Upon completion of the procedure the patient was taken outside the OR where he recovered uneventfully he went home without immediate complications. Orders: Orders FL guidance in treatment room Today M47.812 - Spondylosis without myelopathy or radiculopathy, cervical region Coding Level of Care Code Procedure Only Diagnoses Spondylosis of cervical region without myelopathy or radiculopathy M47.812
[2024-03-17 10:26] VITALS: BP 100/73; PULSE 80; O2SAT 99
== END 2024-03-17 10:47 | disposition home or self-care (01) ==
LOC: HO.PMCPRC 09:05
PROVIDERS: PCP Internal Medicine; Visit Provider Anesthesiology
DX: M47.812 Spondylosis without myelopathy or radiculopathy, cervical region (principal)
CPT/HCPCS: 64555

== ENCOUNTER 2024-03-25 09:47 | Outpatient (AMB) | payer OTHER, SELFPAY ==
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
[2024-03-25 09:51] VITALS: BP 114/71; PULSE 86; RESP 15; O2SAT 99; BMI 31.6
== END 2024-03-25 10:25 | disposition home or self-care (01) ==
PROVIDERS: PCP Internal Medicine; Visit Provider Registered Nurse Emergency
DX: S12.9XXA Fracture of neck, unspecified, initial encounter (principal); M53.3 Sacrococcygeal disorders, not elsewhere classified; M47.812 Spondylosis without myelopathy or radiculopathy, cervical region
CPT/HCPCS: 99024

== ENCOUNTER → 2024-03-25 09:47 | Outpatient (BNVA) | payer OTHER, SELFPAY | PROVIDERS: PCP Internal Medicine; Visit Provider Registered Nurse Emergency | DX: M53.3 Sacrococcygeal disorders, not elsewhere classified (principal); M47.812 Spondylosis without myelopathy or radiculopathy, cervical region; S12.9XXA Fracture of neck, unspecified, initial encounter; X58.XXXA Exposure to other specified factors, initial encounter; Y93.9 Activity, unspecified; Y92.9 Unspecified place or not applicable; Y99.9 Unspecified external cause status | CPT/HCPCS: 99212 ==

== ENCOUNTER 2024-03-31 06:15 | Outpatient (REF) | payer OTHER, SELFPAY ==
--- NOTE | ~2024-03-31 | FL_ITS ---
EXAMINATION: FL GUIDANCE ONLY HISTORY: M47.812 - Spondylosis without myelopathy or radiculopathy, cervical region COMPARISON: None available. TECHNIQUE: Fluoroscopy time: 0.2 minutes. Cumulative Dose: 3.45 mGy. DAP: 0.0586 uGy-m2 (microgray-meter squared). Images: 1. FINDINGS: A single image of the cervical spine in the AP projection demonstrates a fusion plate. Evaluation is limited. FL/FL guidance in treatment room IMPRESSION: Fluoroscopy during procedure. Please see procedure report for additional information. Electronically signed by: Saleem Pearson MD 03/31/2024 01:25 PM [facility]
== END 2024-03-31 06:16 | disposition home or self-care (01) ==
LOC: CF 06:15
PROVIDERS: Visit Provider Anesthesiology
DX: M47.812 Spondylosis without myelopathy or radiculopathy, cervical region (principal)
CPT/HCPCS: 64555; C1778; J2003; Q9967

== ENCOUNTER 2024-03-31 09:09 | Outpatient (AMB) | payer OTHER, SELFPAY ==
[2024-03-31 09:18] VITALS: BP 96/74; PULSE 86; RESP 16; O2SAT 97
--- NOTE | 2024-03-31 09:18 | MHC.OFFVIS ---
Vital Signs 03/31/24 09:18 03/31/24 10:03 BP 96/74 104/76 Blood Pressure Location Lt brachial Lt brachial Position Sitting Sitting Respiration 16 16 Pulse 86 87 Pulse Source Pulse Oximeter Pulse Oximeter Pulse Oximetry (%) 97 100 Oxygen Delivery Method Room Air Room Air Intake Visit Reasons: LEFT C5 MB SPRINT PNS TRIAL Allergies No Known Allergies Allergy (Verified 03/31/24 09:18) Medication List - Last Reconciled 03/31/24 by Alyssa Charles LPN blood sugar diagnostic ([employer] Verio test strips) Test blood sugar twice per day blood-glucose meter ([employer] Verio Flex Meter) As directed to test blood sugars blood-glucose meter,continuous (FreeStyle Raman 3 [place]) diagnosis: Type 2 DM, poor A1 , needle phobia and neuropathy blood-glucose sensor (FreeStyle Raman 3 Sensor device) As directed blood-glucose sensor (FreeStyle Raman 3 Sensor device) As directed bupropion HCl XL 300 mg PO DAILY dapagliflozin propanediol (Farxiga) 10 mg PO QAM dulaglutide (Trulicity) 3 mg (0.5 mL) subcut QWEEK glipizide 1/2 tab before breakfast and 1 tab before dinner PO 2 times a day; lancets ([employer] Safety Lancet) Test blood sugar twice per day levothyroxine 150 mcg PO DAILY 3 months lisinopril 20 mg PO DAILY lumateperone (Caplyta) 10.5 mg PO DAILY lumateperone (Caplyta) mg PO metformin 1,000 mg PO BID methocarbamol 500 mg PO TID PRN metoprolol succinate ER 25 mg PO QAM multivitamin (One Daily Multivitamin tablet) 1 tab PO QAM nitroglycerin 0.4 mg sublingual ONCE PRN omeprazole 20 mg PO QAM pioglitazone 30 mg PO DAILY pregabalin 150 mg PO BID 30 days rosuvastatin 5 mg PO QPM sertraline 100 mg PO DAILY tramadol 50 mg PO Q8H PRN 30 days PFSH Medical History Peripheral neuropathy Needle phobia Hypothyroidism Obesity (BMI 30.0-34.9) Nocturnal hypoxemia AZAM (obstructive sleep apnea) Mild CAD Skin lesion of scalp Tubular adenoma Mixed dyslipidemia Postoperative hypothyroidism Bifascicular block Lumbar spondylosis Failed back syndrome, cervical Vitamin D deficiency History of cocaine use Spondylosis of cervical joint without myelopathy Fibromyalgia Rheumatoid arthritis Obstructive sleep apnea Bilateral nephrolithiasis Bilateral carpal tunnel syndrome Opiate dependence Morbid obesity Cervical spondylosis with radiculopathy Type 2 diabetes mellitus with diabetic polyneuropathy, without long-term current use of insulin GERD without esophagitis Essential hypertension Surgical History History of esophagogastroduodenoscopy (EGD) Hx of colonoscopy Hx of thyroidectomy Hx of neck surgery History of carpal tunnel surgery Hx of cholecystectomy History of spinal surgery Herniated disc Family History Father No problems noted. Mother Diabetes mellitus HTN (hypertension) Brother No problems noted. Sister No problems noted. Social History Household Members: Spouse and Children Housing: House Alcohol intake: never Patient Tobacco Use Status: Former Tobacco user Tobacco use type: Cigarette Years Smoked: 10 yrs e-Cigarette/Vaping Use: Never Used Second Hand Smoke Exposure: No service: No Current occupational status: disabled Cognitive needs: No Hearing needs: No Vision needs: Yes Physical Exam Vital Signs: Last Vital Signs Pulse 87 03/31/24 10:03 Resp 16 03/31/24 10:03 BP 104/76 03/31/24 10:03 Pulse Ox 100 03/31/24 10:03 Oxygen Delivery Method Room Air 03/31/24 10:03 Assessment & Plan Assessment & Plan (1) Spondylosis of cervical region without myelopathy or radiculopathy: Code(s): M47.812 - Spondylosis without myelopathy or radiculopathy, cervical region Category: Medical Plan Percutaneous implantation of peripheral nerve stimulation Sprint system C4 left side. After the risks, benefits and alternatives were discussed with the patient and informed consent was obtained, patient was placed in the prone position and padded to foster comfort. Time out was performed delineating correct site and side of the procedure , name and of the patient, patient participated in time out procedure. C-arm was brought over the operating field and clear picture of the C5 lamina on the left was delineated on the screen. The upper central portion of the lamina was chosen as a target of the needle tip insertion . After identifying and marking the intended target, the skin around the planned entry point and the subcutaneous tissues were injected with local anesthetic forming skin wheal.. A percutaneous sleeve and stimulating probe lead introduction system were assembled, inserted and advanced through the skin wheal to the point of interest under C-arm view C5 left lamina., the introducer needle was delivered to a location in proximity to the nerve. Multiple stimulation parameters were used to deliver stimulation to the nerve in concert with stimulating at multiple positions around the nerve. The patient reported that his pain usually located higher than stimulating area. After that A percutaneous sleeve and stimulating probe lead introduction system were assembled again, inserted and advanced through the skin wheal to the point of interest under C-arm view C4 the left lamina., the introducer needle was delivered to a location in proximity to the nerve. Multiple stimulation parameters were used to deliver stimulation to the nerve in concert with stimulating at multiple positions around the nerve. This time patient reported relation corresponding to the where he usually feels the pain. The nerve target acquisition was confirmed noting generation of in the corresponding to the nerve being stimulated. Various electrical parameter combinations were tested, and the lead location was adjusted (physically relocated) until the patient indicated overlapping the distribution of the patient?s typical region of pain. The stimulating probe was removed from the introducer and a percutaneous lead was guided through the needle and delivered to a location in similar proximity to the nerve. Final location was verified with electrical stimulation. The introducer needle was removed, and the exposed end of the percutaneous lead was attached to an external stimulator unit. At the end of the case various electrical parameter combinations were again tested until the patient indicated paresthesia or muscle tension overlapping the distribution of the patient?s typical region of pain. After confirming that lead impedance was in the normal range, the external unit was detached, the needle was removed, and the lead was anchored at the skin. The lead was threaded into the connector block and electrical continuity and desired patient response was confirmed. The connector block was attached to the external stimulator unit. The site was covered with a sterile occlusive dressing and a image was taken to document final placement. Upon completion of the procedure the patient was taken outside the OR where he recovered uneventfully he went home without immediate complications. Orders: Orders FL guidance in treatment room Today M47.812 - Spondylosis without myelopathy or radiculopathy, cervical region Coding Level of Care Code Procedure Only Diagnoses Spondylosis of cervical region without myelopathy or radiculopathy M47.812
[2024-03-31 10:03] VITALS: BP 104/76; PULSE 87; RESP 16; O2SAT 100
== END 2024-03-31 10:13 | disposition home or self-care (01) ==
LOC: HO.PMCPRC 09:09
PROVIDERS: PCP Internal Medicine; Visit Provider Anesthesiology
DX: M47.812 Spondylosis without myelopathy or radiculopathy, cervical region (principal)
CPT/HCPCS: 64555

== ENCOUNTER 2024-04-08 09:44 | Outpatient (AMB) | payer OTHER, SELFPAY ==
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
[2024-04-08 09:56] VITALS: BP 127/78; PULSE 76; BMI 31.4
--- OUTSIDE RECORDS SUMMARY | 2024-04-08 11:24 | XMS_ITS | Clinical Summary ---
Author Organization [facility] Address [address] [place] [address] Care Team Providers Care Correspondence Review Clerk Name Role Phone Ev Mosqueda MD Primary Care Provider [phone] Social History Tobacco Use Types Packs/Day Years Used Date Smoking Tobacco: Never Assessed Sex and Gender Information Value Date Recorded Sex Assigned at Not on file Gender Identity Not on file Sexual Orientation Not on file Plan of Treatment Health Maintenance Due Date Last Done Comments Hepatitis B Vaccines (1 of 3 - 3-dose series) 1974 Hepatitis C Screening 1974 COVID-19 Vaccine (#1) 1974 Depression Screening 1986 Preventative Health Evaluation 1992 Colon Cancer Screening (Colonoscopy) 06/06/2019 Influenza Vaccine (#1) 2023 12/03/2014 DTap / Tdap / Td (2 - Td or Tdap) 05/03/2025 016 Pneumococcal Vaccine Aged Out 06/17/2006 No long er eligible based on patient's age to complete this topic RSV Ped < 20 months Aged Out No longe r eligible based on patient's age to complete this topic Care Teams Correspondence Review Clerk Relationship Specialty Start Date End Date Ev Mosqueda MD [address] [place] [address] PCP - General Internal Medicine 05/19/18
--- OUTSIDE RECORDS SUMMARY | 2024-04-08 11:24 | XMS_ITS | Clinical Summary ---
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 01/28/2021 Active dapagliflozin propanediol (Farxiga) 10 mg tablet Take 1 tablet (10 mg total) by mouth 1 (one) time each day in the morning. 04/04/2021 Active dulaglutide (Trulicity) 1.5 mg/0.5 mL pen injector injection INJECT ONE PEN (=1.5MG) SUBCUTANEOUSLY ONCE A WEEK DIRECTED 04/04/2021 Active metFORMIN (GLUCOPHAGE) 1,000 mg tablet TAKE ONE TABLET IN THE MORNING AND EVENING 04/04/2021 Active metoprolol succinate (TOPROL-XL) 25 mg 24 hr tablet Take 1 tablet (25 mg total) by mouth 1 (one) time each day in the morning. 03/06/2021 Active naloxone (Narcan) 4 mg/0.1 mL nasal spray FOR SUSPECTED OPIOID OVERDOSE. SPRAY 0.1mL IN ONE NOSTRIL. REPEAT IN ALTERNATE NOSTRIL EVERY 2-3 MINUTES IF NEEDED. SEEK MEDICAL ATTENTION IMMEDIATELY EVEN IF PT RESPONDS. 04/04/2021 Active multivitamin tablet Take 1 tablet by mouth 1 (one) time each day in the morning. 04/04/2021 Active omeprazole (PriLOSEC) [address] capsule Take 1 capsule (20 mg total) by mouth 1 (one) time each day in the morning. 04/04/2021 Active pioglitazone (ACTOS) 15 mg tablet Take 1 tablet (15 mg total) by mouth. 01/19/2021 Active pregabalin (LYRICA) 150 mg capsule TAKE ONE CAPSULE TWICE DAILY IN THE MORNING AND AT BEDTIME 04/04/2021 Active rosuvastatin (CRESTOR) 5 mg tablet 04/07/2021 Active glipiZIDE (GLUCOTROL XL) 10 mg 24 hr tablet Take 1 Tab by mouth 2 times daily. 05/04/2016 Active lisinopriL (PRINIVIL,ZESTRIL) 10 mg tablet Take 1 tablet (10 mg total) by mouth 1 (one) time each day. 03/06/2016 Active eye patch mis 1 Patch by Does not apply route at bedtime. 02/20/2016 Active cyanocobalamin, vitamin B-12, 1,500 mcg tablet,chewable Chew 1 (one) time each day. Active blood sugar diagnostic (FreeStyle Lite Strips) test strip Test blood sugar once daily 11/17/2015 Active lanolin/mineral oil (EUCERIN ORIGINAL TOP) Apply topically. Active FREESTYLE LANCETS MISC Active Active Problems Problem Noted Date Diagnosed Date Cervical spondylosis with radiculopathy 05/02/19 22 Overview (03/09/2024): Last Assessment & Plan: Mr. Be is here for a 1 year follow-up after C6-7 on 05/03/2020. This was done for radiculopathy down the left arm. We attempted to place an artificial disc but 2 sizes did not fit properly and it had to be taken apart. He was fitted with a Stealth peek graft and boomerang plate instead he no longer has the shooting pain down his left arm but does get occasional cramps across the left chest to the left upper arm. He has been seen in the emergency room twice for this and ruled out for an CA, he now attributes it to his fibromyalgia. He describes bad morning headaches which mostly improve during the day, not associated with other symptoms. On exam, his incision is well-healed, cervical rotation is 60 degrees bilaterally, strength is 5 out of 5 including tricep and handgrip, sensation light touch intact, gait is steady. Review of the AP/lateral and flexion/extension cervical x-rays from today show the intact plate and screws which is just to the right of midline. This is not yet a solid fusion but the hardware is intact. He has maintained normal lordosis through the rest of the cervical spine. I encouraged him to use heat and stretch and rotation every day. He should continue with good body mechanics and I believe he will progress to a solid fusion. Incidentally, he is scheduled for thyroidectomy on 05/29/2021 for enlarging thyroid cysts. Type 2 diabetes mellitus wit h renal manifestations, controlled 11/17/2015 Hypertriglyceridemia 05/04/2015 Multiple thyroid nodules 09/14/2014 Chronic low back pain 07/28/2014 Overview (03/09/2024): Had non functioning spinal cord stimulator in place per transfer note/ Dr Garrett CTS (carpal tunnel syndrome) 07/28/2014 Enlarged thyroid gland 07/28/2014 Overview (03/09/2024): Seen on CT of cervical spine02/22/14 / ordered but no result in transfer note GERD (gastroesophageal reflux disease) 5 HTN (hypertension) 07/28/2014 Hyperlipidemia 07/28/2014 Microalbuminuria 07/28/2014 AZAM (obstructive sleep apnea) 07/28/2014 Overview (03/09/2024): REPORTS NO need for CPAP per pt Trigger finger 07/28/2014 Type 2 diabetes mellitus with neurological manif estations 07/28/2014 Type 2 diabetes mellitus 07/28/2014 Overview (03/09/2024): Type 2 diabetes, uncontrolled, with renal manifestation Immunizations Name Administration Dates Next Due Hepatitis B (Izxzsbh-J-Gpmvb , Recombivax HB-Adult) 19yo and older 02/01/2010,08/30/2008,06/17/2006 Influenza trivalent, with pr eservative (Fluzone; Afluria) 6mo and older 12/03/2014 Pneumococcal polysaccharide 23 valent (Pneumovax 23) 2yo and older 06/17/2006 Tdap Tetanus diptheria acell ular pertussis (Boostrix; Adacel) 7yo and older 05/03/2015 Surgical History Surgery Date Site/Laterality Comments CARPAL TUNNEL RELEASE PROCEDURE: [place] NEUROPLASTY &/TRANSPOS MEDIAN NRV CARPAL TUNNE; COMMENT: left CHOLECYSTECTOMY PROCEDURE: HISTORICAL CHOLECYSTECTOMY OTHER SURGICAL HISTORY PROCEDURE: [place] STRTCTC STIMJ SPI CORD PRQ SPX N/FLWD OTH SURG; COMMENT: Dr. Garrett Medical History Medical History Date Comments Diabetes type 2, uncontrolled 07/28/2014 DX :Diabetes type 2, uncontrolled Trigger finger 07/28/2014 DX:Trigger finge r GERD (gastroesophageal reflux disease) 07/28/2014 DX:GERD (gastroesophageal reflux disease) Microalbuminuria 07/28/2014 DX:Microalbumin uria Type 2 diabetes, uncontrolle d, with renal manifestation 07/28/2014 DX:Type 2 diabetes, uncontro lled, with renal manifestation Hyperlipidemia 07/28/2014 DX:Hyperlipidemi a Chronic low back pain 07/28/2014 DX:Chronic low back pain AZAM (obstructive sleep apnea) 07/28/2014 DX :AZAM (obstructive sleep apnea) HTN (hypertension) 07/28/2014 DX:HTN (hyper tension) CTS (carpal tunnel syndrome) 07/28/2014 DX: CTS (carpal tunnel syndrome) Type 2 diabetes mellitus wit h neurological manifestations (CMS/HCC) 07/28/2014 DX:Type 2 diabet es mellitus with neurological manifestations (HCC) Enlarged thyroid gland 07/28/2014 DX:Enlarg ed thyroid gland; COMMENT: Seen on CT of cervical spine02/22/14 / ordered but no result in transfer note Family History Medical History Relation Name Comments Other: Other Father , homic bogdan Diabetes Mother Hypertension Mother Relation Name Status Comments Father Mother Social History Tobacco Use Types Packs/Day Years Used Date Smoking Tobacco: Never Smokeless Tobacco: Never Alcohol Use Standard Drinks/Week Comments Not Asked 0 (1 standard drink = 0.6 oz pur e alcohol) Sex and Gender Information Value Date Recorded Sex Assigned at Not on file Gender Identity Not on file Sexual Orientation Not on file Job Start Date Occupation Industry Not on file Not on file Not on file Obstetrics History Plan of Treatment Upcoming Encounters Date Type Department Care Team (Late st Contact Info) Description 04/16/2024 9:15 AM EST Consult Orthopedic Surgery - [place] [address] [phone] Franco Means DPM [address] [id number] Health Maintenance Due Date Last Done Comments Diabetes: Annual Foot Exam 1984 Diabetes: Annual Retina Eye Exam 1984 Pneumococcal Vaccine: Pediatrics (0 to 5 Years) and At-Risk Patients (6 to 64 Years) (2 of 2 - PCV) 06/18/2007 06/17/2006 Diabetes: Annual GFR (Glomerular Filtration Rate) 03/19/2017 03/19/2016 Cholesterol Screening (Lipid Panel) 02/11/2022 03/19/2016 Colorectal Cancer Screening: Colonoscopy 02/11/2022 Depression Screening 02/11/2022 HIV Screening 02/11/2022 Hepatitis C Screening 02/11/2022 Medicare Annual Wellness Visit 02/11/2022 Social Influencers of Health Screening 02/11/2022 Diabetes: Annual Urine Albumin-Creatinine Ratio (uACR) 02/21/2022 11/15/2015 Diabetes: Blood Sugar Contro l Test (HGBA1C) 02/21/2022 03/19/2016 Hypertension/CHF/CAD Annual BMP Blood Test 02/21/2022 03/19/2016 COVID-19 Vaccine (1 - 2023-2 5 season) 2023 Influenza Vaccine (#1) 2023 12/03/2014 DTaP,Tdap,and Td Vaccines (2 - Td or Tdap) 05/03/2025 05/03/2015 Hepatitis B Vaccines Completed 02/01/2010, 08/30/2008, 06/17/2006 HIB Vaccines Aged Out No longer eligi ble based on patient's age to complete this topic HPV Vaccines Aged Out No longer eligi ble based on patient's age to complete this topic Hepatitis A Vaccines Aged Out No long er eligible based on patient's age to complete this topic IPV Vaccines Aged Out No longer eligi ble based on patient's age to complete this topic MMR Vaccines Aged Out No longer eligi ble based on patient's age to complete this topic Meningococcal ACWY Vaccine Aged Out N o longer eligible based on patient's age to complete this topic RSV Immunization Patients Under 20 months Aged Out No longer eligible b ased on patient's age to complete this topic Varicella Vaccines Aged Out No longer eligible based on patient's age to complete this topic Procedures Procedure Name Priority Date/Time Associated Diagnosis Comments ANNUAL BMP BLOOD TEST Routine 03/19/2016 HEMOGLOBIN A1C Routine 03/19/2016 LIPID PANEL Routine 03/19/2016 URINE ALBUMIN CREATININE RATIO Routine 11/15/2015 from Last 3 Months or Most Recently Relevant to Health Maintenance Results * Annual BMP Blood Test (03/19/2016) Pathologist [facility] Annual BMP Blood Test abstracted Historical Provider MD JENNIFER SANTOS E * (ABNORMAL) Hemoglobin A1c (03/19/2016) [facility] Hemoglobin A1C 7.9(A) 4.0 - 6.0 % Blood Venous blood specimen / Unknown Historical Provider LAB BLOOD ORDERAB LES * (ABNORMAL) Lipid panel (03/19/2016) [facility] LDL/HDL Ratio 4 0 - 4 Triglycerides 279(A) 0 - 150 mg/dL Cholesterol 146 0 - 200 mg/dL HDL 39(A) 40 mg/dL LDL Cholesterol 52 0 - 100 mg/dL Blood Venous blood specimen / Unknown Historical Provider LAB BLOOD ORDERAB LES * Urine Albumin Creatinine Ratio (11/15/2015) Pathologist [facility] Urine Albumin Creatinine Ratio abstracted Historical Provider MD JENNIFER Reynolds from Last 3 Months or Most Recently Relevant to Health Maintenance 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 [place] [id number] PCP - General Internal Medicine 01/09/21
== END 2024-04-08 10:27 | disposition home or self-care (01) ==
PROVIDERS: PCP Internal Medicine; Visit Provider Registered Nurse Emergency
DX: S12.9XXA Fracture of neck, unspecified, initial encounter (principal); M53.3 Sacrococcygeal disorders, not elsewhere classified; M47.812 Spondylosis without myelopathy or radiculopathy, cervical region
CPT/HCPCS: 99024

== ENCOUNTER → 2024-04-08 09:44 | Outpatient (BNVA) | payer OTHER, SELFPAY | PROVIDERS: PCP Internal Medicine; Visit Provider Registered Nurse Emergency | DX: S12.9XXA Fracture of neck, unspecified, initial encounter (principal); M79.7 Fibromyalgia; M53.3 Sacrococcygeal disorders, not elsewhere classified; M47.812 Spondylosis without myelopathy or radiculopathy, cervical region; X58.XXXA Exposure to other specified factors, initial encounter; Y93.9 Activity, unspecified; Y92.9 Unspecified place or not applicable; Y99.9 Unspecified external cause status; Z91.81 History of falling | CPT/HCPCS: 99212 ==

== ENCOUNTER 2024-04-28 09:12 | Outpatient (AMB) | payer OTHER, SELFPAY ==
--- NOTE | 2024-04-28 09:30 | A.OFFVIS_ITS ---
Intake Visit Reasons: Weak urinary stream Intake Note: New Patient presents for initial visit for incontinence, frequency, and erectile dysfunction Urology Medications: none Blood Thinner: none PVR: 43ml's Chainstitch Hemmer Required: Yes Accompanied by: Self / Same As Patient Allergies No Known Allergies Allergy (Verified 04/28/24 09:32) HPI Comments Details: Carlos is a Guyanese-speaking male. He is a patient of . He is seen for the following urologic conditions - urinary urgency and frequency - erectile dysfunction associated with diabetes Guyanese translation provided by qualified medical imaging specialist #[id number] Urinary urgency and frequency Urinary frequency particularly nocturia Diabetic on Farxiga Well known side effects Suggest holding medication for one-week and observing of urgency frequency resolved Erectile dysfunction in setting of diabetes Progressive Discussed management [facility] Medical History Peripheral neuropathy Needle phobia Hypothyroidism Obesity (BMI 30.0-34.9) Nocturnal hypoxemia AZAM (obstructive sleep apnea) Mild CAD Skin lesion of scalp Tubular adenoma Mixed dyslipidemia Postoperative hypothyroidism Bifascicular block Lumbar spondylosis Failed back syndrome, cervical Vitamin D deficiency History of cocaine use Spondylosis of cervical joint without myelopathy Fibromyalgia Rheumatoid arthritis Obstructive sleep apnea Bilateral nephrolithiasis Bilateral carpal tunnel syndrome Opiate dependence Morbid obesity Cervical spondylosis with radiculopathy Type 2 diabetes mellitus with diabetic polyneuropathy, without long-term current use of insulin GERD without esophagitis Essential hypertension Surgical History History of esophagogastroduodenoscopy (EGD) Hx of colonoscopy Hx of thyroidectomy Hx of neck surgery History of carpal tunnel surgery Hx of cholecystectomy History of spinal surgery Herniated disc Family History Father No problems noted. Mother Diabetes mellitus HTN (hypertension) Brother No problems noted. Sister No problems noted. Social History Household Members: Spouse and Children Housing: House Alcohol intake: never Patient Tobacco Use Status: Former Tobacco user Tobacco use type: Cigarette Years Smoked: 10 yrs e-Cigarette/Vaping Use: Never Used Second Hand Smoke Exposure: No service: No Current occupational status: disabled Cognitive needs: No Hearing needs: No Vision needs: Yes Office Procedures Post Void Residual Post Residual Void Post Void Residual (PVR): 43 21646-Wopy Void Residual by ultrasound Results AMB Urinalysis, Automated UA Leukoctes 0 Julieth/uL Last Edit by [facility] on 04/28/24 09:45 UA Nitrite Negative Last Edit by [facility] on 04/28/24 09:45 UA Urobilinogen 0.2 mg/dL Last Edit by [facility] on 04/28/24 09:45 UA Protein 0 mg/dL Last Edit by [facility] on 04/28/24 09:45 UA pH 6.0 Last Edit by [facility] on 04/28/24 09:45 UA Blood 0 Ronny/uL Last Edit by [facility] on 04/28/24 09:45 UA Specific [place] 1.010 Last Edit by [facility] on 04/28/24 09:45 UA Ketone Last Edit by [facility] on 04/28/24 09:45 UA Bilirubin 0 mg/dL Last Edit by [facility] on 04/28/24 09:45 UA Glucose 500 mg/dL Last Edit by [facility] on 04/28/24 09:45 Results Reviewed Results Reviewed: Laboratory Last Values Urine pH (Auto) 6.0 04/28/24 09:44 Specific [place] (Auto) 1.010 04/28/24 09:44 Urine Protein (Auto) 0 mg/dL 04/28/24 09:44 Glucose (UA)(Auto) 500 mg/dL 04/28/24 09:44 Urine Blood (Auto) 0 Ronny/uL 04/28/24 09:44 Urine Nitrite (Auto) Negative 04/28/24 09:44 Urine Bilirubin (Auto) 0 mg/dL 04/28/24 09:44 Urine Urobilinogen (Auto) 0.2 mg/dL 04/28/24 09:44 Leukocyte Esterase (Auto) 0 Julieth/uL 04/28/24 09:44 Assessment & Plan Assessment & Plan (1) Erectile dysfunction associated with type 2 diabetes mellitus: Code(s): E11.69 - Type 2 diabetes mellitus with other specified complication; N52.1 - Erectile dysfunction due to diseases classified elsewhere Category: Medical (2) Bilateral nephrolithiasis: Code(s): N20.0 - Calculus of kidney Category: Medical (3) Weak urinary stream: Code(s): R39.12 - Poor urinary stream Category: Medical (4) Urinary frequency: Code(s): R35.0 - Frequency of micturition Category: Medical Orders: Orders AMB Urinalysis Automated Today Z13.9 - Encounter for screening, unspecified AMB Post Void Residual by ultrasound Today R39.12 - Poor urinary stream Medications: New tadalafil 10 mg PO DAILY 90 days 90 tabs 0RF Bladder instability E11.69 - Type 2 diabetes mellitus with other specified complication, N52.1 - Erectile dysfunction due to diseases classified elsewhere, R35.0 - Frequency of micturition Coding Diagnoses Erectile dysfunction associated with type 2 diabetes mellitus E11.69; N52.1 Bilateral nephrolithiasis N20.0 Weak urinary stream R39.12 Urinary frequency R35.0 CPT Codes Post Residual Void - PVR CPT Code: 26552-Hodx Void Residual by ultrasound ([id number])
--- OUTSIDE RECORDS SUMMARY | 2024-04-28 09:51 | XMS_ITS | Clinical Summary ---
Author Organization [facility] Address [address] [place] [address] Phone Care Team Providers Care Spring Inspector Name Role Phone Ev Mosqueda MD Primary Care Provider Allergies No known active allergies Medications traMADoL (ULTRAM) 50 mg tablet TAKE ONE TABLET EVERY 8 HOURS NEEDED FOR PAIN 04/06/19 22 Active aspirin 81 mg EC tablet Take 1 tablet (81 mg total) by mouth 1 (one) time each day in the morning. 01/29/20 21 Active dapagliflozin propanediol (Farxiga) 10 mg tablet Take 1 tablet (10 mg total) by mouth 1 (one) time each day in the morning. 04/04/19 22 Active dulaglutide (Trulicity) 1.5 mg/0.5 mL pen injector injection INJECT ONE PEN (=1.5MG) SUBCUTANEOUSLY ONCE A WEEK DIRECTED 04/04/19 22 Active metFORMIN (GLUCOPHAGE) 1,000 mg tablet TAKE ONE TABLET IN THE MORNING AND EVENING 04/04/19 22 Active metoprolol succinate (TOPROL-XL) 25 mg 24 hr tablet Take 1 tablet (25 mg total) by mouth 1 (one) time each day in the morning. 03/06/20 21 Active naloxone (Narcan) 4 mg/0.1 mL nasal spray FOR SUSPECTED OPIOID OVERDOSE. SPRAY 0.1mL IN ONE NOSTRIL. REPEAT IN ALTERNATE NOSTRIL EVERY 2-3 MINUTES IF NEEDED. SEEK MEDICAL ATTENTION IMMEDIATELY EVEN IF PT RESPONDS. 04/04/19 22 Active multivitamin tablet Take 1 tablet by mouth 1 (one) time each day in the morning. 04/04/19 22 Active omeprazole (PriLOSEC) [address] capsule Take 1 capsule (20 mg total) by mouth 1 (one) time each day in the morning. 04/04/19 22 Active pioglitazone (ACTOS) 15 mg tablet Take 1 tablet (15 mg total) by mouth. 01/20/20 21 Active pregabalin (LYRICA) 150 mg capsule TAKE ONE CAPSULE TWICE DAILY IN THE MORNING AND AT BEDTIME 04/04/19 22 Active rosuvastatin (CRESTOR) 5 mg tablet 04/07/19 22 Active glipiZIDE (GLUCOTROL XL) 10 mg 24 hr tablet Take 1 Tab by mouth 2 times daily. 05/04/19 17 Active lisinopriL (PRINIVIL,ZESTR IL) 10 mg tablet Take 1 tablet (10 mg total) by mouth 1 (one) time each day. 03/06/20 16 Active eye patch [facility] 1 Patch by Does not apply route at bedtime. 02/20/20 16 Active cyanocobalamin, vitamin B-12, 1,500 mcg tablet,chewable Chew 1 (one) time each day. Active blood sugar diagnostic (FreeStyle Lite Strips) test strip Test blood sugar once daily 11/17/19 16 Active lanolin/mineral oil (EUCERIN ORIGINAL TOP) Apply [...] Seen on CT of cervical spine02/22/14 / US ordered but no result in transfer note [...] Name Administration Dates Next Due Hepatitis B (Hvxrldz-Q-Xylwm , Recombivax HB-Adult) 19yo and older 02/01/2010,08/30/2008,06/17/2006 Influenza trivalent, with pr eservative (Fluzone; Afluria) 6mo and older 12/03/2014 Pneumococcal polysaccharide 23 valent (Pneumovax 23) 2yo and older 06/17/2006 Tdap Tetanus diptheria acell ular pertussis (Boostrix; Adacel) 7yo and older 05/03/2015 Surgical History Surgery Date Site/Laterality Comments CARPAL TUNNEL RELEASE PROCEDURE: DE NEUROPLASTY &/TRANSPOS MEDIAN NRV CARPAL TUNNE; COMMENT: left CHOLECYSTECTOMY PROCEDURE: HISTORICAL CHOLECYSTECTOMY OTHER SURGICAL HISTORY PROCEDURE: DE STRTCTC STIMJ SPI CORD PRQ SPX N/FLWD [...] Recorded Sex Assigned at Not on file Legal Sex Male 12:24 AM EST Gender Identity Not on file Sexual Orientation Not on file Obstetrics History Plan of Treatment Upcoming Encounters Date Type Department Care Team (Late st Contact Info) Description 06/29/2024 8:45 AM EDT Consult Orthopedic Surgery - [place] [address] [facility] [address] [place] [id number] Franco Means DPM [address] [address] Health Maintenance Due Date Last Done Comments [...] patient's age to complete this topic Meningococcal B Vacine Aged Out No lo nger eligible based on patient's age to complete [...] Results * Annual BMP Blood Test (03/19/2016) Annual BMP Blood Test abstracted Result [facility] Provider HEALTH MAINTENANCE Final Result * (ABNORMAL) Hemoglobin A1c (03/19/2016) Pathologist [facility] Hemoglobin A1C 7.9(A) 4.0 - 6.0 % Blood Venous blood specimen / Unknown Result [facility] Provider LAB BLOOD ORDERABLES Lay l Result * (ABNORMAL) Lipid panel (03/19/2016) Pathologist [facility] LDL/HDL Ratio 4 0 - 4 Triglycerides 279(A) 0 - 150 mg/dL Cholesterol 146 0 - 200 mg/dL HDL 39(A) >=40 mg/dL LDL Cholesterol 52 0 - 100 mg/dL Blood Venous blood specimen / Unknown Result [facility] Provider LAB BLOOD ORDERABLES Lay l Result * Urine Albumin Creatinine Ratio (11/15/2015) Urine Albumin Creatinine Ratio abstracted [facility] Provider HEALTH MAINTENANCE Final Result from Last 3 Months or Most Recently Relevant to Health Maintenance Insurance [address] [place] [address] MEDICARE Member Subscriber Plan / Payer (Ef fective 2016-Present) Name:Carlos Be Relation to Subscriber:Self Name:Carlos Be Payer ID:[id number] Group ID:[id number] Type:Not on file Address: [facility] [address] [id number] Care Teams Spring Inspector Relationship Specialty Start Date End Date Ev Mosqueda MD [address] [place] [address] PCP - General Internal Medicine 01/09/21
--- OUTSIDE RECORDS SUMMARY | 2024-04-28 09:52 | XMS_ITS | Clinical Summary ---
Author Organization [facility] Address [address] [place] [address] Care Team Providers Care Loading Checker Name Role Phone Ev Mosqueda MD Primary Care Provider [phone] Social History Tobacco Use Types Packs/Day Years [...] age to complete this topic Care Teams Loading Checker Relationship Specialty Start Date End Date Ev Mosqueda MD [address] [place] [address] PCP - General Internal Medicine 05/19/18
== END 2024-04-28 10:29 | disposition home or self-care (01) ==
PROVIDERS: PCP Internal Medicine; Visit Provider Urology
DX: Z13.9 Encounter for screening, unspecified (principal)

== ENCOUNTER → 2024-04-28 09:12 | Outpatient (BNVA) | payer OTHER, SELFPAY | PROVIDERS: PCP Internal Medicine; Visit Provider Urology | DX: R39.12 Poor urinary stream (principal); R35.0 Frequency of micturition; N52.9 Male erectile dysfunction, unspecified; E11.69 Type 2 diabetes mellitus with other specified complication; N52.1 Erectile dysfunction due to diseases classified elsewhere; N20.0 Calculus of kidney | CPT/HCPCS: 51798; 81003; 99202 ==

== ENCOUNTER 2024-05-04 08:57 | Outpatient (AMB) | payer OTHER, SELFPAY ==
[2024-05-04 08:59] VITALS: BP 96/68; PULSE 115; O2SAT 92; BMI 32.4
--- NOTE | 2024-05-04 08:59 | A.OFFVIS_ITS ---
Vital Signs 05/04/24 08:59 05/04/24 09:44 Height 5 ft 10 in Weight 225 lb 12.054 oz BMI 32.4 BP 96/68 Blood Pressure Location Lt brachial Position Sitting Pulse 115 H 88 Pulse Source Pulse Oximeter Palpation Pulse Oximetry (%) 92 Oxygen Delivery Method Room Air Intake Visit Reasons: hypothyroidism Intake Note: Patient present today for Type 2 Diabetes Mellitus and hypothyroidism Last Diabetic eye exam: 03/2024 Last Podiatry Visit: Has upcoming appt in May Random Glucose: 213 mg/dl HgA1C: 10.2% Superintendent Renting Managing Required: Yes Superintendent Renting Managing Language: Assembled Wood Products Repairer Services: Superintendent Renting Managing Present Superintendent Renting Managing Name: Lennie [id number] Information Interpreted: non-clinical & clinical Accompanied by: Self / Same As Patient Allergies No Known Allergies Allergy (Verified 05/04/24 09:07) Medication List - Last Reconciled 05/04/24 by Angella Montanez MD blood sugar diagnostic ([place] Verio test strips) Test blood sugar twice per d ay blood-glucose meter (iGuidersuch Verio Flex Meter) As directed to test blood sugars blood-glucose meter,continuous (FreeStyle Raman 3 [place]) diagnosis: Type 2 DM, poor A1 , needle phobia and neuropathy blood-glucose sensor (FreeStyle Raman 3 Sensor device) As directed blood-glucose sensor (FreeStyle Raman 3 Sensor device) As directed bupropion HCl XL 300 mg PO DAILY dapagliflozin propanediol (Farxiga) 10 mg PO QAM dulaglutide (Trulicity) 3 mg (0.5 mL) subcut QWEEK glipizide 1/2 tab before breakfast and 1 tab before dinner PO 2 times a day; lancets (LiquiGlide Delica Safety Lancet) Test blood sugar twice per day levothyroxine 150 mcg PO DAILY 3 months lisinopril 20 mg PO DAILY lumateperone (Caplyta) 10.5 mg PO DAILY lumateperone (Caplyta) mg PO metformin 1,000 mg PO BID methocarbamol 500 mg PO TID PRN metoprolol succinate ER 25 mg PO QAM multivitamin (One Daily Multivitamin tablet) 1 tab PO QAM nitroglycerin 0.4 mg sublingual ONCE PRN omeprazole 20 mg PO QAM pioglitazone 30 mg PO DAILY pregabalin 150 mg PO BID 30 days rosuvastatin 5 mg PO QPM sertraline 150 mg PO DAILY tadalafil 10 mg PO DAILY 90 days tramadol 50 mg PO Q8H PRN 30 days HPI Comments Details: 48 YO M with a PMHx of a multinodular thyroid s/p total thyroidectomy May 30 with benign results who is seen in F/U for type 2 diabetes mellitus and postoperative hypothyroidism. HPI from prior visit Was initially diagnosed with multinodular thyroid many years ago, and was previously followed at [facility] for this. He had a prior biopsy of some of his nodules, but he does not recall which. He reports that these were benign. He underwent FNA biopsy by Dr. Villela 11/10/2020 of 4 nodules, with results detailed below: 1) RUP 1.5 cm thyroid nodule - Cytology benign (bethesda category II) 2) RMP 4.2 cm thyroid nodule - Cytology benign (bethesda category II) 3) LMP 2.5 cm thyroid nodule - Cytology benign (bethesda category II) 4) LMP 4.6 cm thyroid nodule - Cytology Atypia of Undetermined Signifigance ([place] Category III), Affirma benign. He was complaining of significant compressive symptoms, so he was referred to Dr. Marsh for a total thyroidectomy. This was completed 05/29/2021. Official surgical path was benign. Postoperative he was started on levothyroxine,was previously taking 137 mcg PO daily Interval history Currently taking levothyroxine 150 mcg daily, reports good compliance with this. TSH is WNL at 1.11 from June 01. He forgot to do labs He denies any symptoms of hyper or hypothyroidism. Type 2 DM Has DM for about 10 years so around 2013 A1c July 2023 was 7.2 % per patient , this was by VNA at home a1c POC October 2023 9.9% Fasting 213 mg /dl this morning is sick had 2 surgeries recently , he has been stressed. Current meds Trulicity 3 mg weekly (Saturday) no GI problems, increase in October 2023 Dapagliflozin 10 mg daily (urinates more often, no UTI/ yeast uinfections) Metformin 1000 mg BID Actos 30 mg daily Glipizide 5 mg in AM and 10 mg in evening A1c POC 05/04/24 10.2% SMBGS Saying he has no motivation or desire to do anything , having depression seeing therapy and psychiatry , denies suicidal ideation is still facing health issues Didnt bring meter again today, again severe pain in fingers due to neuropathy and needle phobia I has prescribed CGM , he picked it up and didnt put it on and didnt bring it today, didnt make appointment with educator On lisinopril 20 mg daily in May 2023 labs showed GFR >60, creatinine normal Has neuropathy, on pregablin 150 mg BID feels doesnt really help No retinopathy, last eye visit Nov 2022, next one in Nov 2023 On rosuvastatin 5 mg daily, LDL 42 in 06/01 No macrovascular complications BP at goal Doesnt work out much has a lot of back discomfort and arthritis Weight :lost only 5 lbs on Trulicty 3 mg weekly for the past 3 months Eating: trying to control calories but still eating carb heavy meals alcohol : none No smoking Walking : 20 to 30 mins daily in the house Physical exam General: sitting comfortably in bed in no acute distress HEENT: normocephalic/atraumatic, moist oral mucosa Neck: supple, symmetrical, no thyromegaly , no dorsocervical or supraclavicular fat pads Cardiac: normal heart sounds Pulm: normal breath sounds B/L, no added breath sounds Abd: not distended, no tenderness Extremities: no edema, no signs of myxedema Neuro: AAO x3, Speech: normal, no facial droop, moving all 4 extremities Skin: no rash Foot exam:diminished sensation to monofilament, intact pulses, intact vibration Laboratory Tests 05/13/23 11/04/23 05/04/24 08:59 09:24 09:10 Glucose (Clinic) 213 H Hgb A1c (Clinic) 9.9 H TSH 1.11 Free T4 1.04 Laboratory Tests 06/05/22 07:13 Urine Creatinine 152.91 Urine Microalbumin 11.0 Microalb/Creat Ratio 7.1 Laboratory Tests 07/01/20 11/07/22 05/06/23 11:22 09:27 10:57 Plt Count 199 Creatinine Estimated GFR Hgb A1c (Clinic) 6.5 H 6.9 H AST ALT Triglycerides Cholesterol LDL Cholesterol, Calc HDL Cholesterol 05/13/23 08:59 Plt Count Creatinine 0.88 Estimated GFR > 60 Hgb A1c (Clinic) AST 24 ALT 28 Triglycerides 196 H Cholesterol 116 LDL Cholesterol, Calc 42 HDL Cholesterol 35 L Laboratory Tests 05/13/23 08:59 TSH 1.11 Free T4 1.04 PFSH Medical History Peripheral neuropathy Needle phobia Hypothyroidism Obesity (BMI 30.0-34.9) Nocturnal hypoxemia AZAM (obstructive sleep apnea) Mild CAD Skin lesion of scalp Tubular adenoma Mixed dyslipidemia Postoperative hypothyroidism Bifascicular block Lumbar spondylosis Failed back syndrome, cervical Vitamin D deficiency History of cocaine use Spondylosis of cervical joint without myelopathy Fibromyalgia Rheumatoid arthritis Obstructive sleep apnea Bilateral nephrolithiasis Bilateral carpal tunnel syndrome Opiate dependence Morbid obesity Cervical spondylosis with radiculopathy Type 2 diabetes mellitus with diabetic polyneuropathy, without long-term current use of insulin GERD without esophagitis Essential hypertension Surgical History History of esophagogastroduodenoscopy (EGD) Hx of colonoscopy Hx of thyroidectomy Hx of neck surgery History of carpal tunnel surgery Hx of cholecystectomy History of spinal surgery Herniated disc Family History Father No problems noted. Mother Diabetes mellitus HTN (hypertension) Brother No problems noted. Sister No problems noted. Social History Household Members: Spouse and Children Housing: House Alcohol intake: never Patient Tobacco Use Status: Former Tobacco user Tobacco use type: Cigarette Years Smoked: 10 yrs e-Cigarette/Vaping Use: Never Used Second Hand Smoke Exposure: No service: No Current occupational status: disabled Cognitive needs: No Hearing needs: No Vision needs: Yes Physical Exam Vital Signs: Last Vital Signs Pulse 115 H 05/04/24 08:59 BP 96/68 05/04/24 08:59 Pulse Ox 92 05/04/24 08:59 Oxygen Delivery Method Room Air 05/04/24 08:59 BMI result Body Mass Index 32.4 Results AMB Hemoglobin A1c AMB Hemoglobin A1c 10.2 % Last Edit by JAKOB Jon on 05/04/24 09:33 Results Reviewed Results Reviewed: Laboratory Last Values Glucose (Clinic) 213 mg/dL (60-115) H 05/04/24 09:10 Assessment & Plan Assessment & Plan (1) Type 2 diabetes mellitus with diabetic polyneuropathy, without long-term current use of insulin: Code(s): E11.42 - Type 2 diabetes mellitus with diabetic polyneuropathy Category: Medical Plan: Patient with history of type 2 diabetes mellitus, with complications of neuropathy, without long-term insulin use coming in today for follow up. A. HBA1c worsened to 10.2% on 05/04/2024 from was 9.9 % on 11/04/2023. We prescribed him freestyle Raman, he has a it at home but has not been able to put it on and did not bring it to visit today. I again told him importance of scheduling a visit with our natural resources extension educator for sensor education. He has a lot pain from his peripheral neuropathy and he is not able to check his fingersticks at home. His fasting reading today was 213 mg/dL. He has a uncontrolled hyperglycemia, spent a lot of time educating him about risks of uncontrolled hyperglycemia and complications both microvascular and macrovascular. Given A1c is greater than 10%, at this time I will have to start him on insulin as well. we will discontinue glipizide and Actos due to risk of hypoglycemia. He will continue on Farxiga and metformin as it is as he is already on max doses of dose. I will also increase the dose of his Trulicity, he has been on Trulicity 3 mg weekly for the past 4-5 months, and has only lost 5 lb since then. I will increase his Trulicity but if he continues to have this stagnant weight, we will have to switch to Ozempic. B:?Blood pressure is under adequate control, for renal protection in the setting of diabetes. C:?LDL is 42 mg/dL from May 2023, which is at goal. Goal is less than 70. He forgot to do repeat lipid panel, this was ordered last visit. Stressed importance of doing labs today. D:?Diet control and healthy lifestyle was discussed in detail. Emphasis was made on exercise and physical activity in daily routine with at least 30-45 minutes of aerobic exercise 5-6 days a week. He has some limitation due to arthritis, and lumbar stenosis, asked him to do as much as possible. E: Last visit with brand analyst was in March 2024, no retinopathy per patient. F: Foot care is suboptimal, has diminished sensation to monofilament. Already on pregabalin though that does not help him much. I counseled him that improved control of his diabetes will help with the neuropathy as well.. G: eGFR >60 and microalbumin/Cr ratio 7.2 from June 01. Plan: -increase Trulicity to 4 mg weekly -start insulin Lantus 10 units daily in a.m., hypoglycemia education done, stressed importance of checking blood sugars prior to administering insulin since he is still does not have the sensor on. -continue metformin 1000 mg b.i.d., , Farxiga 10 mg daily, -discontinue Actos and glipizide - -referral to natural resources extension educator already in place, patient asked to make appointment for sensor application and education -dietary and exercise counseling done as advised above -labs to be done now - (2) Hypothyroidism: Code(s): E03.9 - Hypothyroidism, unspecified Category: Medical Qualifiers: Hypothyroidism type: postoperative Qualified Code(s): E89.0 - Postprocedural hypothyroidism Plan: Status post total thyroidectomy for multinodular goiter in May 30, with benign pathology. Currently on levothyroxine 150 mcg daily, taking it appropriately. TSH was within normal limits from June 01. I had ordered repeat TSH last visit which he did not get done. Plan: -continue levothyroxine 150 mcg daily -do TSH with reflex free T4 (3) Needle phobia: Code(s): F40.298 - Other specified phobia Category: Medical Plan: He has freestyle Raman, still does not know how to put it on, asked him to establish care with the educator for sensor education (4) Peripheral neuropathy: Code(s): G62.9 - Polyneuropathy, unspecified Category: Medical Qualifiers: Peripheral neuropathy type: polyneuropathy associated with underlying disease Qualified Code(s): G63 - Polyneuropathy in diseases classified elsewhere Plan: He has freestyle Raman, still does not know how to put it on, asked him to establish care with the educator for sensor education Plan I spent 45 minutes in reviewing the record, seeing the patient and documenting in the medical record. Orders: Orders AMB Hemoglobin A1c Today E11.42 - Type 2 diabetes mellitus with diabetic polyneuropathy, Z13.9 - Encounter for screening, unspecified Medications: New dulaglutide (Trulicity) 4.5 mg (0.5 mL) subcut QWEEK 2 mL 6RF insulin glargine (Lantus Solostar U-100 Insulin) 10 units (0.1 mL) subcut DAILY 15 mL 5RF Discontinued glipizide Discontinued Reason: Doctor's Order 1/2 tab before breakfast and 1 tab before dinner PO 2 times a day; 135 tabs 4RF E11.42 - Type 2 diabetes mellitus with diabetic polyneuropathy pioglitazone Discontinued Reason: Doctor's Order 30 mg PO DAILY 90 tabs 4RF E11.42 - Type 2 diabetes mellitus with diabetic polyneuropathy dulaglutide (Trulicity) Discontinued Reason: Doctor's Order 3 mg (0.5 mL) subcut QWEEK 6 mL 2RF Patient Instructions: Increase Trulicity to 4.5 mg weekly Start insulin Lantus once daily in AM 10 units Continue Metformin Continue Farxiga Stop actos Stop Glipizide schedule visist with natural resources extension educator whatever is her soonest availble and bring meter plus sensor plus repairer evaporator /phone to set it up Till then continue monitoring with fingersticks at least once daily fasting before giving insulin Rule of 15 Treatment for Hypoglycemia (Low blood sugar) If your blood glucose is low (70 and below)*, follow the steps below to treat: Eat or drink something from the list below equal to 15 grams of carbohydrate (carb). Rest for 15 minutes Re-check your blood glucose. If it is still low, (below 70), repeat step 1 above. ? If your next meal is more than an hour away, you will need to eat one carbohydrate choice as a snack to keep your blood glucose from going low again. ?If you can't figure out why you have low blood glucose, call your healthcare provider, as your medicine may need to be adjusted. ?Always carry something with you to treat an insulin reaction. Use food from the list below. ? Foods equal to One Carbohydrate Choice (15 grams of carbohydrate): 3 Glucose ?tablets or 4 Dextrose tablets 4 ounces of fruit juice 5-6 ounces (about 1/2 can) of regular soda such as Coke or Pepsi ? 7-8 gummy or regular Life Savers ? 1 Tbsp. of sugar or jelly NOTE: If your blood sugar is less than 50, double the portion above for a total of 30 gm. ?Carbohydrate. ? Follow meal plan of 45-60 g of consistent carbohydrates at 3 meals each day and 15 g of carbohydrate at 1-2 snacks each day. Do fasting blood work and urine tests Aumente Trulicity a 4,5 mg por semana Inicie insulina Lantus juan vez al d?a en AM 10 unidades Continuar con metformina Continuar Farxiga detener actos Detener la glipizida Programe juan visita con un educador en diabetes, lo que est? disponible lo antes posible, y traiga el medidor, el sensor y el receptor/tel?fono para configurarlo. Hasta entonces, contin?e monitoreando con punciones en el dedo al menos juan vez al d?a en ayunas antes de administrar insulina. Apple de 15 Tratamiento para la hipoglucemia (nivel bajo de az?car en antonina) Si reeves nivel de glucosa en antonina es bajo (70 o menos)*, siga los pasos a continuaci?n para tratarlo: Coma o eduardo algo de la lista a continuaci?n equivalente a 15 gramos de carbohidratos (carbohidratos). Descanse 15 minutos Vuelva a controlar reeves nivel de glucosa en antonina. Si a?n est? bajo (por debajo de 70), repita el paso 1 anterior. ? Si falta m?s de juan hora para reeves pr?xima comida, necesitar? comer juan opci?n de carbohidratos jeremias refrigerio para evitar que reeves nivel de glucosa en antonina vuelva a bajar. ?Si no puede entender por qu? tiene un nivel bajo de glucosa en antonina, llame a reeves proveedor de atenci?n m?dica, ya que es posible que sea necesario ajustar reeves medicamento. ?Lleve siempre consigo algo para tratar juan reacci?n a la insulina. Utilice alimentos de la lista siguiente. ? Alimentos equivalentes a Juan Elecci?n de Carbohidratos (15 gramos de carbohidratos): 3 tabletas de glucosa o 4 tabletas de dextrosa 4 onzas de jugo de frutas 5 a 6 onzas (aproximadamente 1/2 kendall) de refresco regular jeremias Coca-Cola o Pepsi ? 7-8 gomitas o salvavidas regulares ? 1 cucharada. de az?car o gelatina NOTA: Si reeves nivel de az?car en antonina es inferior a 50, duplique la porci?n anterior para un total de 30 g. ?Carbohidrato. ? Siga un plan de alimentaci?n de 45 a 60 g de carbohidratos constantes en 3 comidas al d?a y 15 g de carbohidratos en 1 a 2 refrigerios al d?a. Hacer an?lisis de antonina y an?lisis de orina en ayunas. Coding Level of Care Code Est Pt Level 5 (64882) Complex EM visit Add On G2211 Diagnoses Type 2 diabetes mellitus with diabetic polyneuropathy, without long-term current use of insulin E11.42 Postoperative hypothyroidism E89.0 Hypothyroidism type: postoperative Needle phobia F40.298 Polyneuropathy associated with underlying disease G63 Peripheral neuropathy type: polyneuropathy associated with underlying disease Time Spent (min) 45
[2024-05-04 09:15] LABS: Glucose, Whole Blood 213 mg/dL (60-115)
--- OUTSIDE RECORDS SUMMARY | 2024-05-04 09:28 | XMS_ITS | Clinical Summary ---
Author Organization [facility] Address [address] [place] [address] Care Team Providers Care Electric Motor Assembler And Tester Name Role Phone Ev Mosqueda MD Primary Care Provider [phone] Social History Tobacco Use Types Packs/Day Years [...] age to complete this topic Care Teams Electric Motor Assembler And Tester Relationship Specialty Start Date End Date Ev Mosqueda MD [address] [place] [address] PCP - General Internal Medicine 05/19/18
--- OUTSIDE RECORDS SUMMARY | 2024-05-04 09:28 | XMS_ITS | Clinical Summary ---
Author Organization [facility] Address [address] [place] [address] Phone Care Team Providers Care General Utility Worker Name Role Phone Ev Mosqueda MD Primary [...] each day. 03/06/20 16 Active eye patch [facility] 1 Patch by Does not apply route [...] for this and ruled out for an PA, he now attributes it to his fibromyalgia. [...] Name Administration Dates Next Due Hepatitis B (Cudefsd-V-Oztoa , Recombivax HB-Adult) 19yo and older 02/01/2010,08/30/2008,06/17/2006 Influenza trivalent, with pr eservative (Fluzone; Afluria) 6mo and older 12/03/2014 Pneumococcal polysaccharide 23 valent (Pneumovax 23) 2yo and older 06/17/2006 Tdap Tetanus diptheria acell ular pertussis (Boostrix; Adacel) 7yo and older 05/03/2015 Surgical History Surgery Date Site/Laterality Comments CARPAL TUNNEL RELEASE PROCEDURE: [place] NEUROPLASTY &/TRANSPOS MEDIAN NRV CARPAL TUNNE; COMMENT: left CHOLECYSTECTOMY PROCEDURE: HISTORICAL CHOLECYSTECTOMY OTHER SURGICAL HISTORY PROCEDURE: [place] STRTCTC STIMJ SPI CORD PRQ SPX N/FLWD [...] 8:45 AM EDT Consult Orthopedic Surgery - [place] [address] [facility] [address] [place] [id number] Franco Means DPM [address] [address] Health Maintenance Due Date Last Done Comments [...] (03/19/2016) Annual BMP Blood Test abstracted Result [facility] Provider HEALTH MAINTENANCE Final Result * (ABNORMAL) Hemoglobin A1c (03/19/2016) Pathologist [facility] Hemoglobin A1C 7.9(A) 4.0 - 6.0 % Blood Venous blood specimen / Unknown Result [facility] Provider LAB BLOOD ORDERABLES Lay l Result * (ABNORMAL) Lipid panel (03/19/2016) Pathologist [facility] LDL/HDL Ratio 4 0 - 4 Triglycerides 279(A) 0 - 150 mg/dL Cholesterol 146 0 - 200 mg/dL HDL 39(A) >=40 mg/dL LDL Cholesterol 52 0 - 100 mg/dL Blood Venous blood specimen / Unknown Result [facility] Provider LAB BLOOD ORDERABLES Lay l Result * Urine Albumin Creatinine Ratio (11/15/2015) Urine Albumin Creatinine Ratio abstracted [facility] Provider HEALTH MAINTENANCE Final Result from Last 3 Months or Most Recently Relevant to Health Maintenance [place] [address] [place] [address] MEDICARE Member Subscriber Plan / Payer (Ef fective 2016-Present) Name:Carlos Be Relation to Subscriber:Self Name:Carlos Be Payer ID:[id number] Group ID:[id number] Type:Not on file Address: [facility] [address] [id number] Care Teams General Utility Worker Relationship Specialty Start Date End Date Ev Mosqueda MD [address] [place] [address] PCP - General Internal Medicine 01/09/21
[2024-05-04 09:44] VITALS: PULSE 88
== END 2024-05-04 09:47 | disposition home or self-care (01) ==
PROVIDERS: PCP Internal Medicine; Visit Provider Student in an Organized Health Care Education/Training Program
DX: E11.42 Type 2 diabetes mellitus with diabetic polyneuropathy (principal); E89.0 Postprocedural hypothyroidism; F40.298 Other specified phobia; G63 Polyneuropathy in diseases classified elsewhere; Z13.9 Encounter for screening, unspecified
CPT/HCPCS: 99215; G2211

== ENCOUNTER → 2024-05-04 08:57 | Outpatient (BNVA) | payer OTHER, SELFPAY | PROVIDERS: PCP Internal Medicine; Visit Provider Student in an Organized Health Care Education/Training Program | DX: E11.42 Type 2 diabetes mellitus with diabetic polyneuropathy (principal); E89.0 Postprocedural hypothyroidism; F40.298 Other specified phobia | CPT/HCPCS: 82947; 83036; 99212 ==

== ENCOUNTER → 2024-05-11 11:32 | Outpatient (BNVA) | payer OTHER, SELFPAY | PROVIDERS: PCP Internal Medicine; Visit Provider Internal Medicine ==

== ENCOUNTER 2024-05-13 13:09 | Outpatient (AMB) | payer OTHER, SELFPAY ==
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
[2024-05-13 13:19] VITALS: BP 105/72; PULSE 87; RESP 16; O2SAT 99; BMI 32.3
--- OUTSIDE RECORDS SUMMARY | 2024-05-13 15:38 | XMS_ITS | Clinical Summary ---
Author Organization 175 [facility] Address [address] [place] [address] Phone Care Team Providers Care Automotive Fuel Injection Servicer Name Role Phone Ev Mosqueda MD Primary [...] each day. 03/06/20 16 Active eye patch [facility] Patch by Does not apply route [...] Name Administration Dates Next Due Hepatitis B (Cnczxtp-N-Sqbmp , Recombivax HB-Adult) 19yo and older 02/01/2010,08/30/2008,06/17/2006 Influenza trivalent, with pr eservative (Fluzone; Afluria) 6mo and older 12/03/2014 Pneumococcal polysaccharide 23 valent (Pneumovax 23) 2yo and older 06/17/2006 Tdap Tetanus diptheria acell ular pertussis (Boostrix; Adacel) 7yo and older 05/03/2015 Surgical History Surgery Date Site/Laterality Comments CARPAL TUNNEL RELEASE PROCEDURE: OR NEUROPLASTY &/TRANSPOS MEDIAN NRV CARPAL TUNNE; COMMENT: left CHOLECYSTECTOMY PROCEDURE: HISTORICAL CHOLECYSTECTOMY OTHER SURGICAL HISTORY PROCEDURE: OR STRTCTC STIMJ SPI CORD PRQ SPX N/FLWD [...] 8:45 AM EDT Consult Orthopedic Surgery - [place] [address] [facility] [address] [place] [id number] Franco Means DPM [address] [address] Health Maintenance Due Date Last Done Comments [...] (03/19/2016) Annual BMP Blood Test abstracted Result [facility] Provider HEALTH MAINTENANCE Final Result * (ABNORMAL) Hemoglobin A1c (03/19/2016) Pathologist [facility] Hemoglobin A1C 7.9(A) 4.0 - 6.0 % Blood Venous blood specimen / Unknown Result [facility] Provider LAB BLOOD ORDERABLES Lay l Result * (ABNORMAL) Lipid panel (03/19/2016) Pathologist [facility] LDL/HDL Ratio 4 0 - 4 Triglycerides 279(A) 0 - 150 mg/dL Cholesterol 146 0 - 200 mg/dL HDL 39(A) >=40 mg/dL LDL Cholesterol 52 0 - 100 mg/dL Blood Venous blood specimen / Unknown Result [facility] Provider LAB BLOOD ORDERABLES Lay l Result * Urine Albumin Creatinine Ratio (11/15/2015) Urine Albumin Creatinine Ratio abstracted [facility] Provider HEALTH MAINTENANCE Final Result from Last 3 Months or Most Recently Relevant to Health Maintenance Insurance [place] [address] MEDICARE Member Subscriber Plan / Payer (Ef fective 2016-Present) Name:Carlos Be Relation to Subscriber:Self Name:Carlos Be Payer ID:[id number] Group ID:[id number] Type:Not on file Address: [facility] [address] [address] Care Teams Automotive Fuel Injection Servicer Relationship Specialty Start Date End Date Ev Mosqueda MD [address] [place] [address] PCP - General Internal Medicine 01/09/21
--- OUTSIDE RECORDS SUMMARY | 2024-05-13 15:38 | XMS_ITS | Clinical Summary ---
Author Organization [facility] Address [address] [place] [address] Care Team Providers Care Sdv Pilot/Navigator/Dds Operator Name Role Phone Ev Mosqueda MD Primary Care Provider [phone] Social History Tobacco Use Types Packs/Day Years [...] age to complete this topic Care Teams Sdv Pilot/Navigator/Dds Operator Relationship Specialty Start Date End Date Ev Mosqueda MD [address] [place] [address] PCP - General Internal Medicine 05/19/18
== END 2024-05-13 13:38 | disposition home or self-care (01) ==
PROVIDERS: PCP Internal Medicine; Visit Provider Anesthesiology
DX: S12.9XXA Fracture of neck, unspecified, initial encounter (principal); M53.3 Sacrococcygeal disorders, not elsewhere classified; M47.812 Spondylosis without myelopathy or radiculopathy, cervical region
CPT/HCPCS: 99213

== ENCOUNTER → 2024-05-13 13:09 | Outpatient (BNVA) | payer OTHER, SELFPAY | PROVIDERS: PCP Internal Medicine; Visit Provider Anesthesiology | DX: M53.3 Sacrococcygeal disorders, not elsewhere classified (principal); M47.812 Spondylosis without myelopathy or radiculopathy, cervical region; S12.9XXA Fracture of neck, unspecified, initial encounter; X58.XXXA Exposure to other specified factors, initial encounter; Y93.9 Activity, unspecified; Y92.9 Unspecified place or not applicable; Y99.9 Unspecified external cause status | CPT/HCPCS: 99212 ==

== ENCOUNTER 2024-05-19 08:54 | Outpatient (AMB) | payer OTHER, SELFPAY ==
--- NOTE | 2024-05-19 09:40 | A.OFFVIS_ITS ---
Intake Intake Visit Reasons: DM Trench Shovel Operator Required: Yes Trench Shovel Operator Language: Furnace Process Plant Operator Name: [id number] Accompanied by: Self / Same As Patient Allergies No Known Allergies Allergy (Verified 05/13/24 13:21) HPI Comprehensive Diabetes Asmnt Most Recent Diabetes Results: No Data to Display [facility] Medical History Peripheral neuropathy Needle phobia Hypothyroidism Obesity (BMI 30.0-34.9) Nocturnal hypoxemia AZAM (obstructive sleep apnea) Mild CAD Skin lesion of scalp Tubular adenoma Mixed dyslipidemia Postoperative hypothyroidism Bifascicular block Lumbar spondylosis Failed back syndrome, cervical Vitamin D deficiency History of cocaine use Spondylosis of cervical joint without myelopathy Fibromyalgia Rheumatoid arthritis Obstructive sleep apnea Bilateral nephrolithiasis Bilateral carpal tunnel syndrome Opiate dependence Morbid obesity Cervical spondylosis with radiculopathy Type 2 diabetes mellitus with diabetic polyneuropathy, without long-term current use of insulin GERD without esophagitis Essential hypertension Surgical History History of esophagogastroduodenoscopy (EGD) Hx of colonoscopy Hx of thyroidectomy Hx of neck surgery History of carpal tunnel surgery Hx of cholecystectomy History of spinal surgery Herniated disc Family History Father No problems noted. Mother Diabetes mellitus HTN (hypertension) Brother No problems noted. Sister No problems noted. Social History Household Members: Spouse and Children Housing: House Alcohol intake: never Patient Tobacco Use Status: Former Tobacco user Tobacco use type: Cigarette Years Smoked: 10 yrs e-Cigarette/Vaping Use: Never Used Second Hand Smoke Exposure: No service: No Current occupational status: disabled Cognitive needs: No Hearing needs: No Vision needs: Yes Assessment & Plan Assessment & Plan (1) Type 2 diabetes mellitus with diabetic polyneuropathy, without long-term current use of insulin: Code(s): E11.42 - Type 2 diabetes mellitus with diabetic polyneuropathy Plan: We were unable to set up patient's Raman 3 sensor today, patient did not have compatible smart phone and was not given Raman 3 reader Called patient's pharmacy, they did not receive prescription for Raman 3 reader provider sent new prescription. Instructed patient when he picks up Raman 3 reader to call and schedule appointment for Raman 3 training Coding Level of Care Code Est Pt Level 1 (49393) Diagnoses Type 2 diabetes mellitus with diabetic polyneuropathy, without long-term current use of insulin E11.42
--- OUTSIDE RECORDS SUMMARY | 2024-05-19 09:49 | XMS_ITS | Encounter Summary ---
Author Organization [employer] [facility] Address [address] [place] [address] Care Team Providers Care Records Officer Name Role Phone Drake Rosado NP Primary Care Provider Ev Evans Md, MD Primary Care Provider Unavailable Luba Mccain MD Unavailable [phone] Encounter Details Date Type Department Care Team Description 07/16/2016 [facility] Medical Records [address] [place] [id number] Abstract, Provider Social History Tobacco Use Types Packs/Day Years Used Date Smoking Tobacco: Former Comments:quit 2009 Alcohol Use Standard Drinks/Week Comments Not Asked 0 (1 standard drink = 0.6 oz pur e alcohol) Sex Assigned at Date Recorded Not on file Job Start Date Occupation Industry Not on file Not on file Not on file documented as of this encounter Plan of Treatment Not on file documented as of this encounter Visit Diagnoses Not on filedocumented in this encounter Care Teams Records Officer Relationship Specialty Start Date End Date Drake Rosado NP PCP - General Internal Medicine 03/11/16 01/08/21 Ev Mosqueda MD, MD PCP - General Internal Medicine 01/09/21 Luba Mccain MD 175 [facility] [address] [place] [address] Specialist Neurosurgery 05/02/21 documented as of this encounter
--- OUTSIDE RECORDS SUMMARY | 2024-05-19 09:49 | XMS_ITS | Clinical Summary ---
Author Organization [facility] Address [address] [place] [address] Care Team Providers Care Window Cutter Name Role Phone Ev Mosqueda MD Primary Care Provider [phone] Social History Tobacco Use Types Packs/Day Years [...] age to complete this topic Care Teams Window Cutter Relationship Specialty Start Date End Date Ev Mosqueda MD [address] [place] [address] PCP - General Internal Medicine 05/19/18
--- OUTSIDE RECORDS SUMMARY | 2024-05-19 09:49 | XMS_ITS | Encounter Summary ---
Author Organization [employer] [facility] Address [address] [place] [address] Care Team Providers Care Test Deskman Name Role Phone Ev Mosqueda Md, MD Primary Care Provider Unavailable Luba Mccain MD Unavailable [phone] Encounter Details Date Type Department Care Team Description 05/12/2021 Release of Information Medical Records [address] [place] [id number] Abstract, Provider Social History Tobacco Use Types Packs/Day Years Used Date Smoking Tobacco: Never Smokeless Tobacco: Never Comments:quit 2009 Alcohol Use Standard Drinks/Week Comments Not Asked 0 (1 standard drink = 0.6 oz pur e alcohol) Sex Assigned at Date Recorded Not on file Job Start Date Occupation Industry Not on file Not on file Not on file COVID-19 Exposure Response Date Recorded In the last month, have you been in contact with someone who was confirmed or suspected to have Coronavirus / COVID-19? No / Unsure 05/02/2021 12:50 PM EST documented as of this encounter Plan of Treatment Not on file documented as of this encounter Visit Diagnoses Not on filedocumented in this encounter Care Teams Test Deskman Relationship Specialty Start Date End Date Ev Mosqueda MD, MD PCP - General Internal Medicine 01/09/21 Luba Mccain MD 175 [facility] [address] [place] [address] Specialist Neurosurgery 05/02/21 documented as of this encounter
--- OUTSIDE RECORDS SUMMARY | 2024-05-19 09:49 | XMS_ITS | Clinical Summary ---
Author Organization 175 [facility] Address [address] [place] [address] Phone Care Team Providers Care Lamp Decorator Name Role Phone Ev Mosqueda MD Primary [...] each day. 03/06/20 16 Active eye patch [facility] [place] Patch by Does not apply route [...] for this and ruled out for an MO, he now attributes it to his fibromyalgia. [...] Name Administration Dates Next Due Hepatitis B (Oriwhyj-C-Ieyze , Recombivax HB-Adult) 19yo and older 02/01/2010,08/30/2008,06/17/2006 Influenza trivalent, with pr eservative (Fluzone; Afluria) 6mo and older 12/03/2014 Pneumococcal polysaccharide 23 valent (Pneumovax 23) 2yo and older 06/17/2006 Tdap Tetanus diptheria acell ular pertussis (Boostrix; Adacel) 7yo and older 05/03/2015 Surgical History Surgery Date Site/Laterality Comments CARPAL TUNNEL RELEASE PROCEDURE: [place] NEUROPLASTY &/TRANSPOS MEDIAN NRV CARPAL TUNNE; COMMENT: left CHOLECYSTECTOMY PROCEDURE: HISTORICAL CHOLECYSTECTOMY OTHER SURGICAL HISTORY PROCEDURE: [place] STRTCTC STIMJ SPI CORD PRQ SPX N/FLWD [...] 8:45 AM EDT Consult Orthopedic Surgery - [place] 250 175 [facility] [address] [place] [phone] Franco Means DPM [address] [address] Health Maintenance Due Date Last Done Comments [...] (03/19/2016) Annual BMP Blood Test abstracted Result [facility] Provider HEALTH MAINTENANCE Final Result * (ABNORMAL) Hemoglobin A1c (03/19/2016) Pathologist [facility] Hemoglobin A1C 7.9(A) 4.0 - 6.0 % Blood Venous blood specimen / Unknown Result [facility] Provider LAB BLOOD ORDERABLES Lay l Result * (ABNORMAL) Lipid panel (03/19/2016) Pathologist [facility] LDL/HDL Ratio 4 0 - 4 Triglycerides 279(A) 0 - 150 mg/dL Cholesterol 146 0 - 200 mg/dL HDL 39(A) >=40 mg/dL LDL Cholesterol 52 0 - 100 mg/dL Blood Venous blood specimen / Unknown Result [facility] Provider LAB BLOOD ORDERABLES Lay l Result * Urine Albumin Creatinine Ratio (11/15/2015) Urine Albumin Creatinine Ratio abstracted [facility] Provider HEALTH MAINTENANCE Final Result from Last 3 Months or Most Recently Relevant to Health Maintenance Insurance [place] [address] MEDICARE Member Subscriber Plan / Payer (Ef fective 2016-Present) Name:Carlos Be Relation to Subscriber:Self Name:Carlos Be Payer ID:[id number] Group ID:[id number] Type:Not on file Address: [facility] [address] [address] Care Teams Lamp Decorator Relationship Specialty Start Date End Date Ev Mosqueda MD [address] [place] [address] PCP - General Internal Medicine 01/09/21
--- OUTSIDE RECORDS SUMMARY | 2024-05-19 09:49 | XMS_ITS | Encounter Summary ---
Author Organization [facility] Address [address] [place] [address] Care Team Providers Care Liquor Commissioner Name Role Phone Rika Keenan MD Primary Care Provider Drake Coleman NP Primary Care Provider Ev Evans Md, MD Primary Care Provider Unavailable Luba Mccain MD Unavailable [phone] Encounter Details Date Type Department Care Team Description 09/13/2014 Controlled Substance Contract with Plan Medical Records [address] [place] [id number] Abstract, Provider Social History Tobacco Use Types [...] on filedocumented in this encounter Care Teams Liquor Commissioner Relationship Specialty Start Date End Date Rika Keenan MD PCP - General Internal Medicine 07/13/14 03/10/16 Drake Rosado NP PCP - General Internal Medicine 03/11/16 01/08/21 Ev Mosqueda MD, MD PCP - General Internal Medicine 01/09/21 Luba Mccain MD 175 [facility] [address] [place] [address] Specialist Neurosurgery 05/02/21 documented as of this encounter
--- OUTSIDE RECORDS SUMMARY | 2024-05-19 09:49 | XMS_ITS | Encounter Summary ---
Author Organization [employer] [facility] Address [address] [place] [address] Care Team Providers Care Forest Biometrics Professor Name Role Phone Rika Keenan MD Primary Care Provider Drake Coleman NP Primary Care Provider Ev Evans Md, MD Primary Care Provider Unavailable Luba Mccain MD Unavailable [phone] Encounter Details Date Type Department Care Team Description 01/14/2015 Transfer Records Medical Records [address] [place] [address] Social History Tobacco Use Types Packs/Day Years [...] on filedocumented in this encounter Care Teams Forest Biometric[employer] Professor Relationship Specialty Start Date End Date Rika Keenan MD PCP - General Internal Medicine 07/13/14 03/10/16 Drake Rosado NP PCP - General Internal Medicine 03/11/16 01/08/21 Ev Mosqueda MD, MD PCP - General Internal Medicine 01/09/21 Luba Mccain MD 175 [facility] [address] [place] [address] Specialist Neurosurgery 05/02/21 documented as of this encounter
--- OUTSIDE RECORDS SUMMARY | 2024-05-19 09:49 | XMS_ITS | Encounter Summary ---
Author Organization [facility] Address [address] [place] [address] Care Team Providers Care Coat Baster Name Role Phone Rika Keenan MD Primary Care Provider Drake Coleman NP Primary Care Provider Ev Evans Md, MD Primary Care Provider Unavailable Luba Mccain MD Unavailable [phone] Encounter Details Date Type Department Care Team Description 09/13/2014 CREW MANAGER/MassPat Report Medical Records [address] [place] [id number] Abstract, Provider Social History Tobacco Use Types [...] on filedocumented in this encounter Care Teams Coat Baster Relationship Specialty Start Date End Date Rika Keenan MD PCP - General Internal Medicine 07/13/14 03/10/16 Drake Rosado NP PCP - General Internal Medicine 03/11/16 01/08/21 Ev Mosqueda MD, MD PCP - General Internal Medicine 01/09/21 Luba Mccain MD 175 [facility] [address] [place] [address] Specialist Neurosurgery 05/02/21 documented as of this encounter
== END 2024-05-19 10:19 | disposition home or self-care (01) ==
LOC: HO.ENCR 08:55
PROVIDERS: PCP Internal Medicine; Visit Provider Registered Nurse Diabetes Educator
DX: E11.42 Type 2 diabetes mellitus with diabetic polyneuropathy (principal)

== ENCOUNTER → 2024-05-19 08:54 | Outpatient (BNVA) | payer OTHER, SELFPAY | PROVIDERS: PCP Internal Medicine; Visit Provider Registered Nurse Diabetes Educator | DX: E11.42 Type 2 diabetes mellitus with diabetic polyneuropathy (principal) | CPT/HCPCS: 99211 ==

== ENCOUNTER 2024-05-21 09:47 | Outpatient (REF) | payer OTHER, SELFPAY ==
--- OUTSIDE RECORDS SUMMARY | 2024-05-21 11:49 | XMS_ITS | Clinical Summary ---
Author Organization [facility] Address [address] [place] [address] Care Team Providers Care Sand Polisher Name Role Phone Ev Mosqueda MD Primary Care Provider [phone] Social History Tobacco Use Types Packs/Day Years [...] age to complete this topic Care Teams Sand Polisher Relationship Specialty Start Date End Date Ev Mosqueda MD [address] [place] [address] PCP - General Internal Medicine 05/19/18
--- OUTSIDE RECORDS SUMMARY | 2024-05-21 11:49 | XMS_ITS | Clinical Summary ---
Author Organization 175 [facility] Address [address] [place] [address] Phone Care Team Providers Care Behavior Therapist Name Role Phone Ev Mosqueda MD Primary [...] each day. 03/06/20 16 Active eye patch [facility] 1 Patch by Does not apply route [...] for this and ruled out for an LA, he now attributes it to his fibromyalgia. [...] Name Administration Dates Next Due Hepatitis B (Xupxmuc-L-Rvuwq , Recombivax HB-Adult) 19yo and older 02/01/2010,08/30/2008,06/17/2006 Influenza trivalent, with pr eservative (Fluzone; Afluria) 6mo and older 12/03/2014 Pneumococcal polysaccharide 23 valent (Pneumovax 23) 2yo and older 06/17/2006 Tdap Tetanus diptheria acell ular pertussis (Boostrix; Adacel) 7yo and older 05/03/2015 Surgical History Surgery Date Site/Laterality Comments CARPAL TUNNEL RELEASE PROCEDURE: MS NEUROPLASTY &/TRANSPOS MEDIAN NRV CARPAL TUNNE; COMMENT: left CHOLECYSTECTOMY PROCEDURE: HISTORICAL CHOLECYSTECTOMY OTHER SURGICAL HISTORY PROCEDURE: MS STRTCTC STIMJ SPI CORD PRQ SPX N/FLWD [...] 8:45 AM EDT Consult Orthopedic Surgery - [place] 250 175 [facility] [address] [place] [id number] Franco Means DPM [address] [address] Health Maintenance Due Date Last Done Comments [...] (03/19/2016) Annual BMP Blood Test abstracted Result [facility] Provider HEALTH MAINTENANCE Final Result * (ABNORMAL) Hemoglobin A1c (03/19/2016) Pathologist [facility] Hemoglobin A1C 7.9(A) 4.0 - 6.0 % Blood Venous blood specimen / Unknown Result [facility] Provider LAB BLOOD ORDERABLES Lay l Result * (ABNORMAL) Lipid panel (03/19/2016) Pathologist [facility] LDL/HDL Ratio 4 0 - 4 Triglycerides 279(A) 0 - 150 mg/dL Cholesterol 146 0 - 200 mg/dL HDL 39(A) >=40 mg/dL LDL Cholesterol 52 0 - 100 mg/dL Blood Venous blood specimen / Unknown Result [facility] Provider LAB BLOOD ORDERABLES Lay l Result * Urine Albumin Creatinine Ratio (11/15/2015) Urine Albumin Creatinine Ratio abstracted [facility] Provider HEALTH MAINTENANCE Final Result from Last 3 Months or Most Recently Relevant to Health Maintenance [place] [address] [place] [address] MEDICARE Member Subscriber Plan / Payer (Ef fective 2016-Present) Name:Carlos Be Relation to Subscriber:Self Name:Carlos Be Payer ID:[id number] Group ID:[id number] Type:Not on file Address: [facility] [address] [id number] Care Teams Behavior Therapist Relationship Specialty Start Date End Date Ev Mosqueda MD [address] [place] [address] PCP - General Internal Medicine 01/09/21
[2024-05-21 13:58] LABS: Estimated Average Glucose 260 mg/dL; Hemoglobin A1c % 10.7 % (<6.0); Total Hemoglobin (HGBA1C) 3629.3174 umol/L
[2024-05-21 14:10] LABS: Creatinine Urine 39.13 mg/dL; Microalbumin Urine < 5.0 mg/L
[2024-05-21 14:29] LABS: Thyroid Stimulating Hormone 1.07 uIU/mL (0.32-4.0)
[2024-05-21 14:51] LABS: Anion Gap 16 (12-20); Blood Urea Nitrogen 15 mg/dL (9-16); Calcium 9.3 mg/dL (8.4-10.2); Carbon Dioxide 24 mmol/L (22-29); Chloride 103 mmol/L (96-108); Cholesterol 124 mg/dL (<200); Estimated Glomerular Filt Rate > 60; Glucose Random 356 mg/dL (60-115); HDL Cholesterol 38 mg/dL (>40); LDL Cholesterol Calculated 37 mg/dL (<100); Potassium 4.5 mmol/L (3.3-5.1); Sodium 138 mmol/L (135-145); Triglycerides 248 mg/dL (<150)
== END 2024-05-21 09:48 | disposition home or self-care (01) ==
LOC: HO.HMGCLDS 09:47
PROVIDERS: PCP Internal Medicine; Visit Provider Student in an Organized Health Care Education/Training Program
DX: Z13.89 Encounter for screening for other disorder (principal)
CPT/HCPCS: 36415; 80048; 80061; 82043; 82570; 83036; 84443

== ENCOUNTER 2024-05-21 17:38 | Emergency (ER) | payer OTHER, SELFPAY ==
[2024-05-21 18:02] VITALS: BP 132/79; PULSE 88; RESP 16; TEMP 36.2; O2SAT 96; BMI 31.2
--- NOTE | 2024-05-21 18:05 | ED.GENADULT ---
HPI - General Adult General Chief complaint: Recheck/Abnormal Lab/Rx Stated complaint: blood sugar 389 Time Seen by Provider: 05/21/24 18:50 Source: patient Mode of arrival: ambulatory Limitations: no limitations History of Present Illness ED Provider: HPI narrative: patient is diabetic on insulin 10 units and oral hypoglycemic but eating lollipops during daytime sent from power transformer repair supervisor for blood sugar elevated at home of 379 in ER it was 405 patient's feel weak increased urination and thirst with blurred vision no fever no chills abdominal pain no flank pain Related Data Home Medications ?Medication ?Instructions ?Recorded ?Confirmed nitroglycerin 0.4 mg sublingual 0.4 mg sublingual ONCE PRN Chest 11/01/20 05/13/24 tablet Pain bupropion HCl 300 mg 24 hr tablet, 300 mg PO DAILY 02/19/23 05/13/24 extended release lumateperone 10.5 mg capsule 10.5 mg PO DAILY 05/06/23 05/13/24 (Caplyta) lumateperone 21 mg capsule mg PO 12/31/23 05/13/24 (Caplyta) sertraline 100 mg tablet 150 mg PO DAILY 05/04/24 05/13/24 Previous Rx's ?Medication ?Instructions ?Recorded blood sugar diagnostic (OneTouch #200 ea 12/14/22 Verio test strips) blood-glucose meter (OneTouch #1 ea 12/14/22 Verio Flex Meter) lancets 30 gauge (Onetouch Delica #200 ea 12/14/22 Safety Lancet) dapagliflozin propanediol 10 mg 10 mg PO QAM #90 tabs 05/06/23 tablet ([facility]) blood-glucose sensor (FreeStyle #6 ea 11/04/23 Raman 3 Sensor device) blood-glucose sensor (FreeStyle #6 ea 11/05/23 Raman 3 Sensor device) tramadol 50 mg tablet 50 mg PO Q8H PRN pain 30 days #90 12/11/23 tabs pregabalin 150 mg capsule 150 mg PO BID 30 days #60 caps 01/20/24 rosuvastatin 5 mg tablet 5 mg PO QPM #90 tabs 01/21/24 omeprazole 20 mg capsule,delayed 20 mg PO QAM #90 caps 02/19/24 release metoprolol succinate 25 mg 25 mg PO QAM #90 tabs 02/21/24 tablet,extended release 24 hr methocarbamol 500 mg tablet 500 mg PO TID PRN muscle spasm #90 03/25/24 tabs tadalafil 10 mg tablet 10 mg PO DAILY Bladder instability 04/28/24 90 days #90 tabs dulaglutide 4.5 mg/0.5 mL 4.5 mg (0.5 mL) subcut QWEEK #2 mL 05/04/24 subcutaneous pen injector (Trulicity) insulin glargine 100 unit/mL (3 10 unit (0.1 mL) subcut DAILY #15 05/04/24 mL) subcutaneous pen (Lantus mL Solostar U-100 Insulin) pen needle, diabetic 31 gauge x #100 ea 05/06/2403/14 (Comfort EZ Pen [place]) blood-glucose meter,continuous #1 ea 05/19/24 (FreeStyle Raman 3 [place]) lisinopril 20 mg tablet 20 mg PO DAILY #90 tabs 05/21/24 metformin 1,000 mg tablet 1,000 mg PO BID #180 tabs 05/21/24 multivitamin (One Daily 1 tab PO QAM #90 tabs 05/21/24 Multivitamin tablet) levothyroxine 150 mcg tablet 150 mcg PO DAILY 3 months #90 tabs 05/22/24 Allergies Allergy/AdvReac Type Severity Reaction Status Date / Time No Known Allergies Allergy Verified 05/21/24 18:04 Review of Systems Review of Systems: Yes all other systems are reviewed and are negative PMFSH Past Medical History Medical History Peripheral neuropathy Needle phobia Hypothyroidism Obesity (BMI 30.0-34.9) Nocturnal hypoxemia AZAM (obstructive sleep apnea) Mild CAD Skin lesion of scalp Tubular adenoma Mixed dyslipidemia Postoperative hypothyroidism Bifascicular block Lumbar spondylosis Failed back syndrome, cervical Vitamin D deficiency History of cocaine use Spondylosis of cervical joint without myelopathy Fibromyalgia Rheumatoid arthritis Obstructive sleep apnea Bilateral nephrolithiasis Bilateral carpal tunnel syndrome Opiate dependence Morbid obesity Cervical spondylosis with radiculopathy Type 2 diabetes mellitus with diabetic polyneuropathy, without long-term current use of insulin GERD without esophagitis Essential hypertension Surgical History History of esophagogastroduodenoscopy (EGD) Hx of colonoscopy Hx of thyroidectomy Hx of neck surgery History of carpal tunnel surgery Hx of cholecystectomy History of spinal surgery Herniated disc Family History Family History Father No problems noted. Mother Diabetes mellitus HTN (hypertension) Brother No problems noted. Sister No problems noted. Social History Social History Household Members: Spouse and Children Housing: House Alcohol intake: never Patient Tobacco Use Status: Former Tobacco user Tobacco use type: Cigarette Years Smoked: 10 yrs e-Cigarette/Vaping Use: Never Used Second Hand Smoke Exposure: No service: No Current occupational status: disabled Cognitive needs: No Hearing needs: No Vision needs: Yes Physical Exam ED Vital Signs: Vital Signs - 24 hr 05/21/24 18:02 05/21/24 20:58 Temperature 97.1 F 98.5 F Pulse Rate 88 69 Respiratory Rate 16 17 Blood Pressure 132/79 162/93 H Pulse Oximetry 96 98 Oxygen Delivery Method Room Air Room Air BMI result Body Mass Index 31.2 Appearance: Alert. Oriented X3. No acute distress. Eyes: no pallor or icterus ENT: Pharynx normal. Oral Mucosa moist Neck: Normal inspection. Neck supple. CVS: Normal heart rate and rhythm. Pulses normal. Respiratory: No respiratory distress. Equal air entry bilateral, no wheezing/rales/rhonchi Abdomen: Soft and nontender. Bowel sounds are present, no mass palpable, no CVA tenderness Skin: Skin warm and dry. Normal skin color. Normal skin turgor. Extremities: No lower extremity edema. No calf tenderness Neuro: Oriented X 3. No motor deficit. Course Course Course Narrative: This is an RME: Additional HPI, ROS, PE not included below will be deferred to primary provider. RME assessment and note performed by: Lulu Bolden PA-C This is a 73-dtoc-mmy-male, who presents to the ER with complaints of hyperglycemia - BS at home was 379. Reporting polydipsia, and polyuria. Also endorses occasional blurred vision. He is well-appearing, appears to be under no acute distress. Plan: Labs, EKG, further ER evaluation needed. Medications Administered Discontinued Medications Generic Name Dose Route Start Last Admin Trade Name Freq PRN Reason Stop Dose Admin Insulin Human Lispro 6 unit 05/21/24 19:03 05/21/24 19:45 Insulin Lispro 100 Unit/Ml 3 Ml Vial SUBCUT 05/21/24 19:04 6 unit ONCE ONE Administration Medical Decision Making Medical Decision Making [facility] Narrative: patient is hyperglycemic secondary to noncompliance of eating lollipops with sugar POC improved after insulin POC was 230 at the time of discharge patient advised to follow with the power transformer repair supervisor and have diet-controlled Differential Diagnosis Differential Diagnoses: The differential diagnosis associated with the presentation includes Lab Data [facility] Lab Attestation statement: I reviewed the patient's lab results. 05/21/24 18:23 05/21/24 18:23 Labs: Lab Results 05/21/24 05/21/24 05/21/24 Range/Units 18:23 18:26 18:33 WBC 5.6 (4.8-10.8) X10*3/uL RBC 4.31 L (4.60-5.80) X10*6/uL Hgb 13.5 L (14.0-18.0) g/dl Hct 38.9 L (42.0-52.0) % MCV 90.3 (80.0-98.0) fL MCH 31.3 (27.0-33.0) pg MCHC 34.7 (31.0-36.0) g/dl RDW 12.2 (11.0-16.0) % Plt Count 193 (160-400) X10*3/uL MPV 11.0 (9.4-12.4) fL Immature Gran % (Auto) 0.2 (0.0-0.4) % Neut % (Auto) 58.1 (45-73) % Lymph % (Auto) 30.9 (20-40) % Cache % (Auto) 9.0 (2-11) % Eos % (Auto) 1.4 (0-4) % Baso % (Auto) 0.4 (0-2) % Lymph # (Auto) 1.7 (1.2-4.9) X10*3/uL Cache # (Auto) 0.5 (0.1-1.2) X10*3/uL Eos # (Auto) 0.1 (0.0-0.4) X10*3/uL Baso # (Auto) 0.0 (0.0-0.2) X10*3/uL Abs Immat Gran (auto) 0.01 (0.00-0.03) X10*3/uL Absolute Neuts (auto) 3.2 (2.0-8.3) x10*3/uL Absolute Nucleated RBC 0.000 (0.0-0.012) X10*3/uL Nucleated RBC % (auto) 0.0 (0.0-0.2) /100WBC VBG pH 7.42 (7.32-7.43) VBG pCO2 42 mmHg VBG pO2 68 mmHg VBG HCO3 28 H (22-26) mmol/L VBG O2 Saturation 93.0 % VBG Base Excess 3.4 mmol/L Sodium 138 (135-145) mmol/L Potassium 4.2 (3.3-5.1) mmol/L Chloride 104 (96-108) mmol/L Carbon Dioxide 25 (22-29) mmol/L Anion Gap 13 (12-20) BUN 16 (9-16) mg/dL Creatinine 1.02 (0.5-1.4) mg/dL Estim Creat Clear Calc 103.1 Estimated GFR > 60 POC Glucose (60-115) mg/dL Random Glucose 405 H* (60-115) mg/dL Calcium 9.3 (8.4-10.2) mg/dL Magnesium 1.7 (1.6-2.6) mg/dL Total Bilirubin 0.3 (0.0-1.0) mg/dL Direct Bilirubin 0.1 (0.0-0.5) mg/dL AST 26 (5-37) U/L ALT 35 (0-40) U/L Alkaline Phosphatase 79 (39-117) U/L Troponin I High Sens < 2.7 (<3.5-35.0) ng/L Total Protein 7.6 (6.5-8.0) g/dL Albumin 4.3 (3.5-5.0) g/dL Lipase 69 (8-78) U/L Beta-Hydroxybutyrate 0.13 (0.02-0.27) mmol/L Urine Color Yellow Urine Appearance Clear Urine pH 5.5 (5.0-9.0) Ur Specific [place] >= 1.030 H (1.005-1.025) Urine Protein Negative (Neg-Trace) mg/dL Urine Glucose (UA) >=1000 H (Negative) mg/dL Urine Ketones Negative (Negative) mg/dL Urine Blood Negative (Negative) Urine Nitrite Negative (Negative) Ur Leukocyte Esterase Negative (Negative) Urine RBC 0-2 (0-2) /HPF Urine WBC 0-5 (0-5) /HPF Ur Squamous Epith Cells 0-2 (0-2) /HPF Urine Bacteria None Seen (None Seen) Hyaline Casts 0-2 (0-2) /LPF Influenza Type A (PCR) NEGATIVE (Negative) Influenza Type B (PCR) NEGATIVE (Negative) RSV RNA Qual (PCR) NEGATIVE (Negative) SARS-CoV-2 RNA (RT-PCR) NEGATIVE (Negative) 05/21/24 05/21/24 Range/Units 19:02 20:31 WBC (4.8-10.8) X10*3/uL RBC (4.60-5.80) X10*6/uL Hgb (14.0-18.0) g/dl Hct (42.0-52.0) % MCV (80.0-98.0) fL MCH (27.0-33.0) pg MCHC (31.0-36.0) g/dl RDW (11.0-16.0) % Plt Count (160-400) X10*3/uL MPV (9.4-12.4) fL Immature Gran % (Auto) (0.0-0.4) % Neut % (Auto) (45-73) % Lymph % (Auto) (20-40) % Cache % (Auto) (2-11) % Eos % (Auto) (0-4) % Baso % (Auto) (0-2) % Lymph # (Auto) (1.2-4.9) X10*3/uL Cache # (Auto) (0.1-1.2) X10*3/uL Eos # (Auto) (0.0-0.4) X10*3/uL Baso # (Auto) (0.0-0.2) X10*3/uL Abs Immat Gran (auto) (0.00-0.03) X10*3/uL Absolute Neuts (auto) (2.0-8.3) x10*3/uL Absolute Nucleated RBC (0.0-0.012) X10*3/uL Nucleated RBC % (auto) (0.0-0.2) /100WBC VBG pH (7.32-7.43) VBG pCO2 mmHg VBG pO2 mmHg VBG HCO3 (22-26) mmol/L VBG O2 Saturation % VBG Base Excess mmol/L Sodium (135-145) mmol/L Potassium (3.3-5.1) mmol/L Chloride (96-108) mmol/L Carbon Dioxide (22-29) mmol/L Anion Gap (12-20) BUN (9-16) mg/dL Creatinine (0.5-1.4) mg/dL Estim Creat Clear Calc Estimated GFR POC Glucose 338 H 230 H (60-115) mg/dL Random Glucose (60-115) mg/dL Calcium (8.4-10.2) mg/dL Magnesium (1.6-2.6) mg/dL Total Bilirubin (0.0-1.0) mg/dL Direct Bilirubin (0.0-0.5) mg/dL AST (5-37) U/L ALT (0-40) U/L Alkaline Phosphatase (39-117) U/L Troponin I High Sens (<3.5-35.0) ng/L Total Protein (6.5-8.0) g/dL Albumin (3.5-5.0) g/dL Lipase (8-78) U/L Beta-Hydroxybutyrate (0.02-0.27) mmol/L Urine Color Urine Appearance Urine pH (5.0-9.0) Ur Specific [place] (1.005-1.025) Urine Protein (Neg-Trace) mg/dL Urine Glucose (UA) (Negative) mg/dL Urine Ketones (Negative) mg/dL Urine Blood (Negative) Urine Nitrite (Negative) Ur Leukocyte Esterase (Negative) Urine RBC (0-2) /HPF Urine WBC (0-5) /HPF Ur Squamous Epith Cells (0-2) /HPF Urine Bacteria (None Seen) Hyaline Casts (0-2) /LPF Influenza Type A (PCR) (Negative) Influenza Type B (PCR) (Negative) RSV RNA Qual (PCR) (Negative) SARS-CoV-2 RNA (RT-PCR) (Negative) Discharge Plan Discharge Clinical Impression: Diabetes mellitus with hyperglycemia Patient Disposition: Home, Self-Care Instructions: Diabetic Hyperglycemia (ED) Additional Instructions: drink plenty of fluids have diabetic diet as advised continue take your insulin and follow up with power transformer repair supervisor Prescriptions: No Action (DME) lancets [Onetouch Delica Safety Lancet] 30 gauge misc See Rx Instructions .Route Qty: 200 1RF Rx Instructions: Test blood sugar twice per day (DME) blood-glucose meter [OneTouch Verio Flex meter] Misc See Rx Instructions .Route Qty: 1 0RF Rx Instructions: As directed to test blood sugars (DME) OneTouch Verio test strips Strip See Rx Instructions .Route Qty: 200 1RF Rx Instructions: Test blood sugar twice per day (DME) FreeStyle Raman 3 Sensor Device See Rx Instructions .ROUTE .MEDSUPPLY Qty: 6 3RF Rx Instructions: As directed tramadol 50 mg tablet 50 mg PO Q8H PRN (Reason: pain) 30 Days Qty: 90 1RF Rx Instructions: Partial Fill upon patient request. pregabalin 150 mg capsule 150 mg PO BID 30 Days Qty: 60 5RF rosuvastatin 5 mg tablet 5 mg PO QPM Qty: 90 1RF metoprolol succinate 25 mg tablet extended release 24 hr 25 mg PO QAM Qty: 90 1RF (DME) pen needle, diabetic [Comfort EZ Pen [place]] 31 gauge x 1/4 needle See Rx Instructions .Route Qty: 100 5RF Rx Instructions: As directed for injecting insulin once daily (DME) FreeStyle Raman 3 [place] See Rx Instructions .ROUTE .MEDSUPPLY Qty: 1 0RF Rx Instructions: diagnosis: Type 2 DM, poor A1 , needle phobia and neuropathy metformin 1,000 mg tablet 1,000 mg PO BID Qty: 180 4RF multivitamin [One Daily Multivitamin] Tablet 1 tab PO QAM Qty: 90 4RF lisinopril 20 mg tablet 20 mg PO DAILY Qty: 90 1RF levothyroxine 150 mcg tablet 150 mcg PO DAILY 90 Days Qty: 90 3RF sertraline 100 mg tablet 150 mg PO DAILY Caplyta 10.5 mg capsule 10.5 mg PO DAILY Farxiga 10 mg tablet 10 mg PO QAM Qty: 90 4RF nitroglycerin 0.4 mg tablet, sublingual 0.4 mg sublingual ONCE PRN (Reason: Chest Pain) bupropion HCl 300 mg tablet extended release 24 hr 300 mg PO DAILY omeprazole 20 mg capsule,delayed release(DR/EC) 20 mg PO QAM Qty: 90 1RF (DME) FreeStyle Raman 3 Sensor Device See Rx Instructions .Route Qty: 6 3RF Rx Instructions: As directed Trulicity 4.5 mg/0.5 mL pen injector 4.5 mg subcut QWEEK Qty: 2 6RF insulin glargine [Lantus Solostar U-100 Insulin] 100 unit/mL (3 mL) insulin pen 10 unit subcut DAILY Qty: 15 5RF Caplyta 21 mg capsule PO methocarbamol 500 mg tablet 500 mg PO TID PRN (Reason: muscle spasm) Qty: 90 1RF Rx Instructions: No driving while taking this medication. Do no take with alcohol or other CHEMICAL MILLING PROCESSOR Depressants tadalafil 10 mg tablet 10 mg PO DAILY 90 Days Qty: 90 0RF Interventions: ED Discharge Assessment Last Done: 05/21/24 20:58 Discharge Date/Time: 05/21/24 20:59 Print Language: Mexican
--- NOTE | 2024-05-21 18:06 | ECG_ITS ---
Test Reason : CHEST PAIN Blood Pressure : */* mmHG Vent. Rate : 83 BPM Atrial Rate : 83 BPM P-R Int : 180 ms QRS Dur : 146 ms QT Int : 390 ms P-R-T Axes : 16 -74 12 degrees QTcB Int : 458 ms Normal sinus rhythm Right bundle branch block Left anterior fascicular block Bifascicular block Abnormal ECG When compared with ECG of 05-Feb-2020 13:26, No significant change was found Referred By: Lulu Bloden Electronically Signed By: Clarence Rios
[2024-05-21 18:33] LABS: Basophils Percent Auto 0.4 % (0-2); Eosinophils Absolute Auto 0.1 X10*3/uL (0.0-0.4); Eosinophils Percent Auto 1.4 % (0-4); Hematocrit 38.9 % (42.0-52.0); Hemoglobin 13.5 g/dl (14.0-18.0); Imm Gran Abs Auto 0.01 X10*3/uL (0.00-0.03); Imm Gran Pct Auto 0.2 % (0.0-0.4); Lymphocytes Absolute Auto 1.7 X10*3/uL (1.2-4.9); Lymphocytes Percent Auto 30.9 % (20-40); MANUAL DIFF FLAG NO; Mean Corpuscular HGB Conc 34.7 g/dl (31.0-36.0); Mean Corpuscular Hemoglobin 31.3 pg (27.0-33.0); Mean Corpuscular Volume 90.3 fL (80.0-98.0); Monocytes Absolute Auto 0.5 X10*3/uL (0.1-1.2); Neutrophils Absolute Auto 3.2 x10*3/uL (2.0-8.3); Neutrophils Percent Auto 58.1 % (45-73); Platelet Count 193 X10*3/uL (160-400); Red Blood Count 4.31 X10*6/uL (4.60-5.80); Red Cell Distribution Width 12.2 % (11.0-16.0); White Blood Count 5.6 X10*3/uL (4.8-10.8)
[2024-05-21 18:34] LABS: Appearance Urine Clear; Color Urine Yellow; Glucose Urine UA >=1000 mg/dL (Negative); Leukocyte Esterase Urine Negative (Negative); Nitrite Urine Negative (Negative); PH 5.5 (5.0-9.0); Specific Gravity - Urine >= 1.030 (1.005-1.025); UMIC TRIGGER UACC YES; Urine Blood Negative (Negative); Urine Ketones Negative (Negative); Urine Protein Negative (Neg-Trace)
[2024-05-21 18:36] LABS: VBG Base Excess 3.4 mmol/L; VBG HCO3 28 mmol/L (22-26); VBG pCO2 42 mmHg; VBG pH 7.42 (7.32-7.43); VBG pO2 68 mmHg
[2024-05-21 18:37] LABS: Venous Blood Gas Refer to POC result
[2024-05-21 18:43] LABS: Bacteria Urine None Seen (None Seen); Hyaline Casts Urine 0-2 /LPF (0-2); RBC Urine 0-2 /HPF (0-2); Squamous Epithelial Cell Urine 0-2 /HPF (0-2); WBC Urine 0-5 /HPF (0-5)
[2024-05-21 18:48] LABS: Beta-Hydroxybutyrate 0.13 mmol/L (0.02-0.27)
[2024-05-21 19:00] LABS: Troponin-I High Sensitivity < 2.7 ng/L (<3.5-35.0)
[2024-05-21 19:04] LABS: Alanine Aminotransferase 35 U/L (0-40); Albumin Level 4.3 g/dL (3.5-5.0); Anion Gap 13 (12-20); Aspartate Amino Transferase 26 U/L (5-37); Bilirubin Direct 0.1 mg/dL (0.0-0.5); Bilirubin Total 0.3 mg/dL (0.0-1.0); Blood Urea Nitrogen 16 mg/dL (9-16); Calcium 9.3 mg/dL (8.4-10.2); Carbon Dioxide 25 mmol/L (22-29); Chloride 104 mmol/L (96-108); Creatinine Clr Calc Pharmacy 103.1; Estimated Glomerular Filt Rate > 60; Glucose Random 405 mg/dL (60-115); Lipase 69 U/L (8-78); Magnesium 1.7 mg/dL (1.6-2.6); Potassium 4.2 mmol/L (3.3-5.1); Sodium 138 mmol/L (135-145); Total Protein 7.6 g/dL (6.5-8.0)
[2024-05-21 19:09] LABS: Glucose, Whole Blood 338 mg/dL (60-115)
[2024-05-21 19:12] LABS: Influenza A PCR NEGATIVE (Negative); Influenza B PCR NEGATIVE (Negative); Resp Syncy Virus RNA Qual PCR NEGATIVE (Negative); SARS COV2 PCR INHOUSE NEGATIVE (Negative)
[2024-05-21 19:20] LABS: Alkaline Phosphatase 79 U/L (39-117)
--- OUTSIDE RECORDS SUMMARY | 2024-05-21 19:34 | XMS_ITS | Clinical Summary ---
Author Organization 175 [facility] Address [address] [place] [address] Phone Care Team Providers Care Aircraft Parts Assembler Name Role Phone Ev Mosqueda MD Primary Care Provider [phone] Allergies No known active allergies Medications traMADoL [...] each day. 03/06/20 16 Active eye patch [facility] [place] Patch by Does not apply route [...] Name Administration Dates Next Due Hepatitis B (Zajxtee-P-Zwacf , Recombivax HB-Adult) 19yo and older 02/01/2010,08/30/2008,06/17/2006 [...] 8:45 AM EDT Consult Orthopedic Surgery - [place] 250 175 [facility] [address] [place] [phone] Franco Means DPM [address] [address] Health Maintenance Due Date Last Done Comments [...] (03/19/2016) Annual BMP Blood Test abstracted Result [facility] Provider HEALTH MAINTENANCE Final Result * (ABNORMAL) Hemoglobin A1c (03/19/2016) Pathologist [facility] Hemoglobin A1C 7.9(A) 4.0 - 6.0 % Blood Venous blood specimen / Unknown Result [facility] Provider LAB BLOOD ORDERABLES Lay l Result * (ABNORMAL) Lipid panel (03/19/2016) Pathologist [facility] LDL/HDL Ratio 4 0 - 4 Triglycerides 279(A) 0 - 150 mg/dL Cholesterol 146 0 - 200 mg/dL HDL 39(A) >=40 mg/dL LDL Cholesterol 52 0 - 100 mg/dL Blood Venous blood specimen / Unknown Result [facility] Provider LAB BLOOD ORDERABLES Lay l Result * Urine Albumin Creatinine Ratio (11/15/2015) Urine Albumin Creatinine Ratio abstracted [facility] Provider HEALTH MAINTENANCE Final Result from Last 3 Months or Most Recently Relevant to Health Maintenance [place] [address] [place] [address] MEDICARE Member Subscriber Plan / Payer (Ef fective 2016-Present) Name:Carlos Be Relation to Subscriber:Self Name:Carlos Be Payer ID:[id number] Group ID:[id number] Type:Not on file Address: [facility] [address] [id number] Care Teams Aircraft Parts Assembler Relationship Specialty Start Date End Date Ev Mosqueda MD [address] [place] [address] PCP - General Internal Medicine 01/09/21
--- OUTSIDE RECORDS SUMMARY | 2024-05-21 19:35 | XMS_ITS | Encounter Summary ---
Author Organization [facility] [place] [facility] Address [address] [place] [address] Care Team Providers Care Railroad Detective Name Role Phone Rika Keenan MD Primary Care Provider Drake Coleman NP Primary Care Provider Ev Evans Md, MD Primary Care Provider Unavailable Luba Mccain MD Unavailable [phone] Encounter Details Date Type Department Care Team Description 09/13/2014 NICU RN/MassPat Report Medical Records [address] [place] [id number] Abstract, Provider Social History Tobacco Use Types [...] on filedocumented in this encounter Care Teams Railroad Detective Relationship Specialty Start Date End Date Rika Keenan MD PCP - General Internal Medicine 07/13/14 03/10/16 Drake Rosado NP PCP - General Internal Medicine 03/11/16 01/08/21 Ev Mosqueda MD, MD PCP - General Internal Medicine 01/09/21 Luba Mccain MD 175 [facility] [address] [place] [address] Specialist Neurosurgery 05/02/21 documented as of this encounter
--- OUTSIDE RECORDS SUMMARY | 2024-05-21 19:35 | XMS_ITS | Encounter Summary ---
Author Organization [employer] [facility] Address [address] [place] [address] Care Team Providers Care Residential Aide Name Role Phone Ev Mosqueda Md, MD Primary Care Provider Unavailable Luba Mccain MD Unavailable [phone] Encounter Details Date Type Department Care Team Description 05/12/2021 Release of Information Medical Records [address] [place] [id number] Abstract, Provider Social History Tobacco Use Types [...] on filedocumented in this encounter Care Teams Residential Aide Relationship Specialty Start Date End Date Ev Mosqueda MD, MD PCP - General Internal Medicine 01/09/21 Luba Mccain MD 175 [facility] [address] [place] [address] Specialist Neurosurgery 05/02/21 documented as of this encounter
--- OUTSIDE RECORDS SUMMARY | 2024-05-21 19:35 | XMS_ITS | Encounter Summary ---
Author Organization [facility] Address [address] [place] [address] Care Team Providers Care Software Release Manager Name Role Phone Rika Keenan MD Primary Care Provider Drake Coleman NP Primary Care Provider Ev Evans Md, MD Primary Care Provider Unavailable Luba Mccain MD Unavailable [phone] Reason for Visit * Reason Onset Date Comments Faxed Refill 11/09/2015 DME Request 11/09/2015 for medicare gyoo ling Encounter Details Date Type Department Care Team Description 11/09/2015 Refill Adult Medicine [address] [address] Rika Keenan MD Faxed Refill; DME Request (for medicare billing) Social History Tobacco Use Types Packs/Day Years Used Date Smoking Tobacco: Former Comments:quit 2009 Alcohol Use Standard Drinks/Week Comments Not Asked 0 (1 standard drink = 0.6 oz pur e alcohol) Sex Assigned at Date Recorded Not on file Job Start Date Occupation Industry Not on file Not on file Not on file documented as of this encounter Miscellaneous Notes * Telephone Encounter - Divya Carpenter - 11/09/2015 10:01 AM EDT Beckie musa from [facility] asking for dme form to be returned so medicare can be billed. A refill was sent today, but the dme medicare form needs to be returned. * Telephone Encounter - Siri Burger M.A. - 11/09/2015 10:01 AM EDT rx faxed * Telephone Encounter - Phyllis Sharp - 11/09/2015 9:03 AM EDT Patient would like script to be: E-PRESCRIBED/FAXED TO PHARMACY WHEN WAS THE PATIENT'S LAST APPOINTMENT IN ADULT MEDICINE? 08-01-2015 WHEN WAS THE LAST TIME THE PATIENT SAW THEIR PCP? Same as above Does patient have an upcoming appointment? Yes 11-17-2015 (THE MEDICATION REQUESTED IS ON THE MED LIST ABOVE) All of the medications requested were on the CURRENT MEDS list Did you check the Pharmacy information above?: YES Patient wants: 30 -day supply Is this a mail order prescription request ? NO Patients current [place] carrier is: [place] / [place] / Product Type: MEDICARE [id number] documented in this encounter Plan of Treatment Not on file documented as of this encounter Visit Diagnoses Not on filedocumented in this encounter Care Teams Software Release Manager Relationship Specialty Start Date End Date Rika Keenan MD PCP - General Internal Medicine 07/13/14 03/10/16 Drake Rosado NP PCP - General Internal Medicine 03/11/16 01/08/21 Ev Mosqueda MD, MD PCP - General Internal Medicine 01/09/21 Luba Mccain MD [address] [place] [address] Specialist Neurosurgery 05/02/21 documented as of this encounter
--- OUTSIDE RECORDS SUMMARY | 2024-05-21 19:35 | XMS_ITS | Clinical Summary ---
Author Organization [facility] Address [address] [place] [address] Care Team Providers Care Heel Breaster Name Role Phone Ev Mosqueda MD Primary Care Provider [phone] Social History Tobacco Use Types Packs/Day Years [...] age to complete this topic Care Teams Heel Breaster Relationship Specialty Start Date End Date Ev Mosqueda MD [address] [place] [address] PCP - General Internal Medicine 05/19/18
--- OUTSIDE RECORDS SUMMARY | 2024-05-21 19:35 | XMS_ITS | Encounter Summary ---
Author Organization [facility] Address [address] [place] [address] Care Team Providers Care Solar Pv Installer Name Role Phone Rika Keenan MD Primary Care Provider Drake Coleman NP Primary Care Provider Ev Evans Md, MD Primary Care Provider Unavailable Luba Mccain MD Unavailable [phone] Encounter Details Date Type Department Care Team Description 02/22/2016 Transfer Records Medical Records [address] [place] [address] Social History Tobacco Use Types Packs/Day Years [...] on filedocumented in this encounter Care Teams Solar Pv Installer Relationship Specialty Start Date End Date Rika Keenan MD PCP - General Internal Medicine 07/13/14 03/10/16 Drake Rosado NP PCP - General Internal Medicine 03/11/16 01/08/21 Ev Mosqueda MD, MD PCP - General Internal Medicine 01/09/21 Luba Mccain MD [address] [facility] [address] [place] [address] Specialist Neurosurgery 05/02/21 documented as of this encounter
--- OUTSIDE RECORDS SUMMARY | 2024-05-21 19:35 | XMS_ITS | Encounter Summary ---
Author Organization [facility] Address [address] [place] [address] Care Team Providers Care Cell Manager Name Role Phone Rika Keenan MD Primary Care Provider Drake Coleman NP Primary Care Provider Ev Evans Md, MD Primary Care Provider Unavailable Luba Mccain MD Unavailable Encounter Details Date Type Department Care Team Description 03/21/2015 Wellness Visit Medical Records [address] [place] [id number] Rika Keenan MD Social History Tobacco Use Types Packs/Day Years [...] on filedocumented in this encounter Care Teams Cell Manager Relationship Specialty Start Date End Date Rika Keenan MD PCP - General Internal Medicine 07/13/14 03/10/16 Drake Rosado NP PCP - General Internal Medicine 03/11/16 01/08/21 Ev Mosqueda MD, MD PCP - General Internal Medicine 01/09/21 Luba Mccain MD [address] [facility] [address] [place] [id number] Specialist Neurosurgery 05/02/21 documented as of this encounter
--- OUTSIDE RECORDS SUMMARY | 2024-05-21 19:35 | XMS_ITS | Clinical Summary ---
Author Organization [facility] Address [address] [place] [address] Care Team Providers Care Pocket Stitcher Name Role Phone Ev Mosqueda Md, MD Primary Care Provider Unavailable Luba Mccain MD Unavailable [phone] Allergies No known active allergies Medications Medication Sig Dispensed Refills Start Date End Date Status Emollient (EUCERIN ORIGINAL HEALING) Lotion Apply topically. 0 Act brian FREESTYLE LANCETS 0 Active FREESTYLE LITE strip Test blood sugar once daily 100 Strip 11 11/17/2015 Active Cyanocobalamin (VITAMIN B-12 CR) 1500 MCG Tab CR Take by mouth daily. 0 Active Eye Patches Misc 1 Patch by Does not apply route at bedtime. 28 Each 0 02/20/2016 Active lisinopril (PRINIVIL,ZESTRIL ) 10 MG tablet Take 1 Tab by mouth daily. 30 Tab 5 03/06/2016 Active glipiZIDE (GLUCOTROL) 10 MG 24 hr tablet Take 1 Tab by mouth 2 times daily. 60 Tab 5 05/04/2016 Active tramadol (ULTRAM) 50 MG tablet TAKE ONE TABLET EVERY 8 HOURS NEEDED FOR PAIN 0 04/06/2021 Active Aspirin Low Dose 81 MG EC tablet TAKE ONE TABLET EVERY MORNING 0 01/28/2021 Active Farxiga 10 MG Tab TAKE ONE TABLET EVERY MORNING 0 04/04/2021 Active Trulicity 1.5 MG/0.5ML Solution Pen-injector INJECT ONE PEN (=1.5MG) SUBCUTANEOUSLY ONCE A WEEK DIRECTED 0 04/04/2021 Active metformin (GLUCOPHAGE) 1000 MG tablet TAKE ONE TABLET IN THE MORNING AND EVENING 0 04/04/2021 Active metoprolol (TOPROL-XL) 25 MG 24 hr tablet TAKE ONE TABLET BY MOUTH EVERY MORNING 0 03/06/2021 Active Narcan 4 MG/0.1ML Liquid FOR SUSPECTED OPIOID OVERDOSE. SPRAY 0.1mL IN ONE NOSTRIL. REPEAT IN ALTERNATE NOSTRIL EVERY 2-3 MINUTES IF NEEDED. SEEK MEDICAL ATTENTION IMMEDIATELY EVEN IF PT RESPONDS. 0 04/04/2021 Active Multiple Vitamin (multivitamin) tablet TAKE ONE TABLET EVERY MORNING 0 04/04/2021 Active omeprazole (PRILOSEC) 20 MG capsule TAKE ONE CAPSULE BY MOUTH EVERY MORNING 0 04/04/2021 Active pioglitazone (Actos) 15 MG tablet Take 15 mg by mouth. 0 01/19/2021 Acti ve pregabalin (LYRICA) 150 MG capsule TAKE ONE CAPSULE TWICE DAILY IN THE MORNING AND AT BEDTIME 0 04/04/2021 Active rosuvastatin (CRESTOR) 5 MG tablet 0 04/07/2021 Active Active Problems Patient Care Coordination No te Formatting of this note is d ifferent from the original. Checking Your Blood Sugars Please check your blood sugars every day. Please check your sugars at the following times of day: before breakfast and after dinner Your Blood Sugar Goals Pre Meal: 90-130 2 hours after meals: 110-160 Bedtime: 110-150 Use the Results ?? Bring your glucometer to every appointment ?? Write your fingerstick blood sugars down on a log sheet or record book. Bring them to your appointment ?? Look for patterns in the numbers. The results help you and your provider make decisions about your diabetes treatment plan. Your Results and your Goals Your Result / Date of Completion Your Goal / How Often to Assess Component Value Date HGBA1C 6.9 11/15/2015 Less than 7% --- 2-4 times per year BP Readings from Last 1 Encounters: 11/17/15 116/80 Less than 140/90 --- once per year Component Value Date MALBCR 12.2 11/15/2015 Less than 30 --- once per year Component Value Date LDL 32 07/14/2015 Less than 100 --- once per year Wt Readings from Last 1 Encounters: 11/17/15 250 lb (113.399 kg) Your goal weight by next visit: 240 --- reassess 2-4 times a year Health Maintenance Due Topic Date Due ? ? Diabetes: Annual Care Plan 08/12/2015 ? ? Influenza (#1 of 1) 11/10/2015 Your Action Plan Check blood glucose as directed and write down all results. Check feet for sores every day Continue to work on weight loss with a goal of losing 2-4 pounds per month Avoid walking in bare or stocking feet due to the numbness in your feet Increase physical activity Contact me if you experience any barriers to care such as inability to purchase your medication, difficulty getting to your appointments or difficulty understanding your care plan When to Call your Healthcare Provider If your blood sugar falls below 70 and you do not know why or you become unconscious If you are sick and unable to take liquids because or nausea or vomiting If you have a fever over 101 If your blood sugar is 300 or higher on greater than 3 separate occasions during the same week If you are just unsure what to do Educational Resources [place] Diabetes Association (www.diabetes.org) Centers for Disease Control and Prevention (www.cdc.gov/diabetes) This care plan was created in collaboration with Carlos Be on 11/17/2015 Problem Noted Date Cervical spondylosis with radiculopathy 05/02/2021 Last Assessment & Plan: Mr. Be is [...] for this and ruled out for an IA, he now attributes it to his fibromyalgia. [...] enlarging thyroid cysts. Type 2 diabetes mellitus with renal mario festations, controlled 11/17/2015 Hypertriglyceridemia 05/04/2015 Hx MRSA infection 01/05/2015 Multiple thyroid nodules 09/14/2014 Type 2 diabetes, uncontrolled, with bell l manifestation 07/28/2014 Trigger finger 07/28/2014 GERD (gastroesophageal reflux disease) 0 07/28/2014 Microalbuminuria 07/28/2014 Hyperlipidemia 07/28/2014 Chronic low back pain 07/28/2014 Overview: Had non functioning spinal cord stimulator in place per transfer note/ Dr Garrett AZAM (obstructive sleep apnea) 07/28/2014 Overview: REPORTS NO need for CPAP per pt HTN (hypertension) 07/28/2014 CTS (carpal tunnel syndrome) 07/28/2014 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 07/28/2014 Enlarged thyroid gland 07/28/2014 Overview: Seen on CT of cervical spine02/22/14 / ordered but no result in transfer note Immunizations Name Administration Dates Next Due Hepatitis B > 19yrs 02/01/2010,08/30/2008,2006 Influenza (> 6 Months) 12/03/2014 Pneumoccoccal(Adult) Polysaccharide PPSV23 06/17 Tdap 05/03/2015 Family History Medical History Relation Name Comments Other [Other] Father , homi cide Diabetes Mother Hypertension Mother Relation Name Status [...] file Not on file Not on file Last Filed Vital Signs Vital Sign Reading Time Taken Comments Blood Pressure 124/74 03/20/2016 11:35 AM EST Pulse 80 03/20/2016 11:35 AM EST Temperature 36.9 ??C (98.4 ??F) 12/15/2015 2:53 PM ED T Respiratory Rate 16 03/20/2016 11:35 AM EST Oxygen Saturation - - Inhaled Oxygen Concentration - - Weight 118.8 kg (262 lb) 05/02/2021 1:31 PM EST Height 177.8 cm (5' 10 ) 05/02/2021 1:31 PM EST Body Mass Index 37.59 05/02/2021 1:31 PM EST Plan of Treatment Health Maintenance Due Date Last Done Comments Covid-19 Vaccine (#1) 1975 DEPRESSION SCREEN 03/21/2016 03/21/2015 DIABETES: ANNUAL FOOT EXAM 05/03/2016 05/03/2015 DIABETES: BLOOD SUGAR CONTRO L TEST (HGBA1C) 06/17/2016 03/19/2016, 11/15/2015, 05/04/2015, Additional history exists DIABETES: ANNUAL URINE PROTE IN TEST (MICROALBUMIN) 11/14/2016 11/15/2015, 05/04/2015, 08/31/2014 DIABETES/HEART DISEASE: A[place] CHOLESTEROL (LDL) 03/19/2017 03/19/2016, 07/14/2015, 05/04/2015, Additional history exists BASELINE HEALTH EXAM 40-64 03/21/2017 03/21/2015 DIABETES: ANNUAL EYE EXAM 04/17/20172016, 04/03/2015, 03/10/2015 (External Completion of test per patient (Patient reports normal results)), Additional history exists INFLUENZA (#1) 2023 12/03/2014 BMI CHECK/ADVISE 03/11/2024 12/03/2014 DTAP/TDAP/TD (3 - Td or Tdap) 05/03/2025 05/03/2015, 12/04/2011 PNEUMOCOCCAL VACCINE FOR HIG H RISK PATIENTS (#2) 06/06/2039 08/09/2006, 07/09/2006, 06/17/2006 Care Teams Pocket Stitcher Relationship Specialty Start Date End Date Ev Mosqueda MD, MD PCP - General Internal Medicine 01/09/21 Luba Mccain MD [address] [place] [id number] Specialist Neurosurgery 05/02/21
[2024-05-21] MEDS: Insulin Lispro 100 UNIT/ML 3 ML VIAL 6 UNIT SUBCUT (19:45)
[2024-05-21 20:35] LABS: Glucose, Whole Blood 230 mg/dL (60-115)
[2024-05-21 20:58] VITALS: BP 162/93; PULSE 69; RESP 17; TEMP 36.9; O2SAT 98
== END 2024-05-21 20:59 | disposition home or self-care (01) ==
PROVIDERS: Physician Assistant Medical; Emergency Provider Internal Medicine; PCP Internal Medicine
DX: E11.65 Type 2 diabetes mellitus with hyperglycemia (principal); R79.89 Other specified abnormal findings of blood chemistry; R07.89 Other chest pain; I45.10 Unspecified right bundle-branch block; Z87.891 Personal history of nicotine dependence; Z03.818 Encounter for observation for suspected exposure to other biological agents ruled out; Z79.4 Long term (current) use of insulin
CPT/HCPCS: 0241U; 36415; 80048; 80061; 80076; 81001; 82010; 82570; 82803; 82947; 83036; 83690; 83735; 84443; 84484; 85025; 93005; 99284

== ENCOUNTER → 2024-05-21 18:06 | Outpatient (BNV) | payer OTHER, SELFPAY | PROVIDERS: Emergency Provider Internal Medicine; PCP Internal Medicine; Visit Provider Internal Medicine Cardiovascular Disease | DX: I45.2 Bifascicular block (principal) | CPT/HCPCS: 93010 ==

== ENCOUNTER 2024-05-25 13:26 | Outpatient (AMB) | payer OTHER, SELFPAY ==
--- NOTE | 2024-05-25 13:33 | A.OFFVIS_ITS ---
Vital Signs 05/25/24 13:39 Height 5 ft 2 in Weight 220 lb 14.451 oz BMI 40.4 BP 100/68 Blood Pressure Location Rt brachial Position Sitting Pulse Source Pulse Oximeter Pulse Oximetry (%) 98 Oxygen Delivery Method Room Air Intake Visit Reasons: DM and hypothyroidism Intake Note: Patient present today for Type 2 Diabetes Mellitus and hypothyroidism Last Diabetic eye exam: 03/2024 Last Podiatry Visit: Has upcoming appt in May Random Glucose: 217 mg/dl HgA1C: 10.2% done 05/04/24 pt sates thathe just ate about 45 mins.ago. 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 Name: alin [id number] Information Interpreted: non-clinical & clinical Accompanied by: Self / Same As Patient Allergies No Known Allergies Allergy (Verified 05/21/24 18:04) Medication List - Last Reconciled 05/25/24 by Angella Montanez MD blood sugar diagnostic (AdvisityTouch Verio test strips) Test blood sugar twice per day blood sugar diagnostic (FreeStyle Lite Strips) As directed to check three times daily blood-glucose meter (AdvisityTouch Verio Flex Meter) As directed to test blood sugars blood-glucose meter (FreeStyle Lite Meter kit) As directed to check three times daily blood-glucose meter,continuous (FreeStyle Raman 3 [place]) diagnosis: Type 2 DM, poor A1 , needle phobia and neuropathy blood-glucose sensor (FreeStyle Raman 3 Sensor device) As directed blood-glucose sensor (FreeStyle Raman 3 Sensor device) As directed bupropion HCl XL 300 mg PO DAILY dapagliflozin propanediol (Farxiga) 10 mg PO QAM dulaglutide (Trulicity) 4.5 mg (0.5 mL) subcut QWEEK insulin glargine (Lantus Solostar U-100 Insulin) 15 units (0.15 mL) subcut DAILY lancets (Advisitytouch Delica Safety Lancet) Test blood sugar twice per day lancets (FreeStyle Lancets) As directed to check three times daily levothyroxine 150 mcg PO DAILY 3 months lisinopril 20 mg PO DAILY lumateperone (Caplyta) 10.5 mg PO DAILY lumateperone (Caplyta) mg PO metformin 1,000 mg PO BID methocarbamol 500 mg PO TID PRN metoprolol succinate ER 25 mg PO QAM multivitamin (One Daily Multivitamin tablet) 1 tab PO QAM nitroglycerin 0.4 mg sublingual ONCE PRN omeprazole 20 mg PO QAM pen needle, diabetic (Comfort EZ Pen [place]) As directed for injecting insulin once daily pregabalin 150 mg PO BID 30 days rosuvastatin 5 mg PO QPM sertraline 150 mg PO DAILY tadalafil 10 mg PO DAILY 90 days HPI Comments Details: 48 YO M with a PMHx of a multinodular thyroid s/p total thyroidectomy May 30 with benign results who is seen in F/U for type 2 diabetes mellitus and postoperative hypothyroidism. Hypothyroidism HPI from prior visit Was initially diagnosed with multinodular thyroid many years ago, and was previously followed at [place] for this. He had a prior biopsy of some of his nodules, but he does not recall which. He reports that these were benign. He underwent FNA biopsy by Dr. Villela 11/10/2020 of 4 nodules, with results detailed below: 1) RUP 1.5 cm thyroid nodule - Cytology benign (bethesda category II) 2) RMP 4.2 cm thyroid nodule - Cytology benign (bethesda category II) 3) LMP 2.5 cm thyroid nodule - Cytology benign (bethesda category II) 4) LMP 4.6 cm thyroid nodule - Cytology Atypia of Undetermined Signifigance ([place] Category III), Affirma benign. He was complaining of significant compressive symptoms, so he was referred to Dr. Marsh for a total thyroidectomy. This was completed 05/29/2021. Official surgical path was benign. Postoperative he was started on levothyroxine,was previously taking 137 mcg PO daily Currently taking levothyroxine 150 mcg daily, reports good compliance with this. TSH is WNL at 1.07 from May 2024. He denies any symptoms of hyper or hypothyroidism. Type 2 DM Has DM for about 10 years so around 2013 A1c July 2023 was 7.2 % per patient , this was by VNA at home a1c POC October 2023 9.9% A1c POC April 2024 10.2%. Random glucose: 217 mg/dL, ate 45 minutes ago. is sick had 2 surgeries recently , he has been stressed. Current meds Trulicity 4.5 mg weekly (saturday) no GI problems, increase in April 2024 Dapagliflozin 10 mg daily (urinates more often, no UTI/ yeast uinfections) Metformin 1000 mg BID Lantus 10 units daily Prior medications Discontinued in April due to change in regimen Actos 30 mg daily Glipizide 5 mg in AM and 10 mg in evening SMBGS Saying he has no motivation or desire to do anything , having depression seeing therapy and psychiatry , denies suicidal ideation is still facing health issues Didnt bring meter again today, again severe pain in fingers due to neuropathy and needle phobia I has prescribed CGM , he picked it up and didnt put it on and didnt bring it today, didnt make appointment with educator Educator: Had an appointment 05/19/24 On lisinopril 20 mg daily in May 2024 labs showed GFR >60, creatinine normal, normal urine microalbumin Has neuropathy, on pregablin 150 mg BID feels doesnt really help No retinopathy, last eye visit March 2024 On rosuvastatin 5 mg daily, LDL 37 from May 2024 No macrovascular complications BP at goal Doesnt work out much has a lot of back discomfort and arthritis Weight :lost only 5 lbs on Trulicty 3 mg weekly for the past 3 months Eating: trying to control calories but still eating carb heavy meals alcohol : none No smoking Walking : 20 to 30 mins daily in the house Physical exam General: sitting comfortably in bed in no acute distress HEENT: normocephalic/atraumatic, moist oral mucosa Neck: supple, symmetrical, no thyromegaly , no dorsocervical or supraclavicular fat pads Cardiac: normal heart sounds Pulm: normal breath sounds B/L, no added breath sounds Abd: not distended, no tenderness Extremities: no edema, no signs of myxedema Neuro: AAO x3, Speech: normal, no facial droop, moving all 4 extremities Skin: no rash Foot exam: Checked April 2024 diminished sensation to monofilament, intact pulses, intact vibration Laboratory Tests 05/13/23 11/04/23 05/04/24 08:59 09:24 09:10 Glucose (Clinic) 213 H Hgb A1c (Clinic) 9.9 H TSH 1.11 Free T4 1.04 Laboratory Tests 06/05/22 07:13 Urine Creatinine 152.91 Urine Microalbumin 11.0 Microalb/Creat Ratio 7.1 Laboratory Tests 07/01/20 11/07/22 05/06/23 11:22 09:27 10:57 Plt Count 199 Creatinine Estimated GFR Hgb A1c (Clinic) 6.5 H 6.9 H AST ALT Triglycerides Cholesterol LDL Cholesterol, Calc HDL Cholesterol 05/13/23 08:59 Plt Count Creatinine 0.88 Estimated GFR > 60 Hgb A1c (Clinic) AST 24 ALT 28 Triglycerides 196 H Cholesterol 116 LDL Cholesterol, Calc 42 HDL Cholesterol 35 L Laboratory Tests 05/13/23 08:59 TSH 1.11 Free T4 1.04 Laboratory Tests 05/04/24 05/21/24 05/21/24 09:32 09:56 10:15 Plt Count Sodium Potassium Creatinine Estimated GFR Glucose (Clinic) POC Glucose Random Glucose 356 H* Hgb A1c (Clinic) 10.2 H AST ALT Triglycerides 248 H Cholesterol 124 LDL Cholesterol, Calc 37 HDL Cholesterol 38 L Beta-Hydroxybutyrate TSH 1.07 Urine Creatinine 39.13 Urine Microalbumin < 5.0 05/21/24 05/21/24 05/21/24 18:23 19:02 20:31 Plt Count 193 Sodium 138 Potassium 4.2 Creatinine 1.02 Estimated GFR > 60 Glucose (Clinic) POC Glucose 338 H 230 H Random Glucose 405 H* Hgb A1c (Clinic) AST 26 ALT 35 Triglycerides Cholesterol LDL Cholesterol, Calc HDL Cholesterol Beta-Hydroxybutyrate 0.13 TSH Urine Creatinine Urine Microalbumin 05/25/24 13:48 Plt Count Sodium Potassium Creatinine Estimated GFR Glucose (Clinic) 217 H POC Glucose Random Glucose Hgb A1c (Clinic) AST ALT Triglycerides Cholesterol LDL Cholesterol, Calc HDL Cholesterol Beta-Hydroxybutyrate TSH Urine Creatinine Urine Microalbumin PFSH Medical History Peripheral neuropathy Needle phobia Hypothyroidism Obesity (BMI 30.0-34.9) Nocturnal hypoxemia AZAM (obstructive sleep apnea) Mild CAD Skin lesion of scalp Tubular adenoma Mixed dyslipidemia Postoperative hypothyroidism Bifascicular block Lumbar spondylosis Failed back syndrome, cervical Vitamin D deficiency History of cocaine use Spondylosis of cervical joint without myelopathy Fibromyalgia Rheumatoid arthritis Obstructive sleep apnea Bilateral nephrolithiasis Bilateral carpal tunnel syndrome Opiate dependence Morbid obesity Cervical spondylosis with radiculopathy Type 2 diabetes mellitus with diabetic polyneuropathy, without long-term current use of insulin GERD without esophagitis Essential hypertension Surgical History History of esophagogastroduodenoscopy (EGD) Hx of colonoscopy Hx of thyroidectomy Hx of neck surgery History of carpal tunnel surgery Hx of cholecystectomy History of spinal surgery Herniated disc Family History Father No problems noted. Mother Diabetes mellitus HTN (hypertension) Brother No problems noted. Sister No problems noted. Social History Household Members: Spouse and Children Housing: House Alcohol intake: never Patient Tobacco Use Status: Former Tobacco user Tobacco use type: Cigarette Years Smoked: 10 yrs e-Cigarette/Vaping Use: Never Used Second Hand Smoke Exposure: No service: No Current occupational status: disabled Cognitive needs: No Hearing needs: No Vision needs: Yes Physical Exam Vital Signs: Last Vital Signs BP 100/68 05/25/24 13:39 Pulse Ox 98 05/25/24 13:39 Oxygen Delivery Method Room Air 05/25/24 13:39 BMI result Body Mass Index 40.4 Results Reviewed Results Reviewed: Laboratory Last Values Glucose (Clinic) 217 mg/dL (60-115) H 05/25/24 13:48 Assessment & Plan Assessment & Plan (1) Diabetes mellitus, with long-term current use of insulin: Code(s): E11.9 - Type 2 diabetes mellitus without complications; 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 A. HBA1c worsened to 10.2% on 05/04/2024 from was 9.9 % on 11/04/2023. We prescribed him freestyle Raman, his smart phone was not compatible when he came to the educator visit, so now if prescribed him a reader, he is pending an appointment with the educator on 06/03/2024 for CGM placement. He did not bring his CGM sensor or reader today for me to do this.. He has a lot pain from his peripheral neuropathy and he is not able to check his fingersticks at home. I reiterated to him that until his sensor set up, please check his fingersticks 2 to 3 times a day. His fasting reading today was 213 mg/dL. He has a uncontrolled hyperglycemia, educated him about risks of uncontrolled hyperglycemia and complications both microvascular and macrovascular. Last week, blood sugars were in the 400s and he was reporting blurry vision and increased polydipsia and polyuria, had to go to the emergency room where he received 6 units of Humalog. Last visit in April I also increased his Trulicity to 4.5 mg weekly, he has only had about 4 injections of this, we will wait to see any progress in weight loss up until next appointment, weight remained stable,if he continues to have this stagnant weight, we will have to switch to Ozempic. I will go up on his insulin dosing. B:?Blood pressure is under adequate control, for renal protection in the setting of diabetes. C:?LDL is 37 mg/dL from May 2024, which is at goal. Goal is less than 70. Triglycerides elevated at 248, these we will hopefully improve with better control of diabetes. D:?Diet control and healthy lifestyle was discussed in detail. Emphasis was made on exercise and physical activity in daily routine with at least 30-45 minutes of aerobic exercise 5-6 days a week. He has some limitation due to arthritis, and lumbar stenosis, asked him to do as much as possible. 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 F: Foot care is suboptimal, has diminished sensation to monofilament. Already on pregabalin though that does not help him much. I counseled him that improved control of his diabetes will help with the neuropathy as well.. G: eGFR >60 and microalbumin/Cr ratio normal from May 2024. Plan: -continue Trulicity to 4.5 mg weekly -increase insulin Lantus to 15 units daily in a.m., hypoglycemia education done, stressed importance of checking blood sugars prior to administering insulin since he is still does not have the sensor on. -continue metformin 1000 mg b.i.d., , Farxiga 10 mg daily, -follow up with the educator for sensor application and education -dietary and exercise counseling done as advised above - (2) Hypothyroidism: Code(s): E03.9 - Hypothyroidism, unspecified Category: Medical Qualifiers: Hypothyroidism type: postoperative Qualified Code(s): E89.0 - Postprocedural hypothyroidism Plan: Status post total thyroidectomy for multinodular goiter in May 30, with benign pathology. Currently on levothyroxine 150 mcg daily, taking it appropriately. TSH was within normal limits from May 2024. Plan: -continue levothyroxine 150 mcg daily (3) Needle phobia: Code(s): F40.298 - Other specified phobia Category: Medical Plan: He has freestyle Raman, pending appointment with educator for sensor education (4) Peripheral neuropathy: Code(s): G62.9 - Polyneuropathy, unspecified Category: Medical Qualifiers: Peripheral neuropathy type: polyneuropathy associated with underlying disease Qualified Code(s): G63 - Polyneuropathy in diseases classified elsewhere Plan: He has freestyle Raman, pending appointment with educator for sensor education Plan I spent 30 minutes in reviewing the record, seeing the patient and documenting in the medical record. 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) use of insulin Changed From insulin glargine (Lantus Solostar U-100 Insulin) 10 units (0.1 mL) subcut DAILY 15 mL 5RF To insulin glargine (Lantus Solostar U-100 Insulin) 15 units (0.15 mL) subcut DAILY 15 mL 5RF Patient Instructions: you have an appointment with Missy on 06/03/24 please bring the sensor and the reader Also bring your glucometer Till you sensor is set up please check blood sugars atleast twice a day Fasting target 90 to 120 mg/dl 2 hours post meal < 140 mg /dl Increase insulin lantus to 15 units , if after 5 days of doing 15 units your fasting blood sugar is stil higher than 140 mg/d l, increase lantus to 17 units Continue metformin, Trulicity and Farxiga as it is Continue levothyroxine as it is Walk 30 mins daily Keep well hydrated with water Tiene juan milo con Missy el 03/06/24. Por favor, traiga el sensor y el lector. Tambi?n traiga reeves gluc?metro. Hasta que le instalen el sensor, controle reeves nivel de az?car en antonina al menos dos veces al d?a. Objetivo en ayunas: 90 a 120 mg/dl. 2 horas despu?s de comer: < 140 mg/dl. Aumente la insulina Lantus a 15 unidades. Si despu?s de 5 d?as de 15 unidades reeves nivel de az?car en antonina en ayunas sigue siendo superior a 140 mg/dl, aumente la insulina Lantus a 17 unidades. Contin?e con metformina, Trulicity y Farxiga. Contin?e con levotiroxina. Camine 30 minutos al d?a. Mant?ngase bravo hidratado con agua. Coding Level of Care Code Est Pt Level 4 (73256) Diagnoses Type 2 diabetes mellitus with diabetic polyneuropathy, with long-term current use of insulin E11.42; Z79.4 Diabetes mellitus type: type 2 Diabetes mellitus complication status: with neurologic complications Diabetes mellitus complication detail: with polyneuropathy Postoperative hypothyroidism E89.0 Hypothyroidism type: postoperative Needle phobia F40.298 Polyneuropathy associated with underlying disease G63 Peripheral neuropathy type: polyneuropathy associated with underlying disease Time Spent (min) 30
[2024-05-25 13:39] VITALS: BP 100/68; O2SAT 98; BMI 40.4
[2024-05-25 13:54] LABS: Glucose, Whole Blood 217 mg/dL (60-115)
== END 2024-05-25 14:34 | disposition home or self-care (01) ==
LOC: HO.ENCR 13:27
PROVIDERS: PCP Internal Medicine; Visit Provider Student in an Organized Health Care Education/Training Program
DX: E11.42 Type 2 diabetes mellitus with diabetic polyneuropathy (principal); Z79.4 Long term (current) use of insulin; E89.0 Postprocedural hypothyroidism; F40.298 Other specified phobia; G63 Polyneuropathy in diseases classified elsewhere
CPT/HCPCS: 99214

== ENCOUNTER → 2024-05-25 13:26 | Outpatient (BNVA) | payer OTHER, SELFPAY | PROVIDERS: PCP Internal Medicine; Visit Provider Student in an Organized Health Care Education/Training Program | DX: E11.42 Type 2 diabetes mellitus with diabetic polyneuropathy (principal); E89.0 Postprocedural hypothyroidism; F40.298 Other specified phobia; G63 Polyneuropathy in diseases classified elsewhere; Z79.4 Long term (current) use of insulin; Z79.85 Long-term (current) use of injectable non-insulin antidiabetic drugs | CPT/HCPCS: 82947; 99212 ==

== ENCOUNTER 2024-06-25 11:35 | Outpatient (AMB) | payer OTHER, SELFPAY ==
[2024-06-25 11:39] VITALS: BP 90/48; PULSE 84; O2SAT 94; BMI 30.6
--- NOTE | 2024-06-25 11:39 | MHC.OFFVIS ---
Vital Signs 06/25/24 11:39 Height 5 ft 10 in Weight 212 lb 15.465 oz BMI 30.6 BP 90/48 L Blood Pressure Location Lt brachial Position Sitting Pulse 84 Pulse Source Pulse Oximeter Pulse Oximetry (%) 94 Oxygen Delivery Method Room Air Intake Visit Reasons: DM and hypothyroidism Intake Note: Patient present today for Type 2 Diabetes Mellitus Last Diabetic eye exam: 03/2024 Last Podiatry Visit: Has upcoming appt next week Random Glucose: 261 mg/dl HgA1C: 10.7% 05/21/24 Assignment Desk Assistant Required: Yes Assignment Desk Assistant Language: Market Development Director Services: Assignment Desk Assistant Present Information Interpreted: non-clinical & clinical Accompanied by: Self / Same As Patient Allergies No Known Allergies Allergy (Verified 06/25/24 11:45) HPI Comments Details: 48 YO M with a PMHx of a multinodular thyroid s/p total thyroidectomy May 30 with benign results who is seen in F/U for type 2 diabetes mellitus and postoperative hypothyroidism. Type 2 DM Has DM for about 10 years so around 2013 A1c July 2023 was 7.2 % per patient , this was by [facility] at home a1c POC October 2023 9.9% A1c POC April 2024 10.2%. HgA1C: 10.7% 05/21/24 Random glucose: 261 mg/dL, ate 45 minutes ago. is sick had 2 surgeries recently , he has been stressed. Current meds Trulicity 4.5 mg weekly (saturday) no GI problems, increase in April 2024 ( missed a few doses , was fighting with ) Dapagliflozin 10 mg daily (urinates more often, no UTI/ yeast uinfections) Metformin 1000 mg BID Lantus 15 units daily (has been missing doses , was off it for 3 weeks ) Prior medications Discontinued in April due to change in regimen Actos 30 mg daily Glipizide 5 mg in AM and 10 mg in evening SMBGS Checked a few fasting readings anywhere from 179 to 250s Saying he has no motivation or desire to do anything , having depression seeing therapy and psychiatry , denies suicidal ideation is still facing health issues and there are having some personal issues I has prescribed CGM , he picked it up and didnt put it on and didnt bring it today, was fighting with andd hasnt been home in 3 days and apparently sensor is at home, he has appointment with Missy 07/08 Educator: Had an appointment 05/19/24, next 07/08 On lisinopril 20 mg daily in May 2024 labs showed GFR >60, creatinine normal, normal urine microalbumin Has neuropathy, on pregablin 150 mg BID feels doesnt really help No retinopathy, last eye visit March 2024 Last Podiatry Visit: Has upcoming appt next week On rosuvastatin 5 mg daily, LDL 37 from May 2024 No macrovascular complications BP at goal Doesnt work out much has a lot of back discomfort and arthritis Weight :lost only 5 lbs on Trulicty 3 mg weekly , lost 15 lbs since May 05 on 4.5 of Trulicyt but with some fluctuations up and down Eating: trying to control calories but still eating carb heavy meals alcohol : none No smoking Walking : 20 to 30 mins daily in the house Hypothyroidism HPI from prior visit Was initially diagnosed with multinodular thyroid many years ago, and was previously followed at [facility] for this. He had a prior biopsy of some of his nodules, but he does not recall which. He reports that these were benign. He underwent FNA biopsy by Dr. Villela 11/10/2020 of 4 nodules, with results detailed below: 1) RUP 1.5 cm thyroid nodule - Cytology benign (bethesda category II) 2) RMP 4.2 cm thyroid nodule - Cytology benign (bethesda category II) 3) LMP 2.5 cm thyroid nodule - Cytology benign (bethesda category II) 4) LMP 4.6 cm thyroid nodule - Cytology Atypia of Undetermined Signifigance ([place] Category III), Affirma benign. He was complaining of significant compressive symptoms, so he was referred to Dr. Marsh for a total thyroidectomy. This was completed 05/29/2021. Official surgical path was benign. Postoperative he was started on levothyroxine,was previously taking 137 mcg PO daily Currently taking levothyroxine 150 mcg daily, reports good compliance with this. TSH is WNL at 1.07 from May 2024. He denies any symptoms of hyper or hypothyroidism. Physical exam General: sitting comfortably in bed in no acute distress HEENT: normocephalic/atraumatic, moist oral mucosa Neck: supple, symmetrical, no thyromegaly , no dorsocervical or supraclavicular fat pads Cardiac: normal heart sounds Pulm: normal breath sounds B/L, no added breath sounds Abd: not distended, no tenderness Extremities: no edema, no signs of myxedema Neuro: AAO x3, Speech: normal, no facial droop, moving all 4 extremities Skin: no rash Foot exam: Checked April 2024 diminished sensation to monofilament, intact pulses, intact vibration Laboratory Tests 05/13/23 11/04/23 05/04/24 08:59 09:24 09:10 Glucose (Clinic) 213 H Hgb A1c (Clinic) 9.9 H TSH 1.11 Free T4 1.04 Laboratory Tests 06/05/22 07:13 Urine Creatinine 152.91 Urine Microalbumin 11.0 Microalb/Creat Ratio 7.1 Laboratory Tests 07/01/20 11/07/22 05/06/23 11:22 09:27 10:57 Plt Count 199 Creatinine Estimated GFR Hgb A1c (Clinic) 6.5 H 6.9 H AST ALT Triglycerides Cholesterol LDL Cholesterol, Calc HDL Cholesterol 05/13/23 08:59 Plt Count Creatinine 0.88 Estimated GFR > 60 Hgb A1c (Clinic) AST 24 ALT 28 Triglycerides 196 H Cholesterol 116 LDL Cholesterol, Calc 42 HDL Cholesterol 35 L Laboratory Tests 05/13/23 08:59 TSH 1.11 Free T4 1.04 Laboratory Tests 05/04/24 05/21/24 05/21/24 09:32 09:56 10:15 Plt Count Sodium Potassium Creatinine Estimated GFR Glucose (Clinic) POC Glucose Random Glucose 356 H* Hgb A1c (Clinic) 10.2 H AST ALT Triglycerides 248 H Cholesterol 124 LDL Cholesterol, Calc 37 HDL Cholesterol 38 L Beta-Hydroxybutyrate TSH 1.07 Urine Creatinine 39.13 Urine Microalbumin < 5.0 05/21/24 05/21/24 05/21/24 18:23 19:02 20:31 Plt Count 193 Sodium 138 Potassium 4.2 Creatinine 1.02 Estimated GFR > 60 Glucose (Clinic) POC Glucose 338 H 230 H Random Glucose 405 H* Hgb A1c (Clinic) AST 26 ALT 35 Triglycerides Cholesterol LDL Cholesterol, Calc HDL Cholesterol Beta-Hydroxybutyrate 0.13 TSH Urine Creatinine Urine Microalbumin 05/25/24 13:48 Plt Count Sodium Potassium Creatinine Estimated GFR Glucose (Clinic) 217 H POC Glucose Random Glucose Hgb A1c (Clinic) AST ALT Triglycerides Cholesterol LDL Cholesterol, Calc HDL Cholesterol Beta-Hydroxybutyrate TSH Urine Creatinine Urine Microalbumin [facility] Medical History (Updated 05/25/24 @ 14:34 by Angella Montanez MD) Diabetes mellitus, with long-term current use of insulin Peripheral neuropathy Needle phobia Hypothyroidism Obesity (BMI 30.0-34.9) Nocturnal hypoxemia AZAM (obstructive sleep apnea) Mild CAD Skin lesion of scalp Tubular adenoma Mixed dyslipidemia Postoperative hypothyroidism Bifascicular block Lumbar spondylosis Failed back syndrome, cervical Vitamin D deficiency History of cocaine use Spondylosis of cervical joint without myelopathy Fibromyalgia Rheumatoid arthritis Obstructive sleep apnea Bilateral nephrolithiasis Bilateral carpal tunnel syndrome Opiate dependence Morbid obesity Cervical spondylosis with radiculopathy Type 2 diabetes mellitus with diabetic polyneuropathy, without long-term current use of insulin GERD without esophagitis Essential hypertension Surgical History History of esophagogastroduodenoscopy (EGD) Hx of colonoscopy Hx of thyroidectomy Hx of neck surgery History of carpal tunnel surgery Hx of cholecystectomy History of spinal surgery Herniated disc Family History Father No problems noted. Mother Diabetes mellitus HTN (hypertension) Brother No problems noted. Sister No problems noted. Social History Household Members: Spouse and Children Housing: House Alcohol intake: never Patient Tobacco Use Status: Former Tobacco user Tobacco use type: Cigarette Years Smoked: 10 yrs e-Cigarette/Vaping Use: Never Used Second Hand Smoke Exposure: No service: No Current occupational status: disabled Cognitive needs: No Hearing needs: No Vision needs: Yes Physical Exam Vital Signs: Last Vital Signs Pulse 84 06/25/24 11:39 BP 90/48 L 06/25/24 11:39 Pulse Ox 94 06/25/24 11:39 Oxygen Delivery Method Room Air 06/25/24 11:39 BMI result Body Mass Index 30.6 Assessment & Plan Assessment & Plan (1) Diabetes mellitus, with long-term current use of insulin: Code(s): E11.9 - Type 2 diabetes mellitus without complications; Z79.4 - [facility] (current) use of insulin Category: Medical Qualifiers: Diabetes mellitus type: type 2 Diabetes mellitus complication status: with neurologic complications Diabetes mellitus complication detail: with polyneuropathy Qualified Code(s): E11.42 - Type 2 diabetes mellitus with diabetic polyneuropathy; Z79.4 - manager intermediate (current) use of insulin Plan: Patient with history of type 2 diabetes mellitus, with complications of neuropathy, without long-term insulin use coming in today for follow up. A. HBA1c worsened to 10.7% in May 2024 from 10.2% on 05/04/2024 from was 9.9 % on 11/04/2023. We prescribed him freestyle Raman, his smart phone was not compatible when he came to the educator visit, so now if prescribed him a reader, he is pending an appointment with the educator on 07/08/2024 for CGM placement. He did not bring his CGM sensor or reader today for me to do this.. He has a lot pain from his peripheral neuropathy and he is not able to check his fingersticks at home. I reiterated to him that until his sensor set up, please check his fingersticks 2 to 3 times a day. He continues to have uncontrolled hyperglycemia, educated him about risks of uncontrolled hyperglycemia and complications both microvascular and macrovascular. in April I also increased his Trulicity to 4.5 mg weekly, due to some personal issues with a his he has not been consistently taking the Trulicity and he was also off for Lantus for 3 weeks prior to coming back on it these past 2 weeks. He checked a few fasting blood readings and they were elevated in the 200s per my review. B:?Blood pressure is under adequate control, for renal protection in the setting of diabetes. Today he had a low reading, but this seems inaccurate, he denies any lightheadedness, dizziness. C:?LDL is 37 mg/dL from May 2024, which is at goal. Goal is less than 70. Triglycerides elevated at 248, these we will hopefully improve with better control of diabetes. D:?Diet control and healthy lifestyle was discussed in detail. Emphasis was made on exercise and physical activity in daily routine with at least 30-45 minutes of aerobic exercise 5-6 days a week. He has some limitation due to arthritis, and lumbar stenosis, asked him to do as much as possible. E: Last visit with living nurse was in March 2024, no retinopathy per patient. F: Foot care is suboptimal, has diminished sensation to monofilament. Already on pregabalin though that does not help him much. I counseled him that improved control of his diabetes will help with the neuropathy as well.. G: eGFR >60 and microalbumin/Cr ratio normal from May 2024. Plan: -continue Trulicity to 4.5 mg weekly -continue insulin Lantus to 15 units daily in a.m. if continues to have fasting blood sugars greater than 140 mg/dL, can up titrate to 17 units daily., hypoglycemia education done, stressed importance of checking blood sugars prior to administering insulin since he is still does not have the sensor on. -continue metformin 1000 mg b.i.d., , Farxiga 10 mg daily, -follow up with the educator for sensor application and education -dietary and exercise counseling done as advised above - (2) Hypothyroidism: Code(s): E03.9 - Hypothyroidism, unspecified Category: Medical Qualifiers: Hypothyroidism type: postoperative Qualified Code(s): E89.0 - Postprocedural hypothyroidism Plan: Status post total thyroidectomy for multinodular goiter in May 30, with benign pathology. Currently on levothyroxine 150 mcg daily, taking it appropriately. TSH was within normal limits from May 2024. Plan: -continue levothyroxine 150 mcg daily (3) Needle phobia: Code(s): F40.298 - Other specified phobia Category: Medical Plan: He has freestyle Raman, pending appointment with educator for sensor education (4) Peripheral neuropathy: Code(s): G62.9 - Polyneuropathy, unspecified Category: Medical Qualifiers: Peripheral neuropathy type: polyneuropathy associated with underlying disease Qualified Code(s): G63 - Polyneuropathy in diseases classified elsewhere Plan: He has freestyle Raman, pending appointment with educator for sensor education Plan I spent 30 minutes in reviewing the record, seeing the patient and documenting in the medical record. Patient Instructions: you have an appointment with Missy on 07/08/24 please bring the sensor and the reader Also bring your glucometer Till you sensor is set up please check blood sugars atleast twice a day Fasting target 90 to 120 mg/dl 2 hours post meal < 140 mg /dl continue insulin lantus to 15 units , if after 5 days of doing 15 units your fasting blood sugar is still higher than 140 mg/d l, increase lantus to 17 units Continue metformin, Trulicity and Farxiga as it is Continue levothyroxine as it is Walk 30 mins daily Keep well hydrated with water Tiene juan milo con Missy el 08/07/24. Por favor, traiga el sensor y el lector. Tambi?n traiga reeves gluc?metro. Hasta que le instalen el sensor, controle reeves nivel de az?car en antonina al menos dos veces al d?a. Objetivo en ayunas: 90 a 120 mg/dl. 2 horas despu?s de comer: < 140 mg/dl. Contin?e con la insulina Lantus a 15 unidades. Si despu?s de 5 d?as de 15 unidades reeves nivel de az?car en antonina en ayunas sigue siendo superior a 140 mg/dl, aumente la insulina Lantus a 17 unidades. Contin?e con la metformina, Trulicity y Farxiga jeremias est?n. Contin?e con la levotiroxina jeremias est?. Camine 30 minutos al d?a. Mant?ngase bravo hidratado con agua. Coding Level of Care Code Est Pt Level 4 (21568) Diagnoses Type 2 diabetes mellitus with diabetic polyneuropathy, with long-term current use of insulin E11.42; Z79.4 Diabetes mellitus type: type 2 Diabetes mellitus complication status: with neurologic complications Diabetes mellitus complication detail: with polyneuropathy Postoperative hypothyroidism E89.0 Hypothyroidism type: postoperative Needle phobia F40.298 Polyneuropathy associated with underlying disease G63 Peripheral neuropathy type: polyneuropathy associated with underlying disease Time Spent (min) 30
--- OUTSIDE RECORDS SUMMARY | 2024-06-25 14:27 | XMS_ITS | Clinical Summary ---
Author Organization [facility] Address [address] [place] [address] Care Team Providers Care Bleach Boiler Puller Name Role Phone Ev Mosqueda MD Primary Care Provider [phone] Social History Tobacco Use Types Packs/Day Years [...] (Colonoscopy) 06/06/2019 Influenza Vaccine (#1) 2023 12/03/2014 Shingrix-Zoster Vaccine (1 of 2) 2024 DTap / Tdap / Td (2 - Td or Tdap) 05/03/2025 016 Pneumococcal Vaccine Aged Out 06/17/2006 No long er eligible based on patient's age to complete this topic RSV Ped < 20 months Aged Out No longe r eligible based on patient's age to complete this topic Care Teams Bleach Boiler Puller Relationship Specialty Start Date End Date Ev Mosqueda MD [address] [place] [address] PCP - General Internal Medicine 05/19/18
--- OUTSIDE RECORDS SUMMARY | 2024-06-25 14:27 | XMS_ITS | Clinical Summary ---
Author Organization [facility] Address [address] [place] [address] Phone Care Team Providers Care C D Stripper Name Role Phone Ev Mosqueda MD Primary [...] each day. 03/06/20 16 Active [place] [facility] [place] [place] Patch by Does not [...] for this and ruled out for an UT, he now attributes it to his fibromyalgia. [...] diabetes mellitus wit h renal manifestations, controlled ([facility] V24, [facility] V28) 11/17/2015 Hypertriglyceridemia 05/04/2015 Multiple thyroid nodules 09/14/2014 [...] Trigger finger 07/28/2014 Type 2 diabetes mellitus wit h neurological manifestations ([facility] V24, [facility] V28) 07/28/2014 Type 2 diabetes mellitus ([facility] V24, [facility] V 28) 07/28/2014 Overview (03/09/2024): Type 2 diabetes, uncontrolled, with renal manifestation Immunizations Name Administration Dates Next Due Hepatitis B (Xkhwhck-E-Btbuf , Recombivax HB-Adult) 19yo and older 02/01/2010,08/30/2008,06/17/2006 Influenza trivalent, with pr eservative (Fluzone; Afluria) 6mo and older 12/03/2014 Pneumococcal polysaccharide 23 valent (Pneumovax 23) 2yo and older 06/17/2006 Tdap Tetanus diptheria acell ular pertussis (Boostrix; Adacel) 7yo and older 05/03/2015 Surgical History Surgery Date Site/Laterality Comments CARPAL TUNNEL RELEASE PROCEDURE: CO NEUROPLASTY &/TRANSPOS MEDIAN NRV CARPAL TUNNE; COMMENT: left CHOLECYSTECTOMY PROCEDURE: HISTORICAL CHOLECYSTECTOMY OTHER SURGICAL HISTORY PROCEDURE: CO STRTCTC STIMJ SPI CORD PRQ SPX N/FLWD [...] 2 diabetes mellitus wit h neurological manifestations (CMS/HCC V24, CMS/HCC V28) 07/28/2014 DX:Type 2 diabetes mellitus with neurological manifestations (HCC) Enlarged thyroid [...] 8:45 AM EDT Consult Orthopedic Surgery - [place] [address] [facility] [address] [place] [id number] Franco Means, DPM [facility] [address] [place] [address] Health Maintenance Due Date Last Done Comments Diabetes: Annual Foot Exam 1984 Diabetes: Annual Retina Eye Exam 1984 Pneumococcal Vaccine: 50+ Years (2 of 2 - PCV) 06/18/2007 06/17/2006 Pneumococcal Vaccine: Pediatrics (0 to 5 Years) [...] Vaccine (1 - 2023-2 5 season) 2023 Zoster Vaccines (1 of 2) 2024 Influenza Vaccine (Season Ended) 2024 12/03/2014 DTaP,Tdap,and Td Vaccines (2 - Td [...] age to complete this topic Meningococcal B Vaccine Aged Out No l onger eligible based on patient's age to complete [...] * Annual BMP Blood Test (03/19/2016) Pathologist [facility] Annual BMP Blood Test abstracted Result [facility] Provider HEALTH MAINTENANCE Final Result * (ABNORMAL) Hemoglobin A1c (03/19/2016) [facility] Hemoglobin A1C 7.9(A) 4.0 - 6.0 % Blood Venous blood specimen / Unknown Result [facility] Provider LAB BLOOD ORDERABLES Lay l Result * (ABNORMAL) Lipid panel (03/19/2016) [facility] LDL/HDL Ratio 4 0 - 4 Triglycerides 279(A) 0 - 150 mg/dL Cholesterol 146 0 - 200 mg/dL HDL 39(A) >=40 mg/dL LDL Cholesterol 52 0 - 100 mg/dL Blood Venous blood specimen / Unknown Result [facility] Provider LAB BLOOD ORDERABLES Lay l Result * Urine Albumin Creatinine Ratio (11/15/2015) Pathologist [facility] Urine Albumin Creatinine Ratio abstracted Result [facility] Provider HEALTH MAINTENANCE Final Result from Last 3 Months or Most Recently Relevant to Health Maintenance Insurance [employer] MED[employer] Member Subscriber Plan / Payer (Ef fective 2016-Present) Name:LolaCarlos sAtudillo Relation to Subscriber:Self Name:LolaCarlos Astudillo Payer ID:[id number] Group ID:[id number] Type:Not on file Address: [place] [id number] [id number] Care Teams C D Stripper Relationship Specialty Start Date End Date Ev Mosqueda MD [address] [place] [address] PCP - General Internal Medicine 01/09/21
[2024-06-25 15:12] LABS: Glucose, Whole Blood 261 mg/dL (60-115)
== END 2024-06-25 12:41 | disposition home or self-care (01) ==
LOC: HO.ENCR 11:36
PROVIDERS: PCP Internal Medicine; Visit Provider Student in an Organized Health Care Education/Training Program
DX: E11.42 Type 2 diabetes mellitus with diabetic polyneuropathy (principal); Z79.4 Long term (current) use of insulin; E89.0 Postprocedural hypothyroidism; F40.298 Other specified phobia; G63 Polyneuropathy in diseases classified elsewhere
CPT/HCPCS: 99214

== ENCOUNTER → 2024-06-25 11:35 | Outpatient (BNVA) | payer OTHER, SELFPAY | PROVIDERS: PCP Internal Medicine; Visit Provider Student in an Organized Health Care Education/Training Program | DX: E11.42 Type 2 diabetes mellitus with diabetic polyneuropathy (principal); E89.0 Postprocedural hypothyroidism; F40.298 Other specified phobia; Z79.4 Long term (current) use of insulin | CPT/HCPCS: 82947; 99212 ==

== ENCOUNTER 2024-07-01 09:58 | Outpatient (AMB) | payer OTHER, SELFPAY ==
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
[2024-07-01 10:22] VITALS: BP 140/80; PULSE 78; RESP 16; O2SAT 99; BMI 30.4
--- OUTSIDE RECORDS SUMMARY | 2024-07-01 11:26 | XMS_ITS | Encounter Summary ---
Author Organization [facility] Address [id number] [place] [id number] Care Team Providers Care Seal Delivery Vehicle Officer Name Role Phone Ev Mosqueda MD Primary Care Provider [phone] Reason for Visit * Consultation (Routine) - Authorized Specialty Diagnoses / Procedures Referred By Kathy dinero Referred To Contact Podiatry / Orthopaedic Surgery Diagnoses Type 2 diabetes mellitus with foot ulcer (CODE) (CMS/[facility] V24, CMS/[facility] V28) Ev Mosqueda MD [address] [place] [address] Phone: tel: fax: Franco Means DPM [address] [address] Phone: tel: fax: Referral ID Status Reason Start Date Expiration Date Visits Requested Visits Authorized [id number] Authorized Specialty Services Required 02/25/2025 1 1 Encounter Details Date Type Department Care Team (Late st Contact Info) Description 06/29/2024 8:45 AM EDT Consult Orthopedic Surgery - [place] [address] [phone] Franco Means DPM [address] [address] Arthritis of both feet (Primary Dx); Poorly controlled type 2 diabetes mellitus with neuropathy (CMS/[facility] V24, CMS/[facility] V28); Pain in both feet; Xerosis cutis; Lumbosacral radiculopathy; Dermatophytosis, nail Social History Tobacco Use Types Packs/Day Years Used Date Smoking Tobacco: Never Smokeless Tobacco: Never Alcohol Use Standard Drinks/Week Comments Not Asked 0 (1 standard drink = 0.6 oz pur e alcohol) Sex and Gender Information Value Date Recorded Sex Assigned at Not on file Legal Sex Male 12:24 AM EST Gender Identity Not on file Sexual Orientation Not on file documented as of this encounter Ordered Prescriptions Prescription Sig Dispense Quantity Refills Last Filled Start Date End Date ammonium lactate (AMLACTIN) 12 % cream Apply topically if needed for dry skin. 770 g 2 06/29/2024 6 documented in this encounter Progress Notes * Franco Means, DPM - 06/29/2024 8:45 AM EDT Referring MD: Ev Mosqueda MD Last PCP visit: 02/19/2024 IDENTIFIER: @TITLE@ Haile is a 49 y.o. year old male who presents for consultation. CC: Pain in the feet HPI: Patient presents to office today for initial diabetic foot evaluation as recommended by their primary care physician. Patient states that they have been diabetic for the past few years and has extreme sharp shooting pain within the feet bilaterally Denies any history of ulceration, or infection. Patient would like to inquire about their pedal hygiene, as their toenails have become elongated and painful. Patient is not using antifungals at this time. Patient is wearing good supportive shoes at this time. Patient reports mild calluses that are becoming bothersome. Patient with minimal other pedal complaints at this time. Patient's FBS this AM was 200 Recent A1C is %. 10.7 ROS: GENERAL: Pt denies nausea, fever, vomiting, chills, or shortness of breath. Pt in NAD. CARDIOLOGY: pt denies chest pain, palpitations LUNGS: pt denies shortness of breath MUSCULOSKELETAL: See HPI, otherwise no joint pain or swelling, back pain, or muscle pain. SKIN: see HPI, otherwise no lesions, rash or itching NEURO: No persistent headache, weakness or numbness The remainder of the review of systems is noncontributory PAST MEDICAL HISTORY: Patient Active Problem List Diagnosis Cervical spondylosis with radiculopathy Chronic low back pain CTS (carpal tunnel syndrome) Enlarged thyroid gland GERD (gastroesophageal reflux disease) HTN (hypertension) Hyperlipidemia Hypertriglyceridemia Microalbuminuria Multiple thyroid nodules AZAM (obstructive sleep apnea) Trigger finger Type 2 diabetes mellitus with neurological manifestations ([facility] V24, [facility] V28) Type 2 diabetes mellitus with renal manifestations, controlled ([facility] V24, [facility] V28) Type 2 diabetes mellitus ([facility] V24, [facility] V28) SOCIAL HISTORY: Social History Tobacco Use Smoking status: Never Smokeless tobacco: Never Substance Use Topics Alcohol use: Not on file ACTIVE MEDICATIONS: No outpatient medications have been marked as taking for the 06/29/24 encounter (Appointment) with Franco Means DPM. ALLERGIES: @ALL@ PHYSICAL EXAM: There were no vitals taken for this visit. PODIATRIC EXAMINATION: GENERAL: Patient appears well nourished, with NAD. VASCULAR: Dorsalis pedis pulses are 2/4 bilaterally and Posterior tibial pulses are 2/4 bilaterally. Capillary filling time within normal limits the digits. No pallor on elevation or rubor on dependency. Positive hair growth. Few varicosities. +1 pitting edema bilaterally. Denies rest pain or claudication pain. NEUROLOGICAL: Sharp/dull sensation intact, protective sensation diminished on [place]. Peripheral neuropathy throughout the feet bilaterally ORTHOPEDIC: Good muscle strength 5/5 of all flexors and extensors. Dorsi flexion of ankle ,10 degrees, plantar flexion WNL. No muscle atrophy. Arthritic changes to the midfoot with dorsal exercises that are palpable. Semireducible hammer digits 2 through 5 bilaterally DERMATOLOGICAL:.Xerosis throughout the feet bilaterally. Normal skin temperature, normal skin turgor. Nails are thickened misshapened discolored x 10 with subungual debris BIOMECHANICS: STJ ROM wnl, MTJ ROM wnl, 1st MPJ ROM wnl. IMPRESSION: 1. Arthritis of both feet 2. Poorly controlled type 2 diabetes mellitus with neuropathy ([facility] V24, [facility] V28) 3. Pain in both feet 4. Xerosis cutis 5. Lumbosacral radiculopathy 6. Dermatophytosis, nail PLAN: Pt was seen and examined, history reviewed. Patient educated on the importance of good pedal hygiene and tight blood glucose control. Patient encouraged to maintain a healthy lifestyle with a well-balanced diet. Patient should never go barefoot and wear supportive shoe gear. Patient should aim for A1c less than 7% every month. Continue with regular appointments with PMD or wetlands technician for tight medical management Patient with symptoms of arthritic change in the pedal joints. Patient showed good understanding ofetiology of arthritis. Patient is aware that conservative options include padding, over the counterproducts, orthotics, and shoes. Patient aware that they are other treatments available such as oralanti-inflammatories, injections, and steroid dose packs. Patient understands that these measures are conservative measures to help handle the osteoarthritic flares. Patient with findings of neuropathic sensations radiating from the lower back down to the foot. Patient has a history of back problems and was educated on what radiculopathy is and how it affects thenerve roots of the lower lumbar and thus the innervation of the lower extremities specifically within the feet both at the cutaneous level and in the muscular layer. Patient understands that the problem is symptomatic in the lower extremities but is resulting from problems within the lower back. Encourage patient to use topical anti-inflammatories like Biofreeze, capsaicin, and Voltaren gel changes Patient with diffuse Xerosis to bilateral feet. Patient will benefit from additional moisture to feet to prevent fissures and crack which could lead to pain or even infection. Patient given a prescription for ammonium lactate 12% to be applied daily. Patient encouraged to apply lotion to lightly moistened skin to allow for better absorption. Nail debridement performed to nails 1-5 bilateral as nails were described to be causing pain and difficulty for walking while in shoegear at their previous length. They were debrided in thickness andlength, with no incident. Clinical evidence of mycosis is documented which required active treatment. Patient expressed immediate relief. Patient is to RTC in 9 weeks Franco Means DPM cc: Ev Mosqueda MD documented in this encounter Plan of Treatment Upcoming Encounters Date Type Department Care Team (Late st Contact Info) Description 08/31/2024 8:30 AM EDT Office Visit Orthopedic Surgery - [place] [id number] [phone] Franco Means DPM [address] [id number] documented as of this encounter Visit Diagnoses Diagnosis Arthritis of both feet- Primary Poorly controlled type 2 diabetes mellitus with neuropathy ([facility] V24, [facility] V28) Pain in both feet Xerosis cutis Other specified disease of sebaceous glands Lumbosacral radiculopathy Thoracic or lumbosacral neuritis or radiculitis, unspecified Dermatophytosis, nail Dermatophytosis of nail documented in this encounter Orders Outpatient Referral Count Last Ordered Date Fir st Ordered Date AMB REFERRAL TO PODIATRY 06/29/2024 documented in this encounter Care Teams Seal Delivery Vehicle Officer Relationship Specialty Start Date End Date Ev Mosqueda MD [address] [place] [address] PCP - General Internal Medicine 01/09/21 documented as of this encounter
--- OUTSIDE RECORDS SUMMARY | 2024-07-01 11:26 | XMS_ITS | Clinical Summary ---
Author Organization 175 [facility] Address [address] [place] [address] Phone Care Team Providers Care Medical Office Representative Name Role Phone Ev Mosqueda MD Primary Care Provider [phone] Allergies No known active allergies Medications traMADoL [...] each day. 03/06/20 16 Active eye patch misc 1 Patch by Does not apply route at bedtime. 02/20/20 16 Active cyanocobalamin, vitamin B-12, 1,500 mcg tablet,chewable Chew 1 (one) time each day. Active blood sugar diagnostic (FreeStyle Lite Strips) test strip Test blood sugar once daily 11/17/19 16 Active lanolin/mineral oil (EUCERIN ORIGINAL TOP) Apply topically. Active FREESTYLE LANCETS MISC Active ammonium lactate (AMLACTIN) 12 % cream Apply topically if needed for dry skin. 770 g 2 06/30/19 25 026 Active Active Problems Problem Noted Date Diagnosed [...] for this and ruled out for an PR, he now attributes it to his fibromyalgia. [...] diabetes mellitus wit h renal manifestations, controlled ([facility] V24, [facility] V28) 11/17/2015 Hypertriglyceridemia 05/04/2015 Multiple thyroid nodules [...] 2 diabetes mellitus wit h neurological manifestations ([facility] V24, [facility] V28) 07/28/2014 Type 2 diabetes mellitus ([facility] V24, [facility] V 28) 07/28/2014 Overview (03/09/2024): Type 2 diabetes, uncontrolled, with renal manifestation Encounters Date Type Department Care Team Description 06/29/2024 8:45 AM EDT Consult Orthopedic Surgery - [address] [place] [id number] Franco Means, JANET Arthritis of both feet (Primary Dx); Poorly controlled type 2 diabetes mellitus with neuropathy (CMS/HCC V24, CMS/HCC V28); Pain in both feet; Xerosis cutis; Lumbosacral radiculopathy; Dermatophytosis, nail from Last 3 Months Immunizations Name Administration Dates Next Due Hepatitis B (Nkccoxg-C-Pwjqd , Recombivax HB-Adult) 19yo and older 02/01/2010,08/30/2008,06/17/2006 Influenza trivalent, with pr eservative (Fluzone; Afluria) 6mo and older 12/03/2014 Pneumococcal polysaccharide 23 valent (Pneumovax 23) 2yo and older 06/17/2006 Tdap Tetanus diptheria acell ular pertussis (Boostrix; Adacel) 7yo and older 05/03/2015 Surgical History Surgery Date Site/Laterality Comments CARPAL TUNNEL RELEASE PROCEDURE: [place] NEUROPLASTY &/TRANSPOS MEDIAN NRV CARPAL TUNNE; COMMENT: left CHOLECYSTECTOMY PROCEDURE: HISTORICAL CHOLECYSTECTOMY OTHER SURGICAL HISTORY PROCEDURE: [place] STRTCTC STIMJ SPI CORD PRQ SPX N/FLWD [...] AM EDT Office Visit Orthopedic Surgery - [place] [address] [phone] Franco Means DPM 175 [facility] [address] [place] [address] Health Maintenance Due Date Last Done Comments Diabetes: Annual Foot Exam 1984 Diabetes: Annual Retina Eye Exam 1984 Pneumococcal Vaccine: 50+ Years (2 of 2 - PCV) 08/10/2007 08/09/2006, 07/09/2006, 06/17/2006 Pneumococcal Vaccine: Pediatrics (0 to 5 Years) and At-Risk Patients (6 to 64 Years) (2 of 2 - PCV) 08/10/2007 08/09/2006, 07/09/2006, 06/17/2006 Diabetes: Annual GFR (Glomerular Filtration Rate) 03/19/2017 03/19/2016 Cholesterol Screening (Lipid Panel) 02/11/2022 03/19/2016 Colorectal Cancer Screening: Colonoscopy 02/11/2022 Depression Screening 02/11/2022 HIV Screening 02/11/2022 Hepatitis C Screening 02/11/2022 Medicare Annual Wellness Visit 02/11/2022 Social Influencers of Health Screening 02/11/2022 Diabetes: Annual Urine Albumin-Creatinine Ratio (uACR) 02/21/2022 11/15/2015 Diabetes: Blood Sugar Control Test (HGBA1C) 02/21/2022 03/19/2016 Hypertension/CHF/CAD Annual BMP Blood Test 02/21/2022 03/19/2016 COVID-19 Vaccine (3 - season) 2023 06/29/2020, 06/07/2020 Zoster Vaccines (1 of 2) 2024 Influenza Vaccine (Season Ended) 2024 02/06/2022, 12/05/2019, 01/27/2019, Additional history exists DTaP,Tdap,and Td Vaccines (4 - Td or Tdap) 02/18/2034 02/19/2024, 05/03/2015, 12/04/2011 Hepatitis B Vaccines Completed 02/01/2010, 08/30/2008, 06/17/2006 [...] 20 months Aged Out No longer eligible based on [...] Test (03/19/2016) Annual BMP Blood Test abstracted us Historical Provider MD HEALTH MAINTENANCE Final Result * (ABNORMAL) Hemoglobin A1c (03/19/2016) Hemoglobin A1C 7.9(A) 4.0 - 6.0 % Blood Venous blood specimen / Unknown Result [facility] Historical Provider LAB BLOOD ORDERABLES Lay l Result * (ABNORMAL) Lipid panel (03/19/2016) LDL/HDL Ratio 4 0 - 4 Triglycerides 279(A) 0 - 150 mg/dL Cholesterol 146 0 - 200 mg/dL HDL 39(A) >=40 mg/dL LDL Cholesterol 52 0 - 100 mg/dL Blood Venous blood specimen / Unknown [facility] Provider LAB BLOOD ORDERABLES Lay l Result * HM Urine Albumin Creatinine Ratio (11/15/2015) HM Urine Albumin Creatinine Ratio abstracted [facility] Provider HEALTH MAINTENANCE Final Result from Last 3 Months or Most Recently Relevant to Health Maintenance Insurance [facility] MEDICARE Member Subscriber Plan / Payer (Ef fective 2016-Present) Name:Carlos Be Relation to Subscriber:Self Name:Carlos Be Payer ID:[id number] Group ID:[id number] Type:Not on file Address: [address] [facility] [place] [address] Care Teams Medical Office Representative Relationship Specialty Start Date End Date Ev Mosqueda MD [address] [place] [address] PCP - General Internal Medicine 01/09/21
--- OUTSIDE RECORDS SUMMARY | 2024-07-01 11:26 | XMS_ITS | Clinical Summary ---
Author Organization [facility] Address [address] [place] [address] Care Team Providers Care Internal Grinding Machine Operator Name Role Phone Ev Mosqueda MD Primary Care Provider [phone] Social History Tobacco Use Types Packs/Day Years [...] age to complete this topic Care Teams Internal Grinding Machine Operator Relationship Specialty Start Date End Date Ev Mosqueda MD [address] [place] [address] PCP - General Internal Medicine 05/19/18
== END 2024-07-01 10:45 | disposition home or self-care (01) ==
LOC: HO.PMC 09:59
PROVIDERS: PCP Internal Medicine; Visit Provider Anesthesiology
DX: M53.3 Sacrococcygeal disorders, not elsewhere classified (principal); M47.812 Spondylosis without myelopathy or radiculopathy, cervical region
CPT/HCPCS: 99213

== ENCOUNTER → 2024-07-01 09:58 | Outpatient (BNVA) | payer OTHER, SELFPAY | PROVIDERS: PCP Internal Medicine; Visit Provider Anesthesiology | DX: M53.3 Sacrococcygeal disorders, not elsewhere classified (principal); M47.812 Spondylosis without myelopathy or radiculopathy, cervical region; S12.9XXA Fracture of neck, unspecified, initial encounter; X58.XXXA Exposure to other specified factors, initial encounter; Y93.9 Activity, unspecified; Y92.9 Unspecified place or not applicable; Y99.9 Unspecified external cause status | CPT/HCPCS: 99212 ==

== ENCOUNTER 2024-07-08 07:42 | Outpatient (AMB) | payer OTHER, SELFPAY ==
--- OUTSIDE RECORDS SUMMARY | 2024-07-08 07:45 | XMS_ITS | Clinical Summary ---
Author Organization [facility] Address [address] [place] [address] Care Team Providers Care Executive Chairman Of The Board Name Role Phone Ev Mosqueda MD Primary Care Provider [phone] Social History Tobacco Use Types Packs/Day Years [...] age to complete this topic Care Teams Executive Chairman Of The Board Relationship Specialty Start Date End Date Ev Mosqueda MD [address] [place] [address] PCP - General Internal Medicine 05/19/18
--- OUTSIDE RECORDS SUMMARY | 2024-07-08 07:45 | XMS_ITS | Clinical Summary ---
Author Organization 175 [facility] Address [address] [place] [address] Phone Care Team Providers Care Patient Information Coordinator Name Role Phone Ev Mosqueda MD Primary Care Provider [phone] Allergies No known active allergies Medications traMADoL [...] for this and ruled out for an NH, he now attributes it to his fibromyalgia. [...] diabetes mellitus wit h renal manifestations, controlled ([facility] V24, [facility] V28) 11/17/2015 Hypertriglyceridemia 05/04/2015 Multiple thyroid nodules [...] 2 diabetes mellitus wit h neurological manifestations ([facility] V24, [facility] V28) 07/28/2014 Type 2 diabetes mellitus ([facility] V24, [facility] V 28) 07/28/2014 Overview (03/09/2024): Type 2 diabetes, uncontrolled, with renal manifestation Encounters Date Type Department Care Team Description 06/29/2024 8:45 AM EDT Consult Orthopedic Surgery - [address] [address] Franco Means, JANET Arthritis of both feet (Primary Dx); Poorly controlled type 2 diabetes mellitus with neuropathy (CMS/HCC V24, CMS/HCC V28); Pain in both feet; Xerosis cutis; Lumbosacral radiculopathy; Dermatophytosis, nail from Last 3 Months Immunizations Name Administration Dates Next Due Hepatitis B (Smnijnn-Z-Aqfva , Recombivax HB-Adult) 19yo and older 02/01/2010,08/30/2008,06/17/2006 Influenza trivalent, with pr eservative (Fluzone; Afluria) 6mo and older 12/03/2014 Pneumococcal polysaccharide 23 valent (Pneumovax 23) 2yo and older 06/17/2006 Tdap Tetanus diptheria acell ular pertussis (Boostrix; Adacel) 7yo and older 05/03/2015 Surgical History Surgery Date Site/Laterality Comments CARPAL TUNNEL RELEASE PROCEDURE: [place] NEUROPLASTY &/TRANSPOS MEDIAN NRV CARPAL TUNNE; COMMENT: left CHOLECYSTECTOMY PROCEDURE: HISTORICAL CHOLECYSTECTOMY OTHER SURGICAL HISTORY PROCEDURE: [place] STRTCTC STIMJ SPI CORD PRQ SPX N/FLWD [...] gland; COMMENT: Seen on CT of cervical spine12/15/14 / ordered but no result in transfer [...] AM EDT Office Visit Orthopedic Surgery - [place] [address] [phone] Franco Means, JANET [address] [address] Health Maintenance Due Date Last Done Comments [...] HIV Screening 02/11/2022 Hepatitis C Screening 02/11/2022 Social Influencers of Health Screening 02/11/2022 Diabetes: Annual Urine Albumin-Creatinine Ratio (uACR) 02/21/2022 11/15/2015 Diabetes: Blood Sugar Control Test (HGBA1C) 02/21/2022 03/19/2016 Hypertension/CHF/CAD Annual BMP Blood Test 02/21/2022 03/19/2016 COVID-19 Vaccine ( season) 2023 06/29/2020, 06/07/2020 Zoster Vaccines (1 [...] * Annual BMP Blood Test (03/19/2016) Pathologist [facility] Annual BMP Blood Test abstracted us Historical Provider MD HEALTH MAINTENANCE Final Result * (ABNORMAL) Hemoglobin A1c (03/19/2016) Pathologist [facility] Hemoglobin A1C 7.9(A) 4.0 - 6.0 % Blood Venous blood specimen / Unknown Historical Provider LAB BLOOD ORDERABLES Lay l Result * (ABNORMAL) Lipid panel (03/19/2016) LDL/HDL Ratio 4 0 - 4 Triglycerides 279(A) 0 - 150 mg/dL Cholesterol 146 0 - 200 mg/dL HDL 39(A) >=40 mg/dL LDL Cholesterol 52 0 - 100 mg/dL Blood Venous blood specimen / Unknown [facility] Provider LAB BLOOD ORDERABLES Lay l Result * HM Urine Albumin Creatinine Ratio (11/15/2015) HM Urine Albumin Creatinine Ratio abstracted [facility] Provider HEALTH MAINTENANCE Final Result from Last 3 Months or Most Recently Relevant to Health Maintenance Insurance MEDICAID - [place] Care Teams Patient Information Coordinator Relationship Specialty Start Date End Date Ev Mosqueda MD [address] [place] [address] PCP - General Internal Medicine 01/09/21
--- NOTE | 2024-07-08 08:00 | A.OFFVIS_ITS ---
Intake Intake Visit Reasons: 60 min Electronics Department Manager Required: Yes Electronics Department Manager Language: Supervisor Force Adjustment Name: [id number] Accompanied by: Self / Same As Patient Allergies No Known Allergies Allergy (Verified 07/01/24 10:23) HPI Comprehensive Diabetes Asmnt Most Recent Diabetes Results: Hemoglobin A1c 8.7 % 11/18/19 Microalb/Creat Ratio TNP 05/21/24 Cholesterol 124 mg/dL (<200) 05/21/24 HDL Cholesterol 38 mg/dL (>40) L 05/21/24 Triglycerides 248 mg/dL (<150) H 05/21/24 Creatinine 1.02 mg/dL (0.5-1.4) 05/21/24 Blood Urea Nitrogen 16 mg/dL (9-16) 05/21/24 Sodium 138 mmol/L (135-145) 05/21/24 Potassium 4.2 mmol/L (3.3-5.1) 05/21/24 Chloride 104 mmol/L (96-108) 05/21/24 Carbon Dioxide 25 mmol/L (22-29) 05/21/24 Calcium 9.3 mg/dL (8.4-10.2) 05/21/24 AST 26 U/L (5-37) 05/21/24 ALT 35 U/L (0-40) 05/21/24 Total Protein 7.6 g/dL (6.5-8.0) 05/21/24 Albumin 4.3 g/dL (3.5-5.0) 05/21/24 [facility] Medical History (Updated 05/25/24 @ 14:34 by Angella Montanez MD) Diabetes mellitus, with long-term current use of insulin Peripheral neuropathy Needle phobia Hypothyroidism Obesity (BMI 30.0-34.9) Nocturnal hypoxemia AZAM (obstructive sleep apnea) Mild CAD Skin lesion of scalp Tubular adenoma Mixed dyslipidemia Postoperative hypothyroidism Bifascicular block Lumbar spondylosis Failed back syndrome, cervical Vitamin D deficiency History of cocaine use Spondylosis of cervical joint without myelopathy Fibromyalgia Rheumatoid arthritis Obstructive sleep apnea Bilateral nephrolithiasis Bilateral carpal tunnel syndrome Opiate dependence Morbid obesity Cervical spondylosis with radiculopathy Type 2 diabetes mellitus with diabetic polyneuropathy, without long-term current use of insulin GERD without esophagitis Essential hypertension Surgical History History of esophagogastroduodenoscopy (EGD) Hx of colonoscopy Hx of thyroidectomy Hx of neck surgery History of carpal tunnel surgery Hx of cholecystectomy History of spinal surgery Herniated disc Family History Father No problems noted. Mother Diabetes mellitus HTN (hypertension) Brother No problems noted. Sister No problems noted. Social History Household Members: Spouse and Children Housing: House Alcohol intake: never Patient Tobacco Use Status: Former Tobacco user Tobacco use type: Cigarette Years Smoked: 10 yrs e-Cigarette/Vaping Use: Never Used Second Hand Smoke Exposure: No service: No Current occupational status: disabled Cognitive needs: No Hearing needs: No Vision needs: Yes Assessment & Plan Assessment & Plan (1) Type 2 diabetes mellitus with diabetic polyneuropathy, without long-term current use of insulin: Code(s): E11.42 - Type 2 diabetes mellitus with diabetic polyneuropathy Plan: Patient at visit to set up an Identropy 3 with cellphone paola Instructed patient sensors water proof you can shower, or swim do not submerge sensor in water for over 30 minutes Is sensor falls off cannot put back in you need to replace sensor, customer service number given to patient for sensor replacement Sensor placed on the back of right arm Patient left visit with sensor in warmup Reviewed how to interpret trend arrows Discussed lag time between finger stick and sensor data.? Instructed patient the importance of having blood glucometer for backup testing if needed Reviewed delay of CGM from fingersticks Reminded Pt that if symptoms do not match sensor still needs to check fingersticks. Portions of this note were created using voice recognition software, please excuse any words or phrases that may have been misinterpreted. Patient Instructions: Instrucciones para el paciente: CGM proporciona informaci?n sobre el control de la glucosa en antonina a lo hesham del d?a, incluidas la hiperglucemia y la hipoglucemia. Contin?e controlando la glucosa en antonina seg?n las instrucciones. Siga las pautas de nutrici?n proporcionadas. Informe cualquier molestia de inmediato al proveedor de atenci?n m?dica. Mantente bravo hidratado. Puede ba?arse, ducharse, nadar y hacer ejercicio mientras usa el sensor de glucosa. No sumerja el sensor de glucosa en agua ignacio m?s de 30 minutos. Retire el sensor para juan resonancia magn?arnaldo o juan tomograf?a computarizada. Evite la m?quina de sue X en los aeropuertos: retire el sensor o solicite la varita Coding Level of Care Code Est Pt Level 1 (50916) Diagnoses Type 2 diabetes mellitus with diabetic polyneuropathy, without long-term current use of insulin E11.42
== END 2024-07-08 08:29 | disposition home or self-care (01) ==
LOC: HO.ENCR 07:43
PROVIDERS: PCP Internal Medicine; Visit Provider Registered Nurse Diabetes Educator
DX: E11.42 Type 2 diabetes mellitus with diabetic polyneuropathy (principal)

== ENCOUNTER → 2024-07-08 07:42 | Outpatient (BNVA) | payer OTHER, SELFPAY | PROVIDERS: PCP Internal Medicine; Visit Provider Registered Nurse Diabetes Educator | DX: E11.42 Type 2 diabetes mellitus with diabetic polyneuropathy (principal) | CPT/HCPCS: 99211 ==

== ENCOUNTER 2024-07-22 09:01 | Outpatient (AMB) | payer OTHER, SELFPAY ==
--- OUTSIDE RECORDS SUMMARY | 2024-07-22 09:28 | XMS_ITS | Encounter Summary ---
Author Organization [facility] [employer] [facility] Address [address] [place] [address] Care Team Providers Care Rides Supervisor Name Role Phone Rika Keenan MD Primary Care Provider Drake Coleman NP Primary Care Provider Ev Evans Md, MD Primary Care Provider Unavailable Luba Mccain MD Unavailable [phone] Encounter Details Date Type Department Care Team Description 01/27/2016 [facility] Medical Records [address] [place] [id number] Abstract, Provider Social History Tobacco Use Types [...] on filedocumented in this encounter Care Teams Rides Supervisor Relationship Specialty Start Date End Date Rika Keenan MD PCP - General Internal Medicine 07/13/14 03/10/16 Drake Rosado NP PCP - General Internal Medicine 03/11/16 01/08/21 Ev Mosqueda MD, MD PCP - General Internal Medicine 01/09/21 Luba Mccain MD 175 [facility] [address] [place] [address] Specialist Neurosurgery 05/02/21 documented as of this encounter
--- OUTSIDE RECORDS SUMMARY | 2024-07-22 09:28 | XMS_ITS | Encounter Summary ---
Author Organization [facility] [employer] [facility] Address [address] [place] [address] Care Team Providers Care Dynamic Balancer Name Role Phone Rika Keenan MD Primary Care Provider Drake Coleman NP Primary Care Provider Ev Evans Md, MD Primary Care Provider Unavailable Luba Mccain MD Unavailable [phone] Encounter Details Date Type Department Care Team Description 09/13/2014 Controlled Substance Contract with Plan Medical Records [address] [place] [id number] Abstract, Provider Social History Tobacco Use Types [...] on filedocumented in this encounter Care Teams Dynamic Balancer Relationship Specialty Start Date End Date Rika Keenan MD PCP - General Internal Medicine 07/13/14 03/10/16 Drake Rosado NP PCP - General Internal Medicine 03/11/16 01/08/21 Ev Mosqueda MD, MD PCP - General Internal Medicine 01/09/21 Luba Mccain MD 175 [facility] [address] [place] [address] Specialist Neurosurgery 05/02/21 documented as of this encounter
--- OUTSIDE RECORDS SUMMARY | 2024-07-22 09:28 | XMS_ITS | Clinical Summary ---
Author Organization [address] [place] [address] Address [address] [place] [address] Phone Care Team Providers Care Brine Plant Operator Name Role Phone Ev Mosqueda MD [...] for this and ruled out for an MD, he now attributes it to his fibromyalgia. [...] diabetes mellitus wit h renal manifestations, controlled ([facility] V24, [facility] V28) 11/17/2015 Hypertriglyceridemia 05/04/2015 Multiple [...] 2 diabetes mellitus wit h neurological manifestations ([facility] V24, [facility] V28) 07/28/2014 Type 2 diabetes mellitus ([facility] V24, [facility] V 28) 07/28/2014 Overview (03/09/2024): Type 2 diabetes, uncontrolled, with renal manifestation Encounters Date Type Department Care Team Description 06/29/2024 8:45 AM EDT Consult Orthopedic Surgery - [address] [address] Franco Means, JANET Arthritis of both feet (Primary Dx); Poorly controlled type 2 diabetes mellitus with neuropathy (CMS/HCC V24, CMS/HCC V28); Pain in both feet; Xerosis cutis; Lumbosacral radiculopathy; Dermatophytosis, nail from Last 3 Months Immunizations Name Administration Dates Next Due Hepatitis B (Kkmaqyi-B-Doiok , Recombivax HB-Adult) 19yo and older 02/01/2010,08/30/2008,06/17/2006 Influenza trivalent, with pr eservative (Fluzone; Afluria) 6mo and older 12/03/2014 Pneumococcal polysaccharide 23 valent (Pneumovax 23) 2yo and older 06/17/2006 Tdap Tetanus diptheria acell ular pertussis (Boostrix; Adacel) 7yo and older 05/03/2015 Surgical History Surgery Date Site/Laterality Comments CARPAL TUNNEL RELEASE PROCEDURE: [place] NEUROPLASTY &/TRANSPOS MEDIAN NRV CARPAL TUNNE; COMMENT: left CHOLECYSTECTOMY PROCEDURE: HISTORICAL CHOLECYSTECTOMY OTHER SURGICAL HISTORY PROCEDURE: [place] STRTCTC STIMJ SPI CORD PRQ SPX N/FLWD [...] AM EDT Office Visit Orthopedic Surgery - [place] [address] [phone] Franco Means, JANET [address] [address] Health Maintenance Due Date Last Done Comments [...] * Annual BMP Blood Test (03/19/2016) Pathologist [facility] Annual BMP Blood Test abstracted us [...] mg/dL Blood Venous blood specimen / Unknown [facility] Provider LAB BLOOD ORDERABLES Lay l Result * HM Urine Albumin Creatinine Ratio (11/15/2015) HM Urine Albumin Creatinine Ratio abstracted [facility] Provider HEALTH MAINTENANCE Final Result from Last 3 Months or Most Recently Relevant to Health Maintenance Insurance MEDICAID - [place] Care Teams Brine Plant Operator Relationship Specialty Start Date End Date Ev Mosqueda MD [address] [place] [address] PCP - General Internal Medicine 01/09/21
--- OUTSIDE RECORDS SUMMARY | 2024-07-22 09:28 | XMS_ITS | Clinical Summary ---
Author Organization [facility] Address [address] [place] [address] Care Team Providers Care Nurseryman Assistant Name Role Phone Ev Mosqueda MD Primary Care Provider [phone] Social History Tobacco Use Types Packs/Day Years [...] age to complete this topic Care Teams Nurseryman Assistant Relationship Specialty Start Date End Date Ev Mosqueda MD [address] [place] [address] PCP - General Internal Medicine 05/19/18
--- OUTSIDE RECORDS SUMMARY | 2024-07-22 09:28 | XMS_ITS | Encounter Summary ---
Author Organization [facility] Address [address] [place] [address] Care Team Providers Care Commercial Painter Name Role Phone Rika Keenan MD Primary Care Provider Drake Coleman NP Primary Care Provider Ev Evans Md, MD Primary Care Provider Unavailable Luba Mccain MD Unavailable Encounter Details Date Type Department Care Team Description 03/21/2015 Wellness Visit Medical Records [address] [place] [id number] Rika Keenan MD Social History Tobacco Use [...] on filedocumented in this encounter Care Teams Commercial Painter Relationship Specialty Start Date End Date Rika Keenan MD PCP - General Internal Medicine 07/13/14 03/10/16 Drake Rosado NP PCP - General Internal Medicine 03/11/16 01/08/21 Ev Mosqueda MD, MD PCP - General Internal Medicine 01/09/21 Luba Mccain MD 175 [facility] [address] [place] [address] Specialist Neurosurgery 05/02/21 documented as of this encounter
--- OUTSIDE RECORDS SUMMARY | 2024-07-22 09:28 | XMS_ITS | Encounter Summary ---
Author Organization [facility] Address [address] [place] [address] Care Team Providers Care Pile Driving Superintendent Name Role Phone Drake Rosado NP Primary Care Provider Ev Evans Md, MD Primary Care Provider Unavailable Luba Mccain MD Unavailable [phone] Reason for Visit * Reason Comments E-prescribe Rx Request Encounter Details Date Type Department Care Team Description 12/12/2016 Refill Adult Medicine [address] [address] Rika Keenan MD E-prescribe Rx Request Social History Tobacco Use Types Packs/Day Years [...] encounter Miscellaneous Notes * Telephone Encounter - Latricia AndreaP.N. - 12/12/2016 3:26 PM EDT Script denied * Telephone Encounter - Tati Casey - 12/12/2016 3:13 PM EDT Has outside pcp listed * Telephone Encounter - Rosina Norman - 12/12/2016 3:03 PM EDT documented in this encounter Plan of Treatment Not on file documented as of this encounter Visit Diagnoses Not on filedocumented in this encounter Care Teams Pile Driving Superintendent Relationship Specialty Start Date End Date Drake Rosado NP PCP - General Internal Medicine 03/11/16 01/08/21 Ev Mosqueda MD, MD PCP - General Internal Medicine 01/09/21 Luba Mccain MD [address] [place] [address] Specialist Neurosurgery 05/02/21 documented as of this encounter
--- OUTSIDE RECORDS SUMMARY | 2024-07-22 09:28 | XMS_ITS | Encounter Summary ---
Author Organization [facility] Address [address] [place] [address] Care Team Providers Care Bomb Loader Name Role Phone Rika Keenan MD Primary Care Provider Drake Coleman NP Primary Care Provider Ev Evans Md, MD Primary Care Provider Unavailable Luba Mccain MD Unavailable [phone] Reason for Visit * Reason Onset Date Comments Faxed Refill 11/09/2015 DME Request 11/09/2015 for medicare goyo ling Encounter Details Date Type Department Care Team Description 11/09/2015 Refill Adult Medicine [address] [address] Rika Keenan MD Faxed Refill; DME Request [...] 11/09/2015 10:01 AM EDT Beckie musa from [facility] asking for dme form to be [...] / Plan: [place] / Product Type: MEDICARE [id number] documented in this encounter Plan of Treatment Not on file documented as of this encounter Visit Diagnoses Not on filedocumented in this encounter Care Teams Bomb Loader Relationship Specialty Start Date End Date Rika Keenan MD PCP - General Internal Medicine 07/13/14 03/10/16 Drake Rosado NP PCP - General Internal Medicine 03/11/16 01/08/21 Ev Mosqueda MD, MD PCP - General Internal Medicine 01/09/21 Luba Mccain MD [address] [place] [address] Specialist Neurosurgery 05/02/21 documented as of this encounter
--- OUTSIDE RECORDS SUMMARY | 2024-07-22 09:28 | XMS_ITS | Encounter Summary ---
Author Organization [facility] Address [address] [place] [address] Care Team Providers Care Medical And Scientific Illustrator Name Role Phone Rika Keenan MD Primary Care Provider Drake Coleman NP Primary Care Provider Ev Evans Md, MD Primary Care Provider Unavailable Luba Mccain MD Unavailable Encounter Details Date Type Department Care Team Description 02/22/2016 Transfer Records Medical Records [address] [place] [address] Social History Tobacco Use Types Packs/Day Years [...] on filedocumented in this encounter Care Teams Medical And Scientific Illustrator Relationship Specialty Start Date End Date Rika Keenan MD PCP - General Internal Medicine 07/13/14 03/10/16 Drake Rosado NP PCP - General Internal Medicine 03/11/16 01/08/21 Ev Mosqueda MD, MD PCP - General Internal Medicine 01/09/21 Luba Mccain MD [address] [facility] [address] [place] [address] Specialist Neurosurgery 05/02/21 documented as of this encounter
--- OUTSIDE RECORDS SUMMARY | 2024-07-22 09:28 | XMS_ITS | Encounter Summary ---
Author Organization [facility] Address [address] [place] [address] Care Team Providers Care Facility Assistant Name Role Phone Drake Rosado NP Primary Care Provider Ev Evans Md, MD Primary Care Provider Unavailable Luba Mccain MD Unavailable [phone] Encounter Details Date Type Department Care Team Description 04/04/2016 [facility] Medical Records [address] [place] [id number] Abstract, Provider Social History Tobacco Use Types [...] on filedocumented in this encounter Care Teams Facility Assistant Relationship Specialty Start Date End Date Drake Rosado NP PCP - General Internal Medicine 03/11/16 01/08/21 Ev Mosqueda MD, MD PCP - General Internal Medicine 01/09/21 Luba Mccain MD [address] [facility] [address] [place] [address] Specialist Neurosurgery 05/02/21 documented as of this encounter
--- OUTSIDE RECORDS SUMMARY | 2024-07-22 09:28 | XMS_ITS | Encounter Summary ---
Author Organization [facility] Address [address] [place] [address] Care Team Providers Care Staff Pharmacist Hospital Name Role Phone Rika Keenan MD Primary Care Provider Drake Coleman NP Primary Care Provider Ev Evans Md, MD Primary Care Provider Unavailable Luba Mccain MD Unavailable [phone] Encounter Details Date Type Department Care Team Description 09/27/2015 [facility] Report Medical Records [address] [place] [id number] Rika Keenan MD Social History Tobacco Use [...] on filedocumented in this encounter Care Teams Staff Pharmacist Hospital Relationship Specialty Start Date End Date Rika Keenan MD PCP - General Internal Medicine 07/13/14 03/10/16 Drake Rosado NP PCP - General Internal Medicine 03/11/16 01/08/21 Ev Mosqueda MD, MD PCP - General Internal Medicine 01/09/21 Luba Mccain MD [address] [facility] [address] [place] [address] Specialist Neurosurgery 05/02/21 documented as of this encounter
--- OUTSIDE RECORDS SUMMARY | 2024-07-22 09:28 | XMS_ITS | Clinical Summary ---
Author Organization [facility] Address [address] [place] [address] Care Team Providers Care Gifted Teacher Name Role Phone Ev Mosqueda Md, MD Primary Care Provider Unavailable Luba Mccain MD Unavailable [phone] Allergies No known active allergies Medications [...] just unsure what to do Educational Resources Stat[employer] Diabetes Association (www.diabetes.org) Centers for Disease Control [...] for this and ruled out for an CO, he now attributes it to his fibromyalgia. [...] (Patient reports normal results)), Additional history exists BMI CHECK/ADVISE 03/11/2024 12/03/2014 COLON CANCER SCREENING 2024 SHINGLES VACCINE (1 of 2) 2024 INFLUENZA (Season Ended) 2024 12/03/2014 DTAP/TDAP/TD (3 - Td or Tdap) 05/03/2025 05/03/2015, 12/04/2011 PNEUMOCOCCAL VACCINE FOR HIG H RISK PATIENTS (#2) 06/06/2039 08/09/2006, 07/09/2006, 06/17/2006 Care Teams Gifted Teacher Relationship Specialty Start Date End Date Ev Mosqueda MD, MD PCP - General Internal Medicine 01/09/21 Luba Mccain MD [address] [place] [id number] Specialist Neurosurgery 05/02/21
--- NOTE | 2024-07-22 09:42 | A.OFFVIS_ITS ---
Intake Intake Visit Reasons: 60 min Import Dispatcher Required: Yes Import Dispatcher Language: Formation Fracturing Operator Name: [id number] Accompanied by: Self / Same As Patient Allergies No Known Allergies Allergy (Verified 07/01/24 10:23) HPI Comprehensive Diabetes Asmnt Most Recent Diabetes Results: 2 Hemoglobin A1c 8.7 % 11/18/19 Microalb/Creat Ratio TNP 05/21/24 Cholesterol 124 mg/dL (<200) 05/21/24 HDL Cholesterol 38 mg/dL (>40) L 05/21/24 Triglycerides 248 mg/dL (<150) H 05/21/24 Creatinine 1.02 mg/dL (0.5-1.4) 05/21/24 Blood Urea Nitrogen 16 mg/dL (9-16) 05/21/24 Sodium 138 mmol/L (135-145) 05/21/24 Potassium 4.2 mmol/L (3.3-5.1) 05/21/24 Chloride 104 mmol/L (96-108) 05/21/24 Carbon Dioxide 25 mmol/L (22-29) 05/21/24 Calcium 9.3 mg/dL (8.4-10.2) 05/21/24 AST 26 U/L (5-37) 05/21/24 ALT 35 U/L (0-40) 05/21/24 Total Protein 7.6 g/dL (6.5-8.0) 05/21/24 Albumin 4.3 g/dL (3.5-5.0) 05/21/24 [facility] Medical History (Updated 05/25/24 @ 14:34 by Angella Montanez MD) Diabetes mellitus, with long-term current use of insulin Peripheral neuropathy Needle phobia Hypothyroidism Obesity (BMI 30.0-34.9) Nocturnal hypoxemia AZAM (obstructive sleep apnea) Mild CAD Skin lesion of scalp Tubular adenoma Mixed dyslipidemia Postoperative hypothyroidism Bifascicular block Lumbar spondylosis Failed back syndrome, cervical Vitamin D deficiency History of cocaine use Spondylosis of cervical joint without myelopathy Fibromyalgia Rheumatoid arthritis Obstructive sleep apnea Bilateral nephrolithiasis Bilateral carpal tunnel syndrome Opiate dependence Morbid obesity Cervical spondylosis with radiculopathy Type 2 diabetes mellitus with diabetic polyneuropathy, without long-term current use of insulin GERD without esophagitis Essential hypertension Surgical History History of esophagogastroduodenoscopy (EGD) Hx of colonoscopy Hx of thyroidectomy Hx of neck surgery History of carpal tunnel surgery Hx of cholecystectomy History of spinal surgery Herniated disc Family History Father No problems noted. Mother Diabetes mellitus HTN (hypertension) Brother No problems noted. Sister No problems noted. Social History Household Members: Spouse and Children Housing: House Alcohol intake: never Patient Tobacco Use Status: Former Tobacco user Tobacco use type: Cigarette Years Smoked: 10 yrs e-Cigarette/Vaping Use: Never Used Second Hand Smoke Exposure: No service: No Current occupational status: disabled Cognitive needs: No Hearing needs: No Vision needs: Yes Assessment & Plan Assessment & Plan (1) Type 2 diabetes mellitus with diabetic polyneuropathy, without long-term current use of insulin: Code(s): E11.42 - Type 2 diabetes mellitus with diabetic polyneuropathy Plan: Diabetes self-management education and support participation record Assessment/scale: 1= needs instructed? 2= needs review? 3= comprehend keep point? 4= demonstrates understanding/ competent? NC= Not Covered Topics Learning Objective: Initial visit Initial or post srvc Initial or post srvc Initial or post srvc Initial or post srvc Initial or post srvc Post srvc Comments Pre Edu-assessment/plan Outcome or reassess O utcome or reassess Outcome or reassess Outcome or reassess Outcome or reassess Outcome or reassess Diabetes pathophysiology 1 Healthy eating 2 Being active 1 Taking medication 2 Monitoring glucose 2 Acute complication 1 Chronic complicated 1 Lifestyle and healthy coping Diabetes distress in support ?Diabetes pathophysiology: ?Defined diabetes med identify own type of diabetes; list 3 options for treating diabetes Healthy eating: ?Described effect of type, amount and ?timing of food on blood glucose; list 3 methods for planning meal Being active: ?State effect of exercise on blood glucose level Taking medication: ?State effect of diabetes medications on diabetes; name diabetes medications taking, action and side effects Monitoring glucose: ?Identify recommended blood glucose targets and personal target Acute complication: ?List symptoms and treatment of hyper and hypoglycemia, DKA, sick day guidelines and guidelines for severe weather or situations of crisis and diabetes supply manage Chronic complication: ?To find the relationship of blood glucose levels to long- term complications of diabetes in screening and preventative measures Lifestyle and healthy coping: ?Described lifestyle and healthy coping strategies to rule out diabetes self-management Diabetes to stress and support: ?Recognize Diabetes to stress and be able to identified support options Learning objectives: The patient was provided with verbal and written education on the following topics as outlined below. The patient met all learning objectives and was able to verbalize understanding and provide teach back of education topics discussed . The patient was provided with the opportunity to ask questions and all questions were answered. Patient Assessment Assess patient education level/literacy/barriers, patient diagnosed with type 2 diabetes approximately 10 years ago. Last A1c on 05/21/2024 10.7% Patient is started on Raman 3+ sensor with phone paola proximally 3 weeks ago Patient questions/concerns: questioned carbohydrate portion size, and how high glucose relates to amputations. Current meds Trulicity 4.5 mg weekly Dapagliflozin 10 mg daily Metformin 1000 mg BID Lantus 15 units daily What is Diabetes? Pathophysiology How the body produces and uses insulin Identify type of DM Risk factors Signs of Diabetes Brief overview of Diabetes Management Monitoring blood sugar Following a meal plan Regular exercise Maintaining a healthy weight Taking medication as needed Members of the care team (PCP, RN, MA, RD, CDE, casing mixer) Blood glucose monitoring When/how often to test Target blood sugar ranges Patient's glucose has improved significantly since last A1c Introduction to Nutrition Importance of healthy diet in managing DM Diet is personalized to individual preference Review patient?s regular diet/food preferences Who prepares meals/does food shopping/ Dining out?/ Barriers? How diet effects glucose Eating 3 balanced meals a day with small, healthy snacks between meals Review food groups Carbohydrates: What is a carbohydrate/Which food/food groups are considered carbohydrates Effect of carbohydrates on blood glucose Portion sizes Reading food labels Basic carb counting (if applicable per nursing assessment) Plate method Meal planning Recommendations: Follow plate method, consistent carbs and read nutritional labels. Smart Goal: Patient will identify foods in current meal plan that contain carbohydrates between now and next visit Educational Materials: The patient was provided with the following written educational materials: Planning Healthy Meals Handout Patient Response to instructions: Comprehension of Instructions: Good Readiness to make changes: Contemplation How confident they feel about making changes: Positive Portions of this note were created using voice recognition software, please excuse any words or phrases that may have been misinterpreted. Patient Instructions: Incluir actividad diaria regular. ADA recomienda 30 minutos de ejercicio 5 d?as a la semana. P?rdida de peso, hable con el PCP o el cardi?logo antes de comenzar un nuevo plan. Mida el nivel de az?car en la antonina seg?n las indicaciones; Ayuno y comida m?s chilo de 2hpp. Observe las tendencias en los resultados. Utilice los resultados y eval?e c?mo los alimentos, la actividad f?esther y los medicamentos afectan los resultados de az?car en la antonina. Lleve el gluc?metro o CGM a la pr?xima visita. Conocer los medicamentos para la diabetes, reeves acci?n, los efectos secundarios, la eficacia, la toxicidad, la dosis prescrita, el momento y la frecuencia de administraci?n apropiados, el efecto de las dosis olvidadas y retrasadas y las instrucciones de almacenamiento, viaje y seguridad. T?cnicas de resoluci?n de problemas para el seguimiento de episodios de hipo/hiperglucemia y tratamientos. Reducir los comportamientos de reducci?n de riesgos, dejar de fumar, ex?menes regulares de ojos, pies y dentales. Coding Level of Care Code Est Pt Level 1 (72856) Diagnoses Type 2 diabetes mellitus with diabetic polyneuropathy, without long-term current use of insulin E11.42
== END 2024-07-22 10:04 | disposition home or self-care (01) ==
LOC: HO.ENCR 09:02
PROVIDERS: PCP Internal Medicine; Visit Provider Registered Nurse Diabetes Educator
DX: E11.42 Type 2 diabetes mellitus with diabetic polyneuropathy (principal)

== ENCOUNTER → 2024-07-22 09:01 | Outpatient (BNVA) | payer OTHER, SELFPAY | PROVIDERS: PCP Internal Medicine; Visit Provider Registered Nurse Diabetes Educator | DX: E11.42 Type 2 diabetes mellitus with diabetic polyneuropathy (principal) | CPT/HCPCS: 99211 ==

== ENCOUNTER 2024-07-23 13:16 | Outpatient (AMB) | payer OTHER, SELFPAY ==
--- NOTE | 2024-07-23 13:22 | MHC.OFFVIS ---
Intake Visit Reasons: 3m Intake Note: New Patient presents for initial visit for incontinence, frequency, and erectile dysfunction Urology Medications: none Blood Thinner: none PVR: 32ml's Sugar Chipper Machine Operator Required: No Sugar Chipper Machine Operator Services: Sugar Chipper Machine Operator Present Sugar Chipper Machine Operator Name: Dominic [id number] Accompanied by: Self / Same As Patient Allergies No Known Allergies Allergy (Verified 07/23/24 14:01) Medication List - Last Reconciled 07/23/24 by CHANDRIKA Wu blood sugar diagnostic (OneTouch Verio test strips) Test blood sugar twice per day blood sugar diagnostic (FreeStyle Lite Strips) As directed to check three times daily blood-glucose meter (OneTouch Verio Flex Meter) As directed to test blood sugars blood-glucose meter (FreeStyle Lite Meter kit) As directed to check three times daily blood-glucose sensor (FreeStyle Raman 3 Sensor device) As directed blood-glucose sensor (FreeStyle Raman 3 Sensor device) As directed blood-glucose,tool/die maker,cont (FreeStyle Raman 3 [place]) diagnosis: Type 2 DM, poor A1 , needle phobia and neuropathy bupropion HCl XL 300 mg PO DAILY dapagliflozin propanediol (Farxiga) 10 mg PO QAM dulaglutide (Trulicity) 4.5 mg (0.5 mL) subcut QWEEK insulin glargine (Lantus Solostar U-100 Insulin) 15 units (0.15 mL) subcut DAILY lancets (Onetouch Delica Safety Lancet) Test blood sugar twice per day lancets (FreeStyle Lancets) As directed to check three times daily levothyroxine 150 mcg PO DAILY 3 months lisinopril 20 mg PO DAILY lumateperone (Caplyta) 10.5 mg PO DAILY metformin 1,000 mg PO BID methocarbamol 500 mg PO TID 30 days metoprolol succinate ER 25 mg PO QAM multivitamin (One Daily Multivitamin tablet) 1 tab PO QAM nitroglycerin 0.4 mg sublingual ONCE PRN omeprazole 20 mg PO QAM pen needle, diabetic (Comfort EZ Pen [place]) As directed for injecting insulin once daily pregabalin 150 mg PO BID 30 days rosuvastatin 5 mg PO QPM sertraline 150 mg PO DAILY HPI Comments Details: Carlos is a 49-year-old Zimbabwean-speaking male patient of Dr. Mosqueda. He has a past medical history of type 2 diabetes, peripheral neuropathy, needle phobia, hypothyroidism, obesity, nocturnal hypoxemia, obstructive sleep apnea, mild CAD, mixed dyslipidemia, lumbar spondylosis, vitamin-D deficiency, fibromyalgia, rheumatoid arthritis, nephrolithiasis, carpal tunnel syndrome, opiate dependence, GERD, and hypertension. He presents to the office today for follow-up of his erectile dysfunction and lower urinary tract symptoms. In discussion with the patient today he reports he was not able to initiate prescription for p.r.n. dosing of tadalafil however he does plan to. He reports feeling lower urinary tract symptoms have somewhat improved as he has been attempting to better manage his diabetes. In office urinalysis results reviewed with the patient today. PVR 32 mL. We discussed potential causes of lower urinary tract symptoms patient was experiencing as well as further treatment options regarding erectile dysfunction and risks and benefits of these treatment options. He otherwise denies incontinence,hematuria, dysuria, foul smelling urine, changes to urinary stream, flank pain, fever, and or chills. In review of patient's chart it appears last A1c 05/05 10.2. PREVIOUS OFFICE NOTE: Urinary urgency and frequency Urinary frequency particularly nocturia Diabetic on Farxiga Well known side effects Suggest holding medication for one-week and observing of urgency frequency resolved Erectile dysfunction in setting of diabetes Progressive Discussed management [facility] Medical History Diabetes mellitus, with long-term current use of insulin Peripheral neuropathy Needle phobia Hypothyroidism Obesity (BMI 30.0-34.9) Nocturnal hypoxemia AZAM (obstructive sleep apnea) Mild CAD Skin lesion of scalp Tubular adenoma Mixed dyslipidemia Postoperative hypothyroidism Bifascicular block Lumbar spondylosis Failed back syndrome, cervical Vitamin D deficiency History of cocaine use Spondylosis of cervical joint without myelopathy Fibromyalgia Rheumatoid arthritis Obstructive sleep apnea Bilateral nephrolithiasis Bilateral carpal tunnel syndrome Opiate dependence Morbid obesity Cervical spondylosis with radiculopathy Type 2 diabetes mellitus with diabetic polyneuropathy, without long-term current use of insulin GERD without esophagitis Essential hypertension Surgical History History of esophagogastroduodenoscopy (EGD) Hx of colonoscopy Hx of thyroidectomy Hx of neck surgery History of carpal tunnel surgery Hx of cholecystectomy History of spinal surgery Herniated disc Family History Father No problems noted. Mother Diabetes mellitus HTN (hypertension) Brother No problems noted. Sister No problems noted. Social History Household Members: Spouse and Children Housing: House Alcohol intake: never Patient Tobacco Use Status: Former Tobacco user Tobacco use type: Cigarette Years Smoked: 10 yrs e-Cigarette/Vaping Use: Never Used Second Hand Smoke Exposure: No service: No Current occupational status: disabled Cognitive needs: No Hearing needs: No Vision needs: Yes Review of Systems Const Reports no additional complaints Eyes Reports no additional complaints ENT Reports no additional complaints Card Reports as per HPI Resp Reports as per HPI GI Reports as per HPI Reports as per HPI Musc Reports as per HPI Neuro Reports no additional complaints Psych Reports no additional complaints Endo Reports as per HPI Ryan/Lymph Reports no additional complaints Aller/Immun Reports no additional complaints Physical Exam Const General: cooperative, comfortable, no acute distress, well developed, alert and awake Orientation/consciousness: patient oriented x3 Limitations: language barrier HEENT Head: Yes normal to inspection, Yes normocephalic and Yes atraumatic Ears: hearing grossly normal bilaterally Eyes General: appearance normal, both eyes and all related structures Neck Neck: Yes normal visual inspection and Yes trachea midline Chest Chest palpation & inspection: normal inspection of the chest Resp Effort & Inspection: normal respiratory effort and able to speak in complete sentences Cardio Rate: regular rate GI Inspection: Yes normal to inspection General: Yes no CVA tenderness Back/Spine/Pelvis Back: no CVA tenderness Skin General skin exam: no rashes or lesions noted Neuro General: patient oriented x3 Extrem General: Yes normal to inspection Psych Appearance: grossly normal and well kempt Mental Status: mental status grossly normal Speech and movement: Normal speech and movement present and Clear speech present Affect: normal affect Attitude: cooperative Thought process: Normal thought process present Thought content: Normal thought content present Insight: Fair insight present (Psych) Judgement: Fair judgement present (Psych) Office Procedures Post Void Residual Post Residual Void Post Void Residual (PVR): 32 [address]8301-[id number] Void Residual by ultrasound Results AMB Urinalysis, Automated UA Leukoctes 0 Julieth/uL Last Edit by Eulalio Arias on 07/23/24 14:07 UA Nitrite Last Edit by Eulalio Arias on 07/23/24 14:07 UA Urobilinogen 0.2 mg/dL Last Edit by Eulalio Arias on 07/23/24 14:07 UA Protein 0 mg/dL Last Edit by Eulalio Arias on 07/23/24 14:07 UA pH 6.0 Last Edit by Eulalio Arias on 07/23/24 14:07 UA Blood 0 Ronny/uL Last Edit by Eulalio Arias on 07/23/24 14:07 UA Specific [place] 1.015 Last Edit by Eulalio Arias on 07/23/24 14:07 UA Ketone Last Edit by Eulalio Arias on 07/23/24 14:07 UA Bilirubin 0 mg/dL Last Edit by Eulalio Arias on 07/23/24 14:07 UA Glucose 1000 mg/dL Last Edit by Eulalio Arias on 07/23/24 14:07 Results Reviewed Results Reviewed: Laboratory Last Values Urine pH (Auto) 6.0 07/23/24 13:23 Specific [place] (Auto) 1.015 07/23/24 13:23 Urine Protein (Auto) 0 mg/dL 07/23/24 13:23 Glucose (UA)(Auto) 1000 mg/dL 07/23/24 13:23 Urine Blood (Auto) 0 Ronny/uL 07/23/24 13:23 Urine Bilirubin (Auto) 0 mg/dL 07/23/24 13:23 Urine Urobilinogen (Auto) 0.2 mg/dL 07/23/24 13:23 Leukocyte Esterase (Auto) 0 Julieth/uL 07/23/24 13:23 Assessment & Plan Assessment & Plan (1) Erectile dysfunction associated with type 2 diabetes mellitus: Code(s): E11.69 - Type 2 diabetes mellitus with other specified complication; N52.1 - Erectile dysfunction due to diseases classified elsewhere Category: Medical Plan In office urinalysis results reviewed with the patient today; as noted above. PVR 32 mL. We discussed at length potential causes of lower urinary tract symptoms patient was experiencing We discussed further treatment options of erectile dysfunction and risks and benefits of these treatment options. He will initiate daily dosing of tadalafil as recommended during last office visit with Dr. Mazariegos. He currently denies any bothersome urinary issues. We did discussed at length the importance of management and diabetes for improvement in lower urinary tract symptoms, erectile dysfunction, as well as overall health and well-being. Will obtain PSA and A1c for further assessment evaluation. Follow-up in 3 months with labs to be completed prior; or sooner with any issues, concerns, and or questions. Orders: Orders AMB Urinalysis Automated Today Z13.9 - Encounter for screening, unspecified AMB Post Void Residual by ultrasound Today R35.0 - Frequency of micturition Hemoglobin A1c Today E11.9 - Type 2 diabetes mellitus without complications Prostate Specific Antigen Today E11.69 - Type 2 diabetes mellitus with other specified complication, N52.1 - Erectile dysfunction due to diseases classified elsewhere Medications: Changed From tadalafil 10 mg PO DAILY 90 days 90 tabs 0RF Bladder instability E11.69 - Type 2 diabetes mellitus with other specified complication, N52.1 - Erectile dysfunction due to diseases classified elsewhere, R35.0 - Frequency of micturition To tadalafil [id number] [facility] [id number] Member [id number] 10 mg PO DAILY 90 days 90 tabs 0RF Bladder instability E11.69 - Type 2 diabetes mellitus with other specified complication, N52.1 - Erectile dysfunction due to diseases classified elsewhere, R35.0 - Frequency of micturition Patient Instructions: The patient had an opportunity to ask questions regarding the treatment plan. All questions were answered. Physical exam, labs, and imaging were discussed and reviewed in detail. As well as risks, benefits, and discussion of treatment choices. No major barriers to understanding were identified. The patient expressed understanding and agreement with the above treatment plan. The patient was made aware they should contact our office by phone for worsening of their current condition, the appearance of new symptoms, or with any questions or concerns. Compliance is encouraged with any medications and follow up testing that is ordered. It is a privilege to be allowed the opportunity to participate in? your urological care.? Again, if you have any questions or concerns If you have any questions or concerns please do not hesitate to contact me. The office is [phone]. This note is constructed using voice recognition software. While every effort has been made to ensure accuracy junior qa analyst errors may have been included. Yours sincerely, CHANDRIKA Wu Coding Level of Care Code Est Pt Level 3 (08772) Diagnoses Erectile dysfunction associated with type 2 diabetes mellitus E11.69; N52.1 CPT Codes Post Residual Void - PVR CPT Code: 81269-Vzzs Void Residual by ultrasound ([id number])
--- OUTSIDE RECORDS SUMMARY | 2024-07-23 13:51 | XMS_ITS | Encounter Summary ---
Author Organization [facility] [employer] [facility] Address [address] [place] [address] Care Team Providers Care Division Traffic Superintendent Name Role Phone Rika Keenan MD Primary Care Provider Drake Coleman NP Primary Care Provider Ev Evans Md, MD Primary Care Provider Unavailable Luba Mccain MD Unavailable [phone] Encounter Details Date Type Department Care Team Description 09/13/2014 Controlled Substance Contract with Plan Medical Records [address] [place] [id number] Abstract, Provider Social History Tobacco Use Types [...] on filedocumented in this encounter Care Teams Division Traffic Superintendent Relationship Specialty Start Date End Date Rika Keenan MD PCP - General Internal Medicine 07/13/14 03/10/16 Drake Rosado NP PCP - General Internal Medicine 03/11/16 01/08/21 Ev Mosqueda MD, MD PCP - General Internal Medicine 01/09/21 Luba Mccain MD [address] [facility] [address] [place] [address] Specialist Neurosurgery 05/02/21 documented as of this encounter
--- OUTSIDE RECORDS SUMMARY | 2024-07-23 13:51 | XMS_ITS | Encounter Summary ---
Author Organization [facility] [employer] [facility] Address [address] [place] [address] Care Team Providers Care Industrial Insulator Name Role Phone Rika Keenan MD Primary Care Provider Drake Coleman NP Primary Care Provider Ev Evans Md, MD Primary Care Provider Unavailable Luba Mccain MD Unavailable [phone] Encounter Details Date Type Department Care Team Description 01/14/2015 Transfer Records Medical Records [address] [place] [address] Social History Tobacco Use Types Packs/Day Years [...] on filedocumented in this encounter Care Teams Industrial Insulator Relationship Specialty Start Date End Date Rika Keenan MD PCP - General Internal Medicine 07/13/14 03/10/16 Drake Rosado NP PCP - General Internal Medicine 03/11/16 01/08/21 Ev Mosqueda MD, MD PCP - General Internal Medicine 01/09/21 Luba Mccain MD [address] [facility] [address] [place] [address] Specialist Neurosurgery 05/02/21 documented as of this encounter
--- OUTSIDE RECORDS SUMMARY | 2024-07-23 13:51 | XMS_ITS | Clinical Summary ---
Author Organization [facility] Address [address] [place] [address] Care Team Providers Care Heating And Ventilating Worker Name Role Phone Ev Mosqueda MD Primary Care Provider [phone] Social History Tobacco Use Types Packs/Day Years [...] age to complete this topic Care Teams Heating And Ventilating Worker Relationship Specialty Start Date End Date Ev Mosqueda MD [address] [place] [address] PCP - General Internal Medicine 05/19/18
--- OUTSIDE RECORDS SUMMARY | 2024-07-23 13:51 | XMS_ITS | Encounter Summary ---
Author Organization [employer] [facility] Address [address] [place] [address] Care Team Providers Care Piano Tuner Name Role Phone Drake Rosado NP Primary Care Provider Ev Evans Md, MD Primary Care Provider Unavailable Luba Mccain MD Unavailable [phone] Encounter Details Date Type Department Care Team Description 07/16/2016 [facility] Medical Records [address] [place] [id number] Abstract, Provider Social History Tobacco Use Types [...] on filedocumented in this encounter Care Teams Piano Tuner Relationship Specialty Start Date End Date Drake Rosado NP PCP - General Internal Medicine 03/11/16 01/08/21 Ev Mosqueda MD, MD PCP - General Internal Medicine 01/09/21 Luba Mccain MD [address] [facility] [address] [place] [address] Specialist Neurosurgery 05/02/21 documented as of this encounter
--- OUTSIDE RECORDS SUMMARY | 2024-07-23 13:51 | XMS_ITS | Encounter Summary ---
Author Organization [facility] Address [address] [place] [address] Care Team Providers Care Clipman Name Role Phone Rika Keenan MD Primary Care Provider Drake Coleman NP Primary Care Provider Ev Evans Md, MD Primary Care Provider Unavailable Luba Mccain MD Unavailable [phone] Encounter Details Date Type Department Care Team Description 02/22/2016 Transfer Records Medical Records [address] [place] [address] Social History Tobacco Use Types Packs/Day Years [...] on filedocumented in this encounter Care Teams Clipman Relationship Specialty Start Date End Date Rika Keenan MD PCP - General Internal Medicine 07/13/14 03/10/16 Drake Rosado NP PCP - General Internal Medicine 03/11/16 01/08/21 Ev Mosqueda MD, MD PCP - General Internal Medicine 01/09/21 Luba Mccain MD [address] [facility] [address] [place] [address] Specialist Neurosurgery 05/02/21 documented as of this encounter
--- OUTSIDE RECORDS SUMMARY | 2024-07-23 13:51 | XMS_ITS | Encounter Summary ---
Author Organization [facility] [employer] [facility] Address [address] [place] [address] Care Team Providers Care Line Lead Name Role Phone Rika Keenan MD Primary Care Provider Drake Coleman NP Primary Care Provider Ev Evans Md, MD Primary Care Provider Unavailable Luba Mccain MD Unavailable Encounter Details Date Type Department Care Team Description 09/27/2015 IS SUPPORT ANALYST/[facility] Report Medical Records [address] [place] [id number] Rika Keenan MD Social History Tobacco Use [...] on filedocumented in this encounter Care Teams Line Lead Relationship Specialty Start Date End Date Rika Keenan MD PCP - General Internal Medicine 07/13/14 03/10/16 Drake Rosado NP PCP - General Internal Medicine 03/11/16 01/08/21 Ev Mosqueda MD, MD PCP - General Internal Medicine 01/09/21 Luba Mccain MD [address] [facility] [address] [place] [address] Specialist Neurosurgery 05/02/21 documented as of this encounter
--- OUTSIDE RECORDS SUMMARY | 2024-07-23 13:51 | XMS_ITS | Encounter Summary ---
Author Organization [facility] [employer] [facility] Address [address] [place] [address] Care Team Providers Care Customer Success Intern Name Role Phone Ev Mosqueda Md, MD Primary Care Provider Unavailable Luba Mccain MD Unavailable [phone] Encounter Details Date Type Department Care Team Description 05/12/2021 Release of Information Medical Records [address] [place] [id number] Abstract, Provider Social History Tobacco Use Types [...] on filedocumented in this encounter Care Teams Customer Success Intern Relationship Specialty Start Date End Date Ev Mosqueda MD, MD PCP - General Internal Medicine 01/09/21 Luba Mccain MD [address] [facility] [address] [place] [address] Specialist Neurosurgery 05/02/21 documented as of this encounter
--- OUTSIDE RECORDS SUMMARY | 2024-07-23 13:51 | XMS_ITS | Encounter Summary ---
Author Organization [facility] [employer] [facility] Address [address] [place] [address] Care Team Providers Care Property Coordinator Name Role Phone Rkia Keenan MD Primary Care Provider Drake Coleman NP Primary Care Provider Ev Evans Md, MD Primary Care Provider Unavailable Luba Mccain MD Unavailable [phone] Encounter Details Date Type Department Care Team Description 03/21/2015 Wellness Visit Medical Records [address] [place] [id number] Rika Keenan MD Social History Tobacco Use [...] on filedocumented in this encounter Care Teams Property Coordinator Relationship Specialty Start Date End Date Rika Keenan MD PCP - General Internal Medicine 07/13/14 03/10/16 Drake Rosado NP PCP - General Internal Medicine 03/11/16 01/08/21 Ev Mosqueda MD, MD PCP - General Internal Medicine 01/09/21 Luba Mccain MD [address] [facility] [address] [place] [address] Specialist Neurosurgery 05/02/21 documented as of this encounter
--- OUTSIDE RECORDS SUMMARY | 2024-07-23 13:51 | XMS_ITS | Encounter Summary ---
Author Organization [facility] [employer] [facility] Address [address] [place] [address] Care Team Providers Care Melting Operator Name Role Phone Rika Keenan MD Primary Care Provider Drake Coleman NP Primary Care Provider Ev Evans Md, MD Primary Care Provider Unavailable Luba Mccain MD Unavailable [phone] Encounter Details Date Type Department Care Team Description 01/27/2016 [facility] Medical Records [address] [place] [id number] Abstract, Provider Social History Tobacco Use Types [...] on filedocumented in this encounter Care Teams Melting Operator Relationship Specialty Start Date End Date Rika Keenan MD PCP - General Internal Medicine 07/13/14 03/10/16 Drake Rosado NP PCP - General Internal Medicine 03/11/16 01/08/21 Ev Mosqueda MD, MD PCP - General Internal Medicine 01/09/21 Luba Mccain MD [address] [facility] [address] [place] [address] Specialist Neurosurgery 05/02/21 documented as of this encounter
--- OUTSIDE RECORDS SUMMARY | 2024-07-23 13:51 | XMS_ITS | Encounter Summary ---
Author Organization [facility] [facility] Address [address] [place] [address] Care Team Providers Care Jockey Agent Name Role Phone Drake Rosado NP Primary Care Provider Ev Evans Md, MD Primary Care Provider Unavailable Luba Mccain MD Unavailable [phone] Encounter Details Date Type Department Care Team Description 04/04/2016 [facility] Medical Records [address] [place] [id number] Abstract, Provider Social History Tobacco Use Types [...] on filedocumented in this encounter Care Teams Jockey Agent Relationship Specialty Start Date End Date Drake Rosado NP PCP - General Internal Medicine 03/11/16 01/08/21 Ev Mosqueda MD, MD PCP - General Internal Medicine 01/09/21 Luba Mccain MD [address] [facility] [address] [place] [address] Specialist Neurosurgery 05/02/21 documented as of this encounter
--- OUTSIDE RECORDS SUMMARY | 2024-07-23 13:51 | XMS_ITS | Clinical Summary ---
Author Organization [address] [place] [address] Address [address] [place] [address] Phone Care Team Providers Care Compliance Associate Name Role Phone Ev Mosqueda MD Primary [...] diabetes mellitus wit h renal manifestations, controlled ([facility] V24, [facility] V28) 11/17/2015 Hypertriglyceridemia 05/04/2015 Multiple [...] 2 diabetes mellitus wit h neurological manifestations ([facility] V24, [facility] V28) 07/28/2014 Type 2 diabetes mellitus ([facility] V24, [facility] V 28) 07/28/2014 Overview (03/09/2024): Type 2 diabetes, uncontrolled, with renal manifestation Encounters Date Type Department Care Team Description 06/29/2024 8:45 AM EDT Consult Orthopedic Surgery - [address] [address] Franco Means, JANET Arthritis of both feet (Primary Dx); Poorly controlled type 2 diabetes mellitus with neuropathy (CMS/HCC V24, CMS/HCC V28); Pain in both feet; Xerosis cutis; Lumbosacral radiculopathy; Dermatophytosis, nail from Last 3 Months Immunizations Name Administration Dates Next Due Hepatitis B (Oenbven-B-Hhpcu , Recombivax HB-Adult) 19yo and older 02/01/2010,08/30/2008,06/17/2006 Influenza trivalent, with pr eservative (Fluzone; Afluria) 6mo and older 12/03/2014 Pneumococcal polysaccharide 23 valent (Pneumovax 23) 2yo and older 06/17/2006 Tdap Tetanus diptheria acell ular pertussis (Boostrix; Adacel) 7yo and older 05/03/2015 Surgical History Surgery Date Site/Laterality Comments CARPAL TUNNEL RELEASE PROCEDURE: TN NEUROPLASTY &/TRANSPOS MEDIAN NRV CARPAL TUNNE; COMMENT: left CHOLECYSTECTOMY PROCEDURE: HISTORICAL CHOLECYSTECTOMY OTHER SURGICAL HISTORY PROCEDURE: TN STRTCTC STIMJ SPI CORD PRQ SPX N/FLWD [...] AM EDT Office Visit Orthopedic Surgery - [place] [address] [id number] Franco Means, JANET [address] [address] Health Maintenance Due Date Last Done Comments [...] * Annual BMP Blood Test (03/19/2016) Pathologist [facility] Annual BMP Blood Test abstracted us Historical Provider MD HEALTH MAINTENANCE Final Result * (ABNORMAL) Hemoglobin A1c (03/19/2016) Pathologist [facility] Hemoglobin A1C 7.9(A) 4.0 - 6.0 % Blood Venous blood specimen / Unknown Historical Provider LAB BLOOD ORDERABLES Lay l Result * (ABNORMAL) Lipid panel (03/19/2016) LDL/HDL Ratio 4 0 - 4 Triglycerides 279(A) 0 - 150 mg/dL Cholesterol 146 0 - 200 mg/dL HDL 39(A) >=40 mg/dL LDL Cholesterol 52 0 - 100 mg/dL Blood Venous blood specimen / Unknown [facility] Provider LAB BLOOD ORDERABLES Lay l Result * HM Urine Albumin Creatinine Ratio (11/15/2015) HM Urine Albumin Creatinine Ratio abstracted [facility] Provider HEALTH MAINTENANCE Final Result from Last 3 Months or Most Recently Relevant to Health Maintenance Insurance MEDICAID - [place] Care Teams Compliance Associate Relationship Specialty Start Date End Date Ev Mosqueda MD [address] [place] [address] PCP - General Internal Medicine 01/09/21
== END 2024-07-23 13:54 | disposition home or self-care (01) ==
LOC: HO.HUSH 13:17
PROVIDERS: PCP Internal Medicine; Visit Provider Nurse Practitioner Family
DX: Z13.9 Encounter for screening, unspecified (principal)

== ENCOUNTER → 2024-07-23 13:16 | Outpatient (BNVA) | payer OTHER, SELFPAY | PROVIDERS: PCP Internal Medicine; Visit Provider Nurse Practitioner Family | DX: E11.69 Type 2 diabetes mellitus with other specified complication (principal); N52.1 Erectile dysfunction due to diseases classified elsewhere; R35.0 Frequency of micturition; Z87.442 Personal history of urinary calculi | CPT/HCPCS: 51798; 81003; 99212 ==

== ENCOUNTER 2024-08-20 10:07 | Outpatient (AMB) | payer OTHER, SELFPAY ==
[2024-08-20 10:10] VITALS: BP 110/68; PULSE 76; BMI 30.4
--- NOTE | 2024-08-20 10:10 | MHC.OFFVIS ---
Vital Signs 08/20/24 10:10 Height 5 ft 10 in Weight 211 lb 10.3 oz BMI 30.4 BP 110/68 Blood Pressure Location Lt brachial Position Sitting Pulse 76 Pulse Source Pulse Oximeter Intake Visit Reasons: DM and hypothyroidism Intake Note: Patient present today for Type 2 Diabetes Mellitus and Hypothyroidism. Last Diabetic eye exam: 2024 Last Podiatry Visit: 05/2024 Random Glucose: 143 mg/dl HgA1C: 9.2% Alcohol Law Enforcement Agent Required: Yes Alcohol Law Enforcement Agent Language: County Supervisor Services: Alcohol Law Enforcement Agent Present Information Interpreted: non-clinical & clinical Accompanied by: Self / Same As Patient Allergies No Known Allergies Allergy (Verified 08/20/24 10:18) Medication List - Last Reconciled 08/20/24 by Angella Montanez MD blood sugar diagnostic (FloQastTouch Verio test strips) Test blood sugar twice per day blood sugar diagnostic (FreeStyle Lite Strips) As directed to check three times daily blood-glucose meter ([employer] Verio Flex Meter) As directed to test blood sugars blood-glucose meter (FreeStyle Lite Meter kit) As directed to check three times daily blood-glucose sensor (FreeStyle Raman 3 Sensor device) As directed blood-glucose sensor (FreeStyle Raman 3 Sensor device) As directed blood-glucose,emergency nurse,cont (FreeStyle Raman 3 [place]) diagnosis: Type 2 DM, poor A1 , needle phobia and neuropathy bupropion HCl XL 300 mg PO DAILY dapagliflozin propanediol (Farxiga) 10 mg PO QAM dulaglutide (Trulicity) 4.5 mg (0.5 mL) subcut QWEEK insulin glargine (Lantus Solostar U-100 Insulin) 15 units (0.15 mL) subcut DAILY lancets (PhotoTLCuch Delica Safety Lancet) Test blood sugar twice per day lancets (FreeStyle Lancets) As directed to check three times daily levothyroxine 150 mcg PO DAILY 3 months lisinopril 20 mg PO DAILY lumateperone (Caplyta) 10.5 mg PO DAILY metformin 1,000 mg PO BID methocarbamol 500 mg PO TID 30 days metoprolol succinate ER 25 mg PO QAM multivitamin (One Daily Multivitamin tablet) 1 tab PO QAM nitroglycerin 0.4 mg sublingual ONCE PRN omeprazole 20 mg PO QAM pen needle, diabetic (Comfort EZ Pen [place]) As directed for injecting insulin once daily pregabalin 150 mg PO BID 30 days rosuvastatin 5 mg PO QPM sertraline 150 mg PO DAILY tadalafil 10 mg PO DAILY 90 days HPI Comments Details: 48 YO M with a PMHx of a multinodular thyroid s/p total thyroidectomy May 30 with benign results who is seen in F/U for type 2 diabetes mellitus and postoperative hypothyroidism. Type 2 DM Has DM for about 10 years so around 2013 A1c July 2023 was 7.2 % per patient , this was by VNA at home a1c POC October 2023 9.9% A1c POC April 2024 10.2%. HgA1C: 10.7% 05/21/24 hba1c 9.2 % POC 08/20/24 Random Glucose: 143 mg/dl, ate this morning just coffee with cream Current meds Trulicity 4.5 mg weekly (saturday) no GI problems, increase in April 2024) Dapagliflozin 10 mg daily (urinates more often, no UTI/ yeast uinfections) Metformin 1000 mg BID Lantus 15 units daily Prior medications Discontinued in April due to change in regimen Actos 30 mg daily Glipizide 5 mg in AM and 10 mg in evening Freestyle Raman 3+ downloaded from August 07 to 08/20/2024 Time CGM active 93% Average glucose 176 mg/dL G OR 7.5% Glucose variability 18.2% Within target range 56% High 42% Very high 2% Low 0% Interpretation: Both fasting numbers noted to be elevated as well as some postprandial spikes. No hypoglycemia. Educator: Had an appointment 07/22/24 On lisinopril 20 mg daily in May 2024 labs showed GFR >60, creatinine normal, normal urine microalbumin Has neuropathy, on pregablin 150 mg BID feels doesnt really help No retinopathy, last eye visit March 2024 Last Podiatry Visit: Has upcoming appt next week On rosuvastatin 5 mg daily, LDL 37 from May 2024 No macrovascular complications BP at goal Doesnt work out much has a lot of back discomfort and arthritis Weight :lost only 5 lbs on Trulicty 3 mg weekly , lost 15 lbs since May 05 on 4.5 of Trulicyt but with some fluctuations up and down Eating: trying to control calories but still eating carb heavy meals alcohol : none No smoking Walking : 20 to 30 mins daily in the house Hypothyroidism HPI from prior visit Was initially diagnosed with multinodular thyroid many years ago, and was previously followed at [facility] for this. He had a prior biopsy of some of his nodules, but he does not recall which. He reports that these were benign. He underwent FNA biopsy by Dr. Villela 11/10/2020 of 4 nodules, with results detailed below: 1) RUP 1.5 cm thyroid nodule - Cytology benign (bethesda category II) 2) RMP 4.2 cm thyroid nodule - Cytology benign (bethesda category II) 3) LMP 2.5 cm thyroid nodule - Cytology benign (bethesda category II) 4) LMP 4.6 cm thyroid nodule - Cytology Atypia of Undetermined Signifigance ([place] Category III), Affirma benign. He was complaining of significant compressive symptoms, so he was referred to Dr. Marsh for a total thyroidectomy. This was completed 05/29/2021. Official surgical path was benign. Postoperative he was started on levothyroxine,was previously taking 137 mcg PO daily Currently taking levothyroxine 150 mcg daily, reports good compliance with this. TSH is WNL at 1.07 from May 2024. He denies any symptoms of hyper or hypothyroidism. Physical exam General: sitting comfortably in bed in no acute distress HEENT: normocephalic/atraumatic, moist oral mucosa Neck: supple, symmetrical, no thyromegaly , no dorsocervical or supraclavicular fat pads Cardiac: normal heart sounds Pulm: normal breath sounds B/L, no added breath sounds Abd: not distended, no tenderness Extremities: no edema, no signs of myxedema Neuro: AAO x3, Speech: normal, no facial droop, moving all 4 extremities Skin: no rash Foot exam: Checked April 2024 diminished sensation to monofilament, intact pulses, intact vibration Laboratory Tests 05/13/23 11/04/23 05/04/24 08:59 09:24 09:10 Glucose (Clinic) 213 H Hgb A1c (Clinic) 9.9 H TSH 1.11 Free T4 1.04 Laboratory Tests 06/05/22 07:13 Urine Creatinine 152.91 Urine Microalbumin 11.0 Microalb/Creat Ratio 7.1 Laboratory Tests 07/01/20 11/07/22 05/06/23 11:22 09:27 10:57 Plt Count 199 Creatinine Estimated GFR Hgb A1c (Clinic) 6.5 H 6.9 H AST ALT Triglycerides Cholesterol LDL Cholesterol, Calc HDL Cholesterol 05/13/23 08:59 Plt Count Creatinine 0.88 Estimated GFR > 60 Hgb A1c (Clinic) AST 24 ALT 28 Triglycerides 196 H Cholesterol 116 LDL Cholesterol, Calc 42 HDL Cholesterol 35 L Laboratory Tests 05/13/23 08:59 TSH 1.11 Free T4 1.04 Laboratory Tests 05/04/24 05/21/24 05/21/24 09:32 09:56 10:15 Plt Count Sodium Potassium Creatinine Estimated GFR Glucose (Clinic) POC Glucose Random Glucose 356 H* Hgb A1c (Clinic) 10.2 H AST ALT Triglycerides 248 H Cholesterol 124 LDL Cholesterol, Calc 37 HDL Cholesterol 38 L Beta-Hydroxybutyrate TSH 1.07 Urine Creatinine 39.13 Urine Microalbumin < 5.0 05/21/24 05/21/24 05/21/24 18:23 19:02 20:31 Plt Count 193 Sodium 138 Potassium 4.2 Creatinine 1.02 Estimated GFR > 60 Glucose (Clinic) POC Glucose 338 H 230 H Random Glucose 405 H* Hgb A1c (Clinic) AST 26 ALT 35 Triglycerides Cholesterol LDL Cholesterol, Calc HDL Cholesterol Beta-Hydroxybutyrate 0.13 TSH Urine Creatinine Urine Microalbumin 05/25/24 13:48 Plt Count Sodium Potassium Creatinine Estimated GFR Glucose (Clinic) 217 H POC Glucose Random Glucose Hgb A1c (Clinic) AST ALT Triglycerides Cholesterol LDL Cholesterol, Calc HDL Cholesterol Beta-Hydroxybutyrate TSH Urine Creatinine Urine Microalbumin [facility] Medical History Diabetes mellitus, with long-term current use of insulin Peripheral neuropathy Needle phobia Hypothyroidism Obesity (BMI 30.0-34.9) Nocturnal hypoxemia AZAM (obstructive sleep apnea) Mild CAD Skin lesion of scalp Tubular adenoma Mixed dyslipidemia Postoperative hypothyroidism Bifascicular block Lumbar spondylosis Failed back syndrome, cervical Vitamin D deficiency History of cocaine use Spondylosis of cervical joint without myelopathy Fibromyalgia Rheumatoid arthritis Obstructive sleep apnea Bilateral nephrolithiasis Bilateral carpal tunnel syndrome Opiate dependence Morbid obesity Cervical spondylosis with radiculopathy Type 2 diabetes mellitus with diabetic polyneuropathy, without long-term current use of insulin GERD without esophagitis Essential hypertension Surgical History History of esophagogastroduodenoscopy (EGD) Hx of colonoscopy Hx of thyroidectomy Hx of neck surgery History of carpal tunnel surgery Hx of cholecystectomy History of spinal surgery Herniated disc Family History Father No problems noted. Mother Diabetes mellitus HTN (hypertension) Brother No problems noted. Sister No problems noted. Social History Household Members: Spouse and Children Housing: House Alcohol intake: never Patient Tobacco Use Status: Former Tobacco user Tobacco use type: Cigarette Years Smoked: 10 yrs e-Cigarette/Vaping Use: Never Used Second Hand Smoke Exposure: No service: No Current occupational status: disabled Cognitive needs: No Hearing needs: No Vision needs: Yes Physical Exam Vital Signs: Last Vital Signs Pulse 76 08/20/24 10:10 BP 110/68 08/20/24 10:10 BMI result Body Mass Index 30.4 Office Procedures Glucose Monitoring Details Details: see [facility] [address] - Glucose monitoring, continuous-physician I&R Procedure code (CPT) selection complete Results AMB Hemoglobin A1c AMB Hemoglobin A1c 9.2 % Last Edit by JAKOB Jon on 08/20/24 10:33 Assessment & Plan Assessment & Plan (1) Diabetes mellitus, with long-term current use of insulin: Code(s): E11.9 - Type 2 diabetes mellitus without complications; Z79.4 - custodial (current) use of insulin Category: Medical Qualifiers: Diabetes mellitus complication detail: with polyneuropathy Diabetes mellitus complication status: with neurologic complications Diabetes mellitus type: type 2 Qualified Code(s): E11.42 - Type 2 diabetes mellitus with diabetic polyneuropathy; Z79.4 - heat treater head (current) use of insulin Plan: Patient with history of type 2 diabetes mellitus, with complications of neuropathy, without long-term insulin use coming in today for follow up. A. HBA1c improved to 9.2% from 10.7% in May 2024 . However CGM data also downloaded which shows much improvement in blood sugars which were previously in the 200s and 300s and now mostly in the 160s to 170s even though they are elevated. His G OR per CGM data is 7.5%. He is in target range 56% of the time. I did tell him about the improvement in his blood sugars with improved adherence to medications. At this time we will go up on the Lantus. He continues to have uncontrolled hyperglycemia, educated him about risks of uncontrolled hyperglycemia and complications both microvascular and macrovascular. in April I also increased his Trulicity to 4.5 mg weekly, he has not really lost much more weight on the Trulicity, if on follow up he continues to have elevated blood sugars in his weight has not budged at all, I will consider switching him to Ozempic. B:?Blood pressure is under adequate control, for renal protection in the setting of diabetes. Today he had a low reading, but this seems inaccurate, he denies any lightheadedness, dizziness. C:?LDL is 37 mg/dL from May 2024, which is at goal. Goal is less than 70. Triglycerides elevated at 248, these we will hopefully improve with better control of diabetes. D:?Diet control and healthy lifestyle was discussed in detail. Emphasis was made on exercise and physical activity in daily routine with at least 30-45 minutes of aerobic exercise 5-6 days a week. He has some limitation due to arthritis, and lumbar stenosis, asked him to do as much as possible. E: Last visit with skinner pelts was in March 2024, no retinopathy per patient. F: Foot care is suboptimal, has diminished sensation to monofilament. Already on pregabalin though that does not help him much. I counseled him that improved control of his diabetes will help with the neuropathy as well.. G: eGFR >60 and microalbumin/Cr ratio normal from May 2024. Plan: -continue Trulicity to 4.5 mg weekly -increase Lantus to 18 units daily -continue metformin 1000 mg b.i.d., , Farxiga 10 mg daily, -follow up with the educator -dietary and exercise counseling done as advised above -follow up in 8 weeks - (2) Hypothyroidism: Code(s): E03.9 - Hypothyroidism, unspecified Category: Medical Qualifiers: Hypothyroidism type: postoperative Qualified Code(s): E89.0 - Postprocedural hypothyroidism Plan: Status post total thyroidectomy for multinodular goiter in May 30, with benign pathology. Currently on levothyroxine 150 mcg daily, taking it appropriately. TSH was within normal limits from May 2024. Plan: -continue levothyroxine 150 mcg daily (3) Needle phobia: Code(s): F40.298 - Other specified phobia Category: Medical Plan: He has freestyle Raman, (4) Peripheral neuropathy: Code(s): G62.9 - Polyneuropathy, unspecified Category: Medical Qualifiers: Peripheral neuropathy type: polyneuropathy associated with underlying disease Qualified Code(s): G63 - Polyneuropathy in diseases classified elsewhere Plan: See above Plan I spent 30 minutes in reviewing the record, seeing the patient and documenting in the medical record. Orders: Orders AMB Hemoglobin A1c Today E11.42 - Type 2 diabetes mellitus with diabetic polyneuropathy, Z13.9 - Encounter for screening, unspecified, Z79.4 - custodial (current) use of insulin AMB Glucose Monitoring Today E11.42 - Type 2 diabetes mellitus with diabetic polyneuropathy, Z79.4 - heat treater head (current) use of insulin Medications: Changed From insulin glargine (Lantus Solostar U-100 Insulin) 15 units (0.15 mL) subcut DAILY 15 mL 5RF To insulin glargine (Lantus Solostar U-100 Insulin) 18 units (0.18 mL) subcut DAILY 15 mL 5RF Patient Instructions: Increase lantus to 18 units Rule of 15 Treatment for Hypoglycemia (Low blood sugar) If your blood glucose is low (70 and below)*, follow the steps below to treat: Eat or drink something from the list below equal to 15 grams of carbohydrate (carb). Rest for 15 minutes Re-check your blood glucose. If it is still low, (below 70), repeat step 1 above. ? If your next meal is more than an hour away, you will need to eat one carbohydrate choice as a snack to keep your blood glucose from going low again. ?If you can't figure out why you have low blood glucose, call your healthcare provider, as your medicine may need to be adjusted. ?Always carry something with you to treat an insulin reaction. Use food from the list below. ? Foods equal to One Carbohydrate Choice (15 grams of carbohydrate): 3 Glucose ?tablets or 4 Dextrose tablets 4 ounces of fruit juice 5-6 ounces (about 1/2 can) of regular soda such as Coke or Pepsi ? 7-8 gummy or regular Life Savers ? 1 Tbsp. of sugar or jelly NOTE: If your blood sugar is less than 50, double the portion above for a total of 30 gm. ?Carbohydrate. ? Follow meal plan of 45-60 g of consistent carbohydrates at 3 meals each day and 15 g of carbohydrate at 1-2 snacks each day. Coding Level of Care Code Est Pt Level 4 (83531) Diagnoses Type 2 diabetes mellitus with diabetic polyneuropathy, with long-term current use of insulin E11.42; Z79.4 Diabetes mellitus complication detail: with polyneuropathy Diabetes mellitus complication status: with neurologic complications Diabetes mellitus type: type 2 Postoperative hypothyroidism E89.0 Hypothyroidism type: postoperative Needle phobia F40.298 Polyneuropathy associated with underlying disease G63 Peripheral neuropathy type: polyneuropathy associated with underlying disease CPT Codes Details - CPT: 53565 - Glucose monitoring, continuous-physician I&R ([id number]) Time Spent (min) 30
[2024-08-20 10:26] LABS: Glucose, Whole Blood 143 mg/dL (60-115)
== END 2024-08-20 10:37 | disposition home or self-care (01) ==
LOC: HO.ENCR 10:08
PROVIDERS: PCP Internal Medicine; Visit Provider Student in an Organized Health Care Education/Training Program
DX: E11.42 Type 2 diabetes mellitus with diabetic polyneuropathy (principal); Z79.4 Long term (current) use of insulin; E89.0 Postprocedural hypothyroidism; F40.298 Other specified phobia; Z13.9 Encounter for screening, unspecified
CPT/HCPCS: 95251; 99214

== ENCOUNTER → 2024-08-20 10:07 | Outpatient (BNVA) | payer OTHER, SELFPAY | PROVIDERS: PCP Internal Medicine; Visit Provider Student in an Organized Health Care Education/Training Program | DX: E11.9 Type 2 diabetes mellitus without complications (principal); Z79.4 Long term (current) use of insulin | CPT/HCPCS: 82947; 83036; 99212 ==

== ENCOUNTER 2024-08-26 10:43 | Outpatient (AMB) | payer OTHER, SELFPAY ==
--- NOTE | 2024-08-26 10:52 | AM.OFFWIN_ITS ---
Intake Vital Signs 08/26/24 10:54 Height 5 ft 10 in Weight 213 lb BMI 30.6 BP 118/86 Blood Pressure Location Lt brachial Position Sitting Pulse 89 Pulse Source Pulse Oximeter Temp 98.5 F Temp Source Oral Pulse Oximetry (%) 98 Oxygen Delivery Method Room Air Intake Visit Reasons: EP-neck & elbow pain from a fall Intake Note: Pt presents to the office today for c/o falling down the stairs 3 days ago. Pt states he fell on his back and his left arm. Pt states he has been having pain since. Patient Tobacco Use Status: Former Tobacco user Allergies No Known Allergies Allergy (Verified 08/26/24 10:56) HPI HPI Comments History of Present Illness Details History of Present Illness - The patient is a 49-year-old male pres enting with evaluation of injuries following a fall down the stairs 3 days ago. - The patient fell on his back while ruchi cending 10 steps, resulting in pain in the left shoulder and elbow. - He denies any dizziness, lightheadedne ss or chest pain prior to the fall and he believes he fell because his shoes were wet and he slipped - He did not lose consciousness during t he fall and is not on any blood thinners. - He did not his head/neck area. - Pain is present in the left shoulder a nd elbow, with limited range of motion and tenderness noted. - The patient reports that [id number] ter medications such as ibuprofen and Tylenol have not alleviated the pain. - he did fall this past winter resulting in some back injuries but the pain he is experiencing now is more in his neck and left shoulder and is different from his previous injury - he does see pain management and he tel ls me he is not taking the methocarbamol anymore, he tells me his doctor at pain management stopped this medication. Physical Exam General: Cooperative, healthy appearing, comfortable, no acute distress and well developed Orientation: Patient oriented x3 Limitations: Limited range of motion in the left shoulder and elbow due to pain Head: Normal to inspection, no loss of consciousness reported after fall Ears: Hearing grossly normal bilaterally Face and sinus: Normal facial exam Eyes: Appearance normal, both eyes and all related structures Neck: Normal visual inspection, full ROM Respiratory: Normal respiratory effort and able to speak in complete sentences. Skin: No rashes or lesions noted Neuro: Patient oriented x3, CN 2-12 intact, gait normal Back/spine: Tenderness noted in the cervical spine, no TTP thoracic or lumbar spine, TTP paraspinous left side Extremities: left shoulder: + empty can, + pain with inversion and lift off, full ROM with pain, TTP AC, normal appearing arm, TTP lateral and medial epicondyles, full ROM left elbow, Full ROM left wrist, left hand full ROM and fingers full ROM NVI. [facility] Medical History Diabetes mellitus, with long-term current use of insulin Peripheral neuropathy Needle phobia Hypothyroidism Obesity (BMI 30.0-34.9) Nocturnal hypoxemia AZAM (obstructive sleep apnea) Mild CAD Skin lesion of scalp Tubular adenoma Mixed dyslipidemia Postoperative hypothyroidism Bifascicular block Lumbar spondylosis Failed back syndrome, cervical Vitamin D deficiency History of cocaine use Spondylosis of cervical joint without myelopathy Fibromyalgia Rheumatoid arthritis Obstructive sleep apnea Bilateral nephrolithiasis Bilateral carpal tunnel syndrome Opiate dependence Morbid obesity Cervical spondylosis with radiculopathy Type 2 diabetes mellitus with diabetic polyneuropathy, without long-term current use of insulin GERD without esophagitis Essential hypertension Surgical History History of esophagogastroduodenoscopy (EGD) Hx of colonoscopy Hx of thyroidectomy Hx of neck surgery History of carpal tunnel surgery Hx of cholecystectomy History of spinal surgery Herniated disc Family History Father No problems noted. Mother Diabetes mellitus HTN (hypertension) Brother No problems noted. Sister No problems noted. Social History Household Members: Spouse and Children Housing: House Alcohol intake: never Patient Tobacco Use Status: Former Tobacco user Tobacco use type: Cigarette Years Smoked: 10 yrs e-Cigarette/Vaping Use: Never Used Second Hand Smoke Exposure: No service: No Current occupational status: disabled Cognitive needs: No Hearing needs: No Vision needs: Yes Review of Systems Const All systems reviewed & are unremarkable except as noted in HPI and below Physical Exam Vital Signs: Last Vital Signs Temp 98.5 F 08/26/24 10:54 Pulse 89 08/26/24 10:54 BP 118/86 08/26/24 10:54 Pulse Ox 98 08/26/24 10:54 Oxygen Delivery Method Room Air 08/26/24 10:54 BMI result Body Mass Index 30.6 Assessment & Plan Assessment & Plan (1) Fall: Code(s): W19.XXXA - Unspecified fall, initial encounter Qualifiers: Encounter type: initial encounter Qualified Code(s): W19.XXXA - Unspecified fall, initial encounter Plan: Patient was informed and verbally consented to the use of an ambient scribe for clinic note documentation during this visit. 1. Left Shoulder Pain - Plan includes obtaining a shoulder x-ray to rule out dislocation or fracture. - A shoulder sling will be provided to immobilize and rest the shoulder. - Prescription of anti-inflammatory medication, avoiding NSAIDs, with Tylenol allowed. Also RX for muscle relaxer as he is no longer taking methocarbamol. 2. Left Elbow Pain - Plan includes obtaining an elbow x-ray to rule out dislocation or fracture. 3. Cervical Spine Pain - Plan includes obtaining a cervical spine x-ray to rule out dislocation or fracture. (2) Neck pain, acute: Code(s): M54.2 - Cervicalgia Plan: see above (3) Left shoulder pain: Code(s): M25.512 - Pain in left shoulder Qualifiers: Chronicity: acute Qualified Code(s): M25.512 - Pain in left shoulder Plan: see above (4) Left elbow pain: Code(s): M25.522 - Pain in left elbow Plan: see above Orders: Orders XR cervical spine min 6V Today M25.512 - Pain in left shoulder, M25.522 - Pain in left elbow, M54.2 - Cervicalgia, W19.XXXA - Unspecified fall, initial encounter XR shoulder LT min 2V Today M25.512 - Pain in left shoulder, M25.522 - Pain in left elbow, M54.2 - Cervicalgia, W19.XXXA - Unspecified fall, initial encounter XR elbow LT min 3V Today M25.512 - Pain in left shoulder, M25.522 - Pain in left elbow, M54.2 - Cervicalgia, W19.XXXA - Unspecified fall, initial encounter Medications: New cyclobenzaprine 10 mg (2 x 5 mg) PO Q8H PRN 20 tabs 0RF Muscle Spasm meloxicam 15 mg PO DAILY PRN 15 tabs 0RF pain, moderate Discontinued methocarbamol Discontinued Reason: Doctor's Order 500 mg PO TID 30 days 90 tabs 6RF Coding Level of Care Code Est Pt Level 4 (35718) Diagnoses Fall, initial encounter W19.XXXA Encounter type: initial encounter Neck pain, acute M54.2 Acute pain of left shoulder M25.512 Chronicity: acute Left elbow pain M25.522
[2024-08-26 10:54] VITALS: BP 118/86; PULSE 89; TEMP 36.9; O2SAT 98; BMI 30.6
--- OUTSIDE RECORDS SUMMARY | 2024-08-26 12:17 | XMS_ITS | Encounter Summary ---
Author Organization [facility] Address [address] [place] [address] Care Team Providers Care Conference Services Director Name Role Phone Rika Keenan MD Primary Care Provider Drake Coleman NP Primary Care Provider Ev Evans Md, MD Primary Care Provider Unavailable Luba Mccain MD Unavailable [phone] Encounter Details Date Type Department Care Team Description 01/27/2016 [facility] Medical Records [address] [place] [id number] Abstract, Provider Social History Tobacco Use Types [...] on filedocumented in this encounter Care Teams Conference Services Director Relationship Specialty Start Date End Date Rika Keenan MD PCP - General Internal Medicine 07/13/14 03/10/16 Drake Rosado NP PCP - General Internal Medicine 03/11/16 01/08/21 Ev Mosqueda MD, MD PCP - General Internal Medicine 01/09/21 Luba Mccain MD [address] [facility] [address] [place] [address] Specialist Neurosurgery 05/02/21 documented as of this encounter
== END 2024-08-26 11:26 | disposition home or self-care (01) ==
PROVIDERS: PCP Internal Medicine; Visit Provider Physician Assistant
DX: M54.2 Cervicalgia (principal); M25.512 Pain in left shoulder; M25.522 Pain in left elbow; W19.XXXA Unspecified fall, initial encounter

== ENCOUNTER 2024-08-26 11:19 | Outpatient (REF) | payer OTHER, SELFPAY ==
--- NOTE | ~2024-08-26 | XR_ITS ---
EXAMINATION: XR CERVICAL SPINE CLINICAL INFORMATION: W19.XXXA - Unspecified fall, initial encounter COMPARISON: October 14, 2023. TECHNIQUE: AP, lateral and atlantoodontoid views. FINDINGS: Craniocervical junction is intact. Well-corticated calcifications in the inferior anterior vertebral bodies of C4-C5. Small to moderate-sized marginal osteophyte formation and/syndesmophyte formation C5-6 C7-T1. Metallic plate at C6-7 with intervertebral discs spacer placed resulting in arthrodesis. No acute cortical disruption or gross malalignment. No lytic or blastic lesions. Rudimentary rib on the left T1. XR/XR cervical spine 3V IMPRESSION: Multilevel cervical spondylosis without acute fracture or trauma-related listhesis. Overall no gross change. Electronically signed by: Alistair Lira MD 08/26/2024 12:12 PM EDT
--- NOTE | ~2024-08-26 | XR_ITS ---
EXAMINATION: XR ELBOW, LEFT CLINICAL INFORMATION: M54.2 - Cervicalgia COMPARISON: July 26, 2010. TECHNIQUE: AP, lateral, and oblique views of the left elbow. FINDINGS: No acute cortical disruption or malalignment. No lytic or blastic lesions. No gross joint effusion. No subcutaneous emphysema. No metallic or radiopaque foreign body. XR/XR elbow LT min 3V IMPRESSION: No acute fracture or dislocation. Negative exam. Electronically signed by: Alistair Lira MD 08/26/2024 12:10 PM EDT
--- NOTE | ~2024-08-26 | XR_ITS ---
EXAMINATION: XR SHOULDER, LEFT CLINICAL INFORMATION: M54.2 - Cervicalgia COMPARISON: July 26, 2010 TECHNIQUE: AP and lateral views of the left shoulder. FINDINGS: No acute cortical disruption or malalignment. No lytic or blastic lesions. XR/XR shoulder LT min 2V IMPRESSION: No acute fracture or dislocation. Negative exam. Electronically signed by: Alistair Lira MD 08/26/2024 12:09 PM EDT
== END 2024-08-26 11:20 | disposition home or self-care (01) ==
LOC: HO.HMGCX 11:19
PROVIDERS: PCP Internal Medicine; Visit Provider Physician Assistant
DX: M25.522 Pain in left elbow (principal); M25.512 Pain in left shoulder; M54.2 Cervicalgia; W19.XXXA Unspecified fall, initial encounter
CPT/HCPCS: 72040; 73030; 73080; 99212

== ENCOUNTER → 2024-08-26 11:31 | Outpatient (BNV) | payer OTHER, SELFPAY | PROVIDERS: PCP Internal Medicine; Visit Provider Radiology Diagnostic Radiology | DX: M47.812 Spondylosis without myelopathy or radiculopathy, cervical region (principal); M54.2 Cervicalgia; M25.522 Pain in left elbow | CPT/HCPCS: 72040; 73030; 73080 ==

== ENCOUNTER 2024-09-02 13:17 | Outpatient (AMB) | payer OTHER, SELFPAY ==
--- NOTE | 2024-09-02 13:30 | A.OFFVIS_ITS ---
Vital Signs 09/02/24 13:39 Height 5 ft 10 in Weight 213 lb BMI 30.6 BP 110/70 Blood Pressure Location Rt brachial Position Sitting Pulse 90 Pulse Source Pulse Oximeter Pulse Oximetry (%) 97 Oxygen Delivery Method Room Air Intake Visit Reasons: Gastroesophageal reflux disease (GERD) Intake Note: ESTABLISHED PATIENT for GERD mgmt. Re-Est. RHONA 2023. CC; Pt denies any GI sx or concerns at this time. Door Furring Installer Required: Yes Door Furring Installer Services: Door Furring Installer Offered & Declined Accompanied by: Self / Same As Patient Allergies No Known Allergies Allergy (Verified 09/02/24 13:30) HPI HPI Gastroesophageal reflux disease (GERD): Details: LAST VISIT: GERD without esophagitis Gastritis Plan Patient can continue omeprazole. Patient is tolerating this well and has no symptoms. There are times when he does not take it and still feels well. PCP can prescribe that. Patient will be seen in the office as needed. He is agreeable to this plan and verbalizes understanding of instructions. He was given the opportunity to ask questions and all questions answered. ? Thank you for allowing me to participate in his care Medications Refilled omeprazole 20 mg PO QAM 90 caps 1RF TODAY'S VISIT: Patient is here today for requested visit. Patient reports that he has been feeling fine. Taking omeprazole every morning. Trouble regulating his blood sugar. Patient now has [employer] Raman sensor device to monitor his blood sugar. Patient reports that he only had coffee this morning and this afternoon his blood sugar reads 200. Patient reports that he chews gum all the time due to his anxiety. Currently he is on Farxiga, Trulicity, Lantus and metformin. Patient denies dyspepsia, dysphagia or odynophagia. Moves his bowels without any issues. Denies melena, hematochezia, unintentional weight loss or ribbon like stools. Patient is due to go for colonoscopy in 2027 [facility] Medical History Diabetes mellitus, with long-term current use of insulin Peripheral neuropathy Needle phobia Hypothyroidism Obesity (BMI 30.0-34.9) Nocturnal hypoxemia AZAM (obstructive sleep apnea) Mild CAD Skin lesion of scalp Tubular adenoma Mixed dyslipidemia Postoperative hypothyroidism Bifascicular block Lumbar spondylosis Failed back syndrome, cervical Vitamin D deficiency History of cocaine use Spondylosis of cervical joint without myelopathy Fibromyalgia Rheumatoid arthritis Obstructive sleep apnea Bilateral nephrolithiasis Bilateral carpal tunnel syndrome Opiate dependence Morbid obesity Cervical spondylosis with radiculopathy Type 2 diabetes mellitus with diabetic polyneuropathy, without long-term current use of insulin GERD without esophagitis Essential hypertension Surgical History History of esophagogastroduodenoscopy (EGD) Hx of colonoscopy Hx of thyroidectomy Hx of neck surgery History of carpal tunnel surgery Hx of cholecystectomy History of spinal surgery Herniated disc Family History Father No problems noted. Mother Diabetes mellitus HTN (hypertension) Brother No problems noted. Sister No problems noted. Social History Household Members: Spouse and Children Housing: House Alcohol intake: never Patient Tobacco Use Status: Former Tobacco user Tobacco use type: Cigarette Years Smoked: 10 yrs e-Cigarette/Vaping Use: Never Used Second Hand Smoke Exposure: No service: No Current occupational status: disabled Cognitive needs: No Hearing needs: No Vision needs: Yes Physical Exam Vital Signs: Last Vital Signs Pulse 90 09/02/24 13:39 BP 110/70 09/02/24 13:39 Pulse Ox 97 09/02/24 13:39 Oxygen Delivery Method Room Air 09/02/24 13:39 BMI result Body Mass Index 30.6 Assessment & Plan Assessment & Plan (1) GERD without esophagitis: Code(s): K21.9 - Gastro-esophageal reflux disease without esophagitis Category: Medical Plan Patient will continue taking omeprazole daily. Avoid dietary triggers and late night snacking. Staying upright for minimum 3 hours after meals discussed with patient. Patient will follow-up as needed. Patient will call if he will have any GI concerning symptoms. Patient is agreeable to plan of care and verbalizes understanding of instructions. He was given the opportunity to ask questions and all questions answered. Thank you for allowing me to participate in his care Medications: Refilled omeprazole 20 mg PO QAM 90 caps 3RF Coding Level of Care Code Est Pt Level 3 (89568) Diagnoses GERD without esophagitis K21.9 Time Spent (min) 25 Comment 15 minutes spent with patient and additional 10 minutes spent reviewing his records
[2024-09-02 13:39] VITALS: BP 110/70; PULSE 90; O2SAT 97; BMI 30.6
== END 2024-09-02 14:30 | disposition home or self-care (01) ==
LOC: HO.HGI 13:17
PROVIDERS: PCP Internal Medicine; Visit Provider Nurse Practitioner Family
DX: K21.9 Gastro-esophageal reflux disease without esophagitis (principal)
CPT/HCPCS: 99213

== ENCOUNTER → 2024-09-02 13:17 | Outpatient (BNVA) | payer OTHER, SELFPAY | PROVIDERS: PCP Internal Medicine; Visit Provider Nurse Practitioner Family | DX: K21.9 Gastro-esophageal reflux disease without esophagitis (principal) | CPT/HCPCS: 99212 ==

== ENCOUNTER 2024-10-15 07:42 | Outpatient (AMB) | payer OTHER, SELFPAY ==
--- NOTE | 2024-10-15 07:56 | A.OFFVIS_ITS ---
Intake Intake Visit Reasons: 60 min Radio Time Salesperson Required: Yes Radio Time Salesperson Language: Industrial Accountant Name: Julia [phone] Accompanied by: Self / Same As Patient Allergies No Known Allergies Allergy (Verified 09/02/24 13:30) [facility] Medical History Diabetes mellitus, with long-term current use of insulin Peripheral neuropathy Needle phobia Hypothyroidism Obesity (BMI 30.0-34.9) Nocturnal hypoxemia AZAM (obstructive sleep apnea) Mild CAD Skin lesion of scalp Tubular adenoma Mixed dyslipidemia Postoperative hypothyroidism Bifascicular block Lumbar spondylosis Failed back syndrome, cervical Vitamin D deficiency History of cocaine use Spondylosis of cervical joint without myelopathy Fibromyalgia Rheumatoid arthritis Obstructive sleep apnea Bilateral nephrolithiasis Bilateral carpal tunnel syndrome Opiate dependence Morbid obesity Cervical spondylosis with radiculopathy Type 2 diabetes mellitus with diabetic polyneuropathy, without long-term current use of insulin GERD without esophagitis Essential hypertension Surgical History History of esophagogastroduodenoscopy (EGD) Hx of colonoscopy Hx of thyroidectomy Hx of neck surgery History of carpal tunnel surgery Hx of cholecystectomy History of spinal surgery Herniated disc Family History Father No problems noted. Mother Diabetes mellitus HTN (hypertension) Brother No problems noted. Sister No problems noted. Social History Household Members: Spouse and Children Housing: House Alcohol intake: never Patient Tobacco Use Status: Former Tobacco user Tobacco use type: Cigarette Years Smoked: 10 yrs e-Cigarette/Vaping Use: Never Used Second Hand Smoke Exposure: No service: No Current occupational status: disabled Cognitive needs: No Hearing needs: No Vision needs: Yes Assessment & Plan Assessment & Plan (1) Type 2 diabetes mellitus with diabetic polyneuropathy, without long-term current use of insulin: Code(s): E11.42 - Type 2 diabetes mellitus with diabetic polyneuropathy Plan: Diabetes self-management education and support participation record Assessment/scale: 1= needs instructed? 2= needs review? 3= comprehend keep point? 4= demonstrates understanding/ competent? NC= Not Covered Topics Learning Objective: Initial visit Initial or post srvc Initial or post srvc Initial or post srvc Initial or post srvc Initial or post srvc Post srvc Comments Pre Edu-assessment/plan Outcome or reassess O utcome or reassess Outcome or reassess Outcome or reassess Outcome or reassess Outcome or reassess Diabetes pathophysiology 1 3 Healthy eating 2 3 Being active 1 3 Taking medication 2 3 Monitoring glucose 2 3 Acute complication 1 3 Chronic complicated 1 Lifestyle and healthy coping 1 Diabetes distress in support 1 ?Diabetes pathophysiology: ?Defined diabetes med identify own type of diabetes; list 3 options for treating diabetes Healthy eating: ?Described effect of type, amount and ?timing of food on blood glucose; list 3 methods for planning meal Being active: ?State effect of exercise on blood glucose level Taking medication: ?State effect of diabetes medications on diabetes; name diabetes medications taking, action and side effects Monitoring glucose: ?Identify recommended blood glucose targets and personal target Acute complication: ?List symptoms and treatment of hyper and hypoglycemia, DKA, sick day guidelines and guidelines for severe weather or situations of crisis and diabetes supply manage Chronic complication: ?To find the relationship of blood glucose levels to long- term complications of diabetes in screening and preventative measures Lifestyle and healthy coping: ?Described lifestyle and healthy coping strategies to rule out diabetes self-management Diabetes to stress and support: ?Recognize Diabetes to stress and be able to identified support options Plan Learning objectives: The patient was provided with verbal and written education on the following topics as outlined below. Assess patient education level/literacy/barriers, patient complains of having a headache for the last 3 weeks, plus shoulder and back pain. Encourage patient to contact PCP regarding pain. Also discussed with patient fix that pain can have on glucose numbers. Patient feels other providers such as PCP and pain management clinic, do not support the we patient feels Encourage patient to advocate for himself, with healthcare providers in order to get treatment he needs Recommended to patient he increase Lantus from 20 units daily to 26 units daily, after 3 days if fasting glucose is above 150 mg/dL increase Lantus again to 28 units Follow-up with Dr. Montanez to discuss transitioning from Trulicity 4.5 mg to Ozempic Patient questions/concerns The patient met all learning objectives and was able to verbalize understanding and provide teach back of education topics discussed . The patient was provided with the opportunity to ask questions and all questions were answered. Topics covered in today?s session included: Medications (If applicable) * Name of medication? * Dosing/administration instructions? * Mechanism of action? * Potential side effects? * Potential adverse reaction and appropriate treatment? * Review onset, peak, duration Assess for concerns re: insurance coverage, cost, barriers to compliance Insulin/Injectables (If applicable) * Storage/care of insulin?? * Injection sites? * Site rotation? * Onset, peak, duration * Drawing up insulin? * Injecting insulin/other injectables? * Sharps disposal Continuous blood glucose monitoring (if applicable) Hypoglycemia and Hyperglycemia * Signs and symptoms? * Causes?? * Treatment? * Preventing hypoglycemia? * When to seek medical attention Target Goals: * Blood glucose targets and how you feel when your blood glucose is in and out of your target ranges. * Monitoring and knowing your A1C. * What can make blood glucose go up and down and preventing high and low blood glucose. * Review of blood sugar targets in expected goal range and outside of expected goal range. * Problem solving and preventing hyper/hypoglycemia. * Sick day management of diabetes. * Using blood sugar results in decision making process in managing diabetes. ?Patient was receptive to information provided and participated in the discussion. Asked?appropriate questions and demonstrated good understanding of the topics discussed.? ? Educational Materials: The patient was provided with the following written educational materials: Target Goal handout Smart Goal Assessment:? Patient will identify foods that contain carbohydrates in current meal plan between now and next visit Pt met goal 75% New Smart Goal: Increase Lantus from 20 units to 26 units, after 3 days if fasting glucose is still above 150 mg/dL increase to 28 units. Patient Response to instructions: Comprehension of Instructions: Readiness to make changes:? How confident they feel about making changes: Portions of this note were created using voice recognition software, please excuse any words or phrases that may have been misinterpreted. Patient Instructions: Aumente la dosis de Lantus de 20 a 26 unidades. Si la glucosa en ayunas sigue siendo superior a 150 mg/dl, aumente la dosis a 28 unidades despu?s de 3 d?as. Consulte con el Dr. Montanez para hablar sobre la comparaci?n entre Ozempic y Trulicity. Coding Level of Care Code Est Pt Level 1 (51503) Diagnoses Type 2 diabetes mellitus with diabetic polyneuropathy, without long-term current use of insulin E11.42
== END 2024-10-15 08:40 | disposition home or self-care (01) ==
PROVIDERS: PCP Internal Medicine; Visit Provider Registered Nurse Diabetes Educator
DX: E11.42 Type 2 diabetes mellitus with diabetic polyneuropathy (principal)

== ENCOUNTER → 2024-10-15 07:42 | Outpatient (BNVA) | payer OTHER, SELFPAY | PROVIDERS: PCP Internal Medicine; Visit Provider Student in an Organized Health Care Education/Training Program | DX: E11.42 Type 2 diabetes mellitus with diabetic polyneuropathy (principal) | CPT/HCPCS: 99211 ==

== ENCOUNTER 2024-10-19 09:08 | Outpatient (REF) | payer OTHER, SELFPAY ==
--- NOTE | ~2024-10-19 | XR_ITS ---
EXAMINATION: XR SHOULDER, RIGHT CLINICAL INFORMATION: M25.511 - Pain in right shoulder COMPARISON: None available. TECHNIQUE: AP external rotation, Grashey, scapular Y, and axillary views of the right shoulder. FINDINGS: Degenerative changes in the acromioclavicular joint, glenohumeral joint and the greater tuberosity. No acute cortical disruption or malalignment. No calcifications in the soft tissues. No lytic or blastic lesions. XR/XR shoulder RT min 2V IMPRESSION: Mild osteoarthritis/osteoarthrosis without acute fracture or dislocation. Electronically signed by: Alistair Lira MD 10/19/2024 12:00 PM EDT
[2024-10-19 14:08] LABS: Alanine Aminotransferase 51 U/L (0-40); Anion Gap 14 (12-20); Aspartate Amino Transferase 34 U/L (5-37); Blood Urea Nitrogen 21 mg/dL (9-16); Calcium 9.6 mg/dL (8.4-10.2); Carbon Dioxide 27 mmol/L (22-29); Chloride 106 mmol/L (96-108); Cholesterol 140 mg/dL (<200); Estimated Glomerular Filt Rate > 60; HDL Cholesterol 37 mg/dL (>40); Potassium 4.6 mmol/L (3.3-5.1); Sodium 142 mmol/L (135-145); Triglycerides 285 mg/dL (<150)
== END 2024-10-19 09:09 | disposition home or self-care (01) ==
LOC: HO.HMGCX 09:08
PROVIDERS: PCP Internal Medicine; Visit Provider Internal Medicine
DX: I10 Essential (primary) hypertension (principal); E78.2 Mixed hyperlipidemia; M25.511 Pain in right shoulder; R42 Dizziness and giddiness; E11.42 Type 2 diabetes mellitus with diabetic polyneuropathy; Z79.899 Other long term (current) drug therapy
CPT/HCPCS: 36415; 73030; 80048; 80061; 84450; 84460; 99212

== ENCOUNTER 2024-10-19 09:08 | Outpatient (AMB) | payer MEDICARE, OTHER, SELFPAY ==
--- OUTSIDE RECORDS SUMMARY | 2024-10-19 09:36 | XMS_ITS | Clinical Summary ---
Author Organization [facility] Address [address] [place] [address] Care Team Providers Care Salad Counter Attendant Name Role Phone Ev Mosqueda MD Primary Care Provider [phone] Social History Tobacco Use Types Packs/Day Years [...] Evaluation 1992 Colon Cancer Screening (Colonoscopy) 06/06/2019 Shingrix-Zoster Vaccine (1 of 2) 2024 Influenza Vaccine (#1) 2024 12/03/2014 DTap / Tdap / Td (2 - Td or Tdap) 05/03/2025 016 Pneumococcal Vaccine Aged Out 06/17/2006 No long er eligible based on patient's age to complete this topic RSV Ped < 20 months Aged Out No longe r eligible based on patient's age to complete this topic Care Teams Salad Counter Attendant Relationship Specialty Start Date End Date Ev Mosqueda MD [address] [place] [address] PCP - General Internal Medicine 05/19/18
--- OUTSIDE RECORDS SUMMARY | 2024-10-19 09:36 | XMS_ITS | Clinical Summary ---
Author Organization [address] [facility] Address [address] [place] [address] Phone Care Team Providers Care Sex Therapist Name Role Phone Ev Mosqueda MD Primary Care Provider [phone] Allergies No known active allergies Medications traMADoL [...] for this and ruled out for an [place], he now attributes it to his fibromyalgia. [...] diabetes mellitus wit h renal manifestations, controlled ([facility] V24, [facility] V28) 11/17/2015 Hypertriglyceridemia 05/04/2015 [...] 2 diabetes mellitus wit h neurological manifestations ([facility] V24, [facility] V28) 07/28/2014 Type 2 diabetes mellitus ([facility] V24, [facility] V 28) 07/28/2014 Overview (03/09/2024): Type 2 diabetes, uncontrolled, with renal manifestation Encounters Date Type Department Care Team Description 08/31/2024 8:30 AM EDT Office Visit Orthopedic Surgery - [address] [address] Franco Means, JANET Poorly controlled type 2 diabetes mellitus with neuropathy (CMS/HCC V24, CMS/HCC V28) (Primary Dx); Arthritis of both feet; Pain in both feet; Lumbosacral radiculopathy; Dermatophytosis, nail from Last 3 Months Immunizations Name Administration Dates Next Due Hepatitis B (Jvnszzc-F-Ygoob , Recombivax HB-Adult) 19yo and older 02/01/2010,08/30/2008,06/17/2006 Influenza trivalent, with pr eservative (Fluzone; Afluria) 6mo and older 12/03/2014 Pneumococcal polysaccharide 23 valent (Pneumovax 23) 2yo and older 06/17/2006 Tdap Tetanus diptheria acell ular pertussis (Boostrix; Adacel) 7yo and older 05/03/2015 Surgical History Surgery Date Site/Laterality Comments CARPAL TUNNEL RELEASE PROCEDURE: [place] NEUROPLASTY &/TRANSPOS MEDIAN NRV CARPAL TUNNE; COMMENT: left CHOLECYSTECTOMY PROCEDURE: HISTORICAL CHOLECYSTECTOMY OTHER SURGICAL HISTORY PROCEDURE: [place] STRTCTC STIMJ SPI CORD PRQ SPX N/FLWD [...] Sexual Orientation Not on file Obstetrics History Last Filed Vital Signs Vital Sign Reading Time Taken Comments Blood Pressure - - Pulse - - Temperature - - Respiratory Rate - - Oxygen Saturation - - Inhaled Oxygen Concentration - - Weight 95.7 kg (211 lb) 08/31/2024 8:43 AM EDT Height 177.8 cm (5' 10 ) 08/31/2024 8:43 AM EDT Body Mass Index 30.28 08/31/2024 8:43 AM EDT Plan of Treatment Upcoming Encounters Date Type Department Care Team (Late st Contact Info) Description 11/02/2024 9:00 AM EDT Office Visit Orthopedic Surgery - [place] [id number] [address] Franco Means, JANET [address] [address] Health Maintenance Due Date Last Done Comments Diabetes: Annual Foot Exam 1984 Diabetes: Annual Retina Eye Exam 1984 Pneumococcal Vaccine: 50+ Years (2 of 2 - PCV) 08/10/2007 08/09/2006, 07/09/2006, 06/17/2006 Diabetes: Annual GFR (Glomerular Filtration Rate) 03/19/2017 03/19/2016 Cholesterol Screening (Lipid Panel) 02/11/2022 03/19/2016 Colorectal Cancer Screening: Colonoscopy 02/11/2022 HIV Screening 02/11/2022 Hepatitis C Screening 02/11/2022 Social Influencers of Health Screening 02/11/2022 Diabetes: Annual Urine Albumin-Creatinine Ratio (uACR) 02/21/2022 11/15/2015 Diabetes: Blood Sugar Control Test (HGBA1C) 02/21/2022 03/19/2016 Hypertension/CHF/CAD Annual BMP Blood Test 02/21/2022 03/19/2016 COVID-19 Vaccine (3 - season) 2023 06/29/2020, 06/07/2020 Depression Screening 03/11/2024 Zoster Vaccines (1 of 2) 2024 Influenza Vaccine (#1) 2024 2, 12/05/2019, 01/27/2019, Additional history exists DTaP,Tdap,and Td [...] BMP Blood Test abstracted us Historical Provider HEALTH MAINTENANCE Final Result * (ABNORMAL) Hemoglobin A1c (03/19/2016) Hemoglobin A1C 7.9(A) 4.0 - 6.0 % Blood Venous blood specimen / Unknown Result [facility] Provider LAB BLOOD ORDERABLES Lay l Result * (ABNORMAL) Lipid panel (03/19/2016) Pathologist [facility] LDL/HDL Ratio 4 0 - 4 Triglycerides 279(A) 0 - 150 mg/dL Cholesterol 146 0 - 200 mg/dL HDL 39(A) >=40 mg/dL LDL Cholesterol 52 0 - 100 mg/dL Blood Venous blood specimen / Unknown Result [facility] Provider LAB BLOOD ORDERABLES Lay l Result * HM Urine Albumin Creatinine Ratio (11/15/2015) Pathologist [facility] HM Urine Albumin Creatinine Ratio abstracted Result [facility] Provider HEALTH MAINTENANCE Final Result from Last 3 Months or Most Recently Relevant to Health Maintenance Insurance [facility] Member Subscriber Plan / Payer (Ef fective 2016-Present) Name:CARLOS BE Relation to Subscriber:Self Name:Carlos Be Payer ID:[id number] Group ID:[id number] Type:Not on file Address: [place] [address] [address] [id number] Care Teams Sex Therapist Relationship Specialty Start Date End Date Ev Mosqueda MD [address] [place] [address] PCP - General Internal Medicine 01/09/21
[2024-10-19 10:45] VITALS: BP 100/70; PULSE 79; RESP 16; TEMP 36.4; O2SAT 97; BMI 30.7
--- NOTE | 2024-10-19 10:45 | A.OFFPC_ITS ---
Vital Signs 10/19/24 10:45 Height 5 ft 10 in Weight 214 lb BMI 30.7 BP 100/70 Blood Pressure Location Rt brachial Position Sitting Respiration 16 Pulse 79 Pulse Source Pulse Oximeter Temp 97.6 F Temp Source Oral Pulse Oximetry (%) 97 Oxygen Delivery Method Room Air Intake Visit Reasons: follow up tracey from 06/18 HTN Intake Note: Pt is here today to f/u HTN Wet Press Tender Required: Yes Wet Press Tender Name: morales [id number] Information Interpreted: clinical only Allergies No Known Allergies Allergy (Verified 10/19/24 11:01) Medication List - Last Reconciled 10/19/24 by Ev Mosqueda MD alcohol swabs (Alcohol Prep Pads) 2 pad topical DAILY blood sugar diagnostic (OneTouch Verio test strips) Test blood sugar twice per day blood sugar diagnostic (FreeStyle Lite Strips) As directed to check three times daily blood-glucose meter (Pulselockeruch Verio Flex Meter) As directed to test blood sugars blood-glucose meter (FreeStyle Lite Meter kit) As directed to check three times daily blood-glucose sensor (FreeStyle Raman 3 Sensor device) As directed blood-glucose sensor (FreeStyle Raman 3 Sensor device) As directed blood-glucose,software quality analyst,cont (FreeStyle Raman 3 [place]) diagnosis: Type 2 DM, poor A1 , needle phobia and neuropathy bupropion HCl XL 300 mg PO DAILY dapagliflozin propanediol (Farxiga) 10 mg PO QAM dulaglutide (Trulicity) 4.5 mg (0.5 mL) subcut QWEEK insulin glargine (Lantus Solostar U-100 Insulin) 18 units (0.18 mL) subcut DAILY lancets (Fyreballuch Delica Safety Lancet) Test blood sugar twice per day lancets (FreeStyle Lancets) As directed to check three times daily levothyroxine 150 mcg PO DAILY 3 months lisinopril 20 mg PO DAILY lumateperone (Caplyta) 21 mg PO BEDTIME lumateperone (Caplyta) 10.5 mg PO DAILY metformin 1,000 mg PO BID metoprolol succinate ER 25 mg PO QAM multivitamin (One Daily Multivitamin tablet) 1 tab PO QAM nitroglycerin 0.4 mg sublingual ONCE PRN omeprazole 20 mg PO QAM pen needle, diabetic (Comfort EZ Pen [place]) As directed for injecting insulin once daily pregabalin 150 mg PO BID 30 days rosuvastatin 5 mg PO QPM sertraline 150 mg PO DAILY tadalafil 10 mg PO DAILY 90 days Tobacco use date assessed: 10/19/24 Dental Screening Dental Screen Date: 10/19/24 Did you have a dental visit in the last 12 months?: No Did you have a dental problem in the last 6 months where you did not have access to dental care?: No Was dental information given to patient?: Patient has dentist HPI follow up tracey from 06/18 HTN HPI Details History and physical conducted with the aid of a hourly sign language interpreter - The patient is a 49-year-old male pres enting with a follow-up for hypertension management. Currently managed with lisinopril, dosage adjusted due to hypotensive episodes with intermittent episodes of dizziness, resulting in a fall with injury to right shoulder reported. - Hyperlipidemia: Awaiting updated fam sterol levels, currently on rosuvastatin 5 mg taken daily. - Thyroid Disorder: Last evaluation in [facility] was normal. [facility] Medical History (Updated 10/19/24 @ 11:23 by Ev Mosqueda MD) Right shoulder pain Diabetes mellitus, with long-term current use of insulin Peripheral neuropathy Needle phobia Hypothyroidism Obesity (BMI 30.0-34.9) Nocturnal hypoxemia AZAM (obstructive sleep apnea) Mild CAD Skin lesion of scalp Tubular adenoma Mixed dyslipidemia Postoperative hypothyroidism Bifascicular block Lumbar spondylosis Failed back syndrome, cervical Vitamin D deficiency History of cocaine use Spondylosis of cervical joint without myelopathy Fibromyalgia Rheumatoid arthritis Obstructive sleep apnea Bilateral nephrolithiasis Bilateral carpal tunnel syndrome Opiate dependence Morbid obesity Cervical spondylosis with radiculopathy Type 2 diabetes mellitus with diabetic polyneuropathy, without long-term current use of insulin GERD without esophagitis Essential hypertension Surgical History History of esophagogastroduodenoscopy (EGD) Hx of colonoscopy Hx of thyroidectomy Hx of neck surgery History of carpal tunnel surgery Hx of cholecystectomy History of spinal surgery Herniated disc Family History Father No problems noted. Mother Diabetes mellitus HTN (hypertension) Brother No problems noted. Sister No problems noted. Social History Household Members: Spouse and Children Housing: House Alcohol intake: never Patient Tobacco Use Status: Former Tobacco user Tobacco use type: Cigarette Years Smoked: 10 yrs e-Cigarette/Vaping Use: Never Used Second Hand Smoke Exposure: No service: No Current occupational status: disabled Cognitive needs: No Hearing needs: No Vision needs: Yes Questionnaire Thrive Questionnaire Date Thrive assessed: 05/08/24 I am a: Patient What is your living situation today?: I have a steady place to live Within the past 12 months, did the food you bought not last and you didn't have the money to get more?: Never true Within the past 12 months, did you worry whether your food would run out before you got money to buy more?: Never true Do you have trouble paying for medicines?: No Do you have trouble getting transportation to medical appointments?: No Do you have trouble paying your heating and electricity bill?: Yes Do you have trouble taking care of your child, family member or friend?: No Do you have trouble with day-to-day activities such as bathing, preparing meals, shopping, managing finances, etc.?: No Are you currently unemployed and looking for a job?: No Are you interested in more education?: No Please select the resources that you would like help with: None Currently or been in a relationship where the following occur: No concerns reported THRIVE Score: 1 NORI-7 AMB Questionnaire NORI-7 Date NORI - 7 assessed: 11/18/23 Source: Developed by Drs. Saleem Matias, Indigo Ortega, Chris Beebe and colleagues, with an educational paige from [employer]. Review of Systems Const All systems reviewed & are unremarkable except as noted in HPI and below Physical exam (Primary Care) Vital Signs: Last Vital Signs Temp 97.6 F 10/19/24 10:45 Pulse 79 10/19/24 10:45 Resp 16 10/19/24 10:45 BP 100/70 10/19/24 10:45 Pulse Ox 97 10/19/24 10:45 Oxygen Delivery Method Room Air 10/19/24 10:45 BMI result Body Mass Index 30.7 Tobacco/Smoking Status: Tobacco use Status Tobacco use date assessed 10/19/24 10/19/24 10:48 Patient Tobacco Use Status Former Tobacco user 10/19/24 10:48 Tobacco use type Cigarette 10/19/24 10:48 e-Cigarette/Vaping Use Never Used 10/19/24 10:48 Thrive Assessment: Date of Thrive Assessment Date Thrive assessed 05/08/24 10/19/24 10:48 Currently or been in a relationship where the following occur: No concerns reported Const General: comfortable and no acute distress Nutritional Appearance: obese Orientation/consciousness: patient oriented x3 HENMT Mouth: Normal oral and palatal mucosa present, oropharynx normal and moist mucous membranes Eyes General: appearance normal, both eyes and all related structures Pupils: Equal, round and reactive pupils present EOM: EOMs intact bilaterally Neck Neck: Yes no lymphadenopathy Resp Effort & Inspection: normal respiratory effort and able to speak in complete sentences Auscultation: clear to auscultation bilaterally Cardio Rate: regular rate Rhythm: regular rhythm Heart sounds: S1 normal heart sound present and S2 normal heart sound present GI Inspection: Yes normal to inspection Palpation (GI): Soft to palpation, nontender and no masses Auscultation: normal bowel sounds General: Yes no CVA tenderness Male General Exam: Yes normal external exam Back/Spine/Pelvis Back: no CVA tenderness Skin General skin exam: no rashes or lesions noted Neuro General: patient oriented x3, gait normal, tone normal, moves all extremities, Normal light touch and pain sensation and no focal motor deficits Cranial nerves: Yes Equal, round and reactive pupils present Cognition (Neuro): normal cognition Gait exam (Neuro): Normal gait present Motor exam (neuro): 5/5 motor strength present throughout Extrem Right upper extremity: shoulder/upper arm Details: tenderness Location: of the A-C joint (Right) and over the subacromial bursa and abnormal ROM (Right shoulder to abduction, and hyperextension); no swelling Psych Appearance: grossly normal and well kempt Mental Status: mental status grossly normal Speech and movement: Normal speech and movement present Affect: normal affect Thought process: Normal thought process present Coding Level of Care Code Est Pt Level 4 (42669) Complex EM visit Add On G2211 Diagnoses Essential hypertension I10 Mixed dyslipidemia E78.2 Acute pain of right shoulder M25.511 Chronicity: acute Positional lightheadedness R42 Assessment & Plan Assessment & Plan (1) Essential hypertension: Code(s): I10 - Essential (primary) hypertension Category: Medical (2) Mixed dyslipidemia: Code(s): E78.2 - Mixed hyperlipidemia Category: Medical (3) Right shoulder pain: Code(s): M25.511 - Pain in right shoulder Category: Medical Qualifiers: Chronicity: acute Qualified Code(s): M25.511 - Pain in right shoulder (4) Positional lightheadedness: Code(s): R42 - Dizziness and giddiness Category: Medical Plan Decreased lisinopril to 10 mg due to history of hypotensive episodes and postural dizziness, with a follow-up scheduled to monitor the response. 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 A cholesterol test has been ordered to assess hyperlipidemia, while thyroid function remains stable. Dizziness related to postural changes is being addressed with medication adjustment and follow-up. Ri ght shoulder pain from a fall will be evaluated with an x-ray and orthopedic referral, with tramadol prescribed for pain management. Preventative care includes a flu vaccination and a prostate check with urology, with follow-up for blood pressure monitoring and test completion before the next visit. Patient was informed and verbally consented to the use of an ambient scribe for clinic note documentation during this visit. Orders: Orders Aspartate Amino Transferase 10/19/24 E11.42 - Type 2 diabetes mellitus with diabetic polyneuropathy, E78.2 - Mixed hyperlipidemia, I10 - Essential (primary) hypertension Basic Metabolic Panel Fasting 10/19/24 E11.42 - Type 2 diabetes mellitus with diabetic polyneuropathy, E78.2 - Mixed hyperlipidemia, I10 - Essential (primary) hypertension XR shoulder RT min 2V 10/19/24 M25.511 - Pain in right shoulder Lipid Panel 10/19/24 E11.42 - Type 2 diabetes mellitus with diabetic polyneuropathy, E78.2 - Mixed hyperlipidemia, I10 - Essential (primary) hypertension Alanine Aminotransferase 10/19/24 E11.42 - Type 2 diabetes mellitus with diabetic polyneuropathy, E78.2 - Mixed hyperlipidemia, I10 - Essential (primary) hypertension Referrals Orthopedics Referral M25.511 - Pain in right shoulder Medications: New tramadol 50 mg PO DAILY PRN 10 tabs 0RF pain, moderate M25.511 - Pain in right shoulder
== END 2024-10-19 11:36 | disposition home or self-care (01) ==
LOC: HO.HMCC 09:09
PROVIDERS: PCP Internal Medicine; Visit Provider Internal Medicine
DX: I10 Essential (primary) hypertension (principal); E78.2 Mixed hyperlipidemia; M25.511 Pain in right shoulder; R42 Dizziness and giddiness

== ENCOUNTER → 2024-10-19 11:30 | Outpatient (BNV) | payer OTHER, SELFPAY | PROVIDERS: PCP Internal Medicine; Visit Provider Radiology Diagnostic Radiology | DX: M19.011 Primary osteoarthritis, right shoulder (principal) | CPT/HCPCS: 73030 ==

== ENCOUNTER 2024-10-26 14:30 | Outpatient (AMB) | payer MEDICARE, OTHER, SELFPAY ==
[2024-10-26 14:34] VITALS: BP 118/78; PULSE 86; O2SAT 95; BMI 30.4
--- NOTE | 2024-10-26 14:34 | A.OFFVIS_ITS ---
Vital Signs 3 10/26/24 14:34 Height 5 ft 10 in Weight 211 lb 13.828 oz BMI 30.4 BP 118/78 Blood Pressure Location Lt brachial Position Sitting Pulse 86 Pulse Source Pulse Oximeter Pulse Oximetry (%) 95 Oxygen Delivery Method Room Air Intake Visit Reasons: DM & Hypothyroidism Intake Note: Patient present today for Type 2 Diabetes Mellitus and Hypothyroidism. Last Diabetic eye exam: 07/13/24 Last Podiatry Visit: 08/2024 Random Glucose: 285 mg/dl HgA1C: 9.2% 08/20/24 Take Out Waiter/Waitress Required: No Accompanied by: Self / Same As Patient Allergies No Known Allergies Allergy (Verified 10/26/24 14:41) Medication List - Last Reconciled 10/26/24 by Angella Montanez MD alcohol swabs (Alcohol Prep Pads) 2 pad topical DAILY blood sugar diagnostic (OneTouch Verio test strips) Test blood sugar twice per day blood sugar diagnostic (FreeStyle Lite Strips) As directed to check three times daily blood-glucose meter (OneTouch Verio Flex Meter) As directed to test blood sugars blood-glucose meter (FreeStyle Lite Meter kit) As directed to check three times daily blood-glucose sensor (FreeStyle Raman 3 Sensor device) As directed blood-glucose sensor (FreeStyle Raman 3 Sensor device) As directed blood-glucose,dam attendant,cont (FreeStyle Raman 3 [place]) diagnosis: Type 2 DM, poor A1 , needle phobia and neuropathy bupropion HCl XL 300 mg PO DAILY dapagliflozin propanediol (Farxiga) 10 mg PO QAM dulaglutide (Trulicity) 4.5 mg (0.5 mL) subcut QWEEK insulin glargine (Lantus Solostar U-100 Insulin) 26 units subcut DAILY lancets (Onetouch Delica Safety Lancet) Test blood sugar twice per day lancets (FreeStyle Lancets) As directed to check three times daily levothyroxine 150 mcg PO DAILY 3 months lisinopril 10 mg PO DAILY lumateperone (Caplyta) 21 mg PO BEDTIME lumateperone (Caplyta) 10.5 mg PO DAILY metformin 1,000 mg PO BID metoprolol succinate ER 25 mg PO QAM multivitamin (One Daily Multivitamin tablet) 1 tab PO QAM nitroglycerin 0.4 mg sublingual ONCE PRN omeprazole 20 mg PO QAM pen needle, diabetic (Comfort EZ Pen [place]) As directed for injecting insulin once daily pregabalin 150 mg PO BID 30 days rosuvastatin 5 mg PO QPM sertraline 150 mg PO DAILY tadalafil 10 mg PO DAILY 90 days tirzepatide (Mounjaro) 5 mg (0.5 mL) subcut QWEEK tramadol 50 mg PO DAILY PRN HPI Comments Details: 48 YO M with a PMHx of a multinodular thyroid s/p total thyroidectomy May 30 with benign results who is seen in F/U for type 2 diabetes mellitus and postoperative hypothyroidism. Type 2 DM Has DM for about 10 years so around 2013 A1c July 2023 was 7.2 % per patient , this was by [facility] at home a1c POC October 2023 9.9% A1c POC April 2024 10.2%. HgA1C: 10.7% 05/21/24 hba1c 9.2 % POC 08/20/24 Random Glucose: 285 mg/dl, Current meds Trulicity 4.5 mg weekly (saturday) no GI problems, increase in April 2024) Dapagliflozin 10 mg daily (urinates more often, no UTI/ yeast uinfections) Metformin 1000 mg BID Lantus 26 units daily in AM Prior medications Discontinued in April due to change in regimen Actos 30 mg daily Glipizide 5 mg in AM and 10 mg in evening Freestyle Raman 3 report downloaded from October 13 to 10/26/2024 Time CGM active 98% Average glucose 251 mg/dL G MT 9.3% Glucose variability 21.9% Within target range 10% High 43% Very high 47% Low 0% Very low 0% Interpretation: Hyperglycemic throughout the day Educator: Had an appointment 11/02 On lisinopril 10 mg daily reduced by PCP summer 2024 due to hypotensive episodes. in May 2024 labs showed GFR >60, creatinine normal, normal urine microalbumin Has neuropathy, on pregablin 150 mg BID feels doesnt really help No retinopathy, last eye visit March 2024 Last Podiatry Visit: Has upcoming appt next week On rosuvastatin 5 mg daily, LDL 37 from May 2024 No macrovascular complications BP at goal Doesnt work out much has a lot of back discomfort and arthritis Weight :lost only 5 lbs on Trulicty 3 mg weekly , lost 15 lbs since May 05 on 4.5 of Trulicyt but with some fluctuations up and down Eating: trying to control calories but still eating carb heavy meals alcohol : none No smoking Walking : 20 to 30 mins daily in the house Hypothyroidism HPI from prior visit Was initially diagnosed with multinodular thyroid many years ago, and was previously followed at [place] for this. He had a prior biopsy of some of his nodules, but he does not recall which. He reports that these were benign. He underwent FNA biopsy by Dr. Villela 11/10/2020 of 4 nodules, with results detailed below: 1) RUP 1.5 cm thyroid nodule - Cytology benign (bethesda category II) 2) RMP 4.2 cm thyroid nodule - Cytology benign (bethesda category II) 3) LMP 2.5 cm thyroid nodule - Cytology benign (bethesda category II) 4) LMP 4.6 cm thyroid nodule - Cytology Atypia of Undetermined Signifigance ([place] Category III), Affirma benign. He was complaining of significant compressive symptoms, so he was referred to Dr. Marsh for a total thyroidectomy. This was completed 05/29/2021. Official surgical path was benign. Postoperative he was started on levothyroxine,was previously taking 137 mcg PO daily Currently taking levothyroxine 150 mcg daily, reports good compliance with this. TSH is WNL at 1.07 from May 2024. He denies any symptoms of hyper or hypothyroidism. Physical exam General: sitting comfortably in bed in no acute distress HEENT: normocephalic/atraumatic, moist oral mucosa Neck: supple, symmetrical, no thyromegaly , no dorsocervical or supraclavicular fat pads Cardiac: normal heart sounds Pulm: normal breath sounds B/L, no added breath sounds Abd: not distended, no tenderness Extremities: no edema, no signs of myxedema Neuro: AAO x3, Speech: normal, no facial droop, moving all 4 extremities Skin: no rash Foot exam: Checked April 2024 diminished sensation to monofilament, intact pulses, intact vibration Laboratory Tests 05/13/23 11/04/23 05/04/24 08:59 09:24 09:10 Glucose (Clinic) 213 H Hgb A1c (Clinic) 9.9 H TSH 1.11 Free T4 1.04 Laboratory Tests 06/05/22 07:13 Urine Creatinine 152.91 Urine Microalbumin 11.0 Microalb/Creat Ratio 7.1 Laboratory Tests 07/01/20 11/07/22 05/06/23 11:22 09:27 10:57 Plt Count 199 Creatinine Estimated GFR Hgb A1c (Clinic) 6.5 H 6.9 H AST ALT Triglycerides Cholesterol LDL Cholesterol, Calc HDL Cholesterol 05/13/23 08:59 Plt Count Creatinine 0.88 Estimated GFR > 60 Hgb A1c (Clinic) AST 24 ALT 28 Triglycerides 196 H Cholesterol 116 LDL Cholesterol, Calc 42 HDL Cholesterol 35 L Laboratory Tests 05/13/23 08:59 TSH 1.11 Free T4 1.04 Laboratory Tests 05/04/24 05/21/24 05/21/24 09:32 09:56 10:15 Plt Count Sodium Potassium Creatinine Estimated GFR Glucose (Clinic) POC Glucose Random Glucose 356 H* Hgb A1c (Clinic) 10.2 H AST ALT Triglycerides 248 H Cholesterol 124 LDL Cholesterol, Calc 37 HDL Cholesterol 38 L Beta-Hydroxybutyrate TSH 1.07 Urine Creatinine 39.13 Urine Microalbumin < 5.0 05/21/24 05/21/24 05/21/24 18:23 19:02 20:31 Plt Count 193 Sodium 138 Potassium 4.2 Creatinine 1.02 Estimated GFR > 60 Glucose (Clinic) POC Glucose 338 H 230 H Random Glucose 405 H* Hgb A1c (Clinic) AST 26 ALT 35 Triglycerides Cholesterol LDL Cholesterol, Calc HDL Cholesterol Beta-Hydroxybutyrate 0.13 TSH Urine Creatinine Urine Microalbumin 05/25/24 13:48 Plt Count Sodium Potassium Creatinine Estimated GFR Glucose (Clinic) 217 H POC Glucose Random Glucose Hgb A1c (Clinic) AST ALT Triglycerides Cholesterol LDL Cholesterol, Calc HDL Cholesterol Beta-Hydroxybutyrate TSH Urine Creatinine Urine Microalbumin [facility] Medical History (Updated 10/19/24 @ 11:23 by Ev Mosqueda MD) Right shoulder pain Diabetes mellitus, with long-term current use of insulin Peripheral neuropathy Needle phobia Hypothyroidism Obesity (BMI 30.0-34.9) Nocturnal hypoxemia AZAM (obstructive sleep apnea) Mild CAD Skin lesion of scalp Tubular adenoma Mixed dyslipidemia Postoperative hypothyroidism Bifascicular block Lumbar spondylosis Failed back syndrome, cervical Vitamin D deficiency History of cocaine use Spondylosis of cervical joint without myelopathy Fibromyalgia Rheumatoid arthritis Obstructive sleep apnea Bilateral nephrolithiasis Bilateral carpal tunnel syndrome Opiate dependence Morbid obesity Cervical spondylosis with radiculopathy Type 2 diabetes mellitus with diabetic polyneuropathy, without long-term current use of insulin GERD without esophagitis Essential hypertension Surgical History History of esophagogastroduodenoscopy (EGD) Hx of colonoscopy Hx of thyroidectomy Hx of neck surgery History of carpal tunnel surgery Hx of cholecystectomy History of spinal surgery Herniated disc Family History Father No problems noted. Mother Diabetes mellitus HTN (hypertension) Brother No problems noted. Sister No problems noted. Social History Household Members: Spouse and Children Housing: House Alcohol intake: never Patient Tobacco Use Status: Former Tobacco user Tobacco use type: Cigarette Years Smoked: 10 yrs e-Cigarette/Vaping Use: Never Used Second Hand Smoke Exposure: No service: No Current occupational status: disabled Cognitive needs: No Hearing needs: No Vision needs: Yes Physical Exam Vital Signs: Last Vital Signs Pulse 86 10/26/24 14:34 BP 118/78 10/26/24 14:34 Pulse Ox 95 10/26/24 14:34 Oxygen Delivery Method Room Air 10/26/24 14:34 BMI result Body Mass Index 30.4 Office Procedures Glucose Monitoring Details Details: See [facility] [address] - Glucose monitoring, continuous-physician I&R Procedure code (CPT) selection complete Assessment & Plan Assessment & Plan (1) Diabetes mellitus, with long-term current use of insulin: Code(s): E11.9 - Type 2 diabetes mellitus without complications; Z79.4 - termite control technician (current) use of insulin Category: Medical Qualifiers: Diabetes mellitus complication detail: with polyneuropathy Diabetes mellitus complication status: with neurologic complications Diabetes mellitus type: type 2 Qualified Code(s): E11.42 - Type 2 diabetes mellitus with diabetic polyneuropathy; Z79.4 - termite control technician (current) use of insulin Plan: Patient with history of type 2 diabetes mellitus, with complications of neuropathy, without long-term insulin use coming in today for follow up. A. HBA1c in August 2024 improved to 9.2% from 10.7% in May 2024 . However he had significant improvement in his blood sugars at the time of last visit but now again with mostly hyperglycemic with blood sugars in the 200s and 300s. He has been having a lot of back pain that could be contributing to some of his elevation and sugars. He does promise adherence with a his medications. G MT 9.1%. At this time we will go up on the Lantus. He continues to have uncontrolled hyperglycemia, educated him about risks of uncontrolled hyperglycemia and complications both microvascular and macrovascular. in April I also increased his Trulicity to 4.5 mg weekly, he has not really lost much more weight on the Trulicity, only lost 3-4 lb in the past 6 months. At this point he has failed Trulicity, and I will switch him to Mounjaro equivalent dose 5 mg weekly. B:?Blood pressure is under adequate control, for renal protection in the setting of diabetes. Lisinopril was recently summer 2024 reduced to 10 mg daily due to low blood pressures. C:?LDL is 37 mg/dL from May 2024, which is at goal. Goal is less than 70. Triglycerides elevated at 248, these we will hopefully improve with better control of diabetes. D:?Diet control and healthy lifestyle was discussed in detail. Emphasis was made on exercise and physical activity in daily routine with at least 30-45 minutes of aerobic exercise 5-6 days a week. He has some limitation due to arthritis, and lumbar stenosis, asked him to do as much as possible. E: Last visit with tour manager was in August 2024, no retinopathy per patient. F: Foot care is suboptimal, has diminished sensation to monofilament. Already on pregabalin though that does not help him much. I counseled him that improved control of his diabetes will help with the neuropathy as well.. G: eGFR >60 and microalbumin/Cr ratio normal from May 2024. Plan: -switch from Trulicity to Mounjaro 5 mg weekly, we will discontinue Trulicity from the medication list once as Mounjaro is approved -increase Lantus to 28 units daily and if blood sugars in the morning continue to be greater than 150 mg/dL, increased to 30 units daily. -continue metformin 1000 mg b.i.d., , Farxiga 10 mg daily, -follow up with the educator -dietary and exercise counseling done as advised above -follow up in 4 to 6 weeks - (2) Hypothyroidism: Code(s): E03.9 - Hypothyroidism, unspecified Category: Medical Qualifiers: Hypothyroidism type: postoperative Qualified Code(s): E89.0 - Postprocedural hypothyroidism Plan: Status post total thyroidectomy for multinodular goiter in May 30, with benign pathology. Currently on levothyroxine 150 mcg daily, taking it appropriately. TSH was within normal limits from May 2024. Plan: -continue levothyroxine 150 mcg daily (3) Needle phobia: Code(s): F40.298 - Other specified phobia Category: Medical Plan: He has freestyle Raman, (4) Peripheral neuropathy: Code(s): G62.9 - Polyneuropathy, unspecified Category: Medical Qualifiers: Peripheral neuropathy type: polyneuropathy associated with underlying disease Qualified Code(s): G63 - Polyneuropathy in diseases classified elsewhere Plan: See above Plan I spent 30 minutes in reviewing the record, seeing the patient and documenting in the medical record. 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) use of insulin Changed 2 From insulin glargine (Lantus Solostar U-100 Insulin) 26 units subcut DAILY To insulin glargine (Lantus Solostar U-100 Insulin) 30 units (0.3 mL) subcut DAILY 15 mL 3RF Patient Instructions: Increase insulin lantus to 28 units , if after doing this for the next 4 days blood sugars still > 150mg/dl in the morning , increase to 30 units daily Switch from Trulicity to either Mounjaro or Ozempic weekly injection, for now I have sent prescription for Mounjaro, we will see what your insurance approves Follow up in 6 weeks Coding Level of Care Code Est Pt Level 4 (26104) Diagnoses Type 2 diabetes mellitus with diabetic polyneuropathy, with long-term current use of insulin E11.42; Z79.4 Diabetes mellitus complication detail: with polyneuropathy Diabetes mellitus complication status: with neurologic complications Diabetes mellitus type: type 2 Postoperative hypothyroidism E89.0 Hypothyroidism type: postoperative Needle phobia F40.298 Polyneuropathy associated with underlying disease G63 Peripheral neuropathy type: polyneuropathy associated with underlying disease CPT Codes Details - CPT: 02553 - Glucose monitoring, continuous-physician I&R ([id number]) Time Spent (min) 30
[2024-10-26 14:46] LABS: Glucose, Whole Blood 285 mg/dL (60-115)
--- OUTSIDE RECORDS SUMMARY | 2024-10-26 15:13 | XMS_ITS | Clinical Summary ---
Author Organization [address] [facility] Address [address] [place] [address] Phone Care Team Providers Care Supervisor Lump Room Name Role Phone Ev Mosqueda MD Primary [...] for this and ruled out for an KS, he now attributes it to his fibromyalgia. [...] diabetes mellitus wit h renal manifestations, controlled ([facility] V24, [facility] V28) 11/17/2015 Hypertriglyceridemia 05/04/2015 Multiple [...] 2 diabetes mellitus wit h neurological manifestations ([facility] V24, [facility] V28) 07/28/2014 Type 2 diabetes mellitus ([facility] V24, [facility] V 28) 07/28/2014 Overview (03/09/2024): Type 2 diabetes, uncontrolled, with renal manifestation Encounters Date Type Department Care Team Description 08/31/2024 8:30 AM EDT Office Visit Orthopedic Surgery - [address] [address] Franco Means, JANET Poorly controlled type 2 diabetes mellitus with neuropathy (CMS/HCC V24, CMS/HCC V28) (Primary Dx); Arthritis of both feet; Pain in both feet; Lumbosacral radiculopathy; Dermatophytosis, nail from Last 3 Months Immunizations Name Administration Dates Next Due Hepatitis B (Ghldxzs-S-Xfzja , Recombivax HB-Adult) 19yo and older 02/01/2010,08/30/2008,06/17/2006 [...] AM EDT Office Visit Orthopedic Surgery - [place] [address] [address] Franco Means, JANET [address] [address] Health Maintenance Due Date Last Done Comments [...] Blood Venous blood specimen / Unknown Result [facility] Provider LAB BLOOD ORDERABLES Lay l Result * (ABNORMAL) Lipid panel (03/19/2016) Pathologist [facility] LDL/HDL Ratio 4 0 - 4 Triglycerides 279(A) 0 - 150 mg/dL Cholesterol 146 0 - 200 mg/dL HDL 39(A) >=40 mg/dL LDL Cholesterol 52 0 - 100 mg/dL Blood Venous blood specimen / Unknown Result [facility] Provider LAB BLOOD ORDERABLES Lay l Result * HM Urine Albumin Creatinine Ratio (11/15/2015) Pathologist [facility] HM Urine Albumin Creatinine Ratio abstracted Result [facility] Provider HEALTH MAINTENANCE Final Result from Last 3 Months or Most Recently Relevant to Health Maintenance Insurance [facility] Member Subscriber Plan / Payer (Ef fective 2016-Present) Name:CARLOS BE Relation to Subscriber:Self Name:Carlos Be Payer ID:[id number] Group ID:[id number] Type:Not on file Address: [place] [address] [id number] Care Teams Supervisor Lump Room Relationship Specialty Start Date End Date Ev Mosqueda MD [address] [place] [address] PCP - General Internal Medicine 01/09/21
--- OUTSIDE RECORDS SUMMARY | 2024-10-26 15:13 | XMS_ITS | Clinical Summary ---
Author Organization [facility] Address [address] [place] [address] Care Team Providers Care Electroencephalograph Technician Name Role Phone Ev Mosqueda MD Primary Care Provider [phone] Social History Tobacco Use Types Packs/Day Years [...] age to complete this topic Care Teams Electroencephalograph Technician Relationship Specialty Start Date End Date Ev Mosqueda MD [address] [place] [address] PCP - General Internal Medicine 05/19/18
== END 2024-10-26 15:03 | disposition home or self-care (01) ==
PROVIDERS: PCP Internal Medicine; Visit Provider Student in an Organized Health Care Education/Training Program
DX: E11.42 Type 2 diabetes mellitus with diabetic polyneuropathy (principal); Z79.4 Long term (current) use of insulin; E89.0 Postprocedural hypothyroidism; F40.298 Other specified phobia; G63 Polyneuropathy in diseases classified elsewhere
CPT/HCPCS: 95251; 99214

== ENCOUNTER → 2024-10-26 14:30 | Outpatient (BNVA) | payer OTHER, SELFPAY | PROVIDERS: PCP Internal Medicine; Visit Provider Student in an Organized Health Care Education/Training Program | DX: E11.42 Type 2 diabetes mellitus with diabetic polyneuropathy (principal); E89.0 Postprocedural hypothyroidism; Z79.4 Long term (current) use of insulin; F40.298 Other specified phobia | CPT/HCPCS: 82947; 99212 ==

== ENCOUNTER 2024-11-10 08:58 | Outpatient (REF) | payer MEDICARE, MEDICAID, SELFPAY ==
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
--- OUTSIDE RECORDS SUMMARY | 2024-11-10 09:48 | XMS_ITS | Clinical Summary ---
Author Organization [facility] Address [address] [place] [address] Care Team Providers Care Flat Locker Name Role Phone Ev Mosqueda MD Primary Care Provider [phone] -[phone] Social History Tobacco Use Types Packs/Day Years [...] age to complete this topic Care Teams Flat Locker Relationship Specialty Start Date End Date Ev Mosqueda MD [address] [place] [address] PCP - General Internal Medicine 05/19/18
[2024-11-10 10:12] LABS: Hemoglobin A1C 347.0714 umol/L; Total Hemoglobin (HGBA1C) 3746.9459 umol/L
[2024-11-10 10:52] LABS: Prostate Specific Antigen 0.58 ng/mL (<0.05-4.0)
== END 2024-11-10 08:59 | disposition home or self-care (01) ==
LOC: HO.LAB 08:58
PROVIDERS: PCP Internal Medicine; Visit Provider Nurse Practitioner Family
DX: E11.69 Type 2 diabetes mellitus with other specified complication (principal); N52.1 Erectile dysfunction due to diseases classified elsewhere; Z12.5 Encounter for screening for malignant neoplasm of prostate
CPT/HCPCS: 36415; 83036; 84153

== ENCOUNTER 2024-11-16 12:42 | Outpatient (AMB) | payer OTHER, SELFPAY ==
--- NOTE | 2024-11-16 13:08 | MHC.OFFVIS ---
Intake Visit Reasons: follow up Intake Note: Patient is present for F/U Urology Medication:TADALAFIL Antibiotic Allergy:NONE Blood Thinner:NONE Otorhinolaryngologist Required: No Allergies No Known Allergies Allergy (Verified 11/16/24 13:49) Medication List - Last Reconciled 11/16/24 by CHANDRIKA Wu alcohol swabs (Alcohol Prep Pads) 2 pad topical DAILY blood sugar diagnostic (OneTouch Verio test strips) Test blood sugar twice per day blood sugar diagnostic (FreeStyle Lite Strips) TEST BLOOD SUGAR THREE TIMES DAILY blood-glucose meter (OneTouch Verio Flex Meter) As directed to test blood sugars blood-glucose meter (FreeStyle Lite Meter kit) As directed to check three times daily blood-glucose sensor (FreeStyle Raman 3 Sensor device) As directed blood-glucose sensor (FreeStyle Raman 3 Sensor device) As directed blood-glucose,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,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 (FreeStyle Raman 3 [place]) diagnosis: Type 2 DM, poor A1 , needle phobia and neuropathy bupropion HCl XL 300 mg PO DAILY dapagliflozin propanediol (Farxiga) 10 mg PO QAM dulaglutide (Trulicity) 4.5 mg (0.5 mL) subcut QWEEK insulin glargine (Lantus Solostar U-100 Insulin) 30 units (0.3 mL) subcut DAILY lancets (Onetouch Delica Safety Lancet) Test blood sugar twice per day lancets (FreeStyle Lancets) As directed to check three times daily levothyroxine 150 mcg PO DAILY 3 months lisinopril 10 mg (1/2 x 20 mg) PO DAILY lumateperone (Caplyta) 21 mg PO BEDTIME lumateperone (Caplyta) 10.5 mg PO DAILY metformin 1,000 mg PO BID metoprolol succinate ER 25 mg PO QAM multivitamin (One Daily Multivitamin tablet) 1 tab PO QAM nitroglycerin 0.4 mg sublingual ONCE PRN omeprazole 20 mg PO QAM pen needle, diabetic (Comfort EZ Pen [place]) As directed for injecting insulin once daily pregabalin 150 mg PO BID 30 days rosuvastatin 5 mg PO QPM sertraline 150 mg PO DAILY tadalafil 10 mg PO DAILY 90 days tirzepatide (Mounjaro) 5 mg (0.5 mL) subcut QWEEK HPI Comments Details: Carlos is a 49-year-old Divehi-speaking male patient of Dr. Mosqueda. He has a past medical history of type 2 diabetes, peripheral neuropathy, needle phobia, hypothyroidism, obesity, nocturnal hypoxemia, obstructive sleep apnea, mild CAD, mixed dyslipidemia, lumbar spondylosis, vitamin-D deficiency, fibromyalgia, rheumatoid arthritis, nephrolithiasis, carpal tunnel syndrome, opiate dependence, GERD, and hypertension. He presents to the office today for follow-up of his erectile dysfunction and lower urinary tract symptoms. In discussion with the patient today he reports compliance with tadalafil as prescribed. He discusses how helpful this has been in episodes of urinary frequency and nocturia he had been experiencing. He discusses he is not currently sexually active as he is currently from his partner. He discusses since his last office visit here he had a relapse at which time he used crack. He reports working with [employer] in his sober. He currently denies any bothersome urinary issues or concerns. In office urinalysis results reviewed with the patient today. Recent A1c and PSA results were reviewed as noted and trended below: A1c: 06/02 10.6, 12/04 10.7 PSA: 12/03 0.6 We discussed potential causes of lower urinary tract symptoms patient was experiencing as well as further treatment options regarding erectile dysfunction and risks and benefits of these treatment options. We also discussed the importance of management and diabetes for improvement in ED as well as overall health and well-being. He discusses with his follow-up with endocrinology and potential switch from Trulicity to Ozempic. He otherwise denies incontinence,hematuria, dysuria, foul smelling urine, changes to urinary stream, flank pain, fever, and or chills. PREVIOUS OFFICE NOTE: Urinary urgency and frequency Urinary frequency particularly nocturia Diabetic on Farxiga Well known side effects Suggest holding medication for one-week and observing of urgency frequency resolved Erectile dysfunction in setting of diabetes Progressive Discussed management [facility] Medical History Right shoulder pain Diabetes mellitus, with long-term current use of insulin Peripheral neuropathy Needle phobia Hypothyroidism Obesity (BMI 30.0-34.9) Nocturnal hypoxemia AZAM (obstructive sleep apnea) Mild CAD Skin lesion of scalp Tubular adenoma Mixed dyslipidemia Postoperative hypothyroidism Bifascicular block Lumbar spondylosis Failed back syndrome, cervical Vitamin D deficiency History of cocaine use Spondylosis of cervical joint without myelopathy Fibromyalgia Rheumatoid arthritis Obstructive sleep apnea Bilateral nephrolithiasis Bilateral carpal tunnel syndrome Opiate dependence Morbid obesity Cervical spondylosis with radiculopathy Type 2 diabetes mellitus with diabetic polyneuropathy, without long-term current use of insulin GERD without esophagitis Essential hypertension Surgical History History of esophagogastroduodenoscopy (EGD) Hx of colonoscopy Hx of thyroidectomy Hx of neck surgery History of carpal tunnel surgery Hx of cholecystectomy History of spinal surgery Herniated disc Family History Father No problems noted. Mother Diabetes mellitus HTN (hypertension) Brother No problems noted. Sister No problems noted. Social History Household Members: Spouse and Children Housing: House Alcohol intake: never Patient Tobacco Use Status: Former Tobacco user Tobacco use type: Cigarette Years Smoked: 10 yrs e-Cigarette/Vaping Use: Never Used Second Hand Smoke Exposure: No service: No Current occupational status: disabled Cognitive needs: No Hearing needs: No Vision needs: Yes Review of Systems Const Reports no additional complaints Eyes Reports no additional complaints ENT Reports no additional complaints Card Reports as per HPI Resp Reports as per HPI GI Reports as per HPI Reports as per HPI Musc Reports as per HPI Neuro Reports no additional complaints Psych Reports no additional complaints Endo Reports as per HPI Ryan/Lymph Reports no additional complaints Aller/Immun Reports no additional complaints Physical Exam Const General: cooperative, comfortable, no acute distress, well developed, alert and awake Orientation/consciousness: patient oriented x3 Limitations: language barrier HEENT Head: Yes normal to inspection, Yes normocephalic and Yes atraumatic Ears: hearing grossly normal bilaterally Eyes General: appearance normal, both eyes and all related structures Neck Neck: Yes normal visual inspection and Yes trachea midline Chest Chest palpation & inspection: normal inspection of the chest Resp Effort & Inspection: normal respiratory effort and able to speak in complete sentences Cardio Rate: regular rate GI Inspection: Yes normal to inspection General: Yes no CVA tenderness Back/Spine/Pelvis Back: no CVA tenderness Skin General skin exam: no rashes or lesions noted Neuro General: patient oriented x3 Extrem General: Yes normal to inspection Psych Appearance: grossly normal and well kempt Mental Status: mental status grossly normal Speech and movement: Normal speech and movement present and Clear speech present Affect: normal affect Attitude: cooperative Thought process: Normal thought process present Thought content: Normal thought content present Insight: Fair insight present (Psych) Judgement: Fair judgement present (Psych) Results AMB Urinalysis, Automated UA Leukoctes 0 Julieth/uL Last Edit by Margarita Francis [facility] on 11/16/24 13:21 UA Nitrite Negative Last Edit by Margarita Francis [facility] on 11/16/24 13:21 UA Urobilinogen 0.2 mg/dL Last Edit by Margarita Francis [facility] on 11/16/24 13:21 UA Protein 0 mg/dL Last Edit by Margarita Francis [facility] on 11/16/24 13:21 UA pH 6.0 Last Edit by Margarita Francis [facility] on 11/16/24 13:21 UA Blood 0 Ronny/uL Last Edit by Margarita Francis [facility] on 11/16/24 13:21 UA Specific Thurman 1.010 Last Edit by Margarita Francis [facility] on 11/16/24 13:21 UA Ketone Negative Last Edit by Margarita Francis [facility] on 11/16/24 13:21 UA Bilirubin 0 mg/dL Last Edit by Margarita Francis [facility] on 11/16/24 13:21 UA Glucose 1000 mg/dL Last Edit by Margraita Francis [facility] on 11/16/24 13:21 Results Reviewed Results Reviewed: Laboratory Last Values Urine pH (Auto) 6.0 11/16/24 13:20 Specific Thurman (Auto) 1.010 11/16/24 13:20 Urine Protein (Auto) 0 mg/dL 11/16/24 13:20 Glucose (UA)(Auto) 1000 mg/dL 11/16/24 13:20 Urine Ketones (Auto) Negative 11/16/24 13:20 Urine Blood (Auto) 0 Ronny/uL 11/16/24 13:20 Urine Nitrite (Auto) Negative 11/16/24 13:20 Urine Bilirubin (Auto) 0 mg/dL 11/16/24 13:20 Urine Urobilinogen (Auto) 0.2 mg/dL 11/16/24 13:20 Leukocyte Esterase (Auto) 0 Julieth/uL 11/16/24 13:20 Assessment & Plan Assessment & Plan (1) Erectile dysfunction associated with type 2 diabetes mellitus: Code(s): E11.69 - Type 2 diabetes mellitus with other specified complication; N52.1 - Erectile dysfunction due to diseases classified elsewhere Category: Medical (2) Urinary frequency: Code(s): R35.0 - Frequency of micturition Category: Medical (3) Weak urinary stream: Code(s): R39.12 - Poor urinary stream Category: Medical Plan In office urinalysis results reviewed with the patient today; as noted above. Recent PSA in A1c results reviewed with the patient today; as noted above. Will continue with tadalafil. We discussed the importance of management and diabetes for improvement in urological health as well as overall health and well-being. All questions were answered. We did discuss sobriety. He currently denies any bothersome urinary issues or concerns. He reports be happy with current voiding parameters. Will continue with surveillance monitoring. We did discussed further treatment options and risks and benefits of these treatment options. Follow-up in 3-6 months with A1c; or sooner with any issues, concerns, and or questions. Orders: Orders AMB Urinalysis Automated Today Z13.9 - Encounter for screening, unspecified Patient Instructions: The patient had an opportunity to ask questions regarding the treatment plan. All questions were answered. Physical exam, labs, and imaging were discussed and reviewed in detail. As well as risks, benefits, and discussion of treatment choices. No major barriers to understanding were identified. The patient expressed understanding and agreement with the above treatment plan. The patient was made aware they should contact our office by phone for worsening of their current condition, the appearance of new symptoms, or with any questions or concerns. Compliance is encouraged with any medications and follow up testing that is ordered. It is a privilege to be allowed the opportunity to participate in? your urological care.? Again, if you have any questions or concerns If you have any questions or concerns please do not hesitate to contact me. The office is [phone]. This note is constructed using voice recognition software. While every effort has been made to ensure accuracy scaler errors may have been included. Yours sincerely, CHANDRIKA Wu Coding Level of Care Code Est Pt Level 3 (00099) Complex EM visit Add On G2211 Diagnoses Erectile dysfunction associated with type 2 diabetes mellitus E11.69; N52.1 Urinary frequency R35.0 Weak urinary stream R39.12
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
--- OUTSIDE RECORDS SUMMARY | 2024-11-16 14:51 | XMS_ITS | Clinical Summary ---
Author Organization [facility] Address [address] [place] [address] Care Team Providers Care Instructional Design Consultant Name Role Phone Ev Mosqueda MD Primary Care Provider [phone] Social History Tobacco Use Types Packs/Day Years [...] age to complete this topic Care Teams Instructional Design Consultant Relationship Specialty Start Date End Date Ev Mosqueda MD [address] [place] [address] PCP - General Internal Medicine 05/19/18
== END 2024-11-16 13:50 | disposition home or self-care (01) ==
PROVIDERS: PCP Internal Medicine; Visit Provider Nurse Practitioner Family
DX: E11.69 Type 2 diabetes mellitus with other specified complication (principal); N52.1 Erectile dysfunction due to diseases classified elsewhere; R35.0 Frequency of micturition; R39.12 Poor urinary stream; Z13.9 Encounter for screening, unspecified
CPT/HCPCS: 99213; G2211

== ENCOUNTER → 2024-11-16 12:42 | Outpatient (BNVA) | payer OTHER, SELFPAY | PROVIDERS: PCP Internal Medicine; Visit Provider Nurse Practitioner Family | DX: E11.69 Type 2 diabetes mellitus with other specified complication (principal); N52.1 Erectile dysfunction due to diseases classified elsewhere; R35.0 Frequency of micturition; R39.12 Poor urinary stream | CPT/HCPCS: 81003; 99212 ==

== ENCOUNTER 2024-12-03 10:45 | Outpatient (AMB) | payer MEDICARE, OTHER, SELFPAY ==
[2024-12-03 10:54] VITALS: BP 106/52; PULSE 86; O2SAT 96; BMI 29.8
--- NOTE | 2024-12-03 10:54 | MHC.OFFVIS ---
Vital Signs 12/03/24 10:54 Height 5 ft 10 in Weight 207 lb 14.334 oz BMI 29.8 BP 106/52 L Blood Pressure Location Lt brachial Position Sitting Pulse 86 Pulse Source Pulse Oximeter Pulse Oximetry (%) 96 Oxygen Delivery Method Room Air Intake Visit Reasons: T2DM, Hypothyroidism Intake Note: Patient present today for Type 2 Diabetes Mellitus and Hypothyroidism. Last Diabetic eye exam: Last exam was in 2023 Last Podiatry Visit: Last exam was on 11/02/2024 Random Glucose: 230 mg/dl HgA1C: 10.6% 11/10/24 Ballet Master/Mistress Required: No Accompanied by: Self / Same As Patient Allergies No Known Allergies Allergy (Verified 12/03/24 11:02) Medication List - Last Reconciled 12/03/24 by Angella Montanez MD alcohol swabs (Alcohol Prep Pads) 2 pad topical DAILY blood sugar diagnostic (OneTouch Verio test strips) Test blood sugar twice per day blood sugar diagnostic (FreeStyle Lite Strips) TEST BLOOD SUGAR THREE TIMES DAILY blood-glucose meter ([employer] Verio Flex Meter) As directed to test blood sugars blood-glucose meter (FreeStyle Lite Meter kit) As directed to check three times daily blood-glucose sensor (FreeStyle Raman 3 Sensor device) As directed blood-glucose sensor (FreeStyle Raman 3 Sensor device) As directed blood-glucose,sports book server,cont (FreeStyle Raman 3 [place]) diagnosis: Type 2 DM, poor A1 , needle phobia and neuropathy bupropion HCl XL 300 mg PO DAILY dapagliflozin propanediol (Farxiga) 10 mg PO QAM dulaglutide (Trulicity) 4.5 mg (0.5 mL) subcut QWEEK insulin glargine (Lantus Solostar U-100 Insulin) 30 units (0.3 mL) subcut DAILY lancets ([employer]ica Safety Lancet) Test blood sugar twice per day lancets (FreeStyle Lancets) As directed to check three times daily levothyroxine 150 mcg PO DAILY 3 months lisinopril 10 mg (1/2 x 20 mg) PO DAILY lumateperone (Caplyta) 21 mg PO BEDTIME lumateperone (Caplyta) 10.5 mg PO DAILY metformin 1,000 mg PO BID metoprolol succinate ER 25 mg PO QAM multivitamin (One Daily Multivitamin tablet) 1 tab PO QAM nitroglycerin 0.4 mg sublingual ONCE PRN omeprazole 20 mg PO QAM pen needle, diabetic (Comfort EZ Pen [place]) As directed for injecting insulin once daily pregabalin 150 mg PO BID 30 days rosuvastatin 5 mg PO QPM sertraline 150 mg PO DAILY tadalafil 10 mg PO DAILY 90 days tirzepatide (Mounjaro) 5 mg (0.5 mL) subcut QWEEK HPI Comments Details: 49 YO M with a PMHx of a multinodular thyroid s/p total thyroidectomy May 30 with benign results who is seen in F/U for type 2 diabetes mellitus and postoperative hypothyroidism. Type 2 DM Has DM for about 10 years so around 2013 A1c July 2023 was 7.2 % per patient , this was by [facility] at home a1c POC October 2023 9.9% A1c POC April 2024 10.2%. HgA1C: 10.7% 05/21/24 hba1c 9.2 % POC 08/20/24 HgA1C: 10.6% 11/10/24 Random Glucose: 285 mg/dl, Current meds Trulicity 4.5 mg weekly (saturday) no GI problems, increase in April 2024) , last visit I switched to Mounjaro 5 mg weekly, he still hasnt picked that up Dapagliflozin 10 mg daily (urinates more often, no UTI/ yeast uinfections) Metformin 1000 mg BID Lantus 30 units daily in AM Prior medications Discontinued in April due to change in regimen Actos 30 mg daily Glipizide 5 mg in AM and 10 mg in evening he lost his phone a month ago , so raman is not connected anymore , he has a reader at home but didnt know how to connect and didnt reach out. He has upcoming appt with Stephanie 12/15/24, I told him to bring reader and sensors to that appointment so she can help him set it up Hasnt been checking fingersticks Educator: Had an appointment 11/02 On lisinopril 10 mg daily reduced by PCP summer 2024 due to hypotensive episodes. in May 2024 labs showed GFR >60, creatinine normal, normal urine microalbumin Has neuropathy, on pregablin 150 mg BID feels doesnt really help No retinopathy, last eye visit March 2024 Last Podiatry Visit: 11/02 On rosuvastatin 5 mg daily, LDL 37 from May 2024 No macrovascular complications BP at goal Doesnt work out much has a lot of back discomfort and arthritis Weight :lost only 5 lbs on Trulicty 3 mg weekly , lost 15 lbs since May 05 on 4.5 of Trulicyt but with some fluctuations up and down Eating: trying to control calories but still eating carb heavy meals alcohol : none No smoking Walking : 20 to 30 mins daily in the house Hypothyroidism HPI from prior visit Was initially diagnosed with multinodular thyroid many years ago, and was previously followed at [facility] for this. He had a prior biopsy of some of his nodules, but he does not recall which. He reports that these were benign. He underwent FNA biopsy by Dr. Villela 11/10/2020 of 4 nodules, with results detailed below: 1) RUP 1.5 cm thyroid nodule - Cytology benign (bethesda category II) 2) RMP 4.2 cm thyroid nodule - Cytology benign (bethesda category II) 3) LMP 2.5 cm thyroid nodule - Cytology benign (bethesda category II) 4) LMP 4.6 cm thyroid nodule - Cytology Atypia of Undetermined Signifigance ([place] Category III), Affirma benign. He was complaining of significant compressive symptoms, so he was referred to Dr. Marsh for a total thyroidectomy. This was completed 05/29/2021. Official surgical path was benign. Postoperative he was started on levothyroxine,was previously taking 137 mcg PO daily Currently taking levothyroxine 150 mcg daily, reports good compliance with this. TSH is WNL at 1.07 from May 2024. He denies any symptoms of hyper or hypothyroidism. Physical exam General: sitting comfortably in bed in no acute distress HEENT: normocephalic/atraumatic, moist oral mucosa Neck: supple, symmetrical, no thyromegaly , no dorsocervical or supraclavicular fat pads Cardiac: normal heart sounds Pulm: normal breath sounds B/L, no added breath sounds Abd: not distended, no tenderness Extremities: no edema, no signs of myxedema Neuro: AAO x3, Speech: normal, no facial droop, moving all 4 extremities Skin: no rash Foot exam: Checked April 2024 diminished sensation to monofilament, intact pulses, intact vibration Laboratory Tests 05/13/23 11/04/23 05/04/24 08:59 09:24 09:10 Glucose (Clinic) 213 H Hgb A1c (Clinic) 9.9 H TSH 1.11 Free T4 1.04 Laboratory Tests 06/05/22 07:13 Urine Creatinine 152.91 Urine Microalbumin 11.0 Microalb/Creat Ratio 7.1 Laboratory Tests 07/01/20 11/07/22 05/06/23 11:22 09:27 10:57 Plt Count 199 Creatinine Estimated GFR Hgb A1c (Clinic) 6.5 H 6.9 H AST ALT Triglycerides Cholesterol LDL Cholesterol, Calc HDL Cholesterol 05/13/23 08:59 Plt Count Creatinine 0.88 Estimated GFR > 60 Hgb A1c (Clinic) AST 24 ALT 28 Triglycerides 196 H Cholesterol 116 LDL Cholesterol, Calc 42 HDL Cholesterol 35 L Laboratory Tests 05/13/23 08:59 TSH 1.11 Free T4 1.04 Laboratory Tests 05/04/24 05/21/24 05/21/24 09:32 09:56 10:15 Plt Count Sodium Potassium Creatinine Estimated GFR Glucose (Clinic) POC Glucose Random Glucose 356 H* Hgb A1c (Clinic) 10.2 H AST ALT Triglycerides 248 H Cholesterol 124 LDL Cholesterol, Calc 37 HDL Cholesterol 38 L Beta-Hydroxybutyrate TSH 1.07 Urine Creatinine 39.13 Urine Microalbumin < 5.0 05/21/24 05/21/24 05/21/24 18:23 19:02 20:31 Plt Count 193 Sodium 138 Potassium 4.2 Creatinine 1.02 Estimated GFR > 60 Glucose (Clinic) POC Glucose 338 H 230 H Random Glucose 405 H* Hgb A1c (Clinic) AST 26 ALT 35 Triglycerides Cholesterol LDL Cholesterol, Calc HDL Cholesterol Beta-Hydroxybutyrate 0.13 TSH Urine Creatinine Urine Microalbumin 05/25/24 13:48 Plt Count Sodium Potassium Creatinine Estimated GFR Glucose (Clinic) 217 H POC Glucose Random Glucose Hgb A1c (Clinic) AST ALT Triglycerides Cholesterol LDL Cholesterol, Calc HDL Cholesterol Beta-Hydroxybutyrate TSH Urine Creatinine Urine Microalbumin [facility] Medical History Right shoulder pain Diabetes mellitus, with long-term current use of insulin Peripheral neuropathy Needle phobia Hypothyroidism Obesity (BMI 30.0-34.9) Nocturnal hypoxemia AZAM (obstructive sleep apnea) Mild CAD Skin lesion of scalp Tubular adenoma Mixed dyslipidemia Postoperative hypothyroidism Bifascicular block Lumbar spondylosis Failed back syndrome, cervical Vitamin D deficiency History of cocaine use Spondylosis of cervical joint without myelopathy Fibromyalgia Rheumatoid arthritis Obstructive sleep apnea Bilateral nephrolithiasis Bilateral carpal tunnel syndrome Opiate dependence Morbid obesity Cervical spondylosis with radiculopathy Type 2 diabetes mellitus with diabetic polyneuropathy, without long-term current use of insulin GERD without esophagitis Essential hypertension Surgical History History of esophagogastroduodenoscopy (EGD) Hx of colonoscopy Hx of thyroidectomy Hx of neck surgery History of carpal tunnel surgery Hx of cholecystectomy History of spinal surgery Herniated disc Family History Father No problems noted. Mother Diabetes mellitus HTN (hypertension) Brother No problems noted. Sister No problems noted. Social History Household Members: Spouse and Children Housing: House Alcohol intake: never Patient Tobacco Use Status: Former Tobacco user Tobacco use type: Cigarette Years Smoked: 10 yrs e-Cigarette/Vaping Use: Never Used Second Hand Smoke Exposure: No service: No Current occupational status: disabled Cognitive needs: No Hearing needs: No Vision needs: Yes Physical Exam Vital Signs: Last Vital Signs Pulse 86 12/03/24 10:54 BP 106/52 L 12/03/24 10:54 Pulse Ox 96 12/03/24 10:54 Oxygen Delivery Method Room Air 12/03/24 10:54 BMI result Body Mass Index 29.8 Assessment & Plan Assessment & Plan (1) Diabetes mellitus, with long-term current use of insulin: Code(s): E11.9 - Type 2 diabetes mellitus without complications; Z79.4 - halfway (current) use of insulin Category: Medical Qualifiers: Diabetes mellitus complication detail: with polyneuropathy Diabetes mellitus complication status: with neurologic complications Diabetes mellitus type: type 2 Qualified Code(s): E11.42 - Type 2 diabetes mellitus with diabetic polyneuropathy; Z79.4 - halfway (current) use of insulin Plan: Patient with history of type 2 diabetes mellitus, with complications of neuropathy, without long-term insulin use coming in today for follow up. A. HBA1c POC 12/03/2024 at 10.6% which is up from August 2024 i 9.2% from 10.7% in May 2024 . he lost his phone a month ago , so raman is not connected anymore , he has a reader at home but didnt know how to connect and didnt reach out. He has upcoming appt with Stephanie 12/15/24, I told him to bring reader and sensors to that appointment so she can help him set it up Hasnt been checking fingersticks so I would not have much data on him today in terms of pattern of hyperglycemia. He continues to have uncontrolled hyperglycemia, educated him about risks of uncontrolled hyperglycemia and complications both microvascular and macrovascular. in April I also increased his Trulicity to 4.5 mg weekly, he has not really lost much more weight on the Trulicity, only lost 3-4 lb in the past 6 months. At this point he has failed Trulicity, and last visit in September 2024 I prescribed him to Mounjaro equivalent dose 5 mg weekly. However he says pharmacy told him it was not in stock and has not been able to pick this up. I will take of Trulicity from his list once he obtains the Mounjaro successfully. I told him to check with the pharmacy and if they do not have it in stock, let us know which pharmacy we can send it to. B:?Blood pressure is under adequate control, for renal protection in the setting of diabetes. Lisinopril was recently summer 2024 reduced to 10 mg daily due to low blood pressures. C:?LDL is 37 mg/dL from May 2024, which is at goal. Goal is less than 70. Triglycerides elevated at 248, these we will hopefully improve with better control of diabetes. D:?Diet control and healthy lifestyle was discussed in detail. Emphasis was made on exercise and physical activity in daily routine with at least 30-45 minutes of aerobic exercise 5-6 days a week. He has some limitation due to arthritis, and lumbar stenosis, asked him to do as much as possible. E: Last visit with punch card operator was in August 2024, no retinopathy per patient. F: Foot care is suboptimal, has diminished sensation to monofilament. Already on pregabalin though that does not help him much. I counseled him that improved control of his diabetes will help with the neuropathy as well.. Following with acute coordinator G: eGFR >60 and microalbumin/Cr ratio normal from May 2024. Plan: -switch from Trulicity to Mounjaro 5 mg weekly, we will discontinue Trulicity from the medication list once as Mounjaro is approved -continue Lantus 30 units daily. -continue metformin 1000 mg b.i.d., , Farxiga 10 mg daily, -once we have more sensor data, I will probably consider starting him on some mealtime insulin next time -follow up with the educator , have sensor set up with a reader, also prescribing Raman 3+ upgrade from 3 -dietary and exercise counseling done as advised above -follow up in 6-8 weeks - (2) Hypothyroidism: Code(s): E03.9 - Hypothyroidism, unspecified Category: Medical Qualifiers: Hypothyroidism type: postoperative Qualified Code(s): E89.0 - Postprocedural hypothyroidism Plan: Status post total thyroidectomy for multinodular goiter in May 30, with benign pathology. Currently on levothyroxine 150 mcg daily, taking it appropriately. TSH was within normal limits from May 2024. Plan: -continue levothyroxine 150 mcg daily (3) Needle phobia: Code(s): F40.298 - Other specified phobia Category: Medical Plan: He has freestyle Raman, (4) Peripheral neuropathy: Code(s): G62.9 - Polyneuropathy, unspecified Category: Medical Qualifiers: Peripheral neuropathy type: polyneuropathy associated with underlying disease Qualified Code(s): G63 - Polyneuropathy in diseases classified elsewhere Plan: See above Plan I spent 30 minutes in reviewing the record, seeing the patient and documenting in the medical record. Medications: New blood-glucose sensor (FreeStyle Raman 3 Plus Sensor device) As directed every 15 days 2 ea 8RF E11.42 - Type 2 diabetes mellitus with diabetic polyneuropathy, F40.298 - Other specified phobia, Z79.4 - terminal manager (current) use of insulin Refilled blood-glucose,sports book server,cont (FreeStyle Raman 3 [place]) diagnosis: Type 2 DM, poor A1 , needle phobia and neuropathy 1 ea 0RF Discontinued blood-glucose meter (OneTouch Verio Flex Meter) Discontinued Reason: Doctor's Order As directed to test blood sugars 1 ea 0RF E11.42 - Type 2 diabetes mellitus with diabetic polyneuropathy blood sugar diagnostic (OneTouch Verio test strips) Discontinued Reason: Doctor's Order Test blood sugar twice per day 200 ea 1RF E11.42 - Type 2 diabetes mellitus with diabetic polyneuropathy lancets ([employer] Safety Lancet) Discontinued Reason: Doctor's Order Test blood sugar twice per day 200 ea 1RF E11.42 - Type 2 diabetes mellitus with diabetic polyneuropathy Patient Instructions: Continue Lantus 30 units Continue metformin 1000 mg twice daily Continue Farxiga 10 mg daily Start Mounjaro 5 mg weekly injection, stop Trulicity when you start Mounjaro , please call us during office hours to let us know if there is any issue with obtaining Mounjaro See Stephanie 12/15/24, please bring all equipment like sensor and reader to the visit Till then check blood sugar 2-3 times a day , fasting and some premeals and some 2 hrs post meal Bring meter also to visits Coding Level of Care Code Est Pt Level 4 (60156) Complex EM visit Add On G2211 Diagnoses Type 2 diabetes mellitus with diabetic polyneuropathy, with long-term current use of insulin E11.42; Z79.4 Diabetes mellitus complication detail: with polyneuropathy Diabetes mellitus complication status: with neurologic complications Diabetes mellitus type: type 2 Postoperative hypothyroidism E89.0 Hypothyroidism type: postoperative Needle phobia F40.298 Polyneuropathy associated with underlying disease G63 Peripheral neuropathy type: polyneuropathy associated with underlying disease Time Spent (min) 30
[2024-12-03 11:09] LABS: Glucose, Whole Blood 230 mg/dL (60-115)
== END 2024-12-03 11:31 | disposition home or self-care (01) ==
LOC: HO.ENCR 10:46
PROVIDERS: PCP Internal Medicine; Visit Provider Student in an Organized Health Care Education/Training Program
DX: E11.42 Type 2 diabetes mellitus with diabetic polyneuropathy (principal); Z79.4 Long term (current) use of insulin; E89.0 Postprocedural hypothyroidism; F40.298 Other specified phobia; G63 Polyneuropathy in diseases classified elsewhere
CPT/HCPCS: 99214; G2211

== ENCOUNTER → 2024-12-03 10:45 | Outpatient (BNVA) | payer OTHER, SELFPAY | PROVIDERS: PCP Internal Medicine; Visit Provider Student in an Organized Health Care Education/Training Program | DX: E11.42 Type 2 diabetes mellitus with diabetic polyneuropathy (principal); Z79.4 Long term (current) use of insulin; E89.0 Postprocedural hypothyroidism | CPT/HCPCS: 82947; 99212 ==

== ENCOUNTER 2024-12-08 10:28 | Outpatient (AMB) | payer OTHER, SELFPAY ==
--- NOTE | 2024-12-08 10:32 | A.OFFVIS_ITS ---
Intake Visit Reasons: Bilateral shoulder pain, Neck pain Intake Note: Carlos is a 49 year old male right hand dominant who presents with complaints of progressively worsening neck pain which radiates down his right arm to his right hand. The patient also reports intermittent discomfort in both of his shoulders, right greater than left. The patient states that he underwent cervical spine fusion surgery by Dr. Petty in 2020. He got fairly good relief from that surgery initially. The patient states that in April of 2024 he fell and hit his head. Since that time his neck pain has gotten worse. He also reports weakness in his right arm. He has failed the last 6 weeks of conservative treatment which has included Tylenol, anti-inflammatory medicines, a home exercise program and physical therapy exercises. At this point the patient's neck pain is interfering with his activities of daily living and his ability to sleep well through the night. The patient states that he has fallen multiple times since that injury. Dairy Helper Required: Yes Dairy Helper Services: Dairy Helper Present Dairy Helper Name: Ramandeep Mcghee [phone] Allergies No Known Allergies Allergy (Verified 12/03/24 11:02) Medication List - Last Reconciled 12/08/24 by Godwin Encinas MD alcohol swabs (Alcohol Prep Pads) 2 pad topical DAILY blood sugar diagnostic (FreeStyle Lite Strips) TEST BLOOD SUGAR THREE TIMES DAILY blood-glucose meter (FreeStyle Lite Meter kit) As directed to check three times daily blood-glucose sensor (FreeStyle Raman 3 Plus Sensor device) As directed every 15 days blood-glucose sensor (FreeStyle Raman 3 Sensor device) As directed blood-glucose sensor (FreeStyle Raman 3 Sensor device) As directed blood-glucose,supervisor adult education,cont (FreeStyle Raman 3 [place]) diagnosis: Type 2 DM, poor A1 , needle phobia and neuropathy bupropion HCl XL 300 mg PO DAILY dapagliflozin propanediol (Farxiga) 10 mg PO QAM dulaglutide (Trulicity) 4.5 mg (0.5 mL) subcut QWEEK insulin glargine (Lantus Solostar U-100 Insulin) 30 units (0.3 mL) subcut DAILY lancets (FreeStyle Lancets) As directed to check three times daily levothyroxine 150 mcg PO DAILY 3 months lisinopril 10 mg (1/2 x 20 mg) PO DAILY lumateperone (Caplyta) 21 mg PO BEDTIME lumateperone (Caplyta) 10.5 mg PO DAILY metformin 1,000 mg PO BID metoprolol succinate ER 25 mg PO QAM multivitamin (One Daily Multivitamin tablet) 1 tab PO QAM nitroglycerin 0.4 mg sublingual ONCE PRN omeprazole 20 mg PO QAM pen needle, diabetic (Comfort EZ Pen [place]) As directed for injecting insulin once daily pregabalin 150 mg PO BID 30 days rosuvastatin 5 mg PO QPM sertraline 150 mg PO DAILY tadalafil 10 mg PO DAILY 90 days tirzepatide (Mounjaro) 5 mg (0.5 mL) subcut QWEEK [facility] Medical History Right shoulder pain Diabetes mellitus, with long-term current use of insulin Peripheral neuropathy Needle phobia Hypothyroidism Obesity (BMI 30.0-34.9) Nocturnal hypoxemia AZAM (obstructive sleep apnea) Mild CAD Skin lesion of scalp Tubular adenoma Mixed dyslipidemia Postoperative hypothyroidism Bifascicular block Lumbar spondylosis Failed back syndrome, cervical Vitamin D deficiency History of cocaine use Spondylosis of cervical joint without myelopathy Fibromyalgia Rheumatoid arthritis Obstructive sleep apnea Bilateral nephrolithiasis Bilateral carpal tunnel syndrome Opiate dependence Morbid obesity Cervical spondylosis with radiculopathy Type 2 diabetes mellitus with diabetic polyneuropathy, without long-term current use of insulin GERD without esophagitis Essential hypertension Surgical History History of esophagogastroduodenoscopy (EGD) Hx of colonoscopy Hx of thyroidectomy Hx of neck surgery History of carpal tunnel surgery Hx of cholecystectomy History of spinal surgery Herniated disc Family History Father No problems noted. Mother Diabetes mellitus HTN (hypertension) Brother No problems noted. Sister No problems noted. Social History Household Members: Spouse and Children Housing: House Alcohol intake: never Patient Tobacco Use Status: Former Tobacco user Tobacco use type: Cigarette Years Smoked: 10 yrs e-Cigarette/Vaping Use: Never Used Second Hand Smoke Exposure: No service: No Current occupational status: disabled Cognitive needs: No Hearing needs: No Vision needs: Yes Physical Exam Const Other: Well-nourished well-developed very friendly male awake alert and oriented x3 in no acute distress Neck Other: Cervical spine examination shows right-sided paraspinal muscle tenderness, pain with range of motion, positive Spurling's test, 4/5 strength with testing of his right biceps and wrist extensors when compared to 5/5 strength on his left side Extrem Other: Bilateral shoulder examination shows forward flexion to 150 degrees, external rotation to 40 degrees, 4+ out of 5 strength with supraspinatus testing, positive impingement signs, no instability Results Reviewed Results Reviewed: X-rays of the patient's bilateral shoulders taken today show moderate acromioclavicular joint narrowing, no acute bony abnormalities Assessment & Plan Assessment & Plan (1) Left shoulder pain: Code(s): M25.512 - Pain in left shoulder Category: Medical Qualifiers: Chronicity: acute Qualified Code(s): M25.512 - Pain in left shoulder (2) Right shoulder pain: Code(s): M25.511 - Pain in right shoulder Category: Medical Qualifiers: Chronicity: acute Qualified Code(s): M25.511 - Pain in right shoulder (3) Neck pain on right side: Code(s): M54.2 - Cervicalgia Category: Medical (4) Bilateral shoulder pain: Code(s): M25.511 - Pain in right shoulder; M25.512 - Pain in left shoulder Plan Mr. Lola Rose presents with progressively worsening neck pain which radiates down his right arm to his right hand as well as associated right upper extremity weakness most likely due to cervical stenosis or a disc herniation. Thus, I will send the patient for an MRI of his cervical spine for further evaluation. I will see him back once the MRI is completed to discuss the findings. He will contact me prior to that time should his symptoms worsen in any way. Feel free to call me at any time should questions regarding his orthopedic management arise. Thank you very much for asking me to see this very friendly gentleman. I spent 21 minutes in reviewing the patient's records and imaging studies, seeing the patient and documenting in the medical record. Orders: Orders cervical spine wo con 12/09/24 M25.511 - Pain in right shoulder, M25.512 - Pain in left shoulder, M54.2 - Cervicalgia Coding Level of Care Code New Pt Level 3 (25548) Complex EM visit Add On G2211 Diagnoses Acute pain of left shoulder M25.512 Chronicity: acute Acute pain of right shoulder M25.511 Chronicity: acute Neck pain on right side M54.2 Bilateral shoulder pain M25.511; M25.512
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
--- OUTSIDE RECORDS SUMMARY | 2024-12-08 11:39 | XMS_ITS | Clinical Summary ---
Author Organization [facility] Address [address] [place] [address] Care Team Providers Care Recording Artist Name Role Phone Ev Mosqueda MD Primary Care Provider [phone] Social History Tobacco Use Types Packs/Day Years [...] age to complete this topic Care Teams Recording Artist Relationship Specialty Start Date End Date Ev Mosqueda MD [address] [place] [address] PCP - General Internal Medicine 05/19/18
== END 2024-12-08 11:18 | disposition home or self-care (01) ==
LOC: HO.HOS 10:29
PROVIDERS: PCP Internal Medicine; Visit Provider Orthopaedic Surgery
DX: M25.512 Pain in left shoulder (principal); M25.511 Pain in right shoulder; M54.2 Cervicalgia
CPT/HCPCS: 99203; G2211

== ENCOUNTER → 2024-12-08 10:28 | Outpatient (BNVA) | payer OTHER, SELFPAY | PROVIDERS: PCP Internal Medicine; Visit Provider Orthopaedic Surgery | DX: M25.511 Pain in right shoulder (principal); M25.512 Pain in left shoulder; M54.2 Cervicalgia | CPT/HCPCS: 99202 ==

== ENCOUNTER 2024-12-18 12:26 | Outpatient (AMB) | payer OTHER, SELFPAY ==
[2024-12-18 12:52] VITALS: BP 100/68; PULSE 85; RESP 16; TEMP 36.9; O2SAT 98; BMI 29.8
--- NOTE | 2024-12-18 12:52 | AM.OFFWIN_ITS ---
Intake Vital Signs 12/18/24 12:52 Height 5 ft 10 in Weight 208 lb BMI 29.8 BP 100/68 Blood Pressure Location Rt brachial Position Sitting Respiration 16 Pulse 85 Pulse Source Pulse Oximeter Temp 98.5 F Temp Source Oral Pulse Oximetry (%) 98 Oxygen Delivery Method Room Air Intake Visit Reasons: EP-coccyx pain Intake Note: Pt is here today c/o coccyx pain trying to pick something up from the floor x4days Patient Tobacco Use Status: Former Tobacco user Allergies No Known Allergies Allergy (Verified 12/03/24 11:02) Medication List - Last Reconciled 12/18/24 by Nayeli Tay MD alcohol swabs (Alcohol Prep Pads) 2 pad topical DAILY blood sugar diagnostic (FreeStyle Lite Strips) TEST BLOOD SUGAR THREE TIMES D AILY blood-glucose meter (FreeStyle Lite Meter kit) As directed to check three times daily blood-glucose sensor (FreeStyle Raman 3 Sensor device) As directed blood-glucose sensor (FreeStyle Raman 3 Sensor device) As directed blood-glucose sensor (FreeStyle Raman 3 Plus Sensor device) As directed every 15 days blood-glucose,oracle developer,cont (FreeStyle Raman 3 [place]) diagnosis: Type 2 DM, poor A1 , needle phobia and neuropathy bupropion HCl XL 300 mg PO DAILY dapagliflozin propanediol (Farxiga) 10 mg PO QAM insulin glargine (Lantus Solostar U-100 Insulin) 30 units (0.3 mL) subcut DAILY lancets (FreeStyle Lancets) As directed to check three times daily levothyroxine 150 mcg PO DAILY 3 months lisinopril 10 mg (1/2 x 20 mg) PO DAILY lumateperone (Caplyta) 21 mg PO BEDTIME lumateperone (Caplyta) 10.5 mg PO DAILY metformin 1,000 mg PO BID metoprolol succinate ER 25 mg PO QAM multivitamin (One Daily Multivitamin tablet) 1 tab PO QAM omeprazole 20 mg PO QAM pen needle, diabetic (Comfort EZ Pen [place]) As directed for injecting insulin once daily pregabalin 150 mg PO BID 30 days rosuvastatin 5 mg PO QPM sertraline 150 mg PO DAILY tadalafil 10 mg PO DAILY 90 days tirzepatide (Mounjaro) 5 mg (0.5 mL) subcut QWEEK HPI EP-coccyx pain HPI Details History of Present Illness The patient is a 49 year old male with Hx of DM ,presenting with low back pain. 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 - The patient has a history of back prob lems and previously received a lumbar spine MRI in May, which showed a congenitally narrow spinal canal with moderate spinal canal stenosis at L4-L5 and L5-S1. Problem List - Low back pain - Congenital spinal canal stenosis - Diabetes Mellitus Plan - Initiate a regimen of Medrol dose pack , to alleviate back pain inflammation, considering the potential for increased blood sugar levels and advising monitoring of glucose and, if necessary, administering extra insulin. - Prescribe diclofenac for inflammation, to be taken twice a day with food. - Prescribe a muscle relaxant for use at night to ease muscle tension and provide relief. - Emphasize understanding of the risks a ssociated with steroid use, particularly concerning blood glucose control due to diabetes mellitus. Review of Systems - General: No fever no chills - Neurological: No headaches no dizziness - Ear nose throat: No sore throat no hearing difficulty no ear pain - Cardiovascular: No syncope, no chest pain, no palpitations - Gastrointestinal: No nausea vomiting or diarrhea Physical Exam - General: No acute distress , sitting down comfortabily, seems to be in discomfort standing up from sitting posture - HEENT: No acute findings - Neck: Supple - Respiratory system: Able to talk in f ull sentences, no audible wheeze - Gastrointestinal: No pain - CONE PICKER: Alert awake oriented x3 motor in tact , straight leg + right side - Skin: Normal turgor PFSH Medical History Right shoulder pain Diabetes mellitus, with long-term current use of insulin Peripheral neuropathy Needle phobia Hypothyroidism Obesity (BMI 30.0-34.9) Nocturnal hypoxemia AZAM (obstructive sleep apnea) Mild CAD Skin lesion of scalp Tubular adenoma Mixed dyslipidemia Postoperative hypothyroidism Bifascicular block Lumbar spondylosis Failed back syndrome, cervical Vitamin D deficiency History of cocaine use Spondylosis of cervical joint without myelopathy Fibromyalgia Rheumatoid arthritis Obstructive sleep apnea Bilateral nephrolithiasis Bilateral carpal tunnel syndrome Opiate dependence Morbid obesity Cervical spondylosis with radiculopathy Type 2 diabetes mellitus with diabetic polyneuropathy, without long-term current use of insulin GERD without esophagitis Essential hypertension Surgical History History of esophagogastroduodenoscopy (EGD) Hx of colonoscopy Hx of thyroidectomy Hx of neck surgery History of carpal tunnel surgery Hx of cholecystectomy History of spinal surgery Herniated disc Family History Father No problems noted. Mother Diabetes mellitus HTN (hypertension) Brother No problems noted. Sister No problems noted. Social History Household Members: Spouse and Children Housing: House Alcohol intake: never Patient Tobacco Use Status: Former Tobacco user Tobacco use type: Cigarette Years Smoked: 10 yrs e-Cigarette/Vaping Use: Never Used Second Hand Smoke Exposure: No service: No Current occupational status: disabled Cognitive needs: No Hearing needs: No Vision needs: Yes Physical Exam Vital Signs: Last Vital Signs Temp 98.5 F 12/18/24 12:52 Pulse 85 12/18/24 12:52 Resp 16 12/18/24 12:52 BP 100/68 12/18/24 12:52 Pulse Ox 98 12/18/24 12:52 Oxygen Delivery Method Room Air 12/18/24 12:52 BMI result Body Mass Index 29.8 Assessment & Plan Assessment & Plan (1) Right lumbar radiculitis: Code(s): M54.16 - Radiculopathy, lumbar region (2) Spinal stenosis, lumbar: Code(s): M48.061 - Spinal stenosis, lumbar region without neurogenic claudication Qualifiers: Neurogenic claudication status: with neurogenic claudication Qualified Code(s): M48.062 - Spinal stenosis, lumbar region with neurogenic claudication Plan History of Present Illness The patient is a 49 year old male with Hx of DM ,presenting with low back pain. 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 - The patient has a history of back problems and previously received a lumbar spine MRI in May, which showed a congenitally narrow spinal canal with moderate spinal canal stenosis at L4-L5 and L5-S1. Problem List - Low back pain - Congenital spinal canal stenosis - Diabetes Mellitus Plan - Initiate a regimen of Medrol dose pack, to alleviate back pain inflammation, considering the potential for increased blood sugar levels and advising monitor ing of glucose and, if necessary, administering extra insulin. - Prescribe diclofenac for inflammation, to be taken twice a day with food. - Prescribe a muscle relaxant for use at night to ease muscle tension and provide relief. - Emphasize understanding of the risks associated with steroid use, particularly concerning blood glucose control due to diabetes mellitus. Medications: New methylprednisolone (Medrol (Aníbal)) PO PER PKG DIR 21 ea 0RF 6 days diclofenac sodium take it with food 75 mg PO BID 20 tabs 0RF pain 10 days baclofen 10 mg PO BEDTIME 10 tabs 0RF Coding Level of Care Code Est Pt Level 3 (03245) Diagnoses Right lumbar radiculitis M54.16 Spinal stenosis of lumbar region with neurogenic claudication M48.062 Neurogenic claudication status: with neurogenic claudication
== END 2024-12-18 13:12 | disposition home or self-care (01) ==
PROVIDERS: PCP Internal Medicine; Visit Provider Internal Medicine
DX: M54.16 Radiculopathy, lumbar region (principal); M48.062 Spinal stenosis, lumbar region with neurogenic claudication

== ENCOUNTER → 2024-12-18 12:26 | Outpatient (BNVA) | payer OTHER, SELFPAY | PROVIDERS: PCP Internal Medicine; Visit Provider Internal Medicine | DX: M54.16 Radiculopathy, lumbar region (principal); M48.062 Spinal stenosis, lumbar region with neurogenic claudication | CPT/HCPCS: 99212 ==

== ENCOUNTER → 2025-01-03 09:06 | Outpatient (BNV) | payer OTHER, SELFPAY | PROVIDERS: PCP Internal Medicine; Visit Provider Radiology Diagnostic Radiology | DX: M48.02 Spinal stenosis, cervical region (principal); M89.39 Hypertrophy of bone, multiple sites | CPT/HCPCS: 72141 ==

== ENCOUNTER 2025-01-03 09:45 | Outpatient (REF) | payer OTHER, SELFPAY ==
--- NOTE | ~2025-01-03 | MR_ITS ---
CLINICAL HISTORY: M54.2 - Cervicalgia MR cervical spine without gadolinium Comparison: CR/SR - XR CERVICAL SPINE 2-3 VIEWS - 08/26/24 11:45 EDT CR/AL/SR - XR CERVICAL SPINE 4-5 VIEWS - 10/14/23 10:31 EDT Findings: Visualized intracranial contents are unremarkable. Soft tissues of the neck are normal. Cervical cord normal size and signal. Loss of normal cervical lordosis. No acute fractures or pathologic bone lesions. Anterior fusion hardware at C6-C7. Mild reactive signal throughout the endplates of the cervical and upper thoracic spine. C2-C3:Congenital canal stenosis. Mild facet and uncovertebral hypertrophy. Mild canal stenosis. Mild bilateral foraminal stenosis. C3-C4:Congenital canal stenosis. Mild diffuse disc bulge. Mild facet and uncovertebral hypertrophy bilaterally. Moderate canal stenosis. Moderate right and moderate to severe left foraminal stenosis. Left C4 nerve root compression. C4-C5:Mild disc desiccation and diffuse disc bulge. Mild facet and uncovertebral hypertrophy bilaterally. Congenital canal stenosis. Severe canal stenosis. Mild cord flattening. Moderate to severe right and severe left foraminal stenosis. Bcuk-pqjlqzh-eloi-right C5 nerve root compression. C5-C6:Mild disc desiccation and diffuse disc bulge. Congenital canal stenosis. Mild facet and uncovertebral hypertrophy bilaterally. Moderate to severe canal stenosis. Minimal cord flattening. Severe bilateral foraminal stenosis with bilateral C6 nerve root compression. C6-C7:Anterior fusion. Congenital canal stenosis. Mild residual disc bulge /osteophyte with superimposed left far lateral protrusion/osteophyte. Bpbi-ommuigv-hjgh-right facet and uncovertebral hypertrophy. Moderate canal stenosis. Moderate right and severe left foraminal stenosis. Left C7 nerve root compression. C7-T1:Mild disc desiccation and diffuse disc bulge. Congenital canal stenosis. Mild facet and uncovertebral hypertrophy bilaterally. Mild canal stenosis. Moderate bilateral foraminal stenosis. IMPRESSION: 1. Diffuse congenital canal stenosis with superimposed disc and facet disease, as well as uncovertebral hypertrophy. 2. Multilevel canal stenoses, worst at C4-C5 and C5-C6 where there is minimal cord flattening. 3. Multilevel foraminal stenoses, worst at C3-C4, C4-C5, C5-C6, and C6-C7 where there is associated intraforaminal nerve root compression. Correlation with clinical symptoms is recommended to assess relevance of these findings. 4. Postsurgical sequelae. This document has been electronically signed by: iLnda Sampson MD on 01/05/2025 14:51:35
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
--- OUTSIDE RECORDS SUMMARY | 2025-01-03 09:49 | XMS_ITS | Clinical Summary ---
Author Organization [facility] Address [address] [place] [address] Care Team Providers Care Advertising Specialist Name Role Phone Ev Mosqueda MD Primary Care Provider [phone] [phone] Social History Tobacco Use Types Packs/Day Years [...] age to complete this topic Care Teams Advertising Specialist Relationship Specialty Start Date End Date Ev Mosqueda MD [address] [place] [address] PCP - General Internal Medicine 05/19/18
== END 2025-01-03 09:46 | disposition home or self-care (01) ==
LOC: HO.MRI 09:45
PROVIDERS: PCP Internal Medicine; Visit Provider Orthopaedic Surgery
DX: M54.2 Cervicalgia (principal); M25.511 Pain in right shoulder; M25.512 Pain in left shoulder
CPT/HCPCS: 72141

== ENCOUNTER 2025-01-11 09:29 | Outpatient (AMB) | payer OTHER, SELFPAY ==
--- NOTE | 2025-01-11 10:19 | A.OFFVIS_ITS ---
Intake Intake Visit Reasons: 60 min Production Welder Required: Yes Production Welder Language: Accredited Pharmacy Technician Name: Paddy [phone] Allergies No Known Allergies Allergy (Verified 12/03/24 11:02) HPI Comprehensive Diabetes Asmnt Most Recent Diabetes Results: 2 Hemoglobin A1c 8.7 % 11/18/19 Microalb/Creat Ratio TNP 05/21/24 Cholesterol, (<200) 140 mg/dL 10/19/24 HDL Cholesterol, (>40) 37 mg/dL L 10/19/24 Triglycerides, (<150) 285 mg/dL H 10/19/24 Creatinine, (0.5-1.4) 0.86 mg/dL 10/19/24 BUN, (9-16) 21 mg/dL H 10/19/24 Sodium, (135-145) 142 mmol/L 10/19/24 Potassium, (3.3-5.1) 4.6 mmol/L 10/19/24 Chloride, (96-108) 106 mmol/L 10/19/24 Carbon Dioxide, (22-29) 27 mmol/L 10/19/24 Calcium, (8.4-10.2) 9.6 mg/dL 10/19/24 AST, (5-37) 34 U/L 10/19/24 ALT, (0-40) 51 U/L H 10/19/24 Total Protein, (6.5-8.0) 7.6 g/dL 05/21/24 Albumin, (3.5-5.0) 4.3 g/dL 05/21/24 [facility] Medical History Right shoulder pain Diabetes mellitus, with long-term current use of insulin Peripheral neuropathy Needle phobia Hypothyroidism Obesity (BMI 30.0-34.9) Nocturnal hypoxemia AZAM (obstructive sleep apnea) Mild CAD Skin lesion of scalp Tubular adenoma Mixed dyslipidemia Postoperative hypothyroidism Bifascicular block Lumbar spondylosis Failed back syndrome, cervical Vitamin D deficiency History of cocaine use Spondylosis of cervical joint without myelopathy Fibromyalgia Rheumatoid arthritis Obstructive sleep apnea Bilateral nephrolithiasis Bilateral carpal tunnel syndrome Opiate dependence Morbid obesity Cervical spondylosis with radiculopathy Type 2 diabetes mellitus with diabetic polyneuropathy, without long-term current use of insulin GERD without esophagitis Essential hypertension Surgical History History of esophagogastroduodenoscopy (EGD) Hx of colonoscopy Hx of thyroidectomy Hx of neck surgery History of carpal tunnel surgery Hx of cholecystectomy History of spinal surgery Herniated disc Family History Father No problems noted. Mother Diabetes mellitus HTN (hypertension) Brother No problems noted. Sister No problems noted. Social History Household Members: Spouse and Children Housing: House Alcohol intake: never Patient Tobacco Use Status: Former Tobacco user Tobacco use type: Cigarette Years Smoked: 10 yrs e-Cigarette/Vaping Use: Never Used Second Hand Smoke Exposure: No service: No Current occupational status: disabled Cognitive needs: No Hearing needs: No Vision needs: Yes Assessment & Plan Assessment & Plan (1) Type 2 diabetes mellitus with diabetic polyneuropathy, without long-term current use of insulin: Code(s): E11.42 - Type 2 diabetes mellitus with diabetic polyneuropathy Plan: Learning objectives: The patient was provided with verbal and written education on the following topics as outlined below. The patient met all learning objectives and was able to verbalize understanding and provide teach back of education topics discussed . The patient was provided with the opportunity to ask questions and all questions were answered. Patient Assessment Assess patient education level/literacy/barriers last A1c 10.6% in Nov 2024 Patient questions/concerns, Pt stated he is is staying with his mother due to stress at home. Exercise Medical clearance Effect of exercise on blood sugar Start slowly and gradually increase pace/duration over time Goal amount of exercise Checking blood glucose/have a source of carbs with you Diabetes Complications: ?Nephropathy :Kidney Disease ?diabetes can damage the kidneys, which is not only can cause them to fail but can make them lose their ability to filter waste from the blood? ?Retinopathy: Eye complications ?Retinopathy? is the commonest long-term complication of diabetes. It is leading cause of blindness Besides, Retinopathy- People with diabetes? are also prone to cataract and Glaucoma. ?Neuropathy: Nerve damage -It involves temporary or permanent damage to nerve tissue. Nerve tissue gets injured mainly due to decreased blood flow and rise in blood glucose levels. This damage can lead to pain , or loss of sensation it can also include sexual dysfunction in both men and women ? Infections poor healing: People with diabetes? have increased susceptibility to various infections, such as? pneumonias, pyelonephritis, carbuncles and diabetic ulcers. This may be due to poor blood supply, reduced cellular immunity or hyperglycemia. ?Heart Disease And Stroke: People with diabetes are four times more prone to develop Heart disease than those who do not have diabetes ?Depression: Feeling down once in awhile is normal, but some people feel sadness that just won't go away. Life for them seems hopeless. Feeling this way most of the day for two weeks or more is a sign of serious depression ?Gum Disease: People get gum disease when plaque destroys the gums and bone around the teeth. People with diabetes can get gum disease from having high blood glucose levels for a long time Lifestyle * Work * Travel * Stress management * Problem solving Know your goals * A1C * Blood sugar targets * Blood pressure * Cholesterol/LDL Urine microalbumin Educational Materials: The patient was provided with the following written educational materials: ADCES 7 Healthy Behaviors Reducing Risks handout Patient Response to instructions: Comprehension of Instructions: Readiness to make changes: a How confident they feel about making changes: Letter of completion of diabetes Education program will be sent to referring provider Portions of this note were created using voice recognition software, please excuse any words or phrases that may have been misinterpreted. Patient Instructions: Incluir actividad diaria regular. ADA recomienda 30 minutos de ejercicio 5 d?as a la semana. P?rdida de peso, hable con el PCP o el cardi?logo antes de comenzar un nuevo plan. Mida el nivel de az?car en la antonina seg?n las indicaciones; Ayuno y comida m?s chilo de 2hpp. Observe las tendencias en los resultados. Utilice los resultados y eval?e c?mo los alimentos, la actividad f?esther y los medicamentos afectan los resultados de az?car en la antonina. Lleve el gluc?metro o CGM a la pr?xima visita. Conocer los medicamentos para la diabetes, reeves acci?n, los efectos secundarios, la eficacia, la toxicidad, la dosis prescrita, el momento y la frecuencia de administraci?n apropiados, el efecto de las dosis olvidadas y retrasadas y las instrucciones de almacenamiento, viaje y seguridad. T?cnicas de resoluci?n de problemas para el seguimiento de episodios de hipo/hiperglucemia y tratamientos. Reducir los comportamientos de reducci?n de riesgos, dejar de fumar, ex?menes regulares de ojos, pies y dentales. Coding Level of Care Code Est Pt Level 1 (85521) Diagnoses Type 2 diabetes mellitus with diabetic polyneuropathy, without long-term current use of insulin E11.42
--- OUTSIDE RECORDS SUMMARY | 2025-01-11 10:45 | XMS_ITS | Clinical Summary ---
Author Organization [facility] Address [address] [place] [address] Care Team Providers Care Capital Equipment Specialist Name Role Phone Ev Mosqueda MD Primary Care Provider [phone] Social History Tobacco Use Types Packs/Day Years [...] age to complete this topic Care Teams Capital Equipment Specialist Relationship Specialty Start Date End Date Ev Mosqueda MD [address] [place] [address] PCP - General Internal Medicine 05/19/18
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
== END 2025-01-11 11:02 | disposition home or self-care (01) ==
LOC: HO.ENCR 09:30
PROVIDERS: PCP Internal Medicine; Visit Provider Registered Nurse Diabetes Educator
DX: E11.42 Type 2 diabetes mellitus with diabetic polyneuropathy (principal)

== ENCOUNTER → 2025-01-11 09:29 | Outpatient (BNVA) | payer OTHER, SELFPAY | PROVIDERS: PCP Internal Medicine; Visit Provider Registered Nurse Diabetes Educator | DX: E11.42 Type 2 diabetes mellitus with diabetic polyneuropathy (principal); Z79.4 Long term (current) use of insulin | CPT/HCPCS: 99211 ==

== ENCOUNTER 2025-01-15 08:57 | Outpatient (AMB) | payer OTHER, SELFPAY ==
[2025-01-15 09:29] VITALS: BMI 29.8
--- NOTE | 2025-01-15 09:29 | HO.SPINEOV ---
Vital Signs 01/15/25 09:29 Height 5 ft 10 in Weight 208 lb BMI 29.8 Intake Visit Reasons: spinal stenosis, cervical region Intake Note: Mr. Lola Rose is here today c/o neck pain that causes headaches, and pain that radiate all the way down to the legs. Gunstock Repairer Required: Yes Gunstock Repairer Language: Family Engagement Specialist Services: Gunstock Repairer Present Gunstock Repairer Name: Tosha Butler LM Information Interpreted: non-clinical & clinical Allergies No Known Allergies Allergy (Verified 01/15/25 09:30) Physical Exam Vital Signs: BMI result Body Mass Index 29.8 Assessment & Plan Assessment & Plan (1) Cervical radiculopathy: Code(s): M54.12 - Radiculopathy, cervical region Category: Medical Plan Dear Dr Encinas, Thank you for referring Mr Davila to our office today. Gunstock Repairer Tosha Fuentes used for this visit. This is a 49-year-old gentleman with history of anterior cervical fusion C6-[address] Petty at [facility] about 2 years ago, who has had persistent right arm pain now for about the a year so. He tells me that when he had the surgery at [facility] that there was some relief of his right arm pain but not completely gone. He just dealt with it for the most part. He went to see our painter plate here at [place] and had undergone some injections. He was being considered for what sounds like a spinal cord stimulator or something similar. He has been taking Advil, Tylenol etc.. For whatever reason over the last 7 or 8 months, possibly because of a few falls he took, the right arm pain has intensified. He describes it as radiating from his neck down into his right shoulder going down into his right arm toward his hand. He could not localize which fingers where the worst. He does not describe any specific weakness of the hands. It is just a very uncomfortable constant all day and all night pain. He has not had any physical therapy or intensified. He was seen at your office and MRI was ordered showing multiple levels of foraminal stenosis. PMH: History of diabetes, unfortunately he has been eating too much sugar in his A1c is been around 10 the last time it was checked. He also has a history of high blood pressure, thyroid nodules which were removed, reflux, PTSD, depression, ACDF, spinal cord stimulator done by Dr. Campbell at [facility] many years ago, subsequently removed. History of gallbladder resection. Denies any history of cardiovascular disease, pulmonary problem bleeding disorders, blood clots, cancer, major abdominal surgeries. Social hx: He does not smoke, drink use any recreational drugs Medications: Ibuprofen, Farxiga, lisinopril, metformin, metoprolol, omeprazole, multivitamin, Lyrica, rosuvastatin, sertraline, Caplyta, Cialis, levothyroxine and Lantus Allergies: None Physical exam: Awake alert oriented no acute distress, pain with motor examination of the arm but no focal motor deficits were detected. Diminished biceps reflexes bilaterally, absent triceps reflexes bilaterally. No Alarcon's sign. Gait is normal, no clonus. He has well healed scar on the lower portion of his neck. Imaging review: Cervical MRI done at [place] shows postsurgical changes at C6-7, there is degenerative disc disease above his fusion at C5-6 with right greater than left bilateral foraminal stenosis. There are varying degrees of foraminal stenosis at C4-5 and C7-T1. No spinal cord compression seen. He has evidence of anterior osteophytes seen on an x-ray at [place] at the C5-6 level. Impression: 49-year-old diabetic gentleman, Guamanian-speaking presents with history of ACDF C6-7 2-3 years ago, who initially had some relief of right arm symptoms, but over the last year has developed persistent right arm pain radiating down into his hand. 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 He otherwise would be a good candidate for anterior cervical fusion at that level, but he has not done any conservative treatment. I am going to send him to PT for 6-8 weeks and re-evaluate. Also, I told him with an A1c of 10 he would need to have that number down significantly closer to 7 or 8 showing that he is improving. I do not think he is a good candidate for an injection secondary to his diabetes. He had been considered for some kind of stimulator through the pain management office but I do not think that is appropriate at this time given that he does have legitimate nerve compression. I will follow up with him after the PT is completed. I did review his imaging with Dr. Dunham who agrees we could do an anterior cervical fusion C5-6 if his pain does not go away and his blood sugars are improve. Thank you for allowing us to care for your patient. The total time spent with this visit with this patient was 45 minutes reviewing history, physical exam, cervix imaging review, and implementation of treatment plan or further diagnostic testing Rodney Dunham MD,PhD [facility] Orders: Orders PT Evaluation and Treatment Today M54.12 - Radiculopathy, cervical region Coding Level of Care Code New Pt Level 4 (20969) Diagnoses Cervical radiculopathy M54.12
--- OUTSIDE RECORDS SUMMARY | 2025-01-15 09:56 | XMS_ITS | Clinical Summary ---
Author Organization [facility] Address [address] [place] [address] Care Team Providers Care Klystrom Tube Tester Name Role Phone Ev Mosqueda MD Primary Care Provider [phone] Social History Tobacco Use Types Packs/Day Years [...] age to complete this topic Care Teams Klystrom Tube Tester Relationship Specialty Start Date End Date Ev Mosqueda MD [address] [place] [address] PCP - General Internal Medicine 05/19/18
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
== END 2025-01-15 10:23 | disposition home or self-care (01) ==
LOC: HO.HNS 08:58
PROVIDERS: PCP Internal Medicine; Referring Provider Orthopaedic Surgery; Visit Provider Physician Assistant
DX: M54.12 Radiculopathy, cervical region (principal)
CPT/HCPCS: 99204

== ENCOUNTER → 2025-01-15 08:57 | Outpatient (BNVA) | payer OTHER, SELFPAY | PROVIDERS: PCP Internal Medicine; Referring Provider Orthopaedic Surgery; Visit Provider Physician Assistant | DX: M48.02 Spinal stenosis, cervical region (principal); M54.12 Radiculopathy, cervical region; Z98.1 Arthrodesis status | CPT/HCPCS: 99202 ==

== ENCOUNTER 2025-02-09 08:54 | Outpatient (REF) | payer OTHER, SELFPAY ==
--- OUTSIDE RECORDS SUMMARY | 2025-02-09 09:11 | XMS_ITS | Clinical Summary ---
Author Organization [address] [place] [address] Address [address] [place] [address] Phone Care Team Providers Care Medical Dir Name Role Phone Ev Mosqueda MD Primary Care Provider [phone] Allergies No known active allergies Medications traMADoL [...] for this and ruled out for an [place], he now attributes it to his fibromyalgia. [...] diabetes mellitus wit h renal manifestations, controlled ([facility] V24, [facility] V28) 11/17/2015 Hypertriglyceridemia 05/04/2015 Multiple thyroid [...] 2 diabetes mellitus wit h neurological manifestations ([facility] V24, [facility] V28) 07/28/2014 Type 2 diabetes mellitus ([facility] V24, [facility] V 28) 07/28/2014 Overview (03/09/2024): Type 2 diabetes, uncontrolled, with renal manifestation Immunizations Immunization Administration Dates Next Due Hepatitis B (Bngnsmr-G-Xawwm , Recombivax HB-Adult) 19yo and older 02/01/2010,08/30/2008,06/17/2006 Influenza trivalent, with pr eservative (Fluzone; Afluria) 6mo and older 12/03/2014 Pneumococcal polysaccharide 23 valent (Pneumovax 23) 2yo and older 06/17/2006 Tdap Tetanus diptheria acell ular pertussis (Boostrix; Adacel) 7yo and older 05/03/2015 Surgical History Surgery Date Site/Laterality Comments CARPAL TUNNEL RELEASE PROCEDURE: [place] NEUROPLASTY &/TRANSPOS MEDIAN NRV CARPAL TUNNE; COMMENT: left CHOLECYSTECTOMY PROCEDURE: HISTORICAL CHOLECYSTECTOMY OTHER SURGICAL HISTORY PROCEDURE: [place] STRTCTC STIMJ SPI CORD PRQ SPX N/FLWD [...] Test (03/19/2016) Annual BMP Blood Test abstracted Historical Provider HEALTH MAINTENANCE [...] Recently Relevant to Health Maintenance Insurance MEDICARE [facility] Care Teams Medical Dir Relationship Specialty Start Date End Date Ev Mosqueda MD [address] [place] [address] PCP - General Internal Medicine 01/09/21
--- OUTSIDE RECORDS SUMMARY | 2025-02-09 09:11 | XMS_ITS | Encounter Summary ---
Author Organization [employer] [facility] Address [address] [place] [address] Care Team Providers Care Hospitality Intern Name Role Phone Drake Rosado NP Primary Care Provider Ev Evans Md, MD Primary Care Provider Unavailable Luba Mccain MD Unavailable Encounter Details Date Type Department Care Team Description 07/[facility] [address] [place] [id number] Abstract, Provider Social History Tobacco Use Types [...] on filedocumented in this encounter Care Teams Hospitality Intern Relationship Specialty Start Date End Date Drake Rosado NP PCP - General Internal Medicine 03/11/16 01/08/21 Ev Mosqueda MD, MD PCP - General Internal Medicine 01/09/21 Luba Mccain MD [address] [facility] [address] [place] [address] Specialist Neurosurgery 05/02/21 documented as of this encounter
--- OUTSIDE RECORDS SUMMARY | 2025-02-09 09:11 | XMS_ITS | Clinical Summary ---
Author Organization [facility] Address [address] [place] [address] Care Team Providers Care Security Developer Name Role Phone Ev Mosqueda MD Primary Care Provider [phone] Social History Tobacco Use Types Packs/Day Years [...] age to complete this topic Care Teams Security Developer Relationship Specialty Start Date End Date Ev Mosqueda MD [address] [place] [address] PCP - General Internal Medicine 05/19/18
--- OUTSIDE RECORDS SUMMARY | 2025-02-09 09:11 | XMS_ITS | Encounter Summary ---
Author Organization [facility] Address [address] [place] [address] Care Team Providers Care Drink Mixer Name Role Phone Drake Rosado NP Primary Care Provider Ev Evans Md, MD Primary Care Provider Unavailable Luba Mccain MD Unavailable [phone] Reason for Visit * Reason Comments E-prescribe Rx Request Encounter Details Date Type Department Care Team Description 12/12/2016 Refill Adult Medicine [address] [address] Rika Keenan MD E-prescribe Rx Request Social [...] on filedocumented in this encounter Care Teams Drink Mixer Relationship Specialty Start Date End Date Drake Rosado NP PCP - General Internal Medicine 03/11/16 01/08/21 Ev Mosqueda MD, MD PCP - General Internal Medicine 01/09/21 Luba Mccain MD [address] [place] [address] Specialist Neurosurgery 05/02/21 documented as of this encounter
--- OUTSIDE RECORDS SUMMARY | 2025-02-09 09:11 | XMS_ITS | Encounter Summary ---
Author Organization [facility] [employer] [facility] Address [address] [place] [address] Care Team Providers Care Computer Help Desk Specialist Name Role Phone Rika Keenan MD Primary Care Provider Drake Coleman NP Primary Care Provider Ev Evans Md, MD Primary Care Provider Unavailable Luba Mccain MD Unavailable [phone] Encounter Details Date Type Department Care Team Description 01/14/2015 Transfer Records Medical Records [address] [place] [address] Social History Tobacco Use Types Packs/Day Years [...] on filedocumented in this encounter Care Teams Computer Help Desk Specialist Relationship Specialty Start Date End Date Rika Keenan MD PCP - General Internal Medicine 07/13/14 03/10/16 Drake Rosado NP PCP - General Internal Medicine 03/11/16 01/08/21 Ev Mosqueda MD, MD PCP - General Internal Medicine 01/09/21 Luba Mccain MD [address] [facility] [address] [place] [address] Specialist Neurosurgery 05/02/21 documented as of this encounter
--- OUTSIDE RECORDS SUMMARY | 2025-02-09 09:11 | XMS_ITS | Encounter Summary ---
Author Organization [facility] Address [address] [place] [address] Care Team Providers Care Airway Controller Name Role Phone Rika Keenan MD Primary Care Provider Drake Coleman NP Primary Care Provider Ev Evans Md, MD Primary Care Provider Unavailable Luba Mccain MD Unavailable [phone] Encounter Details Date Type Department Care Team Description 09/13/2014 STAFFING EXECUTIVE/[facility] Report Medical Records [address] [place] [address] Abstract, Provider Social History Tobacco Use Types [...] on filedocumented in this encounter Care Teams Airway Controller Relationship Specialty Start Date End Date Rika Keenan MD PCP - General Internal Medicine 07/13/14 03/10/16 Drake Rosado NP PCP - General Internal Medicine 03/11/16 01/08/21 Ev Mosqueda MD, MD PCP - General Internal Medicine 01/09/21 Luba Mccain MD [address] [facility] [address] [place] [address] Specialist Neurosurgery 05/02/21 documented as of this encounter
--- OUTSIDE RECORDS SUMMARY | 2025-02-09 09:11 | XMS_ITS | Encounter Summary ---
Author Organization [employer] [facility] Address [address] [place] [address] Care Team Providers Care Blower And Compressor Assembler Name Role Phone Rika Keenan MD Primary Care Provider Drake Coleman NP Primary Care Provider Ev Evans Md, MD Primary Care Provider Unavailable Luba Mccain MD Unavailable [phone] Encounter Details Date Type Department Care Team Description 02/22/2016 Transfer Records Medical Records [address] [place] [address] Social History Tobacco Use Types Packs/Day Years [...] on filedocumented in this encounter Care Teams Blower And Compressor Assembler Relationship Specialty Start Date End Date Rika Keenan MD PCP - General Internal Medicine 07/13/14 03/10/16 Drake Rosado NP PCP - General Internal Medicine 03/11/16 01/08/21 Ev Mosqueda MD, MD PCP - General Internal Medicine 01/09/21 Luba Mccain MD [address] [facility] [address] [place] [address] Specialist Neurosurgery 05/02/21 documented as of this encounter
--- OUTSIDE RECORDS SUMMARY | 2025-02-09 09:11 | XMS_ITS | Encounter Summary ---
Author Organization [facility] Address [address] [place] [address] Care Team Providers Care Sales Utility Representative Name Role Phone Drake Rosado NP Primary Care Provider Ev Evans Md, MD Primary Care Provider Unavailable Luba Mccain MD Unavailable [phone] Encounter Details Date Type Department Care Team Description 04/04/2016 [facility] Medical Records [address] [place] [id number] Abstract, Provider Social History Tobacco Use Types [...] on filedocumented in this encounter Care Teams Sales Utility Representative Relationship Specialty Start Date End Date Drake Rosado NP PCP - General Internal Medicine 03/11/16 01/08/21 Ev Mosqueda MD, MD PCP - General Internal Medicine 01/09/21 Luba Mccain MD [address] [facility] [address] [place] [address] Specialist Neurosurgery 05/02/21 documented as of this encounter
--- OUTSIDE RECORDS SUMMARY | 2025-02-09 09:11 | XMS_ITS | Encounter Summary ---
Author Organization [facility] [employer] [facility] Address [address] [place] [address] Care Team Providers Care Apigee Developer Name Role Phone Rika Keenan MD Primary Care Provider Drake Coleman NP Primary Care Provider Ev Evans Md, MD Primary Care Provider Unavailable Luba Mccain MD Unavailable [phone] Encounter Details Date Type Department Care Team Description 09/27/2015 BLACK TOP PAVER OPERATOR/[facility] Report Medical Records [address] [place] [address] Rika Keenan MD Social History Tobacco Use [...] on filedocumented in this encounter Care Teams Apigee Developer Relationship Specialty Start Date End Date Rika Keenan MD PCP - General Internal Medicine 07/13/14 03/10/16 Drake Rosado NP PCP - General Internal Medicine 03/11/16 01/08/21 Ev Mosqueda MD, MD PCP - General Internal Medicine 01/09/21 Luba Mccain MD [address] [facility] [address] [place] [address] Specialist Neurosurgery 05/02/21 documented as of this encounter
== END 2025-02-09 08:55 | disposition home or self-care (01) ==
LOC: HO.LAB 08:54
PROVIDERS: Visit Provider Nurse Practitioner Family
DX: E11.42 Type 2 diabetes mellitus with diabetic polyneuropathy (principal); Z79.4 Long term (current) use of insulin
CPT/HCPCS: 36415; 83036

== ENCOUNTER 2025-02-15 13:53 | Outpatient (AMB) | payer OTHER, MEDICAID, SELFPAY ==
--- NOTE | 2025-02-15 13:55 | MHC.OFFVIS ---
Intake Visit Reasons: 3M/A1C/UA Intake Note: Patient is present for 3 mo follow up Urology Medication:TADALAFIL Antibiotic Allergy:NONE Blood Thinner:NONE Labs done 11/10/24 HgbA1c 10.6 PVR: 43mls Equipment Service Associate Required: No Accompanied by: Self / Same As Patient Allergies No Known Allergies Allergy (Verified 02/15/25 14:19) Medication List - Last Reconciled 02/15/25 by CHANDRIKA Wu alcohol swabs (Alcohol Prep Pads) 2 pad topical DAILY baclofen 10 mg PO BEDTIME blood sugar diagnostic (FreeStyle Lite Strips) TEST BLOOD SUGAR THREE TIMES DAILY blood-glucose meter (FreeStyle Lite Meter kit) As directed to check three times daily blood-glucose sensor (FreeStyle Raman 3 Sensor device) As directed blood-glucose sensor (FreeStyle Raman 3 Sensor device) As directed blood-glucose sensor (FreeStyle Raman 3 Plus Sensor device) As directed every 15 days blood-glucose,roll coating machine operator,cont (FreeStyle Raman 3 [place]) diagnosis: Type 2 DM, poor A1 , needle phobia and neuropathy bupropion HCl XL 300 mg PO DAILY dapagliflozin propanediol (Farxiga) 10 mg PO QAM diclofenac sodium 75 mg PO BID 10 days insulin glargine (Lantus Solostar U-100 Insulin) 30 units (0.3 mL) subcut DAILY lancets (Easy Touch Twist Lancets) TEST BLOOD SUGAR THREE TIMES DAILY levothyroxine 150 mcg PO DAILY 3 months lisinopril 10 mg (1/2 x 20 mg) PO DAILY lumateperone (Caplyta) 21 mg PO BEDTIME lumateperone (Caplyta) 10.5 mg PO DAILY metformin 1,000 mg PO BID methylprednisolone (Medrol (Aníbal)) PO PER PKG DIR 6 days metoprolol succinate ER 25 mg PO QAM multivitamin (One Daily Multivitamin tablet) 1 tab PO QAM omeprazole 20 mg PO QAM pen needle, diabetic (Comfort EZ Pen [place]) As directed for injecting insulin once daily pregabalin 150 mg PO BID 30 days rosuvastatin 5 mg PO QPM sertraline 150 mg PO DAILY tadalafil 10 mg PO DAILY 90 days tirzepatide (Mounjaro) 5 mg (0.5 mL) subcut QWEEK HPI Comments Details: Carlos is a 49-year-old Greenlandic-speaking male patient of Dr. Mosqueda. He has a past medical history of type 2 diabetes, peripheral neuropathy, needle phobia, hypothyroidism, obesity, nocturnal hypoxemia, obstructive sleep apnea, mild CAD, mixed dyslipidemia, lumbar spondylosis, vitamin-D deficiency, fibromyalgia, rheumatoid arthritis, nephrolithiasis, carpal tunnel syndrome, opiate dependence, GERD, and hypertension. He presents to the office today for follow-up of his erectile dysfunction and lower urinary tract symptoms. In discussion with the patient today he reports compliance with tadalafil as prescribed. He discusses how helpful this has been in episodes of urinary frequency and nocturia he had been experiencing He discusses he is not currently sexually active as he is currently from his partner. He reports since his last office visit here he has been in remission and his use of crack. He discusses he continues to work on his behavioral health as well as his sobriety. He does continue to experience episodes of nocturia however is drinking fluids prior to bed. He does have a history of sleep apnea and reports he used to have a CPAP machine however has not used this in years as he lost it and never followed up. In office urinalysis results reviewed with the patient today. PVR 43 mLs. We did discuss decrease in A1c levels however still remain elevated. We did discussed the importance of management and diabetes for improvement in urological health as well as overall health and well-being. He denies urinary urgency, urinary frequency, incontinence, hematuria, dysuria, foul smelling urine, changes to urinary stream, flank pain, fever, and or chills. Labs are as follows: A1c: 11/28 8.7, 06/30 7.1, 07/30 6.9, 01/30 6.3 05/31 6.2, 10/31 6.5, 11/01 9.9, 05/05 10.2, 06/02 10.7, 09/02 9.2, 12/03 10.6, 03/04 9.1 PSA: 12/03 0.6 We discussed potential causes of lower urinary tract symptoms patient was/is experiencing as well as further treatment options regarding erectile dysfunction and risks and benefits of these treatment options. We also discussed the importance of management and diabetes for improvement in ED as well as overall health and well-being. He discusses he continues to follow-up with endocrinology for management of his diabetes. All questions were answered. He otherwise offers no other issues or concerns at this time. PREVIOUS OFFICE NOTE: Urinary urgency and frequency Urinary frequency particularly nocturia Diabetic on Farxiga Well known side effects Suggest holding medication for one-week and observing of urgency frequency resolved Erectile dysfunction in setting of diabetes Progressive Discussed management [facility] Medical History Right shoulder pain Diabetes mellitus, with long-term current use of insulin Peripheral neuropathy Needle phobia Hypothyroidism Obesity (BMI 30.0-34.9) Nocturnal hypoxemia AZAM (obstructive sleep apnea) Mild CAD Skin lesion of scalp Tubular adenoma Mixed dyslipidemia Postoperative hypothyroidism Bifascicular block Lumbar spondylosis Failed back syndrome, cervical Vitamin D deficiency History of cocaine use Spondylosis of cervical joint without myelopathy Fibromyalgia Rheumatoid arthritis Obstructive sleep apnea Bilateral nephrolithiasis Bilateral carpal tunnel syndrome Opiate dependence Morbid obesity Cervical spondylosis with radiculopathy Type 2 diabetes mellitus with diabetic polyneuropathy, without long-term current use of insulin GERD without esophagitis Essential hypertension Surgical History History of esophagogastroduodenoscopy (EGD) Hx of colonoscopy Hx of thyroidectomy Hx of neck surgery History of carpal tunnel surgery Hx of cholecystectomy History of spinal surgery Herniated disc Family History Father No problems noted. Mother Diabetes mellitus HTN (hypertension) Brother No problems noted. Sister No problems noted. Social History Household Members: Spouse and Children Housing: House Alcohol intake: never Patient Tobacco Use Status: Former Tobacco user Tobacco use type: Cigarette Years Smoked: 10 yrs e-Cigarette/Vaping Use: Never Used Second Hand Smoke Exposure: No service: No Current occupational status: disabled Cognitive needs: No Hearing needs: No Vision needs: Yes Review of Systems Const All systems reviewed & are unremarkable except as noted in HPI and below Physical Exam Const General: cooperative, comfortable, no acute distress, well developed, alert and awake Orientation/consciousness: patient oriented x3 Limitations: language barrier HEENT Head: Yes normal to inspection, Yes normocephalic and Yes atraumatic Ears: hearing grossly normal bilaterally Eyes General: appearance normal, both eyes and all related structures Neck Neck: Yes normal visual inspection and Yes trachea midline Chest Chest palpation & inspection: normal inspection of the chest Resp Effort & Inspection: normal respiratory effort and able to speak in complete sentences Cardio Rate: regular rate GI Inspection: Yes normal to inspection General: Yes no CVA tenderness Back/Spine/Pelvis Back: no CVA tenderness Skin General skin exam: no rashes or lesions noted Neuro General: patient oriented x3 Extrem General: Yes normal to inspection Psych Appearance: grossly normal and well kempt Mental Status: mental status grossly normal Speech and movement: Normal speech and movement present and Clear speech present Affect: normal affect Attitude: cooperative Thought process: Normal thought process present Thought content: Normal thought content present Insight: Fair insight present (Psych) Judgement: Fair judgement present (Psych) Office Procedures Post Void Residual Post Residual Void Post Void Residual (PVR): 43 [id number] Void Residual by ultrasound Post Void Residual Post Residual Void Post Void Residual (PVR): 43 70087-[id number] Void Residual by ultrasound Results AMB Urinalysis, Automated UA Leukoctes 0 Julieth/uL Last Edit by Daisy Ruiz [facility] on 02/15/25 14:06 UA Nitrite Negative Last Edit by [facility] on 02/15/25 14:06 UA Urobilinogen 0.2 mg/dL Last Edit by Daisyjoseph Ruiz [facility] on 02/15/25 14:06 UA Protein 30 mg/dL Last Edit by [facility] on 02/15/25 14:06 UA pH 6.0 Last Edit by [facility] Joseph [facility] on 02/15/25 14:06 UA Blood 0 Ronny/uL Last Edit by [facility] on 02/15/25 14:06 UA Specific [place] 1.015 Last Edit by [facility] Joseph [facility] on 02/15/25 14:06 UA Ketone Negative Last Edit by [facility] Joseph [facility] on 02/15/25 14:06 UA Bilirubin 0 mg/dL Last Edit by [facility] on 02/15/25 14:06 UA Glucose 1000 mg/dL Last Edit by [facility] on 02/15/25 14:06 Results Reviewed Results Reviewed: Laboratory Last Values Urine pH (Auto) 6.0 02/15/25 14:05 Specific [place] (Auto) 1.015 02/15/25 14:05 Urine Protein (Auto) 30 mg/dL 02/15/25 14:05 Glucose (UA)(Auto) 1000 mg/dL 02/15/25 14:05 Urine Ketones (Auto) Negative 02/15/25 14:05 Urine Blood (Auto) 0 Ronny/uL 02/15/25 14:05 Urine Nitrite (Auto) Negative 02/15/25 14:05 Urine Bilirubin (Auto) 0 mg/dL 02/15/25 14:05 Urine Urobilinogen (Auto) 0.2 mg/dL 02/15/25 14:05 Leukocyte Esterase (Auto) 0 Julieth/uL 02/15/25 14:05 Assessment & Plan Assessment & Plan (1) Erectile dysfunction associated with type 2 diabetes mellitus: Code(s): E11.69 - Type 2 diabetes mellitus with other specified complication; N52.1 - Erectile dysfunction due to diseases classified elsewhere Category: Medical (2) Urinary frequency: Code(s): R35.0 - Frequency of micturition Category: Medical (3) Weak urinary stream: Code(s): R39.12 - Poor urinary stream Category: Medical (4) Nocturia: Code(s): R35.1 - Nocturia Category: Medical Plan In office urinalysis results reviewed with the patient today; as noted above. PVR 43 mL Recent A1c results reviewed with the patient today; as noted above. Will continue with tadalafil. We discussed the importance of management and diabetes for improvement in urological health as well as overall health and well-being. All questions were answered. We did discuss sobriety. He currently denies any bothersome urinary issues or concerns. He reports be happy with current voiding parameters. We did discussed importance of limiting fluids 2-3 hours prior to bed to decrease episodes of nocturia We also discussed obtaining sleep study for further assessment evaluation however patient declines at this time however he will think about this Will continue with surveillance monitoring. Will obtain retroperitoneal ultrasound for further assessment evaluation We did discussed further treatment options and risks and benefits of these treatment options. Follow-up in 3-6 months with A1c; or sooner with any issues, concerns, and or questions. Orders: Orders AMB Urinalysis Automated Today N13.8 - Other obstructive and reflux uropathy, N40.1 - Benign prostatic hyperplasia with lower urinary tract symptoms AMB Post Void Residual by ultrasound Today N40.1 - Benign prostatic hyperplasia with lower urinary tract symptoms Hemoglobin A1c 3 Months E11.9 - Type 2 diabetes mellitus without complications US retroperitoneal comp 3 Months R35.1 - Nocturia Medications: Refilled tadalafil [id number] [facility] [id number] Member [id number] 10 mg PO DAILY 90 tabs 2RF Bladder instability 90 days E11.69 - Type 2 diabetes mellitus with other specified complication, N52.1 - Erectile dysfunction due to diseases classified elsewhere, R35.0 - Frequency of micturition Patient Instructions: The patient had an opportunity to ask questions regarding the treatment plan. All questions were answered. Physical exam, labs, and imaging were discussed and reviewed in detail. As well as risks, benefits, and discussion of treatment choices. No major barriers to understanding were identified. The patient expressed understanding and agreement with the above treatment plan. The patient was made aware they should contact our office by phone for worsening of their current condition, the appearance of new symptoms, or with any questions or concerns. Compliance is encouraged with any medications and follow up testing that is ordered. It is a privilege to be allowed the opportunity to participate in? your urological care.? Again, if you have any questions or concerns If you have any questions or concerns please do not hesitate to contact me. The office is [phone]. This note is constructed using voice recognition software. While every effort has been made to ensure accuracy telephone cleaner errors may have been included. Yours sincerely, CHANDRIKA Wu Coding Level of Care Code Est Pt Level 3 (05647) Complex visit Add On G2211 Diagnoses Erectile dysfunction associated with type 2 diabetes mellitus E11.69; N52.1 Urinary frequency R35.0 Weak urinary stream R39.12 Nocturia R35.1 CPT Codes Post Residual Void - PVR CPT Code: 52505-Bsov Void Residual by ultrasound ([id number]) Post Residual Void - PVR CPT Code: 88418-Ivys Void Residual by ultrasound ([id number])
--- OUTSIDE RECORDS SUMMARY | 2025-02-15 22:41 | XMS_ITS | Clinical Summary ---
Author Organization [facility] Prior to 08/08/[address] [place] [address] Care Team Providers Care Cost Accountant Name Role Phone Ev Mosqueda MD Primary Care Provider [phone] Social History Tobacco Use Types Packs/Day Years [...] age to complete this topic Care Teams Cost Accountant Relationship Specialty Start Date End Date Ev Mosqueda MD [address] [place] [address] PCP - General Internal Medicine 05/19/18
--- OUTSIDE RECORDS SUMMARY | 2025-02-15 22:41 | XMS_ITS | Clinical Summary ---
Author Organization [address] [place] [address] Address [address] [place] [address] Phone Care Team Providers Care Derrick Boat Lever Operator Name Role Phone Ev Mosqueda MD [...] for this and ruled out for an SD, he now attributes it to his fibromyalgia. [...] Immunization Administration Dates Next Due Hepatitis B (Rlswfsb-E-Efylk , Recombivax HB-Adult) 19yo and older 02/01/2010,08/30/2008,06/17/2006 [...] on file Sexual Orientation Not on file Last Filed Vital Signs [...] * Annual BMP Blood Test (03/19/2016) Pathologist [facility] Annual BMP Blood Test abstracted Historical Provider HEALTH MAINTENANCE Final Result * (ABNORMAL) Hemoglobin A1c (03/19/2016) Pathologist [facility] [place] Hemoglobin A1C 7.9(A) 4.0 - 6.0 % Blood Venous blood specimen / Unknown Historical Provider LAB BLOOD ORDERABLES Lay l Result * (ABNORMAL) Lipid panel (03/19/2016) Pathologist [facility] LDL/HDL Ratio 4 0 - 4 Triglycerides [...] Recently Relevant to Health Maintenance Insurance MEDICARE [facility] Care Teams Derrick Boat Lever Operator Relationship Specialty Start Date End Date Ev Mosqueda MD [address] [place] [address] PCP - General Internal Medicine 01/09/21
== END 2025-02-15 14:28 | disposition home or self-care (01) ==
LOC: HO.HUSH 13:55
PROVIDERS: PCP Internal Medicine; Visit Provider Nurse Practitioner Family
DX: E11.69 Type 2 diabetes mellitus with other specified complication (principal); N52.1 Erectile dysfunction due to diseases classified elsewhere; R35.0 Frequency of micturition; R39.12 Poor urinary stream; R35.1 Nocturia; N40.1 Benign prostatic hyperplasia with lower urinary tract symptoms; N13.8 Other obstructive and reflux uropathy
CPT/HCPCS: 99213; G2211

== ENCOUNTER → 2025-02-15 13:53 | Outpatient (BNVA) | payer OTHER, SELFPAY | PROVIDERS: PCP Internal Medicine; Visit Provider Nurse Practitioner Family | DX: E11.69 Type 2 diabetes mellitus with other specified complication (principal); N52.1 Erectile dysfunction due to diseases classified elsewhere; N40.1 Benign prostatic hyperplasia with lower urinary tract symptoms; R35.0 Frequency of micturition; R39.12 Poor urinary stream; R35.1 Nocturia | CPT/HCPCS: 51798; 81003; 99212 ==

== ENCOUNTER 2025-02-22 09:13 | Outpatient (AMB) | payer OTHER, SELFPAY ==
--- NOTE | 2025-02-22 09:56 | MHC.PC.OV ---
Vital Signs 02/22/25 09:57 Height 5 ft 10 in Weight 209 lb BMI 30.0 BP 98/52 L Blood Pressure Location Lt brachial Position Sitting Respiration 16 Pulse 102 H Pulse Source Pulse Oximeter Temp 98.2 F Temp Source Oral Pulse Oximetry (%) 95 Oxygen Delivery Method Room Air Intake Visit Reasons: PE Intake Note: Pt is here today for his PE: Last colonoscopy 07/25/22 Glass Engraver Required: No Allergies No Known Allergies Allergy (Verified 02/22/25 10:24) Medication List - Last Reconciled 02/22/25 by Ev Mosqueda MD alcohol swabs (Alcohol Prep Pads) 2 pad topical DAILY blood sugar diagnostic (FreeStyle Lite Strips) TEST BLOOD SUGAR THREE TIMES DAILY blood-glucose meter (FreeStyle Lite Meter kit) As directed to check three times daily blood-glucose sensor (FreeStyle Raman 3 Sensor device) As directed blood-glucose sensor (FreeStyle Raman 3 Sensor device) As directed blood-glucose sensor (FreeStyle Raman 3 Plus Sensor device) As directed every 15 days blood-glucose,senior research manager,cont (FreeStyle Raman 3 [place]) diagnosis: Type 2 DM, poor A1 , needle phobia and neuropathy bupropion HCl XL 300 mg PO DAILY dapagliflozin propanediol (Farxiga) 10 mg PO QAM insulin glargine (Lantus Solostar U-100 Insulin) 30 units (0.3 mL) subcut DAILY lancets (Easy Touch Twist Lancets) TEST BLOOD SUGAR THREE TIMES DAILY levothyroxine 150 mcg PO DAILY 3 months lisinopril 10 mg (1/2 x 20 mg) PO DAILY lumateperone (Caplyta) 42 mg PO BEDTIME metformin 1,000 mg PO BID metoprolol succinate ER 25 mg PO QAM multivitamin (One Daily Multivitamin tablet) 1 tab PO QAM omeprazole 20 mg PO QAM pen needle, diabetic (Comfort EZ Pen [place]) As directed for injecting insulin once daily pregabalin 150 mg PO BID 30 days rosuvastatin 5 mg PO QPM sertraline 150 mg PO DAILY tadalafil 10 mg PO DAILY 90 days tirzepatide (Mounjaro) 5 mg (0.5 mL) subcut QWEEK Tobacco use date assessed: 02/22/25 Dental Screening Dental Screen Date: 02/22/25 Did you have a dental visit in the last 12 months?: No Did you have a dental problem in the last 6 months where you did not have access to dental care?: No Was dental information given to patient?: Patient has dentist [facility] Medical History (Updated 02/22/25 @ 10:52 by Ev Mosqueda MD) History of adenomatous polyp of colon Type 2 diabetes mellitus with diabetic polyneuropathy, with long-term current use of insulin Right shoulder pain Peripheral neuropathy Needle phobia Obesity (BMI 30.0-34.9) Nocturnal hypoxemia AZAM (obstructive sleep apnea) Mild CAD Skin lesion of scalp Tubular adenoma Mixed dyslipidemia Postoperative hypothyroidism Bifascicular block Lumbar spondylosis Failed back syndrome, cervical Vitamin D deficiency History of cocaine use Spondylosis of cervical joint without myelopathy Fibromyalgia Rheumatoid arthritis Obstructive sleep apnea Bilateral nephrolithiasis Bilateral carpal tunnel syndrome Opiate dependence Cervical spondylosis with radiculopathy GERD without esophagitis Essential hypertension Surgical History History of esophagogastroduodenoscopy (EGD) Hx of colonoscopy Hx of thyroidectomy Hx of neck surgery History of carpal tunnel surgery Hx of cholecystectomy History of spinal surgery Herniated disc Family History Father No problems noted. Mother Diabetes mellitus HTN (hypertension) Brother No problems noted. Sister No problems noted. Social History Household Members: Spouse and Children Housing: House Alcohol intake: never Patient Tobacco Use Status: Former Tobacco user Tobacco use type: Cigarette Years Smoked: 10 yrs e-Cigarette/Vaping Use: Never Used Second Hand Smoke Exposure: No service: No Current occupational status: disabled Cognitive needs: No Hearing needs: No Vision needs: Yes Questionnaire PHQ-9 Over the last 2 weeks, how often have you been bothered by any of the following problems? 1. Little interest or pleasure in doing things: several days 2. Feeling down, depressed, or hopeless: several days 3. Trouble falling or staying asleep, or sleeping too much: nearly every day 4. Feeling tired or having little energy: more than half the days 5. Poor appetite or overeating: nearly every day (After starting Mounjaro) 6. Feeling bad about yourself - or that you are a failure or have let yourself or your family down: several days 7. Trouble concentrating on things, such as reading the newspaper or watching television: several days 8. Moving or speaking so slowly that other people could have noticed. Or the opposite - being so fidgety or restless that you have been moving around a lot more than usual: not at all 9. Thoughts that you would be better off or of hurting yourself in some way: not at all Total score: 12 Depression Screening Interpretation: Positive (Currently followed at [facility], see Mitchell, and sees a therapist regularly) Depression Screening Follow-up: Existing condition, In treatment and Community Mental Health Worker F/U Depression Screening Done: Yes 82815 - PHQ-9 Billing: Yes Source: Developed by Drs. Saleem Matias, Indigo Ortega, Chris Beebe and colleagues, with an educational paige from [employer]. Thrive Questionnaire Date Thrive assessed: 02/22/25 I am a: Patient What is your living situation today?: I have a steady place to live Within the past 12 months, did the food you bought not last and you didn't have the money to get more?: Never true Within the past 12 months, did you worry whether your food would run out before you got money to buy more?: Never true Do you have trouble paying for medicines?: No Do you have trouble getting transportation to medical appointments?: No Do you have trouble paying your heating and electricity bill?: Yes Do you have trouble taking care of your child, family member or friend?: No Do you have trouble with day-to-day activities such as bathing, preparing meals, shopping, managing finances, etc.?: No Are you currently unemployed and looking for a job?: No Are you interested in more education?: No Please select the resources that you would like help with: None Currently or been in a relationship where the following occur: No concerns reported THRIVE Score: 1 NORI-7 AMB Questionnaire NORI-7 Date NORI - 7 assessed: 02/22/25 Feeling nervous, anxious, or on edge: 2 = More than half the days Not being able to stop or control worryin = More than half the days Worrying too much about different things: 3 = Nearly every day Trouble relaxin = Several days Being so restless that it is hard to sit still: 0 = Not at all Becoming easily annoyed or irritable: 0 = Not at all Feeling afraid as if something awful might happen: 0 = Not at all Total NORI-7 score (0-4 normal; 5-9 mild; 10-14 moderate; 15-21 severe): 8 Source: Developed by Drs. Saleem Matias, Indigo Ortega, Chris Beebe and colleagues, with an educational paige from [employer]. NORI-7 Assessment Billing NORI-7 Assessment Tool: NORI-7 Assessment 27422 Physical exam (Primary Care) Vital Signs: Last Vital Signs Temp 98.2 F 02/22/25 09:57 Pulse 102 H 02/22/25 09:57 Resp 16 02/22/25 09:57 BP 98/52 L 02/22/25 09:57 Pulse Ox 95 02/22/25 09:57 Oxygen Delivery Method Room Air 02/22/25 09:57 BMI result Body Mass Index 30.0 Tobacco/Smoking Status: Tobacco use Status Tobacco use date assessed 02/22/25 02/22/25 09:59 Patient Tobacco Use Status Former Tobacco user 02/22/25 09:59 Tobacco use type Cigarette 02/22/25 09:59 e-Cigarette/Vaping Use Never Used 02/22/25 09:59 PHQ-9: PHQ-9 Score PHQ-9: Total score 12 02/22/25 11:00 Depression Screening Interpretation: Positive (Currently followed at [facility], see Mitchell, and sees a therapist regularly) Depression Screening Follow-up: Existing condition, In treatment and Community Mental Health Worker F/U Thrive Assessment: Date of Thrive Assessment Date Thrive assessed 02/22/25 02/22/25 11:00 Currently or been in a relationship where the following occur: No concerns reported Office Procedures Flu Questionnaire Does the patient have a severe egg allergy?: No Does the patient have severe life threatening allergies?: No Does the patient have a fever or illness today?: No Has the patient ever had Guillain-[place] Syndrome?: No Has the patient ever had any past reaction to a flu shot?: No Immunizations Fluarix (PF) 45 mcg (15 mcg x 3)/0.5 mL IM syringe Performing Provider: Ev Mosqueda MD Performing Location: [facility] [place] [facility] [place] [facility] Administered by: Aysha Correia CMA on 02/22/25 11:15 Dose Route Admin Location Dispensed Lot Number Expiration Date NDC Systems Integration Analyst 0.5 mL IM Right Deltoid 0.5 mL [id number] 09/07/25 33871-252-10 [employer] VIS Given Date VIS Provided VIS Publication Date 02/22/25 Single Vaccine 24 Eligibility Eligibility Date Funding Source Not [facility] Eligible 02/22/25 Private Coding Diagnoses Essential hypertension I10 Vitamin D deficiency E55.9 Mixed dyslipidemia E78.2 Mild CAD I25.10 Obesity (BMI 30.0-34.9) E66.9 Type 2 diabetes mellitus with diabetic polyneuropathy, with long-term current use of insulin E11.42; Z79.4 History of adenomatous polyp of colon Z86.0101 Erectile dysfunction associated with type 2 diabetes mellitus E11.69; N52.1 Cervical spondylosis with radiculopathy M47.22 Annual visit for general adult medical examination with abnormal findings Z00.01 Additional Codes NORI-7 Assessment Billing - NORI-7 Assessment Tool: NORI-7 Assessment 54341 ([id number]) PHQ-9 - 92334 - PHQ-9 Billing: Yes ([id number]) Assessment & Plan Assessment & Plan (1) Essential hypertension: Code(s): I10 - Essential (primary) hypertension Category: Medical (2) Vitamin D deficiency: Code(s): E55.9 - Vitamin D deficiency, unspecified Category: Medical (3) Mixed dyslipidemia: Code(s): E78.2 - Mixed hyperlipidemia Category: Medical (4) Mild CAD: Comment: On cardiac catheterization done [address] Monroy Code(s): I25.10 - Atherosclerotic heart disease of [place] coronary artery without angina pectoris Category: Medical (5) Obesity (BMI 30.0-34.9): Comment: HE HAS PAST HISTORY OF MORBID OBESITY, HAS LOST SIGNIFICANT WEIGHT, BEING ON THYROID REPLACEMENT THERAPY MAY BE HELPING. HE IS STILL MODERATELY OBESE. Code(s): E66.9 - Obesity, unspecified Category: Medical (6) Type 2 diabetes mellitus with diabetic polyneuropathy, with long-term current use of insulin: Code(s): E11.42 - Type 2 diabetes mellitus with diabetic polyneuropathy; Z79.4 - manager long term care (current) use of insulin Category: Medical (7) History of adenomatous polyp of colon: Code(s): Z86.0101 - Personal history of adenomatous and serrated colon polyps Category: Medical (8) Erectile dysfunction associated with type 2 diabetes mellitus: Code(s): E11.69 - Type 2 diabetes mellitus with other specified complication; N52.1 - Erectile dysfunction due to diseases classified elsewhere Category: Medical (9) Cervical spondylosis with radiculopathy: Code(s): M47.22 - Other spondylosis with radiculopathy, cervical region Category: Medical (10) Annual visit for general adult medical examination with abnormal findings: Code(s): Z00.01 - Encounter for general adult medical examination with abnormal findings Orders: Orders Thyroid Stimulating Hormone Today E11.42 - Type 2 diabetes mellitus with diabetic polyneuropathy, E55.9 - Vitamin D deficiency, unspecified, E66.9 - Obesity, unspecified, E78.2 - Mixed hyperlipidemia, E89.0 - Postprocedural hypothyroidism, I10 - Essential (primary) hypertension, I25.10 - Atherosclerotic heart disease of [place] coronary artery without angina pectoris Free T4 (Free Thyroxine) Today E11.42 - Type 2 diabetes mellitus with diabetic polyneuropathy, E55.9 - Vitamin D deficiency, unspecified, E66.9 - Obesity, unspecified, E78.2 - Mixed hyperlipidemia, E89.0 - Postprocedural hypothyroidism, I10 - Essential (primary) hypertension, I25.10 - Atherosclerotic heart disease of [place] coronary artery without angina pectoris Lipid Panel Today E11.42 - Type 2 diabetes mellitus with diabetic polyneuropathy, E55.9 - Vitamin D deficiency, unspecified, E66.9 - Obesity, unspecified, E78.2 - Mixed hyperlipidemia, E89.0 - Postprocedural hypothyroidism, I10 - Essential (primary) hypertension, I25.10 - Atherosclerotic heart disease of [place] coronary artery without angina pectoris Comprehensive [place]. Panel Fast Today E11.42 - Type 2 diabetes mellitus with diabetic polyneuropathy, E55.9 - Vitamin D deficiency, unspecified, E66.9 - Obesity, unspecified, E78.2 - Mixed hyperlipidemia, E89.0 - Postprocedural hypothyroidism, I10 - Essential (primary) hypertension, I25.10 - Atherosclerotic heart disease of [place] coronary artery without angina pectoris Vitamin D 25-OH Total Today E11.42 - Type 2 diabetes mellitus with diabetic polyneuropathy, E55.9 - Vitamin D deficiency, unspecified, E66.9 - Obesity, unspecified, E78.2 - Mixed hyperlipidemia, E89.0 - Postprocedural hypothyroidism, I10 - Essential (primary) hypertension, I25.10 - Atherosclerotic heart disease of [place] coronary artery without angina pectoris Influenza [id number] Immunization Today Z23 - Encounter for immunization Triiodothyronine T3 Free Today E11.42 - Type 2 diabetes mellitus with diabetic polyneuropathy, E55.9 - Vitamin D deficiency, unspecified, E66.9 - Obesity, unspecified, E78.2 - Mixed hyperlipidemia, E89.0 - Postprocedural hypothyroidism, I10 - Essential (primary) hypertension, I25.10 - Atherosclerotic heart disease of [place] coronary artery without angina pectoris
[2025-02-22 09:57] VITALS: BP 98/52; PULSE 102; RESP 16; TEMP 36.8; O2SAT 95
== END 2025-02-22 11:22 | disposition home or self-care (01) ==
LOC: HO.HMCC 09:14
PROVIDERS: PCP Internal Medicine; Visit Provider Internal Medicine
DX: Z23 Encounter for immunization (principal)

== ENCOUNTER → 2025-02-22 09:13 | Outpatient (BNVA) | payer OTHER, SELFPAY | PROVIDERS: PCP Internal Medicine; Visit Provider Internal Medicine | DX: Z00.01 Encounter for general adult medical examination with abnormal findings (principal); Z23 Encounter for immunization; E11.42 Type 2 diabetes mellitus with diabetic polyneuropathy; I10 Essential (primary) hypertension; E89.0 Postprocedural hypothyroidism; M47.22 Other spondylosis with radiculopathy, cervical region; E55.9 Vitamin D deficiency, unspecified; E78.2 Mixed hyperlipidemia; E66.9 Obesity, unspecified; E11.69 Type 2 diabetes mellitus with other specified complication; N52.1 Erectile dysfunction due to diseases classified elsewhere; Z86.0101 Personal history of adenomatous and serrated colon polyps; Z79.4 Long term (current) use of insulin; Z68.30 Body mass index [BMI] 30.0-30.9, adult | CPT/HCPCS: 90471; 90656; 96127 ==

== ENCOUNTER 2025-02-25 12:16 | Outpatient (AMB) | payer OTHER, SELFPAY ==
--- NOTE | 2025-02-25 12:28 | A.OFFVIS_ITS ---
Vital Signs 3 02/25/25 12:43 Height 5 ft 10 in Weight 204 lb 3.752 oz BMI 29.3 BP 90/68 Blood Pressure Location Rt brachial Position Sitting Pulse 97 Pulse Source Pulse Oximeter Pulse Oximetry (%) 96 Oxygen Delivery Method Room Air Intake Visit Reasons: T2DM, Hypothyroidism Intake Note: Patient presents today for a follow-up on Type 2 Diabetes Mellitus Hypothyroidism: Patient last seen DR Angella Montanez MD. Glucose data available (sensor/reader/meter/pump): Yes / No Last Diabetic eye exam was on: 03/27/2024, [facility]. Last Podiatry exam was on: 08/31/2024, [facility] Podiatry DR Means. Most recent HbA1c: 9.1%, 02/09/2025 Random Glucose: 131 mg/dL Mangle Catcher Required: No Mangle Catcher Services: Mangle Catcher Offered & Declined (DR Mendez Speak Fluent Sinhala) Accompanied by: Self / Same As Patient Allergies No Known Allergies Allergy (Verified 02/25/25 12:29) HPI Comments Details: 49 YO M with a PMHx of a multinodular thyroid s/p total thyroidectomy May 30 with benign results who is seen in F/U for type 2 diabetes mellitus and postoperative hypothyroidism. Type 2 DM Has DM for about 10 years so around 2013 A1c July 2023 was 7.2 % per patient , this was by [facility] at home a1c POC October 2023 9.9% A1c POC April 2024 10.2%. HgA1C: 10.7% 05/21/24 hba1c 9.2 % POC 08/20/24 HgA1C: 10.6% 11/10/24 Random Glucose: 285 mg/dl, Current meds Trulicity 4.5 mg weekly (saturday) no GI problems, increase in April 2024) , last visit I switched to Mounjaro 5 mg weekly, he still hasnt picked that up Dapagliflozin 10 mg daily (urinates more often, no UTI/ yeast uinfections) Metformin 1000 mg BID Lantus 30 units daily in AM Prior medications Discontinued in April due to change in regimen Actos 30 mg daily Glipizide 5 mg in AM and 10 mg in evening he lost his phone a month ago , so kristi is not connected anymore , he has a reader at home but didnt know how to connect and didnt reach out. He has upcoming appt with Stephanie 12/15/24, I told him to bring reader and sensors to that appointment so she can help him set it up Hasnt been checking fingersticks Educator: Had an appointment 11/02 On lisinopril 10 mg daily reduced by PCP summer 2024 due to hypotensive episodes. in May 2024 labs showed GFR >60, creatinine normal, normal urine microalbumin Has neuropathy, on pregablin 150 mg BID feels doesnt really help No retinopathy, last eye visit March 2024 Last Podiatry Visit: 11/02 On rosuvastatin 5 mg daily, LDL 37 from May 2024 No macrovascular complications BP at goal Doesnt work out much has a lot of back discomfort and arthritis Weight :lost only 5 lbs on Trulicty 3 mg weekly , lost 15 lbs since May 05 on 4.5 of Trulicyt but with some fluctuations up and down Eating: trying to control calories but still eating carb heavy meals alcohol : none No smoking Walking : 20 to 30 mins daily in the house CGM data: Interpretation: Overall persistent hyperglycemia due to recent adjustment in medications and previous sensor issues. Hypothyroidism HPI from prior visit Was initially diagnosed with multinodular thyroid many years ago, and was previously followed at [facility] for this. He had a prior biopsy of some of his nodules, but he does not recall which. He reports that these were benign. He underwent FNA biopsy by Dr. Villela 11/10/2020 of 4 nodules, with results detailed below: 1) RUP 1.5 cm thyroid nodule - Cytology benign (bethesda category II) 2) RMP 4.2 cm thyroid nodule - Cytology benign (bethesda category II) 3) LMP 2.5 cm thyroid nodule - Cytology benign (bethesda category II) 4) LMP 4.6 cm thyroid nodule - Cytology Atypia of Undetermined Signifigance (Koppel Category III), Affirma benign. He was complaining of significant compressive symptoms, so he was referred to Dr. Marsh for a total thyroidectomy. This was completed 05/29/2021. Official surgical path was benign. Postoperative he was started on levothyroxine,was previously taking 137 mcg PO daily Currently taking levothyroxine 150 mcg daily, reports good compliance with this. TSH is WNL at 1.07 from May 2024. He denies any symptoms of hyper or hypothyroidism. Interval history Started Mounjaro approximately two months ago, with the last injection administered on Saturday. Currently on a dose of 5 mg. Reports a weight loss of 5 pounds, from 209 lbs to 204 lbs. Appetite remains high, with hunger typically occurring around 6-7 PM. Experiences diarrhea with every meal, which is managed with [employer]. Denies significant nausea or vomiting. Reports a rash at the injection site, which is itchy but not severely bothersome and is managed with a topical cream. The rash occurs regardless of the injection site, including the abdomen and thighs, but is less severe on one side of the abdomen. Reports increased sensitivity to cold, which has worsened recently. Denies constipation. Current medications include Mounjaro 5 mg weekly, Lantus insulin 30 units daily, and levothyroxine 150 mcg daily. Social history is notable for current housing instability, residing with their mother due to housing issues. Reports that life stressors have been affecting them recently. Physical exam: General: Well appearing. NAD. Neck/Thyroid: Thyroid not palpable, no nodules. CV: RRR, no murmur. No edema. Resp:Lungs clear to auscultation bilaterally Abdomen: Soft, nontender. nondistended Extremities/Neuro: No weakness or tremor of outstretched hands Laboratory Tests 05/13/23 11/04/23 05/04/24 08:59 09:24 09:10 Glucose (Clinic) 213 H Hgb A1c (Clinic) 9.9 H TSH 1.11 Free T4 1.04 Laboratory Tests 06/05/22 07:13 Urine Creatinine 152.91 Urine Microalbumin 11.0 Microalb/Creat Ratio 7.1 Laboratory Tests 07/01/20 11/07/22 05/06/23 11:22 09:27 10:57 Plt Count 199 Creatinine Estimated GFR Hgb A1c (Clinic) 6.5 H 6.9 H AST ALT Triglycerides Cholesterol LDL Cholesterol, Calc HDL Cholesterol 05/13/23 08:59 Plt Count Creatinine 0.88 Estimated GFR > 60 Hgb A1c (Clinic) AST 24 ALT 28 Triglycerides 196 H Cholesterol 116 LDL Cholesterol, Calc 42 HDL Cholesterol 35 L Laboratory Tests 05/13/23 08:59 TSH 1.11 Free T4 1.04 Laboratory Tests 05/04/24 05/21/24 05/21/24 09:32 09:56 10:15 Plt Count Sodium Potassium Creatinine Estimated GFR Glucose (Clinic) POC Glucose Random Glucose 356 H* Hgb A1c (Clinic) 10.2 H AST ALT Triglycerides 248 H Cholesterol 124 LDL Cholesterol, Calc 37 HDL Cholesterol 38 L Beta-Hydroxybutyrate TSH 1.07 Urine Creatinine 39.13 Urine Microalbumin < 5.0 05/21/24 05/21/24 05/21/24 18:23 19:02 20:31 Plt Count 193 Sodium 138 Potassium 4.2 Creatinine 1.02 Estimated GFR > 60 Glucose (Clinic) POC Glucose 338 H 230 H Random Glucose 405 H* Hgb A1c (Clinic) AST 26 ALT 35 Triglycerides Cholesterol LDL Cholesterol, Calc HDL Cholesterol Beta-Hydroxybutyrate 0.13 TSH Urine Creatinine Urine Microalbumin 05/25/24 13:48 Plt Count Sodium Potassium Creatinine Estimated GFR Glucose (Clinic) 217 H POC Glucose Random Glucose Hgb A1c (Clinic) AST ALT Triglycerides Cholesterol LDL Cholesterol, Calc HDL Cholesterol Beta-Hydroxybutyrate TSH Urine Creatinine Urine Microalbumin PFS Medical History History of adenomatous polyp of colon Type 2 diabetes mellitus with diabetic polyneuropathy, with long-term current use of insulin Right shoulder pain Peripheral neuropathy Needle phobia Obesity (BMI 30.0-34.9) Nocturnal hypoxemia AZAM (obstructive sleep apnea) Mild CAD Skin lesion of scalp Tubular adenoma Mixed dyslipidemia Postoperative hypothyroidism Bifascicular block Lumbar spondylosis Failed back syndrome, cervical Vitamin D deficiency History of cocaine use Spondylosis of cervical joint without myelopathy Fibromyalgia Rheumatoid arthritis Obstructive sleep apnea Bilateral nephrolithiasis Bilateral carpal tunnel syndrome Opiate dependence Cervical spondylosis with radiculopathy GERD without esophagitis Essential hypertension Surgical History History of esophagogastroduodenoscopy (EGD) Hx of colonoscopy Hx of thyroidectomy Hx of neck surgery History of carpal tunnel surgery Hx of cholecystectomy History of spinal surgery Herniated disc Family History Father No problems noted. Mother Diabetes mellitus HTN (hypertension) Brother No problems noted. Sister No problems noted. Social History Household Members: Spouse and Children Housing: House Alcohol intake: never Patient Tobacco Use Status: Former Tobacco user Tobacco use type: Cigarette Years Smoked: 10 yrs e-Cigarette/Vaping Use: Never Used Second Hand Smoke Exposure: No service: No Current occupational status: disabled Cognitive needs: No Hearing needs: No Vision needs: Yes Review of Systems Const All systems reviewed & are unremarkable except as noted in HPI and below Physical Exam Vital Signs: Last Vital Signs Pulse 97 02/25/25 12:43 Pulse Ox 96 02/25/25 12:43 Oxygen Delivery Method Room Air 02/25/25 12:43 BMI result Body Mass Index 29.3 Const Limitations: language barrier HEENT Ears: hearing grossly normal bilaterally Neck Neck: Yes normal visual inspection and Yes trachea midline Resp Effort & Inspection: normal respiratory effort and able to speak in complete sentences Office Procedures Glucose Monitoring Details Details: See [facility] [id number] - Glucose monitoring, continuous-physician I&R Procedure code (CPT) selection complete Assessment & Plan Assessment & Plan (1) Diabetes mellitus, with long-term current use of insulin: Code(s): E11.9 - Type 2 diabetes mellitus without complications; 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 HBA1c POC 12/03/2024 at 10.6% which is up from August 2024 i 9.2% from 10.7% in May 2024 . he lost his phone a month ago , so kristi is not connected anymore , he has a reader at home but didnt know how to connect and didnt reach out. He has upcoming appt with Stephanie 12/15/24, I told him to bring reader and sensors to that appointment so she can help him set it up Hasnt been checking fingersticks so I would not have much data on him today in terms of pattern of hyperglycemia. A1c 9.1%, previously 10.6% on . He continues to show motivation to improve his DM control. He understands that diet plays a significant role in his DM. - Medical treatment planned: Increase Mounjaro dose to 7.5 mg weekly to improve glycemic control and further promote weight loss and appetite reduction. Continue Lantus insulin at the current dose of 30 units daily. - Lifestyle modifications: Counseled on dietary modifications to support glycemic control and weight management. Advised to focus on low-calorie, high- protein foods and avoid simple sugars. Suggested alternatives to sugary drinks like juice, such as Body Armor (blueberry flavor) which contains less than 2g of sugar per serving. Recommended protein-rich snacks like turkey sausage sticks to manage cravings. - Follow-up appointments: Will follow up in 3 months - Will order labs Additional Notes: - Patient education on the diagnosed condition: Discussed the potential side effects of increasing the Mounjaro dose, including nausea, decreased appetite, vomiting, diarrhea, and the more serious risk of pancreatitis. Explained that pancreatitis can present as severe abdominal pain radiating to the back, associated with nausea, vomiting, and sometimes fever, and that this would require immediate hospital evaluation. - Instructions for monitoring and managing symptoms: Advised on rotating injection sites for Mounjaro to minimize local reactions, suggesting use of the legs and thighs. - Any specific patient or family concerns addressed during the consultation: Acknowledged current life stressors related to housing instability and expressed understanding of their impact on health management. (2) Hypothyroidism: Code(s): E03.9 - Hypothyroidism, unspecified Category: Medical Qualifiers: Hypothyroidism type: postoperative Qualified Code(s): E89.0 - Postprocedural hypothyroidism Plan: Status post total thyroidectomy for multinodular goiter in May 30, with benign pathology. Currently on levothyroxine 150 mcg daily, taking it appropriately. TSH was within normal limits from May 2024. Plan: -continue levothyroxine 150 mcg daily (3) Peripheral neuropathy: Code(s): G62.9 - Polyneuropathy, unspecified Category: Medical Qualifiers: Peripheral neuropathy type: polyneuropathy associated with underlying disease Qualified Code(s): G63 - Polyneuropathy in diseases classified elsewhere Plan: See above Plan I spent 30 minutes in reviewing the record, seeing the patient and documenting in the medical record. 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 Lipid Panel 8 Weeks E11.42 - Type 2 diabetes mellitus with diabetic polyneuropathy, Z79.4 - skilled nursing (current) use of insulin Microalbumin, Random (w Creat) 8 Weeks E11.42 - Type 2 diabetes mellitus with diabetic polyneuropathy, 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 Medications: New 2 tirzepatide (Mounjaro) 7.5 mg (0.5 mL) subcut QWEEK 2 mL 2RF Discontinued 2 tirzepatide (Mounjaro) Discontinued Reason: Doctor's Order 5 mg (0.5 mL) subcut QWEEK 2 mL 7RF E11.42 - Type 2 diabetes mellitus with diabetic polyneuropathy, Z79.4 - skilled nursing (current) use of insulin Coding Level of Care Code Est Pt Level 4 (73303) Add On Problem Visit Only Diagnoses Type 2 diabetes mellitus with diabetic polyneuropathy, with long-term current use of insulin E11.42; Z79.4 Diabetes mellitus complication detail: with polyneuropathy Diabetes mellitus complication status: with neurologic complications Diabetes mellitus type: type 2 Postoperative hypothyroidism E89.0 Hypothyroidism type: postoperative Polyneuropathy associated with underlying disease G63 Peripheral neuropathy type: polyneuropathy associated with underlying disease CPT Codes Details - CPT: 23546 - Glucose monitoring, continuous-physician I&R ([id number])
[2025-02-25 12:43] VITALS: BP 90/68; PULSE 97; O2SAT 96; BMI 29.3
[2025-02-25 12:55] LABS: Glucose, Whole Blood 131 mg/dL (60-115)
--- OUTSIDE RECORDS SUMMARY | 2025-02-25 16:09 | XMS_ITS | Clinical Summary ---
Author Organization [address] [facility] Address [address] [place] [address] Phone Care Team Providers Care Paving Inspector Name Role Phone Ev Mosqueda MD [...] Immunization Administration Dates Next Due Hepatitis B (Xlsmshl-H-Kpvzp , Recombivax HB-Adult) 19yo and older 02/01/2010,08/30/2008,06/17/2006 Influenza trivalent, with pr eservative (Fluzone; Afluria) 6mo and older 12/03/2014 Pneumococcal polysaccharide 23 valent (Pneumovax 23) 2yo and older 06/17/2006 Tdap Tetanus diptheria acell ular pertussis (Boostrix; Adacel) 7yo and older 05/03/2015 Surgical History Surgery Date Site/Laterality Comments CARPAL TUNNEL RELEASE PROCEDURE: [place] NEUROPLASTY &/TRANSPOS MEDIAN NRV CARPAL TUNNE; COMMENT: left CHOLECYSTECTOMY PROCEDURE: HISTORICAL CHOLECYSTECTOMY OTHER SURGICAL HISTORY PROCEDURE: [place] STRTCTC STIMJ SPI CORD PRQ SPX N/FLWD [...] 11/02/2024 8:44 AM EDT Plan of Treatment Upcoming Encounters Date Type Department Care Team (Late st Contact Info) Description 04/27/2025 2:15 PM EST Office Visit Orthopedic Surgery - [place] [id number] [address] Franco Means, JANET [address] [address] Health Maintenance Due Date Last Done Comments [...] Blood Venous blood specimen / Unknown Result [facility] Provider LAB BLOOD ORDERABLES Lay l Result * (ABNORMAL) Lipid panel (03/19/2016) LDL/HDL Ratio 4 0 - 4 Triglycerides 279(A) 0 - 150 mg/dL Cholesterol 146 0 - 200 mg/dL HDL 39(A) >=40 mg/dL LDL Cholesterol 52 0 - 100 mg/dL Blood Venous blood specimen / Unknown Result [facility] Provider LAB BLOOD ORDERABLES Lay l Result * Urine Albumin Creatinine Ratio (11/15/2015) Pathologist [facility] Urine Albumin Creatinine Ratio abstracted Result [facility] Provider HEALTH MAINTENANCE Final Result from Last 3 Months or Most Recently Relevant to Health Maintenance Insurance MEDICARE [facility] Care Teams Paving Inspector Relationship Specialty Start Date End Date Ev Mosqueda MD [address] [place] [address] PCP - General Internal Medicine 01/09/21
--- OUTSIDE RECORDS SUMMARY | 2025-02-25 16:09 | XMS_ITS | Clinical Summary ---
Author Organization [facility] Prior to 08/08/[address] [place] [id number] Care Team Providers Care Seed Corn Manager Production Name Role Phone Ev Mosqueda MD Primary Care Provider [phone] Social History Tobacco Use Types Packs/Day Years [...] age to complete this topic Care Teams Seed Corn Manager Production Relationship Specialty Start Date End Date Ev Mosqueda MD [address] [place] [address] PCP - General Internal Medicine 05/19/18
== END 2025-02-25 13:18 | disposition home or self-care (01) ==
LOC: HO.ENCR 12:17
PROVIDERS: PCP Internal Medicine; Visit Provider Student in an Organized Health Care Education/Training Program
DX: E11.42 Type 2 diabetes mellitus with diabetic polyneuropathy (principal); Z79.4 Long term (current) use of insulin; E89.0 Postprocedural hypothyroidism
CPT/HCPCS: 95251; 99214; G2211

== ENCOUNTER → 2025-02-25 12:16 | Outpatient (BNVA) | payer OTHER, SELFPAY | PROVIDERS: PCP Internal Medicine; Visit Provider Student in an Organized Health Care Education/Training Program | DX: E11.42 Type 2 diabetes mellitus with diabetic polyneuropathy (principal); E89.0 Postprocedural hypothyroidism; Z79.4 Long term (current) use of insulin; Z79.84 Long term (current) use of oral hypoglycemic drugs; Z79.899 Other long term (current) drug therapy | CPT/HCPCS: 82947; 99212 ==